=== PATIENT | male | born 1955 | race Caucasian/White ===

== ENCOUNTER → 2018-02-17 07:18 | Outpatient (CLI) | payer OTHER, SELFPAY ==
--- NOTE | 2018-02-17 07:20 | CT_ITS ---
STUDY: CT CHEST WITHOUT CONTRAST REASON FOR EXAM: Male, 62 years old. Abnormal pulmonary function test, shortness of breath RADIATION DOSAGE (If Supplied By Facility): CTDIvol = ( 20.61 ) mGy, DLP = ( 733.59 ) mGycm TECHNIQUE: Transaxial imaging was performed without the administration of intravenous contrast material. Multiplanar coronal and sagittal images were reformatted. Individualized dose optimization techniques were used for this CT. COMPARISON: None. FINDINGS: The lungs are normal. There is no demonstrated pleural abnormality. Normal heart and pericardium. Calcified pretracheal lymph node measuring 6 mm short axis. Small calcified left hilar lymph nodes. Small non-reactive mediastinal lymph nodes measuring up to 5 mm in short axis. Normal unenhanced pulmonary arteries. Normal aorta arch and descending thoracic aorta. Normal osseous structures. Liver and splenic granuloma. CT/Chest without Contrast IMPRESSION: No acute infiltrate or pleural effusion. Granulomatous changes. Electronically Signed: Amado Hess DO at 23:57 EDT , Service support ,
== END ==
PROVIDERS: Family Provider Internal Medicine; PCP Internal Medicine; Visit Provider Internal Medicine
DX: R94.2 Abnormal results of pulmonary function studies (principal)
CPT/HCPCS: 71250

== ENCOUNTER → 2018-10-27 15:43 | Outpatient (CLI) | payer MEDICARE, SELFPAY ==
--- NOTE | 2018-10-27 15:46 | CT_ITS ---
STUDY: CT ABDOMEN WITH CONTRAST REASON FOR EXAM: Male, 63 years old. Right upper quadrant pain x3-4 months. RADIATION DOSAGE (If Supplied By Facility): CTDIvol = ( 16.56 ) mGy, DLP = ( 798.69 ) mGycm TECHNIQUE: Transaxial images were obtained post I.V. administration of 100 ml of Isovue 300 contrast, and with oral contrast. Sagittal and coronal images were reconstructed. Individualized dose optimization techniques were used for this CT. COMPARISON: CT abdomen and pelvis 04/11/2016. FINDINGS: The visualized lung bases are unremarkable. The visualized portions of the heart are within normal limits. Again seen are too numerous to count calcified granulomata throughout the normal sized liver. There are coarse calcifications in a few periportal lymph nodes. The patent portal vein diameter is 13 mm. There is non-visualization of the gallbladder, which may be secondary to either contraction or a prior cholecystectomy. The diameter of the common bile duct near the pancreatic head is 4.5 mm. Normal spleen. Normal pancreas. Normal bilateral adrenal glands. No obstructing 4 mm stone seen at the lower pole of the left kidney. There are a few small nonobstructing stones of the right kidney, the largest at the lower pole measuring 3 mm. There is focal cortical thinning at the lateral pole of the left kidney. No hydronephrosis. Normal visualized stomach. Normal small intestine. There are multiple colonic diverticula consistent with diverticulosis. The appendix is visualized and appears normal. There is diffuse atherosclerotic calcification of the abdominal aorta and proximal iliac arteries, without a demonstrated aneurysm. Normal inferior vena cava. Normal retroperitoneum. Normal abdominal wall. There are diffuse degenerative changes of the visualized spine, with disc height narrowing and anterolateral osteophyte formation most prominent at L1-2. There is also 14 degree levoscoliosis and slight retrolisthesis centered at L1-2. There are early degenerative arthroses of the bilateral sacroiliac joints. CT/Abdomen WITH IV Contrast IMPRESSION: 1. Too numerous to count hepatic and splenic ossified granulomata again noted. A few calcified periportal lymph nodes are also present. 2. The gallbladder is not visualized, and presumably surgically absent. No intra or extra hepatic bile duct dilatation. 3. Nonobstructing bilateral nephrolithiasis. No hydronephrosis. There is stable focal cortical thinning at the lateral midpole of the left kidney. 4. Distal left and sigmoid colon diverticulosis without acute diverticulitis. No sign of bowel injection. The appendix is normal. 5. Diffuse aortoiliac atherosclerotic calcific plaquing. There is no demonstrated aneurysm, but the findings portend significant risk for future cardiovascular event, Abdominal Aortic Calcific Deposits Are an Important Predictor of Vascular Morbidity and Mortality; Reuben Tiwari, et al. Circulation, Jan 2001;[id number]. 6. 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 Electronically Signed: Silvano White MD at 14:02 EST , Service support ,
--- OUTSIDE RECORDS SUMMARY | 2018-12-13 21:09 | XMS RPT_ITS | Continuity of Care Document ---
:1955 Author Organization [facility] Address [address] [place] [address] Phone Care Team Providers Name Role Phone Chani BATEMAN, Val Robert Unavailable Kenny Watson Unavailable Jesús Silva Unavailable Julianna BATEMAN, Bryce Ortiz Unavailable Zenaida Palafox Unavailable Unavailable Unavailable Unavailable Problems Name Dates Details Abdominal pain (R10.9, 789.00) Comments: still pain in upper abdomen and in center back. worse after eat. after fasting or in am gone. had last few years. ? chiropactor help that ? spine compress cause issue. more of bloat feeling. feel needs to crack back. CT scan abd pelvis 7-16. cath 3-17 neg put on Norvasc ? help some and affect on esophagus.off PPI's not change, he is taking lisa, patient says he has had this pain Status: Active Abdominal pain, acute, right upper quadrant (Renamed from Acute abdominal pain in right upper quadrant) (R10.11, 789.01) Comments: when press in on liver poinpoint area very tender. on and off for years. getting worse. not sure worse since then. will be nauseated when have it and not always get when eat Status: Active Abnormal lung function test (R94.2, 794.2) Comments: moderate restriction ? related to large abd girth ? related to issue in upper right chest restricting. after loose weight then recheck spirometry and do CT scan. Status: Active LORETTA positive (R76.8, 795.79) Comments: 2009 labs work up negative. Status: Active Benign essential hypertension (I10, 401.1) Comments: stable Status: Active BMI 33.0-33.9,adult (Z68.33, V85.33) Status: Active Carotid atherosclerosis, bilateral (I65.23, 433.10) Comments: 8- bv screening mild, -18 mild-modcath normal 01-30 Status: Active Cervical spine pain (M54.2, 723.1) Comments: on and off in are of C7 have this pain radiate to front of neck and think related to sw[place]. area where get rash ? scratch subconiously or shingle or neuropathic. off aleve. tyenol and add neurotin in past ? help to dane espinoza and help and feel better after do exercises. had heart cath not heart. medrol dose rachid and mobic help. now back some diong exercise 3 days a week. ? stress talk about cymbalta change mobic to celebrex. Status: Active Costochondral pain (R07.1, 786.52) Comments: saw Dr. 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 with PT treatemtn neck pain lower rib cage and swallowing issues. he will continue home exercises. talk about cylmbalta Status: Active Diabetes (E11.9, 250.00) Comments: bydureon in past not like shot right now hgac 5.5 off meds. stillneeds to lose weight Status: Active Diverticulosis (K57.90, 562.10) Status: Active Encounter for routine history and physical exam for male (Z00.00, V70.0) Comments: 3-18 [facility] physical: colonoscopy 2011 due in 10, PSA 7-17, 6CIT /, BMI=35.3 A1C=5.5%, immunizations are up to date, PHQ-9=4 (Minimal) Status: Active Erectile dysfunction (N52.9, 607.84) Status: Active Fatty liver (K76.0, 571.8) Comments: told can go on to cirrhosis with fatty liver must loose weight test up needs liver elastography has set up 08-02-18. taslk alot about what mean how done what net step would be if positive. ? metformin will recheck hga1c Status: Active GERD (gastroesophageal reflux disease) (K21.9, 530.81) Comments: right now trying cholestyramine and help bowels esophageal mamometry show jackhammer hyertensive peristalis. Status: Active Granulomatosis (L92.9, 686.1) Comments: quantiferron gold negative ANCA's negative (no sinus issues) LORETTA and antichromatin postiive but kidneys are good and dsdna good. AMA negative for PBC with elevated liver. hep C negative. cbc good no sig ns and symptoms of lymphoma, ANTON level negative but still could be sacroid. not work with animal so not think Qfever or brucillosis. no risk for HIV. not on the drugs that can cause. Status: Active History of nephrolithiasis (Z87.442, V13.01) Comments: oxalate in urine give diet Status: Active Hyperlipidemia, unspecified (E78.5, 272.4) Comments: reviewed with patient recent tests ldl higher than want and comp really bad so will do low dose Lipitor. trig up garcia top sweet tea. Status: Active Irritable bowel syndrome (K58.9, 564.1) Comments: stable Status: Active Low testosterone level in male (R79.89, 257.2) Comments: talk about diet and Ethan Shen. talk about side effects and risk with thisl. takabout getting rid of visceral fat. labs stable at this point not want any testosterone. he wants to do natural l oose weight eat foods that are good for testosterone. energy starting come back on own. 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 joint pain better only in hands and use cream. esophagus issue better. Status: Active Memory change (R41.3, 780.93) Comments: 6CIT=22/28 too much on mind. father had alzheimers. not notice with work or life cognitive issue like dad. Status: Active Obesity, unspecified (E66.9, 278.00) Comments: was doing good then snacking alot and gain back.gain after quit smokign anddrinking 1991 was 135 then gain after Status: Active Other dysphagia (R13.19, 787.29) Comments: better [facility] working on neck issue Status: Active Psoriasis (L40.9, 696.1) Comments: think at anus and back of leg, and behind right knee. no real joint pain the cream is heping so not biopsy Status: Active Rash (R21, 782.1) 01-Jan-2010 Comments: pt gets rash on and off for years in upper back. not been bipsied ? related to granulomatosis disease or positive LORETTA. next time occurs pt willcal and get in right away for punch biopsy Status: Active Regurgitation (787.03) Comments: better with reglan will use prn. off PPI not change. tried gluten and lactose free for 2motnhs not change. lost weight and small meals and chew well still signs and symptoms some better. good in am the n after start eating bloating and gas. diarrhea better with cholestyramine. no sugar alcohols.saw Dr. briones at [facility] main. felt functional done for 20 years and belch and regurg. told small meals not t o belch and force up food and see if better.EGD and colonscopy good. [place] and manometry good. gastric emptying normal, CT with outpouching. 09/30 esophgram small HH. celiacs panel, antisclero, antijo , ceruloplasmin, EOS count, IgE, ferrithn, antism muscle, anti liver-kidney, anti ccp , RF, hepatitis panel and stool cx all neg. LORETTA postive but lupus panel negative. Status: Active Sleep apnea in adult (G47.30, 327.23) Comments: witnessed by . snore stop breathing and has to turn over. STOPBANG 5 did not do sleep study recommended. Status: Active Thoracic spine pain (M54.6, 724.1) Comments: mid with eating. see chiripactor. xray done medrol dose rachid help. Status: Active Tobacco abuse, in remission (Renamed from Tobacco dependence in remission) (F17.201, V15.82) Status: Active Vitamin D insufficiency (E55.9, 268.9) Comments: slight Status: Active Medications Name Dates Details AmLODIPine Besylate 2.5 MG Oral Tablet Active 1 qd (2.5 MG) Aspirin 81 MG Oral Tablet Delayed Release Active 1 qd (81 MG) CeleBREX 200 MG Oral Capsule 1 (one) Capsule Capsule qd for 0 days Quantity: 30 {Capsule} Refills: 3 Ordered:18-Mar-2018 Val Wilde MD, MD, Dana M Start : 10-Feb-2018 Active Comments:called into [facility] 02/10 Cholestyramine 4 GM Oral Packet 1 (one) packet qd for 0 days Quantity: 90 {Packet} Refills: 3 Ordered:21-Oct-2018 Val Wilde MD, MD, Dana M Start : 21-Oct-2018 Active Lipitor 10 MG Oral Tablet 1 (one) Tablet at night for 0 days Quantity: 90 {Tablet} Refills: 3 Ordered:21-Oct-2018 Val Wilde MD, MD, Dana M Start : 21-Oct-2018 Active Omeprazole 40 MG Oral Capsule Delayed Release 1 (one) Capsule DR qd for 0 days Quantity: 90 {Capsule} Refills: 3 Ordered:21-Oct-2018 Val Wilde MD, MD, Dana M Start : 21-Oct-2018 Active Toprol XL 50 MG Oral Tablet Extended Release 24 Hour 1 Tablet ER 24HR QD for 0 days Quantity: 90 {Tablet} Refills: 3 Ordered:21-Oct-2018 Val Wilde MD, MD, Dana M Start : 21-Oct-2018 Active Triamcinolone Acetonide 0.1 % External Cream uad Cream apply to affected area daily as needed for 0 days Quantity: 80 {Gram} Refills: 4 Ordered:09-Aug-2018 Val Wilde MD, MD, Dana M Start : 09-Aug-2018 End : 22-Jun-2017 Active Comments:Medication taken as needed. Valtrex 1 GM Oral Tablet 2 (two) Tablet Tablet bid for 2 days prn start of rash for 0 days Quantity: 8 {Tablet} Refills: 3 Ordered:18-Mar-2018 JOSÉ LUIS Spence Start : 18-Mar-2018 Active Viagra 100 MG Oral Tablet uad Tablet Tablet 1/2 to 1 prn one hour before intercourse for 0 days Quantity: 8 {Tablet} Refills: 4 Ordered:04-Feb-2017 Val Wilde MD, MD, Dana M Start : 04-Feb-2017 Active Vitamin D3 Super Strength 2000 UNIT Oral Capsule 1 (one) Capsule Capsule in am for 0 days Quantity: 30 {Capsule} Refills: 0 Ordered:26-Dec-2016 JOSÉ LUIS Spence Start : 19-Dec-2016 Active Zestoretic 20-12.5 MG Oral Tablet 1 Tablet QD for 0 days Quantity: 90 {Tablet} Refills: 3 Ordered:21-Oct-2018 Val Wilde MD, MD, Dana M Start : 21-Oct-2018 Active AndroGel Pump 20.25 MG/ACT (1.62%) Transdermal Gel 1 (one) Gel 2 PUMPS DAILY for 30 days Quantity: 1 {Bottle} Refills: 0 Ordered:03-Feb-2017 JOSÉ LUIS Spence Start : 02-Feb-2017 End : 03-Feb-2017 Inactive Comments:one bottle ASMANEX 30 METERED DOSES, 220MCG/INH (Inhalation Aerosol Powder Breath Activated) 1 Aero Pow Br Act once daily for 0 days Quantity: 1 {Aero_Pow_Br_Act} Refills: 0 Ordered:29-Apr-2011 JOSÉ LUIS Spence Start : 06-Sep-2010 End : 29-Apr-2011 Inactive BYDUREON, 2MG (Subcutaneous Suspension Reconstituted) 1 (one) For Suspension once weekly for 0 days Quantity: 1 {Each} Refills: 6 Ordered:15-Jan-2016 JOSÉ LUIS Spence Start : 01-May-2015 End : 15-Jan-2016 Inactive Comments:with needles Cefdinir 300 MG Oral Capsule 1 (one) Capsule bid for 0 days Quantity: 20 {Capsule} Refills: 0 Ordered:16-Sep-2016 Val Wilde MD, MD, Dana M Start : 16-Sep-2016 End : 16-Sep-2016 Inactive Comments:severe abd. cramping diarrhea CIPRO, 500MG (Oral Tablet) 1 Tablet bid for 10 days Quantity: 20 {Tablet} Refills: 0 Ordered:18-Dec-2011 Ramona Soria LPN Start : 18-Nov-2011 End : 28-Nov-2011 Inactive Comments:called to pharm in message 1.3.12 Dexilant 60 MG Oral Capsule Delayed Release [address] every other day for 0 days Quantity: 30 {Capsule} Refills: 6 Ordered:30-May-2016 JOSÉ LUIS Spence Start : 01-May-2015 End : 30-May-2016 Inactive ELAVIL, 25MG (Oral Tablet) Tablet QHS / HS for 0 days Quantity: 30 {Tablet} Refills: 3 Ordered:16-Feb-2008 Yudy Hernández LPN Start : 16-Feb-2008 End : 20-Jun-2008 Inactive Flagyl 500 MG Oral Tablet 1 (one) Tablet tid for 0 days Quantity: 30 {Tablet} Refills: 0 Ordered:19-Dec-2016 JOSÉ LUIS Spence Start : 16-Sep-2016 End : 19-Dec-2016 Inactive FLEXERIL, 10MG (Oral Tablet) Tablet TID/PRN for 0 days Quantity: 20 {Tablet} Refills: 1 Ordered:08-Jun-2008 JOSÉ LUIS Spence Start : 08-Jun-2008 End : 01-Aug-2008 Inactive KEFLEX, 500MG (Oral Capsule) 1 Capsule tid for 0 days Quantity: 30 {Capsule} Refills: 0 Ordered:18-Dec-2011 JOSÉ LUIS Spence Start : 29-Apr-2011 End : 18-Dec-2011 Inactive KENALOG, 0.1% (External Cream) 1 Cream bid for 0 days Quantity: 30 {Gram(s)} Refills: 0 Ordered:14-Feb-2010 JOSÉ LUIS Spence Start : 22-Jan-2010 Inactive Comments:apply sparingly to face , lower extrem and affecterd areas bid for 7 days LEVSIN/SL, 0.125MG (Sublingual Tablet Sublingual) 1 (one) Tab Sublingual QID/PRN for 0 days Quantity: 60 {Tab_Sublingual} Refills: 1 Ordered:15-Jan-2016 JOSÉ LUIS Spence Start : 06-Sep-2010 End : 15-Jan-2016 Inactive LOPRESSOR, 50MG (Oral Tablet) 1 Tablet qd for 0 days Quantity: 60 {Tablet} Refills: 4 Ordered:02-Jan-2009 JOSÉ LUIS Spence Start : 05-Jul-2009 Inactive Lyrica 75 MG Oral Capsule 1 (one) Capsule bid for 0 days Quantity: 60 {Capsule} Refills: 0 Ordered:19-Aug-2016 Chani BATEMAN, Val Waite MD, Val Robert Start : 19-Aug-2016 End : 19-Aug-2016 Inactive Comments:sixty Medrol 4 MG Oral Tablet Therapy Pack 1 (one) Milligram Milligram uad for 0 days Quantity: 1 {Package} Refills: 0 Ordered:02-Feb-2018 JOSÉ LUIS Spence Start : 06-Nov-2017 End : 02-Feb-2018 Inactive Metoclopramide HCl 10 MG Oral Tablet 1 Tablet every meal with each meal and before bed for 0 days Quantity: 120 {Tablet} Refills: 1 Ordered:19-Aug-2016 JOSÉ LUIS Spence Start : 30-May-2016 End : 19-Aug-2016 Inactive PHENERGAN, 25MG (Oral Tablet) Tablet QID/PRN for 0 days Quantity: 20 {Tablet} Refills: 0 Ordered:20-Jun-2008 JOSÉ LUIS Spence Start : 20-Jun-2008 End : 01-Aug-2008 Inactive PREVACID, 30MG (Oral Capsule Delayed Release) [address] qd for 0 days Quantity: 30 {Capsule_DR} Refills: 6 Ordered:18-Dec-2011 JOSÉ LUIS Spence Start : 18-Dec-2011 End : 18-Dec-2011 Inactive Comments:not help PROTONIX, 40MG (Oral Tablet Delayed Release) 1 (one) Tablet DR qd for 0 days Quantity: 30 {Tablet} Refills: 3 Ordered:08-Dec-2013 Sandra Warren Start : 02-Dec-2013 End : 08-Dec-2013 Inactive TOPICORT LP, 0.05% (External Cream) Cream bid for 0 days Quantity: 1 {Cream} Refills: 0 Ordered:14-Feb-2010 JOSÉ LUIS Spence Start : 01-Jan-2010 Inactive VOLTAREN, 1% (Transdermal Gel) 1 Gel UAD for 0 days Quantity: 1 {Gel} Refills: 0 Ordered:29-Apr-2011 JOSÉ LUIS Spence Start : 16-Dec-2010 End : 29-Apr-2011 Inactive XYZAL, 5MG (Oral Tablet) 1 Tablet daily for 0 days Quantity: 30 {Tablet} Refills: 0 Ordered:29-Apr-2011 JOSÉ LUIS Spence Start : 06-Sep-2010 End : 29-Apr-2011 Inactive ZITHROMAX Z-RACHID, 250MG (Oral Tablet) 1 Tablet uad for 0 days Refills: 0 Ordered:08-Jan-2009 JOSÉ LUIS Spence Start : 08-Jan-2009 End : 25-Apr-2009 Inactive ZOSTAVAX, 19432LZP/0.65ML (Subcutaneous Solution Reconstituted) 1 For Solution For Solution once SC for 0 days Quantity: 1 {For_Solution} Refills: 0 Ordered:15-Jan-2016 JOSÉ LUIS Spence Start : 28-Mar-2014 End : 15-Jan-2016 Inactive ERYTHROMYCIN ESTOLATE, 250MG/5ML (Oral Suspension) Suspension 5 cc with meals prn for 0 days Quantity: 180 {Milliliter} Refills: 0 Ordered:05-Jul-2009 Yudy Hernández LPN Start : 05-Jul-2009 End : 01-Jan-2010 Discontinued Comments:This order discontinued per [facility]. Gabapentin 300 MG Oral Capsule 1 (one) Capsule bid for 0 days Quantity: 60 {Capsule} Refills: 6 Ordered:25-May-2017 Val Wilde MD, MD, Val Robert Start : 25-May-2017 End : 06-Nov-2017 Discontinued Mobic 15 MG Oral Tablet 1 (one) Tablet in am for 0 days Quantity: 30 {Tablet} Refills: 2 Ordered:02-Feb-2018 Val Wilde MD, MD, Val Robert Start : 02-Feb-2018 End : 02-Feb-2018 Discontinued Comments:after done with silver Allergies and Adverse Reactions Name Dates Details No Known Allergies (Allergy) Onset: 25-May-2017 Status: Active No Known Drug Allergies (Allergy) Status: Active Past Medical History Name Dates Details DISEASES OF THE LIVER (573.9) Status: Inactive as of 22-Sep-2013 Abdominal pain, acute, generalized (R10.84, 789.07) Comments: better with GB out. Status: Inactive as of 04-Sep-2009 Allergic rhinitis (J30.9, 477.9) Comments: really good. dexialnt help this Status: Inactive as of 22-Sep-2013 Anxiety (F41.9, 300.00) Status: Inactive as of 22-Sep-2013 BMI 30.0-30.9,adult (Z68.30, V85.30) Status: Inactive as of 22-Jun-2017 BMI 32.0-32.9,adult (Z68.32, V85.32) Status: Resolved as of 26-Jul-2018 BMI 35.0-35.9,adult (Z68.35, V85.35) Status: Inactive as of 18-Mar-2018 Bronchitis (J40, 490) Status: Resolved as of 25-Apr-2009 CAFFEINE, NOS Status: Inactive as of 14-Feb-2010 Cerumen impaction (H61.20, 380.4) Status: Inactive as of 22-Sep-2013 Chest pain (R07.9, 786.59) Comments: had 20+ years in costochondrial tenderness with back hive patch. work up [facility] and biopsy 10 yearshad stress test in past will show again. not think cardiac that needs cath. Status: Inactive as of 03-Feb-2017 Current nonsmoker (Renamed from Current non-smoker) (Z78.9, V49.89) Status: Inactive as of 22-Jun-2017 Dermatitis (L30.9, 692.9) Status: Inactive as of 22-Sep-2013 Diarrhea (R19.7, 787.91) Comments: marcus walden cholestyramine Status: Inactive as of 02-Feb-2018 Dysphagia, unspecified dysphagia (787.20) Status: Inactive as of 22-Sep-2013 Edema of hand (R60.0, 782.3) Comments: right hand Status: Inactive as of 28-Mar-2014 Elevated LFTs (R94.5, 790.6) Status: Inactive as of 15-Jan-2016 Encounter for hepatitis C screening test for low risk patient (Z11.59, V73.89) Status: Inactive as of 02-Feb-2017 Encounter for hepatitis C virus screening test for high risk patient (Z11.59, V73.89) Status: Resolved as of 03-Jun-2018 Fatigue (R53.83, 780.79) Status: Inactive as of 22-Sep-2013 Flu-like symptoms (R68.89, 780.99) Status: Inactive as of 02-Feb-2018 Impaired Fasting Glucose (Renamed from Elevated fasting blood sugar) (R73.01, 790.21) Comments: talk about sugar and will cut out. Status: Inactive as of 03-Feb-2017 LBP Status: Resolved as of 25-Apr-2009 Low back pain without sciatica, unspecified back pain laterality (724.2) Status: Inactive as of 22-Sep-2013 Metabolic syndrome (E88.81, 277.7) Status: Inactive as of 02-Feb-2018 Need for prophylactic vaccination and inoculation against influenza (Z23, V04.81) Status: Inactive as of 22-Sep-2013 Need for prophylactic vaccination and inoculation against influenza (Renamed from Need for immunization against influenza) (Z23, V04.81) Status: Resolved as of 02-Feb-2018 Need for Tdap vaccination (Renamed from Need for atprlqwryf-enbewwx-yrvvnggrd (Tdap) vaccine, adult/adolescent) (Z23, V06.1) Status: Inactive as of 19-Dec-2016 Pain in wrist, right (719.43) Comments: 11/2 year ago wrestle with grandson and bend back gettin g btter now watn to doanything yet going on vacation and when back if golf stil off than will get xray and to orthosx. Status: Inactive as of 15-Jan-2016 Rib pain on right side (R07.81, 786.50) Comments: xry negative Status: Inactive as of 02-Feb-2018 Screening PSA (prostate specific antigen) (Z12.5, V76.44) Status: Inactive as of 03-Feb-2017 Sebaceous cyst (L72.3, 706.2) Comments: looks much better repacked it. Status: Inactive as of 03-Feb-2017 SOB (shortness of breath) on exertion (R06.02, 786.05) Status: Inactive as of 22-Sep-2013 Stiffness of joint, not elsewhere classified, involving other specified sites (M25.60, 719.58) Status: Inactive as of 28-Mar-2014 Temperature intolerance (R68.89, 780.99) Status: Inactive as of 25-May-2017 Unspecified Diagnosis Status: Inactive as of 28-Mar-2014 Unspecified Diagnosis Status: Inactive as of 22-Sep-2013 WRIST PAIN Comments: Right - 780.99 Status: Inactive as of 14-Feb-2010 Procedures Procedure Dates Details cholecystectomy 2000 Completed Hemorrhoidectomy Completed Comments: x2 Tonsillectomy Completed Date Value Details 27-Oct-2018 Abdomen WITH IV Contrast Result: Comments: See Note; NOTES: [facility] Imaging Services [address] [place] [address] Abdomen WITH IV Contrast MR#: [id number] Acct: [id number] Name: FIONA LLOYD Rep #: [id number] : 1955 Jakob 63 From: Jett White MD PCP: Val Wilde MD Status: REG CLI Study: Abdomen WITH IV Contrast Date of Exam: 10/27/18 Exam# [id number] Ordering Dr: Val Wilde MD STUDY: CT ABD OMEN WITH CONTRAST REASON FOR EXAM: Male, 63 years old. Right upper quadrant pain x3-4 months. RADIATION DOSAGE (If Supplied By Facility): CTDIvol = ( 16.56 ) mGy, DLP = ( 798.69 ) mGycm TECHNIQUE: T ransaxial images were obtained post I.V. administration of 100 ml of Isovue 300 contrast, and with oral contrast. Sagittal and coronal images were reconstructed. Individualized dose optimization techni ques were used for this CT. COMPARISON: CT abdomen and pelvis 04/11/2016. FINDINGS: The visualized lung bases are unremarkable. The visualized portions of the heart are within normal limits. Again seen are too numerous to count calcified granulomata throughout the normal sized liver. There are coarse calcifications in a few periportal lymph nodes. The patent braulio l vein diameter is 13 mm. There is non-visualization of the gallbladder, which may be secondary to either contraction or a prior cholecystectomy. The diameter of the common bile duct near the pancreatic head is 4.5 mm. Normal spleen. Normal pancreas. Normal bilateral adrenal glands. No obstructing 4 mm stone seen at the lower pole of the left kidney. There are a few small nonobstructing stones of th e right kidney, the largest at the lower pole measuring 3 mm. There is focal cortical thinning at the lateral pole of the left kidney. No hydronephrosis. Normal visualized stomach. Normal small intesti ne. There are multiple colonic diverticula consistent with diverticulosis. The appendix is visualized and appears normal. There is diffuse atherosclerotic calcification of the abdominal aorta and proxi mal iliac arteries, without a demonstrated aneurysm. Normal inferior vena cava. Normal retroperitoneum. Normal abdominal wall. There are diffuse degenerative changes of the visualized spine, with disc height narrowing and anterolateral osteophyte formation most prominent at L1-2. There is also 14 degree levoscoliosis and slight retrolisthesis centered at L1- 2. There are early degenerative arthroses o f the bilateral sacroiliac joints. CT/Abdomen WITH IV Contrast IMPRESSION: 1. Too numerous to count hepatic and splenic ossified granulomata agai n noted. A few calcified periportal lymph nodes are also present. 2. The gallbladder is not visualized, and presumably surgically absent. No intra or extra hepatic bile duct dilatation. 3. Nonobstructin g bilateral nephrolithiasis. No hydronephrosis. There is stable focal cortical thinning at the lateral midpole of the left kidney. 4. Distal left and sigmoid colon diverticulosis without acute diverticu litis. No sign of bowel injection. The appendix is normal. 5. Diffuse aortoiliac atherosclerotic calcific plaquing. There is no demonstrated aneurysm, but the findings portend significant risk for futur e cardiovascular event, Abdominal Aortic Calcific Deposits Are an Important Predictor of Vascular Morbidity and Mortality; Reuben Tiwari, et al. Circulation, Jan 2001;103:1529-153 4. 6. 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 Electronically Signed: Silvano White MD at 14:02 EST , Service support , Fax CC: Val Wilde MD Document Design Specialist: Signed 25-May-2017 Cerv Spine 4 or 5 Views Result: Comments: See Note; NOTES: [facility] Imaging Services [address] [place] [address] Verdaemily 4d Cerv Spine 4 or 5 Views MR#: [id number] Acct: [id number] Name: FIONA LLOYD Mary hedrick #: [id number] : 1955 M 61 From: Duane Fernandes DO PCP: Val Wilde MD Status: REG CLI Study: Cerv Spine 4 or 5 Views Date of Exam: 05/25/17 Exam# [id number] Ordering Dr: Val Widle MD STUDY : X-RAY - CERVICAL SPINE REASON FOR EXAM: Male, 61 years old. Chronic pain. TECHNIQUE: 5 view(s) of the cervical spine were obtained. COMPARISON: None FINDINGS: N ormal anterior atlantoaxial articulation. Normal odontoid process. There is straightening of the normal cervical lordosis. There is multi-level endplate spondylosis. This is most marked at C5-6 and C6- 7. There is bilateral neural foraminal narrowing at C6-7. There is no evidence of acute fracture or loss of vertebral axial height. There is maintenance of normal alignment. The soft tissue structures are unremarkable. RAD/Cerv Spine 4 or 5 Views IMPRESSION: Arthrosis of the cervical spine was straightened lordosis. Electronically Signed: Jerson Fernandes DO at 11:41 EDT Tel [phone], Service support , CC: Val Wilde MD Document Design Specialist: Signed 25-May-2017 Thoracic Spine 3 Views Result: Comments: See Note; NOTES: [facility] Imaging Services [address] [place] [id number] [place] 4d Thoracic Spine 3 Views MR#: [id number] Acct: [id number] Name: FIONA LLOYD Rep #: [id number] : 1955 M 61 From: Duane Fernandes DO PCP: Val Wilde MD Status: REG CLI Study: Thoracic Spine 3 Views Date of Exam: 05/25/17 Exam# [id number] Ordering Dr: Val Wilde MD STUDY: X-RAY - THORACIC SPINE REASON FOR EXAM: Male, 61 years old. Chronic pain. TECHNIQUE: 3 view(s) of the thoracic spine were obtained. COMPARISON: None. FINDINGS: No rmal kyphosis of the thoracic spine. There is no substantial scoliosis. There is multilevel endplate spondylosis of the thoracic vertebrae. There is multilevel disc space narrowing of the thoracic spine . There is no evidence of acute fracture or loss of vertebral axial height. The soft tissue structures are unremarkable. RAD/Thoracic Spine 3 Vi ews IMPRESSION: Degenerative changes of the thoracic spine without acute fracture or dislocation. Electronically Signed: Duane Fernandes DO at 11:42 EDT Tel [phone], Service support [phone], CC: Val Wilde MD Document Design Specialist: Signed 28-Jan-2017 Cardiac Catheterization Report Result: Comments: See Note; NOTES: [facility] Medical Records Department [address] [place] [id number] Cardiac Catheterization Report MR#: [id number] Acct: [id number] Name: MELITON LLOYD Rep #: [id number] : 1955 61 From: Yovany Edwards MD PCP: Val Wilde MD Status: REG CLI Date of Procedure: 01/28/17 Procedure, left heart catheterization, left ventriculogram, coronary a rteriography Indications: Chest pain; abnormal exercise tolerance test Consent: Per patient Premedications: Versed 1 mg IV push 1 Procedure: The patient was brought to the cardiac catheterization l aboratory and laid supine on the cardiac catheterization table. The right inguinal area was prepped and draped in standard sterile fashion. 2% Xylocaine was used for local anesthesia. Using the modified Seldinger technique the right femoral artery was cannulated and a #4 Micronesian arterial sheath was placed. A #4 Micronesian JL 5 Tong left coronary artery catheter was then advanced under fluoroscopic sarah nce to the level of the central aorta or central pressure was measured recorded. This catheter was then used to engage the left coronary ostium where selective left coronary arteriography was performed in multiple views. This catheter was then exchanged over a J-tip guidewire for a #4 Micronesian 3 DRC Kg right catheter. This catheter was then advanced to the level of the central aorta were central a ortic pressure was noted. It was then used to engage the right coronary ostium where selective right coronary arteriography was performed in multiple views. This catheter was then exchanged over a J-tip guidewire for a #4 Micronesian pigtail catheter. This catheter was then advanced to the level of the central aorta with the assistance of the J-tipped guidewire prolapsed across the aortic valve into the le ft ventricle. Left ventricular pressure was measured recorded. A single plane BRODERICK left ventriculogram was performed using 30 cc of Isovue at 10 cc/s. Left ventricular pressure was measured recorded. The left heart pullback procedure was performed. All catheters and sheaths were eventually removed. Direct pressure was held to adequate hemostasis was achieved. There was no apparent bleeding, hematoma, o r complication otherwise prior to leaving the cardiac catheterization laboratory. Findings: Hemodynamics: Pre-angiographic dye load: Central aortic pressure: 140/69 mmHg Mean central aortic pressure: 98 mmHg Left ventricular pressure: 147/18 mmHg Post angiographic dye load: Central aortic pressure: 164/73 mmHg Mean central aortic pressure: 113 mmHg Left ventricular pressure: 158/24 mmHg Left vent ricle: Normal left ventricular size, wall motion, and systolic function. The estimated LVEF is 60%. Of note there are findings suggestive of concentric left ventricular hypertrophy. Left main coronary artery: This is a large vessel giving rise to the left anterior descending, left circumflex, and intermediate ramus coronary arteries. It appears to be angiographically normal. Left anterior descendi ng coronary artery: This is a large vessel which courses around the LV apex and gives rise to a small septal clay grinder system and a small diagonal branching system. The LAD system appears to be angiog raphically normal. Left circumflex coronary artery: This is a small vessel giving rise to a small obtuse marginal branch and terminating as a small vessel in the AV groove. It appears to be angiograph ically normal. Intermediate ramus coronary artery: This is a large multi-branching vessel coursing to the inferior-lateral apical areas. It appears to be angiographically normal. Right coronary arter y: This is a large dominant vessel giving rise to a small right PDA, small right AV segment, and small right posterior lateral system. It appears to be angiographically normal. Aortic valve annulus: N ormal Aortic valve: Normal Aortic root: Normal Mitral valve annulus: Normal Mitral valve: Normal Discussion: The cardiac catheterization reveals elevation of the left ventricular end-diastolic pressur e compatible decreased diastolic compliance. The left ventriculogram demonstrates overall preserved left ventricular size, wall motion, and systolic function. Coronary arteriography demonstrates angiogr aphically normal-appearing coronary arteries. At the present time the patient will continue cardiovascular risk factor evaluation and medical management. It would not be unreasonable to consider a foll ow-up transthoracic echocardiogram to evaluate his left ventricle with respect to wall thickness based upon his history of hypertension and his fluoroscopic findings. He should be considered for furthe r non-CAD evaluation of his chest discomfort. His abnormal ECG exercise tolerance test may be a false positive secondary to his hypertensive response to exercise. Final impression: 1. Elevated left ve ntricular end-diastolic pressure compatible decreased diastolic compliance 2. Left ventricle: A. Normal left ventricular size, wall motion, and systolic function B. Estimated LVEF is 60% 3. Fluoroscopi c findings suggestive of concentric left ventricular hypertrophy 3. Left main coronary artery: A. Angiographically normal 4. Left anterior descending coronary artery: A. Angiographically normal 5. Le ft circumflex coronary artery: A. Angiographically normal 6. Intermediate ramus coronary artery: A. Angiographically normal 7. Right coronary artery: A. Large dominant vessel B. Angiographically kristian l Comment: The above was discussed and reviewed with the patient and his spouse. This note was generated with Beat[employer]ation software. It may contain incorrect words, spelling, and punctuation that were not noted in checking the note before signing. 01/28/17 1244 <Electronically signed by Yovany Edwards MD> Date Yovany Edwards MD Cosigner Signature (If Indicated): Date CC: Val Wilde MD; Yovany Edwards MD Date Dictated: 01/28/17 1234 Signed 19-Jan-2017 Chest PA and Lateral Result: Comments: See Note; NOTES: [facility] Imaging Services [address] [place] [address] Verdana 4d Chest PA and Lateral MR#: [id number] Acct: [id number] Name: FIONA LLOYD Rep # : [id number] : 1955 M 61 From: Kentrell Sandoval MD PCP: Val Wilde MD Status: REG CLI Study: Chest PA and Lateral Date of Exam: 01/19/17 Exam# [id number] Ordering Dr: Yovany Edwards MD STUDY: X-RAY CHEST REASON FOR EXAM: Male, 61 years old. Preoperative exam for heart catheter. TECHNIQUE: PA and lateral views of the chest. COMPARISON: Prior comparison studies are not available for review at this time. FINDINGS: The lungs are clear and expanded. There is no demonstrated pleural abnormality. Normal size heart. There is a probably calcified left hilar node. Normal visualized pulmonary arteries. Normal visualized aortic arch and descending thoracic aorta. There is mild dextroscoliosis of the thoracic spine. Normal visualized ribs, clavicles, and genia ulders. There is no demonstrated abnormality of the visualized soft tissue structures of the upper abdomen. RAD/Chest PA and Lateral IMPRESSION: No active pulmonary disease. Electronically Signed: Kentrell Sandoval MD at 1:49 EST Tel , Service support [phone], CC: Val Wilde MD; Yovany Edwards MD Document Design Specialist: Signed 16-Jan-2017 Nuclear Stress Test - Treadmil Result: Comments: See Note; NOTES: [facility] Imaging Services [address] [place] [address] Verdana 4d Nuclear Stress Test - Treadmil MR#: [id number] Acct: [id number] Name: OLI LLOYD Rep #: [id number] : 1955 61 From: Yovany Edwards MD Primary Care: Val Wilde MD Status: REG CLI Ordering Dr: Val Wilde MD Sex: M C DATE OF SERVICE: 01/16/2017 EXERCISE TOLERANCE TEST: The patient exercised on a Bryan protocol for 8 minutes completing stage 2 and 2 minutes of stage 3, achieving a peak heart rate of 148 beats per minute (94% predicted maximum heart rate) and a pe ak blood pressure of 190/62 mmHg. The peak MET capacity was approximately 9 METs. The baseline ECG demonstrated sinus bradycardia. The peak exercise ECG was considered abnormal secondary to [address]-segment depression in leads II, III, aVF and approximately 0.[address]-segment depression in leads V4 through V6 with resolution towards baseline beginning less than 1 minute in r ecovery. There were no cardiac dysrhythmias pretest, during exercise or recovery. The functional capacity was considered good. The patient noted heartburn and indigestion&a mp;#34; at peak exercise with spontaneous improvement in recovery. The examination was discontinued secondary to chest discomfort and dyspnea. IMPRESSION: 1. Technically adequate (percent predicted ma ximum heart rate greater than 85%), exercise tolerance test. 2. Abnormal ECG exercise tolerance test: [address]-segment depression in leads II, III, aVF and approximately 0.[address] l [address]-segment depression in leads V4 through V6 with resolution towards baseline beginning less than 1 minute in recovery. 3. Nuclear images pending. MYOCARDIAL PERFUSION IMAGING STUDY: TECHNIQUE: The patient was injected with 14.1 mCi of Tc99m Cardiolite and subsequently rest SPECT Cardiolite nuclear imaging was obtained in the horizontal long, vertical long and short axes views. The patient exercis ed on a Bryan protocol for 8 minutes completing stage 2 and 2 minutes of stage 3, achieving a peak heart rate of 148 beats per minute (94% predicted maximum heart rate) and a peak blood pressure 190/62 mmHg and a peak MET capacity of approximately 9 METs. The patient was injected with 44.4 mCi of Tc99m Cardiolite and subsequently stress SPECT Cardiolite nuclear imaging was obtained in the horizontal l sunita, vertical long and short axes views. A gated Cardiolite study at peak stress was obtained. INTERPRETATION: Rest and stress SPECT Cardiolite nuclear imaging status post realignment, normalization an d attenuation correction appears to demonstrate relative uniform tracer uptake. There is end systolic thickening and brightening. The gated Cardiolite study demonstrates myocardial thickening and inward wall motion. The reported LVEF is 77%. There are no myocardial perfusion changes considered diagnostic for associated stress-induced myocardial ischemia. IMPRESSION: 1. Rest and stress SPECT Cardiolit e nuclear imaging demonstrates the appearance of relative uniform tracer uptake with no myocardial perfusion changes considered diagnostic for associated stress-induced myocardial ischemia or previous m yocardial injury/infarction. 2. The gated Cardiolite study reports an LVEF of 77%. Yovany Edwards MD T: [facility] JOB: [id number] 01/17/17 1102 <Electronically signed by Yovany Edwards MD> Date Yovany Edwards MD CC: Val Wilde MD Date Dictated: 01/16/17942 Date Transcribed: 01/16/17942 Document Design Specialist: Signed 19-Aug-2016 Ribs Unil 2V No CXR Result: Comments: See Note; NOTES: [facility] Imaging Services [address] [place] [address] Verdana 4d Ribs Unil 2V No CXR MR#: [id number] Acct: [id number] Name: LLOYDFIONA Darian Rep # : [id number] : 1955 61 From: Alejo Bonilla MD PCP: Val Wilde MD Status: REG CLI Study: Ribs Unil 2V No CXR Date of Exam: 08/19/16 Exam# [id number] Ordering Dr: Val Wilde MD STUDY: X -RAY - UNILATERAL RIBS ( RIGHT ) REASON FOR EXAM: Male, 61 years old. Pain right mid anterior ribs x years, no trauma TECHNIQUE: 4 view(s) of the ribs. COMPARISON: None. FINDINGS: Normal visualized ribs without a demonstrated fracture. The visualized lung is clear and expanded. There are degenerative changes of the spine with dextroscoliosis. There are calcifi ed lymph nodes in the left hilum RAD/Ribs Unil 2V No CXR IMPRESSION: Normal x-ray examination of the ribs. Electronically Signed: Alejo mcclain MD, FACR at 17:58 EDT , Service support [phone], CC: aVl Wilde MD Document Design Specialist: Signed 19-Aug-2016 Thoracic Spine 3 Views Result: Comments: See Note; NOTES: [facility] Imaging Services [address] [place] [address] Verdana 4d Thoracic Spine 3 Views MR#: [id number] Acct: [id number] Name: FIONA LLOYD p #: [id number] : 1955 M 61 From: Alejo Bonilla MD PCP: Val Wilde MD Status: REG CLI Study: Thoracic Spine 3 Views Date of Exam: 08/19/16 Exam# [id number] Ordering Dr: Val Wilde MD ST UDY: X-RAY - THORACIC SPINE REASON FOR EXAM: Male, 61 years old. Upper back pain, no trauma TECHNIQUE: 3 view(s) of the thoracic spine were obtained. COMPARISON: None. ____ FINDINGS: Normal kyphosis of the thoracic spine. There is no substantial scoliosis. There is multilevel endplate spondylosis of the thoracic vertebrae. There is multilevel disc space narrowing of the thoracic spine. The soft tissue structures are unremarkable. There are calcified lymph nodes in the left hilum and mediastinum. RAD/Thoraci c Spine 3 Views IMPRESSION: Thoracic spondylosis. Old granulomatous disease Electronically Signed: Alejo Bonilla MD, FACR at 17:58 EDT , Service support [phone], F ax [phone] CC: Val Wilde MD Document Design Specialist: Signed 11-Jun-2016 Abdomen/Pelvis WITH Contrast Result: Comments: See Note; NOTES: [facility] Imaging Services [address] [place] [address] Verdana 4d Abdomen/Pelvis WITH Contrast MR#: [id number] Acct: [id number] Name : FIONA LLOYD Rep #: [id number] : 1955 M 60 From: Scarlet Castillo MD PCP: Val Wilde MD Status: REG CLI Study: Abdomen/Pelvis WITH Contrast Date of Exam: 06/11/16 Exam# [id number] Orderin g Dr: Val Wilde MD STUDY: CT ABDOMEN AND PELVIS WITH CONTRAST REASON FOR EXAM: Male, 60 years old. Right upper quadrant pain RADIATION DOSAGE (If Supplied By Facility): CTDIvol = ( 16.65 ) m Gy, DLP = ( 1104.98 ) mGycm TECHNIQUE: Transaxial 3.75 mm images were obtained from the dome of the diaphragm to the symphysis pubis with oral contrast. 100 ml of Isovue 300 contrast was administer ed. Sagittal and coronal images were reconstructed. Individualized dose optimization techniques were used for this CT. COMPARISON: None. FINDINGS: The visuali zed lung bases are unremarkable. The visualized portions of the heart are within normal limits. Normal liver. There is no intra-or extrahepatic biliary ductal dilatation or choledocholithiasis. Ther e are multiple benign calcified granulomata of the liver and spleen. Normal pancreas. There are calcified lymph nodes in the braulio and along the pancreas head. Normal bilateral adrenal glands. Nor mal right kidney. Small defect in the left upper renal pole cortex with adjacent trace fluid likely scarring. There is no obstructive uropathy, obstructive renal or ureteral calculi. There is a smal l hiatal hernia. There is either changes due to burst pelvis at time of imaging or small focal outpouching at the gastric antrum and proximal duodenal level. There is no word wall thickening or adjace nt fat stranding. There is no extra luminal air or contrast. Normal small intestine. There are few scattered predominantly sigmoid and descending colonic diverticula consistent with diverticulosis. T he appendix is visualized and appears normal. Image 62-73 series 1002. There is atherosclerosis of the abdominal aorta, greater branches and pelvic arteries without aneurysm or leak. Normal inferior vena cava. Normal retroperitoneum. Normal urinary bladder. Normal abdominal wall. There are diffuse degenerative changes of the visualized lumbar spine. Mild retrolisthesis L1 on L2. CC: Val Wilde MD Document Design Specialist: Signed 11-Jun-2016 Abdomen/Pelvis WITH Contrast Result: Comments: See Note; NOTES: [facility] Imaging Services [address] [place] [address] Verdana 4d Abdomen/Pelvis WITH Contrast MR#: [id number] Acct: [id number] Name : FIONA LLOYD Rep #: [id number] : 1955 60 From: Scarlet Castillo MD PCP: Val Wilde MD Status: REG CLI Study: Abdomen/Pelvis WITH Contrast Date of Exam: 06/11/16 Exam# [id number] Treva gro[address] Dr: Val Wilde MD STUDY: CT ABDOMEN AND PELVIS WITH CONTRAST REASON FOR EXAM: Male, 60 years old. Right upper quadrant pain RADIATION DOSAGE (If Supplied By Facility): CTDIvol = ( 16.65 ) m Gy, DLP = ( 1104.98 ) mGycm TECHNIQUE: Transaxial 3.75 mm images were obtained from the dome of the diaphragm to the symphysis pubis with oral contrast. 100 ml of Isovue 300 contrast was administer ed. Sagittal and coronal images were reconstructed. Individualized dose optimization techniques were used for this CT. COMPARISON: None. FINDINGS: The visuali zed lung bases are unremarkable. The visualized portions of the heart are within normal limits. Normal liver. There is no intra-or extrahepatic biliary ductal dilatation or choledocholithiasis. Ther e are multiple benign calcified granulomata of the liver and spleen. Normal pancreas. There are calcified lymph nodes in the braulio and along the pancreas head. Normal bilateral adrenal glands. Nor mal right kidney. Small defect in the left upper renal pole cortex with adjacent trace fluid likely scarring. There is no obstructive uropathy, obstructive renal or ureteral calculi. There is a smal l hiatal hernia. There is either changes due to burst pelvis at time of imaging or small focal outpouching at the gastric antrum and proximal duodenal level. There is no word wall thickening or adjace nt fat stranding. There is no extra luminal air or contrast. Normal small intestine. There are few scattered predominantly sigmoid and descending colonic diverticula consistent with diverticulosis. T he appendix is visualized and appears normal. Image 62-73 series 1002. There is atherosclerosis of the abdominal aorta, greater branches and pelvic arteries without aneurysm or leak. Normal inferior vena cava. Normal retroperitoneum. Normal urinary bladder. Normal abdominal wall. There are diffuse degenerative changes of the visualized lumbar spine. Mild retrolisthesis L1 on L2. CC: Val Wilde MD Document Design Specialist: Signed 11-Jun-2016 Abdomen/Pelvis WITH Contrast Result: Comments: See Note; NOTES: [facility] Imaging Services [address] [place] [address] Verdana 4d Abdomen/Pelvis WITH Contrast MR#: [id number] Acct: [id number] Name : FIONA LLOYD Rep #: [id number] : 1955 M 60 From: Scarlet Castillo MD PCP: Val Wilde MD Status: REG CLI Study: Abdomen/Pelvis WITH Contrast Date of Exam: 06/11/16 Exam# [id number] Treva gro[address] Dr: Val Wilde MD STUDY: CT ABDOMEN AND PELVIS WITH CONTRAST REASON FOR EXAM: Male, 60 years old. Right upper quadrant pain RADIATION DOSAGE (If Supplied By Facility): CTDIvol = ( 16.65 ) m Gy, DLP = ( 1104.98 ) mGycm TECHNIQUE: Transaxial 3.75 mm images were obtained from the dome of the diaphragm to the symphysis pubis with oral contrast. 100 ml of Isovue 300 contrast was administer ed. Sagittal and coronal images were reconstructed. Individualized dose optimization techniques were used for this CT. COMPARISON: None. FINDINGS: The visuali zed lung bases are unremarkable. The visualized portions of the heart are within normal limits. Normal liver. There is no intra-or extrahepatic biliary ductal dilatation or choledocholithiasis. Ther e are multiple benign calcified granulomata of the liver and spleen. Normal pancreas. There are calcified lymph nodes in the braulio and along the pancreas head. Normal bilateral adrenal glands. Nor mal right kidney. Small defect in the left upper renal pole cortex with adjacent trace fluid likely scarring. There is no obstructive uropathy, obstructive renal or ureteral calculi. There is a smal l hiatal hernia. There is either changes due to burst pelvis at time of imaging or small focal outpouching at the gastric antrum and proximal duodenal level. There is no word wall thickening or adjace nt fat stranding. There is no extra luminal air or contrast. Normal small intestine. There are few scattered predominantly sigmoid and descending colonic diverticula consistent with diverticulosis. T he appendix is visualized and appears normal. Image 62-73 series 1002. There is atherosclerosis of the abdominal aorta, greater branches and pelvic arteries without aneurysm or leak. Normal inferior vena cava. Normal retroperitoneum. Normal urinary bladder. Normal abdominal wall. There are diffuse degenerative changes of the visualized lumbar spine. Mild retrolisthesis L1 on L2. CT/Abdomen/Pelvis WITH Contrast IMPRESSION: 1. Gallbladder is not visualized. Correlation to prior surgical history recommended. 2. Possible peristals is the time of imaging versus outpouching along the chest again from and proximal duodenum. No sign of perforation or ulceration noted. This can be further assessed with upper GI or endoscopy. 3. The re is no appendicitis, colitis, diverticulitis, ascites, abscess, collection, perforation or obstruction. 4. There is old granulomatous disease. 5. Colonic diverticulosis, small hiatal hernia, left u pper renal pole scarring, atherosclerosis, degenerative changes felt to be nonacute findings. Electronically Signed: Scarlet Castillo MD at 0:03 EDT , Service support , CC: Val Wilde MD Document Design Specialist: Signed 04-Jun-2016 Gastric Emptying Study Result: Comments: See Note; NOTES: [facility] Imaging Services [address] [place] [address] Verdana 4d Gastric Emptying Study MR#: [id number] Acct: [id number] Name: FIONA PADILLA Rep #: [id number] : 1955 M 60 From: Norm Brennan DO PCP: Val Wilde MD Status: REG CLI Study: Gastric Emptying Study Date of Exam: 06/04/16 Exam# [id number] Ordering Dr: Val Wilde MD CLINICAL: 60-year-old male with reported history of abdominal pain and nausea. SEMI-SOLID PHASE Tc SULFUR COLLOID GASTRIC EMPTYING STUDY COMPARISON: None available FINDINGS: The p atient was administered 1.1 mCi of Tc sulfur colloid mixed with oatmeal and consumed per os. Image acquisitions in the anterior-posterior projections were obtained for 60 minutes. There is prompt visu alization of the stomach. There is no gastroesophageal reflux identified. The T1/2 linear fit was calculated to be 29.0 minutes, (Normal: 12-56 minutes). IMPRESSION: 1. NORMAL Tc sulfur colloid sophy i-solid phase (oatmeal) gastric emptying imaging examination. A. There is normal and preserved semi-solid phase gastric emptying compared to normal controls. (Amberly cooley al, J Nucl Med Tech 38: 186, 2010). Electronically Signed: Norm Brennan DO at 21:11 EDT Tel , Service support [phone], CC: Val Wilde MD Document Design Specialist: Signed 28-Sep-2015 Esophagus Only Result: Comments: See Note; NOTES: [facility] Imaging Services [address] [place] [address] Cricketdana 4d Esophagus Only MR#: [id number] Acct: [id number] Name: FIONA LLOYD Rep #: [id number] : 1955 M 60 From: Javon Lozoya MD PCP: Val Wilde MD Status: REG CLI Study: Esophagus Only Date of Exam: 09/28/15 Exam# [id number] Ordering Dr: Val Wilde MD STUDY: X-RAY - ESOPHAGUS (BARIUM SWALLOW) WITH FLUOROSCOPY REASON FOR EXAM: Male, 60 years old. Dysphagia. TECHNIQUE: Multiple view(s) of the esophagus were obtained following swallowing of andrés um. FLUOROSCOPY TIME (if supplied): (0:25) minutes/seconds COMPARISON: None. FINDINGS: There is no demonstrated esophageal foreign body. There is no demonstra wilmer stricture or mucosal abnormality. There is a small hiatal hernia of the fundus of the stomach. There is no evidence of gastroesophageal reflux. The patient ingested a 12 mm tablet of barium witho ut any difficulty. There is atherosclerotic calcification of the aortic arch with tortuosity of the descending aorta. Normal visualized pulmonary parenchyma. Normal visualized osseous structures of the thorax. IMPRESSION: Small sliding hiatal hernia without gastroesophageal reflux. Electronically Signed: Javon Lozoya MD at 11:18 EST T el [phone], Service support [phone], 0032 RAD/Esophagus Only IMPRESSION: Small sliding hiatal hernia without gastroesophageal reflux. Electronically Signed : Javon Lozoya MD at 11:18 EST Tel [phone], Service support [phone], CC: Val Wilde MD Document Design Specialist: Signed 25-Sep-2015 ELECTROCARDIOGRAM, COMPLETE (ECG) (53403) Result: [MEASUREMENTS ANALYSIS] Date of Test: 09/25/2015 09:11:08; Heart Rate: 65; ND Interval: 172; QRS: 112; QT Interval: 398; Corrected QT Interval (QTc): 406; P [place]: 39; QRS [place]: 74; T [place] : 43; Blood Pressure: 130/80 [ECG DIAGNOSTIC STATEMENTS] Date of Test: 09/25/2015 09:11:08; Summary: Sinus Rhythm WITHIN NORMAL LIMITS 26-Sep-2013 Hand Min 3 Views Result: Comments: See Note; NOTES: [facility] Imaging Services [address] [place] [address] Radiology Report MR#: [id number] Acct: [id number] Name: FIONA LLOYD Rep #: [id number] : 1955 M 58 From: Javon Lozoya MD PCP: Val Wilde MD Status: REG CLI Study: Hand Min 3 Views Date of Exam: 09/26/13 Exam# [id number] Ordering Dr: Val Wilde MD STUDY: X-RA Y - RIGHT HAND REASON FOR EXAM: Male, 58 years old. Swelling. TECHNIQUE: 3 view(s) of the hand. COMPARISON: None. FINDINGS: Normal visualized carpal bones a nd carpal articulations. Degenerative changes at the distal radial ulnar joint. There is degenerative arthrosis of the carpometacarpal (CMC) articulation of the thumb. Normal second through fifth ca rpometacarpal joints. Normal metacarpi. Joint space narrowing and degenerative changes at the second and third metacarpal phalangeal joints. Normal visualized phalanges and interphalangeal joints. Soft tissue swelling. IMPRESSION: Degenerative changes. Soft tissue swelling. Signed: Javon Lozoya M.D. September 26, 2013 at 10:51:49 AM EST [phone] Electronically Signed GP/GP If you are the referring physician and would like to consult with the radiologist who provided this interpretation, please contact Javon Lozoya M.D. at [phone]. If this radiologist is unavailable, you will be directed to another radiologist to assist. If you are a patient with a question regarding this report, please contact your referring physi jimmy directly. Professional Interpretation Provided By: [employer], Phone , These documents contain legally protected and confidential health information intended on ly for the use of the individual or entity named above. If you are not the intended recipient, you are hereby notified that any disclosure, copying, distribution, or other use of these documents is s trictly prohibited. If you have received this information in error, please notify the sender immediately and arrange for the return or destruction of these documents. CC: Val Wilde MD Document Design Specialist: Signed Immunization Name Dates Details Zoster (shingles) Comments: once at pharmacy around 58 yo Family History Unknown Family Member Name Dates Details Brother 1 Comments: healthy younger Status: Active Father Comments: Alzheimer's 71 yo, HTN Status: Active Maternal Grandfather Comments: 70's Status: Active Maternal Grandmother Comments: young of gas leak accident Status: Active Mother Comments: heart disease ? start , [place] at 65 yo. 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 Status: Active Smoking Status Name Dates Details Former smoker Vital Signs Date Test Result Details 21-Oct-20188:28 Temperature 96.8 f Comments: Method: Temporal Pulse 76 /min Comments: Pattern: Regular Respiration Rate 16 /min Comments: Pattern: Unlabored O2 SAT 98 % Comments: Room air BP Systolic 118 mm[Hg] Comments: Patient Position: Sitting; Cuff Location: Left Arm; Cuff Size: Standard BP Diastolic 86 mm[Hg] Comments: Patient Position: Sitting; Cuff Location: Left Arm; Cuff Size: Standard Weight 201 lb Height 65 in Body Mass Index Calculated 33.45 kg/m2 Body Surface Area Calculated 1.98 m2 :59 Temperature 97.9 f Comments: Method: Temporal Pulse 64 /min Comments: Pattern: Regular Respiration Rate 20 /min Comments: Pattern: Unlabored O2 SAT 97 % Comments: Room air BP Systolic 124 mm[Hg] Comments: Patient Position: Sitting; Cuff Location: Left Arm; Cuff Size: Standard BP Diastolic 80 mm[Hg] Comments: Patient Position: Sitting; Cuff Location: Left Arm; Cuff Size: Standard Weight 200 lb Height 65 in Body Mass Index Calculated 33.28 kg/m2 Body Surface Area Calculated 1.98 m2 :30 Temperature 97.6 f Comments: Method: Temporal Pulse 68 /min Comments: Pattern: Regular Respiration Rate 20 /min Comments: Pattern: Unlabored O2 SAT 97 % Comments: Room air BP Systolic 130 mm[Hg] Comments: Patient Position: Sitting; Cuff Location: Left Arm; Cuff Size: Large BP Diastolic 78 mm[Hg] Comments: Patient Position: Sitting; Cuff Location: Left Arm; Cuff Size: Large Weight 193 lb Height 65 in Body Mass Index Calculated 32.12 kg/m2 Body Surface Area Calculated 1.95 m2 :28 Temperature 98 f Comments: Method: Temporal Pulse 64 /min Comments: Pattern: Regular Respiration Rate 16 /min Comments: Pattern: Unlabored O2 SAT 97 % Comments: Room air BP Systolic 132 mm[Hg] Comments: Patient Position: Sitting; Cuff Location: Left Arm; Cuff Size: Standard BP Diastolic 84 mm[Hg] Comments: Patient Position: Sitting; Cuff Location: Left Arm; Cuff Size: Standard Weight 198 lb Height 65 in Body Mass Index Calculated 32.95 kg/m2 Body Surface Area Calculated 1.97 m2 :27 Temperature 97.8 f Comments: Method: Temporal Pulse 70 /min Comments: Pattern: Regular Respiration Rate 20 /min Comments: Pattern: Unlabored O2 SAT 97 % Comments: Room air BP Systolic 146 mm[Hg] Comments: Patient Position: Sitting; Cuff Location: Left Arm; Cuff Size: Standard BP Diastolic 86 mm[Hg] Comments: Patient Position: Sitting; Cuff Location: Left Arm; Cuff Size: Standard Weight 212 lb Height 65 in Body Mass Index Calculated 35.28 kg/m2 Body Surface Area Calculated 2.03 m2 [id number] Comments: has not had any meds today Temperature 98 f Comments: Method: Temporal Pulse 74 /min Comments: Pattern: Regular Respiration Rate 18 /min Comments: Pattern: Unlabored O2 SAT 95 % Comments: Room air BP Systolic 144 mm[Hg] Comments: Patient Position: Sitting; Cuff Location: Left Arm; Cuff Size: Large BP Diastolic 90 mm[Hg] Comments: Patient Position: Sitting; Cuff Location: Left Arm; Cuff Size: Large Weight 210 lb Height 66 in Body Mass Index Calculated 33.89 kg/m2 Body Surface Area Calculated 2.04 m2 :15 Comments: has not taken BP med Temperature 98.2 f Comments: Method: Tympanic Pulse 84 /min Comments: Pattern: Regular Respiration Rate 18 /min Comments: Pattern: Unlabored O2 SAT 96 % Comments: Room air BP Systolic 160 mm[Hg] Comments: Patient Position: Sitting; Cuff Location: Left Arm; Cuff Size: Standard BP Diastolic 96 mm[Hg] Comments: Patient Position: Sitting; Cuff Location: Left Arm; Cuff Size: Standard Weight 210 lb Height 66 in Body Mass Index Calculated 33.89 kg/m2 Body Surface Area Calculated 2.04 m2 :52 Temperature 97.9 f Comments: Method: Temporal Pulse 70 /min Comments: Pattern: Regular Respiration Rate 20 /min Comments: Pattern: Unlabored O2 SAT 97 % Comments: Room air BP Systolic 120 mm[Hg] Comments: Patient Position: Sitting; Cuff Location: Left Arm; Cuff Size: Large BP Diastolic 78 mm[Hg] Comments: Patient Position: Sitting; Cuff Location: Left Arm; Cuff Size: Large Weight 205 lb Height 66 in Body Mass Index Calculated 33.09 kg/m2 Body Surface Area Calculated 2.02 m2 :08 Temperature 97.3 f Comments: Method: Temporal Pulse 73 /min Comments: Pattern: Regular Respiration Rate 16 /min Comments: Pattern: Unlabored O2 SAT 98 % Comments: Room air BP Systolic 152 mm[Hg] Comments: Patient Position: Sitting; Cuff Location: Left Arm; Cuff Size: Standard BP Diastolic 72 mm[Hg] Comments: Patient Position: Sitting; Cuff Location: Left Arm; Cuff Size: Standard Weight 210 lb Height 66 in Body Mass Index Calculated 33.89 kg/m2 Body Surface Area Calculated 2.04 m2 :35 Temperature 97.9 f Comments: Method: Temporal Pulse 68 /min Comments: Pattern: Regular Respiration Rate 20 /min Comments: Pattern: Unlabored O2 SAT 97 % Comments: Room air BP Systolic 120 mm[Hg] Comments: Patient Position: Sitting; Cuff Location: Left Arm; Cuff Size: Standard BP Diastolic 80 mm[Hg] Comments: Patient Position: Sitting; Cuff Location: Left Arm; Cuff Size: Standard Weight 189 lb Height 66 in Body Mass Index Calculated 30.51 kg/m2 Body Surface Area Calculated 1.95 m2 :58 Temperature 97.6 f Comments: Method: Temporal Pulse 70 /min Comments: Pattern: Regular Respiration Rate 20 /min Comments: Pattern: Unlabored O2 SAT 98 % Comments: Room air BP Systolic 118 mm[Hg] Comments: Patient Position: Sitting; Cuff Location: Left Arm; Cuff Size: Standard BP Diastolic 78 mm[Hg] Comments: Patient Position: Sitting; Cuff Location: Left Arm; Cuff Size: Standard Weight 189 lb Height 66 in Body Mass Index Calculated 30.51 kg/m2 Body Surface Area Calculated 1.95 m2 :39 Temperature 97.6 f Comments: Method: Temporal Pulse 70 /min Comments: Pattern: Regular Respiration Rate 20 /min Comments: Pattern: Unlabored O2 SAT 97 % Comments: Room air BP Systolic 120 mm[Hg] Comments: Patient Position: Sitting; Cuff Location: Left Arm; Cuff Size: Large BP Diastolic 78 mm[Hg] Comments: Patient Position: Sitting; Cuff Location: Left Arm; Cuff Size: Large Weight 189 lb Height 66 in Body Mass Index Calculated 30.51 kg/m2 Body Surface Area Calculated 1.95 m2 :34 Temperature 97.6 f Comments: Method: Temporal Pulse 74 /min Comments: Pattern: Regular Respiration Rate 20 /min Comments: Pattern: Unlabored O2 SAT 95 % Comments: Room air BP Systolic 140 mm[Hg] Comments: Patient Position: Sitting; Cuff Location: Left Arm; Cuff Size: Large BP Diastolic 80 mm[Hg] Comments: Patient Position: Sitting; Cuff Location: Left Arm; Cuff Size: Large Weight 202 lb Height 69 in Body Mass Index Calculated 29.83 kg/m2 Body Surface Area Calculated 2.07 m2 :15 Temperature 97.6 f Comments: Method: Temporal Pulse 64 /min Comments: Pattern: Regular Respiration Rate 20 /min Comments: Pattern: Unlabored O2 SAT 97 % Comments: Room air BP Systolic 120 mm[Hg] Comments: Patient Position: Sitting; Cuff Location: Left Arm; Cuff Size: Standard BP Diastolic 78 mm[Hg] Comments: Patient Position: Sitting; Cuff Location: Left Arm; Cuff Size: Standard Weight 202 lb Height 69 in Body Mass Index Calculated 29.83 kg/m2 Body Surface Area Calculated 2.07 m2 :17 Temperature 97.2 f Comments: Method: Temporal Pulse 68 /min Comments: Pattern: Regular Respiration Rate 20 /min Comments: Pattern: Unlabored O2 SAT 97 % Comments: Room air BP Systolic 120 mm[Hg] Comments: Patient Position: Sitting; Cuff Location: Left Arm; Cuff Size: Large BP Diastolic 80 mm[Hg] Comments: Patient Position: Sitting; Cuff Location: Left Arm; Cuff Size: Large Weight 202 lb Height 69 in Body Mass Index Calculated 29.83 kg/m2 Body Surface Area Calculated 2.07 m2 :07 Temperature 97.6 f Comments: Method: Temporal Pulse 74 /min Comments: Pattern: Regular Respiration Rate 18 /min Comments: Pattern: Unlabored O2 SAT 97 % Comments: Room air BP Systolic 120 mm[Hg] Comments: Patient Position: Sitting; Cuff Location: Left Arm; Cuff Size: Standard BP Diastolic 78 mm[Hg] Comments: Patient Position: Sitting; Cuff Location: Left Arm; Cuff Size: Standard Weight 198 lb Height 69 in Body Mass Index Calculated 29.24 kg/m2 Body Surface Area Calculated 2.06 m2 :50 Temperature 97.4 f Comments: Method: Temporal Pulse 74 /min Comments: Pattern: Regular Respiration Rate 20 /min Comments: Pattern: Unlabored O2 SAT 97 % Comments: Room air BP Systolic 120 mm[Hg] Comments: Patient Position: Sitting; Cuff Location: Left Arm; Cuff Size: Large BP Diastolic 80 mm[Hg] Comments: Patient Position: Sitting; Cuff Location: Left Arm; Cuff Size: Large Weight 209 lb Height 69 in Body Mass Index Calculated 30.86 kg/m2 Body Surface Area Calculated 2.1 m2 :11 Temperature 98 f Comments: Method: Oral Pulse 68 /min Comments: Pattern: Regular Respiration Rate 16 /min Comments: Pattern: Unlabored O2 SAT 98 % Comments: Room air BP Systolic 130 mm[Hg] Comments: Patient Position: Sitting; Cuff Location: Left Arm; Cuff Size: Standard BP Diastolic 80 mm[Hg] Comments: Patient Position: Sitting; Cuff Location: Left Arm; Cuff Size: Standard Weight 195 lb Height 69 in Body Mass Index Calculated 28.8 kg/m2 Body Surface Area Calculated 2.04 m2 :43 Temperature 97.9 f Comments: Method: Temporal Pulse 76 /min Comments: Pattern: Regular Respiration Rate 17 /min Comments: Pattern: Unlabored O2 SAT 97 % Comments: Room air BP Systolic 134 mm[Hg] Comments: Patient Position: Sitting; Cuff Location: Left Arm; Cuff Size: Standard BP Diastolic 78 mm[Hg] Comments: Patient Position: Sitting; Cuff Location: Left Arm; Cuff Size: Standard Weight 205 lb Height 69 in Body Mass Index Calculated 30.27 kg/m2 Body Surface Area Calculated 2.09 m2 :03 Temperature 98.5 f Comments: Method: Temporal Pulse 64 /min Comments: Pattern: Regular Respiration Rate 17 /min Comments: Pattern: Unlabored O2 SAT 97 % Comments: Room air BP Systolic 132 mm[Hg] Comments: Patient Position: Sitting; Cuff Location: Left Arm; Cuff Size: Standard BP Diastolic 76 mm[Hg] Comments: Patient Position: Sitting; Cuff Location: Left Arm; Cuff Size: Standard Weight 220 lb Height 69 in Body Mass Index Calculated 32.49 kg/m2 Body Surface Area Calculated 2.15 m2 :33 Temperature 97 f Comments: Method: Oral Pulse 68 /min Comments: Pattern: Regular Respiration Rate 18 /min BP Systolic 140 mm[Hg] Comments: Patient Position: Sitting BP Diastolic 62 mm[Hg] Comments: Patient Position: Sitting Weight 208 lb Height 69 in Body Mass Index Calculated 30.72 kg/m2 Body Surface Area Calculated 2.1 m2 :02 Temperature 97.9 f Comments: Method: Oral Pulse 70 /min Comments: Pattern: Regular Respiration Rate 18 /min Comments: Pattern: Unlabored BP Systolic 120 mm[Hg] Comments: Patient Position: Sitting; Cuff Location: Left Arm; Cuff Size: Standard BP Diastolic 80 mm[Hg] Comments: Patient Position: Sitting; Cuff Location: Left Arm; Cuff Size: Standard Weight 209 lb Height 69 in Body Mass Index Calculated 30.86 kg/m2 Body Surface Area Calculated 2.1 m2 :46 Temperature 97.6 f Comments: Method: Oral Pulse 74 /min Comments: Pattern: Regular Respiration Rate 18 /min Comments: Pattern: Unlabored BP Systolic 120 mm[Hg] Comments: Patient Position: Sitting; Cuff Location: Left Arm; Cuff Size: Standard BP Diastolic 78 mm[Hg] Comments: Patient Position: Sitting; Cuff Location: Left Arm; Cuff Size: Standard Weight 193 lb Height 69 in Body Mass Index Calculated 28.5 kg/m2 Body Surface Area Calculated 2.03 m2 :17 Temperature 97.6 f Comments: Method: Temporal Pulse 78 /min Comments: Pattern: Regular Respiration Rate 16 /min Comments: Pattern: Unlabored O2 SAT 97 % Comments: Room air BP Systolic 116 mm[Hg] Comments: Patient Position: Sitting; Cuff Location: Left Arm; Cuff Size: Standard BP Diastolic 72 mm[Hg] Comments: Patient Position: Sitting; Cuff Location: Left Arm; Cuff Size: Standard Weight 210.5 lb Height 69 in Body Mass Index Calculated 31.09 kg/m2 Body Surface Area Calculated 2.11 m2 :20 Temperature 97.9 f Comments: Method: Oral Pulse 74 /min Comments: Pattern: Regular Respiration Rate 18 /min Comments: Pattern: Unlabored BP Systolic 118 mm[Hg] Comments: Patient Position: Sitting; Cuff Location: Left Arm; Cuff Size: Standard BP Diastolic 76 mm[Hg] Comments: Patient Position: Sitting; Cuff Location: Left Arm; Cuff Size: Standard Weight 208 lb Height 69 in Body Mass Index Calculated 30.72 kg/m2 Body Surface Area Calculated 2.1 m2 :03 Temperature 97.9 f Comments: Method: Oral Pulse 68 /min Comments: Pattern: Regular Respiration Rate 18 /min Comments: Pattern: Unlabored BP Systolic 110 mm[Hg] Comments: Patient Position: Sitting; Cuff Location: Left Arm; Cuff Size: Standard BP Diastolic 78 mm[Hg] Comments: Patient Position: Sitting; Cuff Location: Left Arm; Cuff Size: Standard Height 69 in :25 O2 SAT 95 % Comments: Room air :35 Temperature 97.8 f Comments: Method: Oral Pulse 68 /min Comments: Pattern: Regular Respiration Rate 20 /min Comments: Pattern: Unlabored BP Systolic 122 mm[Hg] Comments: Patient Position: Sitting; Cuff Location: Left Arm; Cuff Size: Standard BP Diastolic 80 mm[Hg] Comments: Patient Position: Sitting; Cuff Location: Left Arm; Cuff Size: Standard Height 69 in :22 Pulse 74 /min Comments: Pattern: Regular Respiration Rate 18 /min Comments: Pattern: Unlabored BP Systolic 120 mm[Hg] Comments: Patient Position: Sitting; Cuff Location: Left Arm; Cuff Size: Standard BP Diastolic 72 mm[Hg] Comments: Patient Position: Sitting; Cuff Location: Left Arm; Cuff Size: Standard :10 Pulse 78 /min Comments: Pattern: Regular Respiration Rate 18 /min Comments: Pattern: Unlabored BP Systolic 120 mm[Hg] Comments: Patient Position: Sitting; Cuff Location: Left Arm; Cuff Size: Standard BP Diastolic 68 mm[Hg] Comments: Patient Position: Sitting; Cuff Location: Left Arm; Cuff Size: Standard Weight 208 lb :59 Temperature 98.4 f Comments: Method: Oral Pulse 74 /min Comments: Pattern: Regular Respiration Rate 18 /min Comments: Pattern: Unlabored BP Systolic 126 mm[Hg] Comments: Patient Position: Sitting; Cuff Location: Left Arm; Cuff Size: Standard BP Diastolic 80 mm[Hg] Comments: Patient Position: Sitting; Cuff Location: Left Arm; Cuff Size: Standard :33 Temperature 97.9 f Comments: Method: Oral Pulse 64 /min Comments: Pattern: Regular Respiration Rate 20 /min Comments: Pattern: Unlabored BP Systolic 122 mm[Hg] Comments: Patient Position: Sitting; Cuff Location: Left Arm; Cuff Size: Large BP Diastolic 80 mm[Hg] Comments: Patient Position: Sitting; Cuff Location: Left Arm; Cuff Size: Large Weight 197.0625 lb :46 Temperature 97.4 f Comments: Method: Oral Pulse 64 /min Comments: Pattern: Regular Respiration Rate 20 /min Comments: Pattern: Unlabored BP Systolic 140 mm[Hg] Comments: Patient Position: Sitting; Cuff Location: Left Arm; Cuff Size: Large BP Diastolic 80 mm[Hg] Comments: Patient Position: Sitting; Cuff Location: Left Arm; Cuff Size: Large Weight 197.0625 lb :40 Temperature 98 f Comments: Method: Oral Pulse 70 /min Comments: Pattern: Regular Respiration Rate 16 /min Comments: Pattern: Unlabored BP Systolic 118 mm[Hg] Comments: Patient Position: Sitting; Cuff Location: Left Arm; Cuff Size: Standard BP Diastolic 78 mm[Hg] Comments: Patient Position: Sitting; Cuff Location: Left Arm; Cuff Size: Standard Weight 0 lb Height 0 in Head Circumference 0.00 cm :49 Temperature 97.8 f Comments: Method: Oral Pulse 74 /min Comments: Pattern: Regular Respiration Rate 18 /min Comments: Pattern: Unlabored BP Systolic 124 mm[Hg] Comments: Patient Position: Sitting; Cuff Location: Left Arm; Cuff Size: Standard BP Diastolic 82 mm[Hg] Comments: Patient Position: Sitting; Cuff Location: Left Arm; Cuff Size: Standard Weight 197.0625 lb Height 0 in Head Circumference 0.00 cm :25 Pulse 72 /min Comments: Pattern: Regular Respiration Rate 16 /min Comments: Pattern: Unlabored BP Systolic 126 mm[Hg] Comments: Patient Position: Sitting; Cuff Location: Left Arm; Cuff Size: Standard BP Diastolic 80 mm[Hg] Comments: Patient Position: Sitting; Cuff Location: Left Arm; Cuff Size: Standard Weight 0 lb Height 0 in Head Circumference 0.00 cm :57 Temperature 97.6 f Comments: Method: Oral Pulse 72 /min Comments: Pattern: Regular Respiration Rate 16 /min Comments: Pattern: Unlabored BP Systolic 120 mm[Hg] Comments: Patient Position: Sitting; Cuff Location: Left Arm; Cuff Size: Large BP Diastolic 80 mm[Hg] Comments: Patient Position: Sitting; Cuff Location: Left Arm; Cuff Size: Large Weight 0 lb Height 0 in Head Circumference 0.00 cm :51 Pulse 74 /min Comments: Pattern: Regular Respiration Rate 17 /min Comments: Pattern: Unlabored BP Systolic 134 mm[Hg] Comments: Patient Position: Sitting; Cuff Location: Left Arm; Cuff Size: Standard BP Diastolic 82 mm[Hg] Comments: Patient Position: Sitting; Cuff Location: Left Arm; Cuff Size: Standard Weight 197.0625 lb Height 0 in Head Circumference 0.00 cm :45 Temperature 98.2 f Comments: Method: Oral Pulse 70 /min Comments: Pattern: Regular Respiration Rate 16 /min Comments: Pattern: Unlabored BP Systolic 122 mm[Hg] Comments: Patient Position: Sitting; Cuff Location: Left Arm; Cuff Size: Standard BP Diastolic 78 mm[Hg] Comments: Patient Position: Sitting; Cuff Location: Left Arm; Cuff Size: Standard Weight 194.025 lb Height 0 in Head Circumference 0.00 cm :32 Temperature 97.5 f Comments: Method: Oral Pulse 80 /min Comments: Pattern: Regular Respiration Rate 20 /min Comments: Pattern: Unlabored BP Systolic 118 mm[Hg] Comments: Patient Position: Sitting; Cuff Location: Left Arm; Cuff Size: Large BP Diastolic 78 mm[Hg] Comments: Patient Position: Sitting; Cuff Location: Left Arm; Cuff Size: Large Weight 203 lb Height 69 in Body Mass Index Calculated 29.98 kg/m2 Body Surface Area Calculated 2.08 m2 Head Circumference 0.00 cm :28 Temperature 98.2 f Comments: Method: Oral Pulse 68 /min Comments: Pattern: Regular Respiration Rate 18 /min Comments: Pattern: Unlabored BP Systolic 122 mm[Hg] Comments: Patient Position: Sitting; Cuff Location: Left Arm; Cuff Size: Standard BP Diastolic 80 mm[Hg] Comments: Patient Position: Sitting; Cuff Location: Left Arm; Cuff Size: Standard Weight 203 lb Height 0 in Head Circumference 0.00 cm :25 Temperature 98.2 f Comments: Method: Oral Pulse 74 /min Comments: Pattern: Regular Respiration Rate 18 /min Comments: Pattern: Unlabored BP Systolic 120 mm[Hg] Comments: Patient Position: Sitting; Cuff Location: Left Arm; Cuff Size: Standard BP Diastolic 78 mm[Hg] Comments: Patient Position: Sitting; Cuff Location: Left Arm; Cuff Size: Standard Weight 207.0313 lb Height 0 in Head Circumference 0.00 cm :48 Pulse 72 /min Comments: Pattern: Regular Respiration Rate 16 /min Comments: Pattern: Unlabored BP Systolic 124 mm[Hg] Comments: Patient Position: Sitting; Cuff Location: Left Arm; Cuff Size: Standard BP Diastolic 78 mm[Hg] Comments: Patient Position: Sitting; Cuff Location: Left Arm; Cuff Size: Standard Weight 199 lb Height 69 in Body Mass Index Calculated 29.39 kg/m2 Body Surface Area Calculated 2.06 m2 Head Circumference 0.00 cm Results Date Description Value Details :47 HGB A1C ([id number]) Comments: PATIENT NOT FASTINGPERFORMED BY: KENYA [facility] [id number] [facility] [id number] Hemoglobin A1c 5.5 % (Normal) Range: 4.8-5.6 Comments: . Prediabetes: 5.7 - 6.4 Diabetes: >6.4 Glycemic control for adults with diabetes: <7.0 :47 Lipase (70796) Comments: PATIENT NOT FASTINGPERFORMED BY: LabCo [id number] [facility] [id number] Lipase 40 U/L (Normal) Range: 13-78 :47 Amylase ([id number]) Comments: PATIENT NOT FASTINGPERFORMED BY: [facility] [id number] [facility] [id number] Amylase 54 U/L (Normal) Range: 31-124 :47 METABOLIC PANEL, COMPREHENSIVE Comments: PATIENT NOT FASTINGPERFORMED BY: [facility]6370 [facility] [id number] ([id number]) ALT (SGPT) 36 [iU]/L (Normal) Range: 0-44 AST (SGOT) 34 [iU]/L (Normal) Range: 0-40 Alkaline Phosphatase 92 [iU]/L (Normal) Range: 39-117 Bilirubin, Total 0.3 mg/dL (Normal) Range: 0.0-1.2 A/G Ratio 1.6 (Normal) Range: 1.2-2.2 Globulin, Total 2.7 g/dL (Normal) Range: 1.5-4.5 Albumin 4.4 g/dL (Normal) Range: 3.6-4.8 Protein, Total 7.1 g/dL (Normal) Range: 6.0-8.5 Calcium 9.9 mg/dL (Normal) Range: 8.6-10.2 Carbon Dioxide, Total 23 mmol/L (Normal) Range: 20-29 Chloride 105 mmol/L (Normal) Range: 96-106 Potassium 4.6 mmol/L (Normal) Range: 3.5-5.2 Sodium 143 mmol/L (Normal) Range: 134-144 BUN/Creatinine Ratio 17 (Normal) Range: 10-24 eGFR If Africn Am 91 mL/min/1.73 (Normal) eGFR If NonAfricn Am 79 mL/min/1.73 (Normal) Creatinine 1.00 mg/dL (Normal) Range: 0.76-1.27 BUN 17 mg/dL (Normal) Range: 8-27 Glucose 98 mg/dL (Normal) Range: 65-99 :47 CBC with auto diff (65261) Comments: PATIENT NOT FASTINGPERFORMED BY: [facility] Dabnku7362 [facility] [id number] Immature Grans (Abs) 0.0 {x10E3/uL} Range: 0.0-0.1 (Normal) Immature Granulocytes 0 % (Normal) Baso (Absolute) 0.1 {x10E3/uL} Range: 0.0-0.2 (Normal) Eos (Absolute) 0.2 {x10E3/uL} Range: 0.0-0.4 (Normal) Monocytes(Absolute) 0.5 {x10E3/uL} Range: 0.1-0.9 (Normal) Lymphs (Absolute) 2.1 {x10E3/uL} Range: 0.7-3.1 (Normal) Neutrophils (Absolute) 3.6 {x10E3/uL} Range: 1.4-7.0 (Normal) Basos 1 % (Normal) Eos 3 % (Normal) Monocytes 8 % (Normal) Lymphs 32 % (Normal) Neutrophils 56 % (Normal) Platelets 186 {x10E3/uL} Range: 150-379 (Normal) RDW 13.8 % (Normal) Range: 12.3-15.4 MCHC 33.6 g/dL (Normal) Range: 31.5-35.7 MCH 29.8 pg (Normal) Range: 26.6-33.0 MCV 89 fL (Normal) Range: 79-97 Hematocrit 43.2 % (Normal) Range: 37.5-51.0 Hemoglobin 14.5 g/dL (Normal) Range: 13.0-17.7 RBC 4.87 {x10E6/uL} Range: 4.14-5.80 (Normal) WBC 6.4 {x10E3/uL} Range: 3.4-10.8 (Normal) Histoplasma Abs, Qn, Negative (Normal) Comments: PATIENT NOT FASTINGPERFORMED BY: BN [facility] [address]Bur[place] [id number] BY: [facility]6370 [facility] [id number] 4:03 DID 7-Xdx-674905:03 ANGTENSIN 1-CONVRT ENZYM Comments: PATIENT NOT FASTINGPERFORMED BY: [address] [id number] BY: [place] 3624070 [facility] [id number] (81441) ANTON <15 U/L (Normal) Range: 14-82 6-Fbl-173970:03 ANTIMITOCHONDRIAL AB 6650 Comments: PATIENT NOT FASTINGPERFORMED BY: [address] [id number] BY: [place] 3624070 [facility] [id number] (24891) Mitochondrial (M2) Antibody <20.0 {Units} (Normal) Range: 0.0-20.0 Comments: Negative 0.0 - 20.0 Equivocal 20.1 - 24.9 Positive >24.9 . Mitochondrial (M2) Antibodies are found in 90-96% of patients with primary biliary cirrhosis. 5-Xga-649427:03 ANCA-C (ANTI NEUTROPHIL Comments: PATIENT NOT FASTINGPERFORMED BY: [address] [id number] BY: [place] 3624070 [facility] [id number]; fu 6-15 db CYTOPLASMIC ANTIBODY) Atypical pANCA <1:20 {titer} Comments: The atypical pANCA pattern has been observed in a significantpercentage of patients with ulcerative colitis, primary sclerosingcholangitis and autoimmune hepatitis. (Normal) Perinuclear (P-ANCA) <1:20 {titer} Comments: The presence of positive fluorescence exhibiting P-ANCA or C-ANCApatterns alone is not specific for the diagnosis of Alok'sGranulomatosis (WG) or microscopic polyangiitis. Decisions about treatment sh (Normal) ould not be based solely on ANCA IFA results. TheInternational ANCA Group Consensus recommends follow up testing ofpositive sera with both ND-3 and MPO-ANCA enzyme immunoassays. Asmany as 5% serum samp les are positive only by EIA.Ref. AM J Clin Pathol 1999;111:507-513. Cytoplasmic (C-ANCA) <1:20 {titer} (Normal) Antiproteinase 3 (ND-3) Abs <3.5 U/mL (Normal) Range: 0.0-3.5 Antimyeloperoxidase (MPO) Abs <9.0 U/mL (Normal) Range: 0.0-9.0 0-Vfd-475888:09 QuantiFERON In Tube Comments: PATIENT NOT FASTINGPERFORMED BY: O_ [facility] [place]men Hnyg9127 [facility] [id number] BY: groopifyrp Dzporm7780 [facility] [id number] Interpretation: SPRCS (Normal) Comments: The QuantiFERON TB Gold (in Tube) assay is intended for use as an aidin the diagnosis of TB infection. Negative results suggest that thereis no TB infection. In patients with high suspicion of exposure, anegative test should be repeated. A positive test indicates infectionwith Mycobacterium tuberculosis. Among individuals withouttuberculosis infection, a positive test may be due to exposure Rg. kansa sii, M. szjettgai or M. marinum. On the Internet, go tocdc.gov/tb for further details. QFT TB Ag minus Nil Value <0.00 {IU/mL} (Normal) QuantiFERON Mitogen Value >10.00 {IU/mL} (Normal) QuantiFERON Nil Value 0.13 {IU/mL} (Normal) QuantiFERON TB Ag Value 0.10 {IU/mL} (Normal) QuantiFERON Criteria SPRCS (Normal) Comments: To be considered positive a specimen should have a TB Ag minus Nilvalue greater than or equal to 0.35 IU/mL and in addition the TB Agminus Nil value must be greater than or equal to 25% of the Nilvalue. There may be insufficient information in these values todifferentiate between some negative and some indeterminate testvalues. QuantiFERON TB Gold Negative (Normal) 1-Hpc-543402:09 Quantiferron gold test Comments: PATIENT NOT FASTINGPERFORMED BY: O_ [facility] Whon5674 [facility] [id number] BY: [address] [id number] (40150) QuantiFERON Incubation QINT (Normal) Comments: Incubated, testing to follow. 9-Sjj-081496:14 Systemic Lupus Profile Comments: PATIENT NOT FASTINGPERFORMED BY: [address] [id number] (59267) Anti-DNA (DS) Ab Qn 1 {IU/mL} (Normal) Range: 0-9 Comments: Negative <5 Equivocal 5 - 9 Positive >9 Sjogren's Anti-SS-B <0.2 {AI} (Normal) Range: 0.0-0.9 Sjogren's Anti-SS-A 0.3 {AI} (Normal) Range: 0.0-0.9 Antichromatin Antibodies 1.1 {AI} (Abnormal) Range: 0.0-0.9 RA Latex Turbid. <10.0 {IU/mL} (Normal) Range: 0.0-13.9 Altman Antibodies <0.2 {AI} (Normal) Range: 0.0-0.9 LOCAL INTERMODAL TRUCK DRIVER Antibodies 0.2 {AI} (Normal) Range: 0.0-0.9 7-Esx-533811:14 HEPATITIS C ANTIBODY (83755) Comments: PATIENT NOT FASTINGPERFORMED BY: [facility]6370 [facility] [id number] Hep C Virus Ab <0.1 {s/co_ratio} (Normal) Range: 0.0-0.9 Comments: Negative: < 0.8 Indeterminate: 0.8 - 0.9 Positive: > 0.9 . The CDC recommends that a positive HCV antibody result be followed up with a HCV Nucleic Acid Amplification test (715178). 3-Drw-450017:14 HEPATIC FUNCTION PANEL Comments: PATIENT NOT FASTINGPERFORMED BY: [facility]6370 [facility] [id number] (25701) ALT (SGPT) 50 [iU]/L (Abnormal) Range: 0-44 AST (SGOT) 36 [iU]/L (Normal) Range: 0-40 Alkaline Phosphatase 86 [iU]/L (Normal) Range: 39-117 Bilirubin, Direct 0.16 mg/dL (Normal) Range: 0.00-0.40 Bilirubin, Total 0.5 mg/dL (Normal) Range: 0.0-1.2 Albumin 4.7 g/dL (Normal) Range: 3.6-4.8 Protein, Total 7.8 g/dL (Normal) Range: 6.0-8.5 19-Yra-83363:44 Metabolic Panel, Comprehensive Comments: PATIENT WAS FASTINGPERFORMED BY: [facility] Jqhfmq6867 [facility] [id number] (80251) ALT (SGPT) 69 [iU]/L (Abnormal) Range: 0-44 AST (SGOT) 47 [iU]/L (Abnormal) Range: 0-40 Alkaline Phosphatase, S 82 [iU]/L (Normal) Range: 39-117 Bilirubin, Total 0.4 mg/dL (Normal) Range: 0.0-1.2 A/G Ratio 1.4 (Normal) Range: 1.2-2.2 Globulin, Total 3.0 g/dL (Normal) Range: 1.5-4.5 Albumin, Serum 4.2 g/dL (Normal) Range: 3.6-4.8 Protein, Total, Serum 7.2 g/dL (Normal) Range: 6.0-8.5 Calcium, Serum 9.6 mg/dL (Normal) Range: 8.6-10.2 Carbon Dioxide, Total 23 mmol/L (Normal) Range: 18-29 Chloride, Serum 103 mmol/L (Normal) Range: 96-106 Potassium, Serum 4.1 mmol/L (Normal) Range: 3.5-5.2 Sodium, Serum 144 mmol/L (Normal) Range: 134-144 BUN/Creatinine Ratio 15 (Normal) Range: 10-24 eGFR If Africn Am 95 mL/min/1.73 (Normal) eGFR If NonAfricn Am 82 mL/min/1.73 (Normal) Creatinine, Serum 0.97 mg/dL (Normal) Range: 0.76-1.27 BUN 15 mg/dL (Normal) Range: 8-27 Glucose, Serum 112 mg/dL (Abnormal) Range: 65-99 :44 CBC WITH MANUAL DIFF Comments: PATIENT WAS FASTINGPERFORMED BY: [employer]ixie ([employer] RehabilitationYxjcxb9177 [facility] [id number] Information: NURSE DRAW (22844) Immature Grans (Abs) 0.0 {x10E3/uL} (Normal) Range: 0.0-0.1 Immature Granulocytes 0 % (Normal) Baso (Absolute) 0.1 {x10E3/uL} (Normal) Range: 0.0-0.2 Eos (Absolute) 0.2 {x10E3/uL} (Normal) Range: 0.0-0.4 Monocytes(Absolute) 0.5 {x10E3/uL} (Normal) Range: 0.1-0.9 Lymphs (Absolute) 1.8 {x10E3/uL} (Normal) Range: 0.7-3.1 Neutrophils (Absolute) 3.4 {x10E3/uL} (Normal) Range: 1.4-7.0 Basos 1 % (Normal) Eos 4 % (Normal) Monocytes 8 % (Normal) Lymphs 29 % (Normal) Neutrophils 58 % (Normal) Platelets 179 {x10E3/uL} (Normal) Range: 150-379 RDW 13.9 % (Normal) Range: 12.3-15.4 MCHC 33.0 g/dL (Normal) Range: 31.5-35.7 MCH 29.3 pg (Normal) Range: 26.6-33.0 MCV 89 fL (Normal) Range: 79-97 Hematocrit 42.4 % (Normal) Range: 37.5-51.0 Hemoglobin 14.0 g/dL (Normal) Range: 13.0-17.7 RBC 4.78 {x10E6/uL} (Normal) Range: 4.14-5.80 WBC 6.0 {x10E3/uL} (Normal) Range: 3.4-10.8 :44 MICROALBUMIN: CREATININE RATIO Comments: PATIENT WAS FASTINGPERFORMED BY: LabCoKessler Institute for RehabilitationUlghkf5871 [facility] [id number] (46325) AND (15581) Alb/Creat Ratio 3.7 {mg/g_creat} (Normal) Range: 0.0-30.0 Albumin, Urine 7.8 ug/mL (Normal) Creatinine, Urine 212.1 mg/dL (Normal) :44 URINALYSIS (67376) Comments: PATIENT WAS FASTINGPERFORMED BY: [employer]ie ([employer] [id number] [facility] [id number] Microscopic Examination MICNIP (Normal) Comments: Microscopic not indicated and not performed. Nitrite, Urine Negative (Normal) Urobilinogen,Semi-Qn 0.2 mg/dL (Normal) Range: 0.2-1.0 Bilirubin Negative (Normal) Occult Blood Negative (Normal) Ketones Trace (Abnormal) Glucose Negative (Normal) Protein Negative (Normal) WBC Esterase Negative (Normal) Appearance Clear (Normal) Urine-Color Yellow (Normal) pH 5.0 (Normal) Range: 5.0-7.5 Specific Nelson 1.026 (Normal) Range: 1.005-1.030 53-Biv-576011:43 FLU A+B DIRECT AG, (RAPID) (28680) FLU A+B DIRECT AG, (RAPID) negative (Normal) :47 TESTOSTERONE FREE (97788) Comments: PATIENT WAS FASTINGPERFORMED BY: [employer]ie ([employer] RehabilitationJmnoma8575 [facility] [id number] BY: [employer] [id number]; fu 7-10 db Free Testosterone(Direct) 6.0 pg/mL (Abnormal) Range: 6.6-18.1 :47 CBC & PLATELETS (AUTO) Comments: PATIENT WAS FASTINGPERFORMED BY: [employer] ([employer] [id number] [facility] [id number] BY: T[employer]ie ([employer] [id number] (62882) Platelets 188 {x10E3/uL} (Normal) Range: 150-379 RDW 13.4 % (Normal) Range: 12.3-15.4 MCHC 33.3 g/dL (Normal) Range: 31.5-35.7 MCH 30.1 pg (Normal) Range: 26.6-33.0 MCV 91 fL (Normal) Range: 79-97 Hematocrit 42.7 % (Normal) Range: 37.5-51.0 Hemoglobin 14.2 g/dL (Normal) Range: 12.6-17.7 RBC 4.71 {x10E6/uL} (Normal) Range: 4.14-5.80 WBC 7.5 {x10E3/uL} (Normal) Range: 3.4-10.8 :47 ESTRADIOL (83080) Comments: PATIENT WAS FASTINGPERFORMED BY: EventKloud Wqbvfu4060 [facility] [id number] BY: [employer] ([employer] [id number] Estradiol 23.2 pg/mL (Normal) Range: 7.6-42.6 Comments: EnvironmentIQIA methodology :47 PSA (PROSTATE SPECIFIC Comments: PATIENT WAS FASTINGPERFORMED BY: Zoutons70 [facility]IDAXISCone Health [facility] [id number] BY: Tixie ([employer] [id number] ANTIGEN) (75711) Prostate Specific Ag, 0.5 ng/mL (Normal) Range: 0.0-4.0 Serum Comments: EnvironmentIQIA methodology. .According to the [place] U[employer] Association, Serum PSA shoulddecrease and remain at undetectable levels after radicalprostatectomy. The AUA defines biochemical recurrence as an initialPSA value 0.2 ng/mL or greater followed by a subsequent confirmatoryPSA value 0.2 ng/mL or greater.Values obtained with d ifferent assay methods or kits cannot be usedinterchangeably. Results cannot be interpreted as absolute evidenceof the presence or absence of malignant disease. :55 ACTH (62063) Comments: today; PATIENT NOT FASTINGPERFORMED BY: groopify Glraux8312 [place] [facility] [id number] ACTH, Plasma 24.3 pg/mL (Normal) Range: 7.2-63.3 Comments: ACTH reference interval for samples collected between 7 and 10 AM. :55 TSH (THYROID STIMULATING Comments: today; PATIENT NOT FASTINGPERFORMED BY: Zoutons70 [facility] [id number] HORMONE) (17051) TSH 1.680 {uIU/mL} (Normal) Range: 0.450-4.500 :55 PROLACTIN (59680) Comments: today; PATIENT NOT FASTINGPERFORMED BY: [facility] Lgfcgt5383 [facility] [id number] Prolactin 10.0 ng/mL (Normal) Range: 4.0-15.2 72-Lcx-307823:48 Basic Metabolic Profile (BMP) Comments: Order Date: 01/19/17Order Info: [id number] - *BMPOrder Date: 01/19/17Order Info: 0667-1 - *BMPComments: Reason:[facility] Fytotpgbaw7309 [facility] [place], [place], [id number] GAP 8 (Normal) Range: 5-15 CO2 30.0 mmol/L (Normal) Range: 21.0-32.0 CL 106 mmol/L (Normal) Range: 98-107 K 3.7 mmol/L (Normal) Range: 3.5-5.1 NA 144 mmol/L (Normal) Range: 136-145 CA 9.4 mg/dL (Normal) Range: 8.5-10.1 BUN/CRE 12.6 {RATIO} (Normal) Range: 10-20 EST GFR - AA 94 mL/min (Normal) Comments: GFR Calc EST GFR 77 mL/min (Normal) Comments: Non- GFR Calc CREAT,SERUM 1.03 mg/dL (Normal) Range: 0.70-1.30 Comments: The validity of the calculated GFR AND GFRAA in patients over70 years has not been determined. Clinical correlation isessential. BUN 13 mg/dL (Normal) Range: 7-18 GLU 129 mg/dL (Abnormal) Range: 70-110 Comments: Fasting Glucose result greater than or equal to 126 mg/dLsuggests DIABETES MELLITUS per A.D.A. criteria. 90-Eyc-521515:48 CBC-Complete Blood Cnt No Diff Comments: Order Date: 01/19/17Order Info: 0667-1 - *BMPComments: Reason:[facility] [address] [place], [address] MPV 12.4 fL (Abnormal) Range: 6.2-12.0 PLT 168 K/mm3 (Normal) Range: 150-450 RDW SD 43.0 fL (Normal) Range: 35.1-43.9 RDW CV 13.2 % (Normal) Range: 11.6-14.6 MCHC 33.3 {g/gl} (Normal) Range: 32-36 MCH 29.9 pg (Normal) Range: 27.0-32.0 MCV 89.8 fL (Normal) Range: 80-94 HCT 42.1 % (Normal) Range: 40-54 HGB 14.0 g/dL (Normal) Range: 13.0-16.5 RBC 4.69 {M/mm3} (Normal) Range: 4.6-6.2 WBC 8.1 K/mm3 (Normal) Range: 4.4-11.0 :48 Partial Thromboplast Time Comments: Order Date: 01/19/17Order Info: 6301-6 - *PT/INROrder Info: 22643-3 - *PTT-Partial Thromboplastin TimeOrder Date: 01/19/17Order Info: 0667-1 - *[facility] [address] [place], [address] PTT 28.2 s (Normal) Range: 24.1-36.2 :48 Prothrombin Time w/INR Comments: Order Date: 01/19/17Order Info: 6301-6 - *PT/INROrder Info: [id number] - *PTT-Partial Thromboplastin TimeOrder Date: 01/19/17Order Info: 0667-1 - *[facility] [address]hbsd[address] [place], [address] INR 1.0 (Normal) PROTIME 13.0 s (Normal) Range: 11.7-14.9 :03 TESTOSTERONE FREE (64935) Comments: 6-8 weeks.; PATIENT NOT FASTINGPERFORMED BY: [facility] Sldepx0123 [facility] [id number] BY: Lab[address] [id number] Free Testosterone(Direct) 4.4 pg/mL (Abnormal) Range: 6.6-18.1 7-Wzk-647965:03 FSH AND LH (40964) Comments: PATIENT NOT FASTINGPERFORMED BY: [address] [id number] BY: [address] [id number] FSH 8.6 m[iU]/mL (Normal) Range: 1.5-12.4 LH 4.7 m[iU]/mL (Normal) Range: 1.7-8.6 3-Jjj-513784:34 SEROTONIN (75855) Comments: PATIENT NOT FASTINGPERFORMED BY: [address] [id number] Information: [id number] Serotonin, Serum 92 ng/mL (Normal) Range: 21-321 3-Uic-163910:32 Vitamin B-12 (cyanocobalamin) Comments: PATIENT NOT FASTINGPERFORMED BY: [place] 3624070 [facility] [id number] BY: [address] [id number] (57263) Vitamin B12 >2000 pg/mL (Abnormal) Range: 211-946 5-Ius-843068:32 MICROALBUMIN: CREATININE Comments: PATIENT NOT FASTINGPERFORMED BY: [place] 3624070 [facility] [id number] BY: [address] [id number] RATIO (84869) AND (48638) Microalb/Creat Ratio 4.2 {mg/g_creat} (Normal) Range: 0.0-30.0 Microalbumin, Urine 7.2 ug/mL (Normal) Creatinine, Urine 172.2 mg/dL (Normal) 9-Vfo-824950:32 CALCIFIDIOL (82699) VIT D Comments: PATIENT NOT FASTINGPERFORMED BY: [address] [place] [id number] BY: NanoSightP[place] 541147 [facility] [id number] 25 Vitamin D, 25-Hydroxy 27.1 ng/mL (Abnormal) Range: 30.0-100.0 Comments: Vitamin D deficiency has been defined by the [place] of[place]icine and an Endocrine Society practice guideline as alevel of serum 25-OH vitamin D less than 20 ng/mL (1,2).The Endocrine Society went on to further define vitamin Dinsufficiency as a level between 21 and 29 ng/mL (2).1. IOM ([place] of Medicine). 2010. Dietary reference intakes for calcium and D. [place]: The National Academies Press.2. Mara MF, Luigi MERCADO, Robin SENA, et al. Evaluation, treatment, and prevention of vitamin D deficiency: an Endocrine Society clinical practice guideline. JCEM. 2010; 96(7):1911-30. 2-Xle-954473:32 C-REACT PROT HIGH Comments: PATIENT NOT FASTINGPERFORMED BY: [facility]6370 [facility] [id number] BY: [employer] [id number] SENS(hsCRP) (75432) C-Reactive Protein, Cardiac 3.93 mg/L (Abnormal) Range: 0.00-3.00 Comments: Relative Risk for Future Cardiovascular Event Low <1.00 Average 1.00 - 3.00 High >3.00 8-Xkj-032903:32 ESR-F (SED RATE Comments: PATIENT NOT FASTINGPERFORMED BY: [facility]6370 [facility] [id number] BY: [employer] [id number] ERYTHROCYTE - MALE) (49724) Sedimentation Rate-Westergren 8 mm/h (Normal) Range: 0-30 9-Uug-164161:32 SPEP (47946) Comments: PATIENT NOT FASTINGPERFORMED BY: Zoutons70 [facility] [id number] BY: BN [facility] [id number] Please note: SPRCS (Normal) Comments: Protein electrophoresis scan will follow via computer, mail, orcourier delivery. A/G Ratio 1.1 (Normal) Range: 0.7-1.7 Globulin, Total 3.6 g/dL (Normal) Range: 2.2-3.9 M-Kamari Not Observed g/dL (Normal) Gamma Globulin 1.3 g/dL (Normal) Range: 0.4-1.8 Beta Globulin 1.3 g/dL (Normal) Range: 0.7-1.3 Grzml-6-Gkearlmy 0.8 g/dL (Normal) Range: 0.4-1.0 Pnado-7-Xpslkzef 0.1 g/dL (Normal) Range: 0.0-0.4 Albumin 4.1 g/dL (Normal) Range: 2.9-4.4 Protein, Total, Serum 7.7 g/dL (Normal) Range: 6.0-8.5 0-Owq-872198:32 ANCA-C (ANTI NEUTROPHIL Comments: PATIENT NOT FASTINGPERFORMED BY: [employer]ixie ([employer] RehabilitationAtzzkx6854 [facility] [id number] BY: Tixie ([employer] [id number] CYTOPLASMIC ANTIBODY) Atypical pANCA <1:20 {titer} Comments: The atypical pANCA pattern has been observed in a significantpercentage of patients with ulcerative colitis, primary sclerosingcholangitis and autoimmune hepatitis. (Normal) Perinuclear (P-ANCA) <1:20 {titer} Comments: The presence of positive fluorescence exhibiting P-ANCA or C-ANCApatterns alone is not specific for the diagnosis of Alok'sGranulomatosis (WG) or microscopic polyangiitis. Decisions about treatment sh (Normal) ould not be based solely on ANCA IFA results. TheInternational ANCA Group Consensus recommends follow up testing ofpositive sera with both ND-3 and MPO-ANCA enzyme immunoassays. Asmany as 5% serum samp les are positive only by EIA.Ref. AM J Clin Pathol 1999;111:507-513. Cytoplasmic (C-ANCA) <1:20 {titer} (Normal) Antiproteinase 3 (ND-3) Abs <3.5 U/mL (Normal) Range: 0.0-3.5 Antimyeloperoxidase (MPO) Abs <9.0 U/mL (Normal) Range: 0.0-9.0 1-Ufi-535010:32 Systemic Lupus Profile Comments: PATIENT NOT FASTINGPERFORMED BY: Tixie ([employer] [id number] BY: [address] [id number] Information: [id number], 737931 (10941) Anti-DNA (DS) Ab Qn 1 {IU/mL} (Normal) Range: 0-9 Comments: Negative <5 Equivocal 5 - 9 Positive >9 Sjogren's Anti-SS-B <0.2 {AI} (Normal) Range: 0.0-0.9 Sjogren's Anti-SS-A <0.2 {AI} (Normal) Range: 0.0-0.9 Antichromatin Antibodies 0.6 {AI} (Normal) Range: 0.0-0.9 RA Latex Turbid. <10.0 {IU/mL} (Normal) Range: 0.0-13.9 Altman Antibodies <0.2 {AI} (Normal) Range: 0.0-0.9 LOCAL INTERMODAL TRUCK DRIVER Antibodies 0.3 {AI} (Normal) Range: 0.0-0.9 2-Nph-884632:32 TESTOSTERONE FREE (27464) Comments: PATIENT NOT FASTINGPERFORMED BY: [employer]ie ([employer] [id number] BY: [address] [id number] Free Testosterone(Direct) 5.0 pg/mL (Abnormal) Range: 6.6-18.1 1-Kec-706632:32 PSA (Prostate Specific Comments: PATIENT NOT FASTINGPERFORMED BY: [employer]ie ([employer] [id number] BY: [address] [id number] Antigen), Screening (87707) Prostate Specific Ag, 0.5 ng/mL (Normal) Range: 0.0-4.0 Serum Comments: Perez ECLIA methodology. .According to the [employer] Association, Serum PSA shoulddecrease and remain at undetectable levels after radicalprostatectomy. The AUA defines biochemical recurrence as an initialPSA value 0.2 ng/mL or greater followed by a subsequent confirmatoryPSA value 0.2 ng/mL or greater.Values obtained with d ifferent assay methods or kits cannot be usedinterchangeably. Results cannot be interpreted as absolute evidenceof the presence or absence of malignant disease. :33 OVA & PARASITE DIR SMEAR Comments: PATIENT NOT FASTINGPERFORMED BY: Zoutons70 [facility]YSTEMSSw[facility] [id number] (98340) Result 1 NOCP (Normal) Comments: No ova, cysts, or parasites seen. Ova + Parasite Exam Final report (Normal) Comments: These results were obtained using wet preparation(s) and trichromestained smear. This test does not include testing for Cryptosporidiumparvum, Cyclospora, or Microsporidia. :33 OCCULT BLOOD FECES SCREEN Comments: PATIENT NOT FASTINGPERFORMED BY: EventKloud Jxbvfj1848 [facility]YSTEMSSw[facility] Hospital [id number] (63591) Occult Blood, Fecal, IA Positive (Abnormal) 2-Gud-182180:33 LEUKOCYTE COUNT, FECAL (39894) Comments: PATIENT NOT FASTINGPERFORMED BY: EventKloud Fqeutx0188 [facility]YSTEMSSw[facility] [id number] Result 1 NWBC (Normal) Comments: No white blood cells seen. White Blood Cells (WBC), Final report (Normal) Stool 41-Oxi-010185:57 C-DIFFICILE, STOOL ([id number]) Comments: PATIENT NOT FASTINGPERFORMED BY: [employer] [facility] [id number] Sam[place] [facility] [id number] Information: SRC:ST C difficile Toxins A+B, EIA Negative (Normal) 1-Nwg-674227:33 CHI CULTURE-STOOL ([id number]) Comments: PATIENT NOT FASTINGPERFORMED BY: [employer] [facility] [id number] Samayoa [facility] [id number] Information: SRC:ST SRC:ST E coli Shiga Toxin EIA Negative (Normal) Result 1 NCI (Normal) Comments: No Campylobacter species isolated. Campylobacter Culture Final report (Normal) Result 1 NSS (Normal) Comments: No Salmonella or Shigella recovered. Salmonella/Shigella Screen Final report (Normal) 15-Wuu-34489:59 Anaerobic & Aerobic Comments: PATIENT NOT FASTINGPERFORMED BY: [address] [id number] Information: BACK SRC:WO Culture (22534) Result 1 NG36 (Normal) Comments: No growth in 36 - 48 hours. Aerobic Culture Final report (Normal) Result 1 Finegoldia magna (Abnormal) Comments: Heavy growth Anaerobic Culture Final report (Abnormal) 00-Zdq-107459:55 Serum Creatinine AND GFR Comments: [facility] [id number] [place], [place], [id number] EST GFR - AA 106 mL/min (Normal) Comments: GFR Calc EST GFR 88 mL/min (Normal) Comments: Non- GFR Calc CREAT,SERUM 0.93 mg/dL (Normal) Range: 0.70-1.30 Comments: The validity of the calculated GFR AND GFRAA in patients over70 years has not been determined. Clinical correlation isessential. [id number]-Tcz-[id number]:10 Urinalysis, Office (90778) UA - LEUKOCYTE ESTERASE Negative (Normal) UA - NITRITE Negative (Normal) URINE UROBILINGN ELIANE TIMED Normal mg/dL (Normal) UA - PROTEIN Negative mg/dL (Normal) UA - PH 6 (Abnormal) UA - BLOOD Negative (Normal) UA - SPECIFIC GRAVITY 1.025 (Normal) UA - KETONES Negative mg/dL (Normal) UA - BILIRUBIN Negative (Normal) UA - GLUCOSE Negative (Normal) 77-Rzt-698102:52 Lipid Panel (40454) Comments: PATIENT WAS FASTINGPERFORMED BY: [facility] [id number] Information: [id number] LDL/HDL Ratio 3.1 {ratio_units} (Normal) Range: 0.0-3.6 Comments: LDL/HDL Ratio Men Women 1/2 Avg.Risk 1.0 1.5 Av g.Risk 3.6 3.2 2X Avg.Risk 6.2 5.0 3X Avg.Risk 8.0 6.1 LDL Cholesterol Calc 116 mg/dL (Abnormal) Range: 0-99 VLDL Cholesterol Roel 47 mg/dL (Abnormal) Range: 5-40 HDL Cholesterol 38 mg/dL (Abnormal) Comments: According to ATP-III Guidelines, HDL-C >59 mg/dL is considered anegative risk factor for CHD. Triglycerides 234 mg/dL (Abnormal) Range: 0-149 Cholesterol, Total 201 mg/dL (Abnormal) Range: 100-199 63-Lts-685384:52 Hemoglobin Glyclated (HGB Comments: PATIENT WAS FASTINGPERFORMED BY: [facility] [id number]; fu 01-15-16 A1C) (99597) Hemoglobin A1c 5.7 % (Abnormal) Range: 4.8-5.6 Comments: . Pre-diabetes: 5.7 - 6.4 Diabetes: >6.4 Glycemic control for adults with diabetes: <7.0 :39 Microscopic Examination Comments: PATIENT NOT FASTINGPERFORMED BY: [facility] [place] [facility] [id number] Bacteria None seen (Normal) Mucus Threads Present (Normal) Epithelial Cells (non renal) 0-10 {/hpf} (Normal) Range: 0 - 10 RBC 0-2 {/hpf} (Normal) Range: 0 - 2 WBC 0-5 {/hpf} (Normal) Range: 0 - 5 :39 URINALYSIS, W/ MICRO (56347) Comments: PATIENT NOT FASTINGPERFORMED BY: [employer] [facility] [id number] Microscopic Examination See below: (Normal) Comments: Microscopic was indicated and was performed. Microscopic Examination MICRON (Normal) Comments: Microscopic follows if indicated. Nitrite, Urine Negative (Normal) Urobilinogen,Semi-Qn 0.2 mg/dL (Normal) Range: 0.2-1.0 Bilirubin Negative (Normal) Occult Blood Negative (Normal) Ketones Negative (Normal) Glucose Negative (Normal) Protein Negative (Normal) WBC Esterase Negative (Normal) Appearance Turbid (Abnormal) Urine-Color Yellow (Normal) pH 6.0 (Normal) Range: 5.0-7.5 Specific Nelson 1.029 (Normal) Range: 1.005-1.030 :39 METABOLIC PANEL, COMPREHENSIVE Comments: PATIENT NOT FASTINGPERFORMED BY: Tixie ([employer] RanchoJwbfiw3038 [facility] [id number] (25814) ALT (SGPT) 25 [iU]/L (Normal) Range: 0-44 AST (SGOT) 22 [iU]/L (Normal) Range: 0-40 Alkaline Phosphatase, S 88 [iU]/L (Normal) Range: 39-117 Bilirubin, Total 0.4 mg/dL (Normal) Range: 0.0-1.2 A/G Ratio 1.6 (Normal) Range: 1.1-2.5 Globulin, Total 2.7 g/dL (Normal) Range: 1.5-4.5 Albumin, Serum 4.2 g/dL (Normal) Range: 3.6-4.8 Protein, Total, Serum 6.9 g/dL (Normal) Range: 6.0-8.5 Calcium, Serum 9.6 mg/dL (Normal) Range: 8.6-10.2 Carbon Dioxide, Total 27 mmol/L (Normal) Range: 18-29 Chloride, Serum 101 mmol/L (Normal) Range: 97-108 Potassium, Serum 4.1 mmol/L (Normal) Range: 3.5-5.2 Sodium, Serum 144 mmol/L (Normal) Range: 134-144 BUN/Creatinine Ratio 13 (Normal) Range: 10-22 eGFR If Africn Am 87 mL/min/1.73 (Normal) eGFR If NonAfricn Am 75 mL/min/1.73 (Normal) Creatinine, Serum 1.06 mg/dL (Normal) Range: 0.76-1.27 BUN 14 mg/dL (Normal) Range: 8-27 Glucose, Serum 93 mg/dL (Normal) Range: 65-99 :39 LIPID PANEL (62108) Comments: PATIENT NOT FASTINGPERFORMED BY: [place] LLCNorth[facility] CenterZrhmek9481 [facility] [id number]; [address] LDL/HDL Ratio 3.5 {ratio_units} (Normal) Range: 0.0-3.6 Comments: LDL/HDL Ratio Men Women 1/2 Avg.Risk 1.0 1.5 Av g.Risk 3.6 3.2 2X Avg.Risk 6.2 5.0 3X Avg.Risk 8.0 6.1 LDL Cholesterol Calc 139 mg/dL (Abnormal) Range: 0-99 Comments: Please note reference interval change VLDL Cholesterol Roel 51 mg/dL (Abnormal) Range: 5-40 HDL Cholesterol 40 mg/dL (Normal) Comments: According to ATP-III Guidelines, HDL-C >59 mg/dL is considered anegative risk factor for CHD. Triglycerides 253 mg/dL (Abnormal) Range: 0-149 Comments: Please note reference interval change Cholesterol, Total 230 mg/dL (Abnormal) Range: 100-199 Comments: Please note reference interval change :39 CBC with auto diff Comments: PATIENT NOT FASTINGPERFORMED BY: [facility]CoKessler Institute for RehabilitationAptizp1831 [facility] [id number] Information: [id number] (98480) Immature Grans (Abs) 0.0 {x10E3/uL} (Normal) Range: 0.0-0.1 Immature Granulocytes 0 % (Normal) Baso (Absolute) 0.0 {x10E3/uL} (Normal) Range: 0.0-0.2 Eos (Absolute) 0.2 {x10E3/uL} (Normal) Range: 0.0-0.4 Monocytes(Absolute) 0.5 {x10E3/uL} (Normal) Range: 0.1-0.9 Lymphs (Absolute) 1.9 {x10E3/uL} (Normal) Range: 0.7-3.1 Neutrophils (Absolute) 4.0 {x10E3/uL} (Normal) Range: 1.4-7.0 Basos 1 % (Normal) Eos 3 % (Normal) Monocytes 7 % (Normal) Lymphs 29 % (Normal) Neutrophils 60 % (Normal) Platelets 214 {x10E3/uL} (Normal) Range: 150-379 RDW 14.0 % (Normal) Range: 12.3-15.4 MCHC 32.6 g/dL (Normal) Range: 31.5-35.7 MCH 28.9 pg (Normal) Range: 26.6-33.0 MCV 89 fL (Normal) Range: 79-97 Hematocrit 43.9 % (Normal) Range: 37.5-51.0 Hemoglobin 14.3 g/dL (Normal) Range: 12.6-17.7 RBC 4.95 {x10E6/uL} (Normal) Range: 4.14-5.80 WBC 6.7 {x10E3/uL} (Normal) Range: 3.4-10.8 :03 HgA1C , Office (64260) HgA1C , Office 5.7 % (Normal) Range: 4.6 - 7.1 :03 Blood Glucose , Office (35237) Blood Glucose , Office 103 (Normal) :48 PSA (PROSTATE SPECIFIC Comments: PATIENT WAS FASTINGPERFORMED BY: [employer] [facility] [id number] ANTIGEN) (V76.44) Prostate Specific Ag, 0.5 ng/mL (Normal) Range: 0.0-4.0 Serum Comments: EnvironmentIQIA methodology. .According to the Stateless U[employer] Association, Serum PSA shoulddecrease and remain at undetectable levels after radicalprostatectomy. The AUA defines biochemical recurrence as an initialPSA value 0.2 ng/mL or greater followed by a subsequent confirmatoryPSA value 0.2 ng/mL or greater.Values obtained with d ifferent assay methods or kits cannot be usedinterchangeably. Results cannot be interpreted as absolute evidenceof the presence or absence of malignant disease. :48 TSH (45446) Comments: PATIENT WAS FASTINGPERFORMED BY: Tixie ([employer] RehabilitationJmyvbn9806 [facility] [id number] TSH 0.862 {uIU/mL} (Normal) Range: 0.450-4.500 :48 MICROALBUMIN: CREATININE RATIO Comments: PATIENT WAS FASTINGPERFORMED BY: [employer] [place] [facility] [id number] (67580) AND (99353) Microalb/Creat Ratio 5.5 {mg/g_creat} (Normal) Range: 0.0-30.0 Microalbumin, Urine 11.1 ug/mL (Normal) Range: 0.0-17.0 Creatinine, Urine 201.7 mg/dL (Normal) Range: 22.0-328.0 :48 METABOLIC PANEL, COMPREHENSIVE Comments: PATIENT WAS FASTINGPERFORMED BY: [employer]70 [facility] [id number] (41417) ALT (SGPT) 53 [iU]/L (Abnormal) Range: 0-44 AST (SGOT) 35 [iU]/L (Normal) Range: 0-40 Alkaline Phosphatase, S 84 [iU]/L (Normal) Range: 39-117 Bilirubin, Total 0.4 mg/dL (Normal) Range: 0.0-1.2 A/G Ratio 1.8 (Normal) Range: 1.1-2.5 Globulin, Total 2.5 g/dL (Normal) Range: 1.5-4.5 Albumin, Serum 4.6 g/dL (Normal) Range: 3.6-4.8 Protein, Total, Serum 7.1 g/dL (Normal) Range: 6.0-8.5 Calcium, Serum 10.2 mg/dL (Normal) Range: 8.6-10.2 Carbon Dioxide, Total 26 mmol/L (Normal) Range: 18-29 Chloride, Serum 99 mmol/L (Normal) Range: 97-108 Potassium, Serum 4.9 mmol/L (Normal) Range: 3.5-5.2 Sodium, Serum 142 mmol/L (Normal) Range: 134-144 BUN/Creatinine Ratio 19 (Normal) Range: 10-22 eGFR If Africn Am 102 mL/min/1.73 (Normal) eGFR If NonAfricn Am 88 mL/min/1.73 (Normal) Creatinine, Serum 0.93 mg/dL (Normal) Range: 0.76-1.27 BUN 18 mg/dL (Normal) Range: 8-27 Glucose, Serum 103 mg/dL (Abnormal) Range: 65-99 :48 LIPID PANEL (55695) Comments: PATIENT WAS FASTINGPERFORMED BY: [facility]6370 [facility] [id number] LDL/HDL Ratio 3.7 {ratio_units} (Abnormal) Range: 0.0-3.6 Comments: LDL/HDL Ratio Men Women 1/2 Avg.Risk 1.0 1.5 Av g.Risk 3.6 3.2 2X Avg.Risk 6.2 5.0 3X Avg.Risk 8.0 6.1 LDL Cholesterol Calc 131 mg/dL (Abnormal) Range: 0-99 VLDL Cholesterol Roel 70 mg/dL (Abnormal) Range: 5-40 HDL Cholesterol 35 mg/dL (Abnormal) Comments: According to ATP-III Guidelines, HDL-C >59 mg/dL is considered anegative risk factor for CHD. Triglycerides 351 mg/dL (Abnormal) Range: 0-149 Cholesterol, Total 236 mg/dL (Abnormal) Range: 100-199 69-Cfn-42849:48 CBC W/AUTO DIFF WBC Comments: PATIENT WAS FASTINGPERFORMED BY: [facility]CoKessler Institute for RehabilitationLmoupe2580 [facility] [id number] Information: [id number] (98353) Immature Grans (Abs) 0.0 {x10E3/uL} (Normal) Range: 0.0-0.1 Immature Granulocytes 0 % (Normal) Baso (Absolute) 0.0 {x10E3/uL} (Normal) Range: 0.0-0.2 Eos (Absolute) 0.2 {x10E3/uL} (Normal) Range: 0.0-0.4 Monocytes(Absolute) 0.5 {x10E3/uL} (Normal) Range: 0.1-0.9 Lymphs (Absolute) 1.9 {x10E3/uL} (Normal) Range: 0.7-3.1 Neutrophils (Absolute) 3.8 {x10E3/uL} (Normal) Range: 1.4-7.0 Basos 1 % (Normal) Eos 4 % (Normal) Monocytes 7 % (Normal) Lymphs 30 % (Normal) Neutrophils 58 % (Normal) Platelets 195 {x10E3/uL} (Normal) Range: 150-379 RDW 14.0 % (Normal) Range: 12.3-15.4 MCHC 34.4 g/dL (Normal) Range: 31.5-35.7 MCH 29.8 pg (Normal) Range: 26.6-33.0 MCV 87 fL (Normal) Range: 79-97 Hematocrit 42.7 % (Normal) Range: 37.5-51.0 Hemoglobin 14.7 g/dL (Normal) Range: 12.6-17.7 RBC 4.93 {x10E6/uL} (Normal) Range: 4.14-5.80 WBC 6.4 {x10E3/uL} (Normal) Range: 3.4-10.8 :52 HgA1C , Office (85359) HgA1C , Office 5.7 % (Normal) Range: 4.6 - 7.1 :13 METABOLIC PANEL, Comments: PATIENT WAS FASTINGPERFORMED BY: LabCoKessler Institute for RehabilitationVkqvlv4601 [facility] [id number] Information: [id number] COMPREHENSIVE (14094) ALT (SGPT) 26 [iU]/L (Normal) Range: 0-44 AST (SGOT) 23 [iU]/L (Normal) Range: 0-40 Alkaline Phosphatase, S 83 [iU]/L (Normal) Range: 39-117 Bilirubin, Total 0.4 mg/dL (Normal) Range: 0.0-1.2 A/G Ratio 1.7 (Normal) Range: 1.1-2.5 Globulin, Total 2.6 g/dL (Normal) Range: 1.5-4.5 Albumin, Serum 4.3 g/dL (Normal) Range: 3.6-4.8 Protein, Total, Serum 6.9 g/dL (Normal) Range: 6.0-8.5 Calcium, Serum 9.6 mg/dL (Normal) Range: 8.6-10.2 Carbon Dioxide, Total 26 mmol/L (Normal) Range: 18-29 Chloride, Serum 102 mmol/L (Normal) Range: 97-108 Potassium, Serum 4.4 mmol/L (Normal) Range: 3.5-5.2 Sodium, Serum 142 mmol/L (Normal) Range: 134-144 BUN/Creatinine Ratio 21 (Normal) Range: 10-22 eGFR If Africn Am 106 mL/min/1.73 (Normal) eGFR If NonAfricn Am 92 mL/min/1.73 (Normal) Creatinine, Serum 0.90 mg/dL (Normal) Range: 0.76-1.27 BUN 19 mg/dL (Normal) Range: 8-27 Glucose, Serum 100 mg/dL (Abnormal) Range: 65-99 :13 LIPID PANEL (68400) Comments: PATIENT WAS FASTINGPERFORMED BY: [employer]ixie ([employer] RanchoIbjwqn5180 [facility] [id number] LDL/HDL Ratio 3.6 {ratio_units} (Normal) Range: 0.0-3.6 Comments: LDL/HDL Ratio Men Women 1/2 Avg.Risk 1.0 1.5 Av g.Risk 3.6 3.2 2X Avg.Risk 6.2 5.0 3X Avg.Risk 8.0 6.1 LDL Cholesterol Calc 122 mg/dL (Abnormal) Range: 0-99 VLDL Cholesterol Roel 53 mg/dL (Abnormal) Range: 5-40 HDL Cholesterol 34 mg/dL (Abnormal) Comments: According to ATP-III Guidelines, HDL-C >59 mg/dL is considered anegative risk factor for CHD. Triglycerides 265 mg/dL (Abnormal) Range: 0-149 Cholesterol, Total 209 mg/dL (Abnormal) Range: 100-199 :18 HgA1C , Office (89090) HgA1C , Office 5.8 % (Normal) Range: 4.6 - 7.1 8-Ejk-092317:13 Microscopic Examination Comments: PATIENT WAS FASTINGPERFORMED BY: [employer]ie ([employer] RehabilitationPdocsj7530 [facility] [id number] Bacteria Few (Normal) Mucus Threads Present (Normal) Crystal Type Calcium Oxalate (Normal) Crystals Present (Abnormal) Epithelial Cells (non renal) None seen {/hpf} (Normal) Range: 0 - 10 RBC None seen {/hpf} (Normal) Range: 0 - 3 WBC 0-5 {/hpf} (Normal) Range: 0 - 5 34-Fee-560597:07 RHEUMATOID FACTOR-QUANT Comments: PATIENT NOT FASTINGPERFORMED BY: [employer]ie ([employer] RehabilitationIwrthi6187 [facility] [id number] Information: [id number] (26191) RA Latex Turbid. 7.4 {IU/mL} (Normal) Range: 0.0-13.9 97-Phz-880789:07 C-Reactive Protein (31242) Comments: PATIENT NOT FASTINGPERFORMED BY: [employer]ie ([employer] RanchoYwowyi1023 [facility] [id number] C-Reactive Protein, Quant 3.2 mg/L (Normal) Range: 0.0-4.9 :07 Sed Rate Erythrocyte (16766) Comments: PATIENT NOT FASTINGPERFORMED BY: [employer]ie ([employer] RanchoUneful3040 [facility] [id number] Sedimentation Rate-Westergren 3 mm/h (Normal) Range: 0-30 51-Lrs-739733:07 LORETTA (ANTINUCLEAR ANTIBODY) Comments: PATIENT NOT FASTINGPERFORMED BY: [employer]ie ([employer] Uxvjfk6913 [facility] [id number] (18125) LORETTA Direct Positive (Abnormal) :33 URINALYSIS, W/ MICRO (80793) Comments: PATIENT WAS FASTINGPERFORMED BY: Tixie ([employer] Dcswah6643 [facility] [id number] Microscopic Examination See below: (Normal) Microscopic Examination MICRON (Normal) Comments: Microscopic follows if indicated. Nitrite, Urine Negative (Normal) Urobilinogen,Semi-Qn 0.2 mg/dL (Normal) Range: 0.0-1.9 Bilirubin Negative (Normal) Occult Blood Negative (Normal) Ketones Negative (Normal) Glucose Negative (Normal) Protein Negative (Normal) WBC Esterase Negative (Normal) Appearance Clear (Normal) Urine-Color Yellow (Normal) pH 5.5 (Normal) Range: 5.0-7.5 Specific Nelson 1.026 (Normal) Range: 1.005-1.030 :33 METABOLIC PANEL, COMPREHENSIVE Comments: PATIENT WAS FASTINGPERFORMED BY: T[employer]ie ([employer] Vdyuzo9048 [facility] [id number] (54674) ALT (SGPT) 30 [iU]/L (Normal) Range: 0-44 AST (SGOT) 25 [iU]/L (Normal) Range: 0-40 Alkaline Phosphatase, S 87 [iU]/L (Normal) Range: 39-117 Bilirubin, Total 0.4 mg/dL (Normal) Range: 0.0-1.2 A/G Ratio 1.4 (Normal) Range: 1.1-2.5 Globulin, Total 3.0 g/dL (Normal) Range: 1.5-4.5 Albumin, Serum 4.3 g/dL (Normal) Range: 3.6-4.8 Protein, Total, Serum 7.3 g/dL (Normal) Range: 6.0-8.5 Calcium, Serum 10.2 mg/dL (Normal) Range: 8.6-10.2 Carbon Dioxide, Total 25 mmol/L (Normal) Range: 19-28 Chloride, Serum 101 mmol/L (Normal) Range: 97-108 Potassium, Serum 4.4 mmol/L (Normal) Range: 3.5-5.2 Sodium, Serum 141 mmol/L (Normal) Range: 134-144 BUN/Creatinine Ratio 19 (Normal) Range: 10-22 eGFR If Africn Am 107 mL/min/1.73 (Normal) eGFR If NonAfricn Am 93 mL/min/1.73 (Normal) Creatinine, Serum 0.90 mg/dL (Normal) Range: 0.76-1.27 BUN 17 mg/dL (Normal) Range: 8-27 Glucose, Serum 101 mg/dL (Abnormal) Range: 65-99 :33 LIPID PANEL (09761) Comments: PATIENT WAS FASTINGPERFORMED BY: [employer] [facility] [id number] LDL/HDL Ratio 3.4 {ratio_units} (Normal) Range: 0.0-3.6 LDL Cholesterol Calc 137 mg/dL (Abnormal) Range: 0-99 VLDL Cholesterol Roel 52 mg/dL (Abnormal) Range: 5-40 HDL Cholesterol 40 mg/dL (Normal) Comments: According to ATP-III Guidelines, HDL-C >59 mg/dL is considered anegative risk factor for CHD. Triglycerides 262 mg/dL (Abnormal) Range: 0-149 Cholesterol, Total 229 mg/dL (Abnormal) Range: 100-199 :33 CBC WITH MANUAL DIFF Comments: PATIENT WAS FASTINGPERFORMED BY: [employer]70 [facility] [id number] Information: [id number] (68677) Immature Grans (Abs) 0.0 {x10E3/uL} (Normal) Range: 0.0-0.1 Immature Granulocytes 0 % (Normal) Range: 0-2 Baso (Absolute) 0.1 {x10E3/uL} (Normal) Range: 0.0-0.2 Eos (Absolute) 0.3 {x10E3/uL} (Normal) Range: 0.0-0.4 Monocytes(Absolute) 0.7 {x10E3/uL} (Normal) Range: 0.1-0.9 Lymphs (Absolute) 2.1 {x10E3/uL} (Normal) Range: 0.7-3.1 Neutrophils (Absolute) 5.9 {x10E3/uL} (Normal) Range: 1.4-7.0 Basos 1 % (Normal) Range: 0-3 Eos 3 % (Normal) Range: 0-5 Monocytes 8 % (Normal) Range: 4-12 Lymphs 23 % (Normal) Range: 14-46 Neutrophils 65 % (Normal) Range: 40-74 Platelets 208 {x10E3/uL} (Normal) Range: 155-379 RDW 13.3 % (Normal) Range: 12.3-15.4 MCHC 34.2 g/dL (Normal) Range: 31.5-35.7 MCH 30.4 pg (Normal) Range: 26.6-33.0 MCV 89 fL (Normal) Range: 79-97 Hematocrit 41.8 % (Normal) Range: 37.5-51.0 Hemoglobin 14.3 g/dL (Normal) Range: 12.6-17.7 RBC 4.71 {x10E6/uL} (Normal) Range: 4.14-5.80 WBC 9.1 {x10E3/uL} (Normal) Range: 3.4-10.8 20-Mar-20149:33 PSA (PROSTATE SPECIFIC Comments: PATIENT WAS FASTINGPERFORMED BY: [facility]6370 [facility] [id number] ANTIGEN) (V76.44) Prostate Specific Ag, 0.4 ng/mL (Normal) Range: 0.0-4.0 Serum Comments: Perez SkyStemIA methodology. .According to the [employer]eless U[employer] Association, Serum PSA shoulddecrease and remain at undetectable levels after radicalprostatectomy. The AUA defines biochemical recurrence as an initialPSA value 0.2 ng/mL or greater followed by a subsequent confirmatoryPSA value 0.2 ng/mL or greater.Values obtained with d ifferent assay methods or kits cannot be usedinterchangeably. Results cannot be interpreted as absolute evidenceof the presence or absence of malignant disease. 56-Flb-54319:49 Lipid Panel (48223) Comments: PATIENT WAS FASTINGPERFORMED BY: [facility]6370 [facility] [id number] Information: [id number] LDL/HDL Ratio 3.6 {ratio_units} (Normal) Range: 0.0-3.6 LDL Cholesterol Calc 140 mg/dL (Abnormal) Range: 0-99 VLDL Cholesterol Roel 34 mg/dL (Normal) Range: 5-40 HDL Cholesterol 39 mg/dL (Abnormal) Comments: According to ATP-III Guidelines, HDL-C >59 mg/dL is considered anegative risk factor for CHD. Triglycerides 169 mg/dL (Abnormal) Range: 0-149 Cholesterol, Total 213 mg/dL (Abnormal) Range: 100-199 3-Crb-577626:01 Microscopic Examination Comments: PATIENT WAS FASTINGPERFORMED BY: [facility]6370 [facility] [id number] Bacteria None seen (Normal) Mucus Threads Present (Normal) Cast Type Hyaline casts (Normal) Casts Present {/lpf} (Abnormal) Epithelial Cells (non renal) None seen {/hpf} (Normal) Range: 0 - 10 RBC 0-3 {/hpf} (Normal) Range: 0 - 3 WBC 0-5 {/hpf} (Normal) Range: 0 - 5 5-Qee-872661:01 PSA (PROSTATE SPECIFIC Comments: PATIENT WAS FASTINGPERFORMED BY: [employer]6370 [facility] [id number] ANTIGEN) (V76.44) Prostate Specific Ag, 0.4 ng/mL (Normal) Range: 0.0-4.0 Serum Comments: Perez ECLIA methodology. .According to the Stateless U[employer] Association, Serum PSA shoulddecrease and remain at undetectable levels after radicalprostatectomy. The AUA defines biochemical recurrence as an initialPSA value 0.2 ng/mL or greater followed by a subsequent confirmatoryPSA value 0.2 ng/mL or greater.Values obtained with d ifferent assay methods or kits cannot be usedinterchangeably. Results cannot be interpreted as absolute evidenceof the presence or absence of malignant disease. :01 URINALYSIS, W/ MICRO (85228) Comments: PATIENT WAS FASTINGPERFORMED BY: groopifyKessler Institute for RehabilitationQkkiqb8104 [facility] [id number] Microscopic Examination See below: (Normal) Microscopic Examination MICRON (Normal) Comments: Microscopic follows if indicated. Nitrite, Urine Negative (Normal) Urobilinogen,Semi-Qn 0.2 mg/dL (Normal) Range: 0.0-1.9 Bilirubin Negative (Normal) Occult Blood Negative (Normal) Ketones Negative (Normal) Glucose Negative (Normal) Protein Negative (Normal) Appearance Clear (Normal) WBC Esterase Negative (Normal) Urine-Color Yellow (Normal) pH 5.5 (Normal) Range: 5.0-7.5 Specific Nelson 1.020 (Normal) Range: 1.005-1.030 :01 METABOLIC PANEL, COMPREHENSIVE Comments: PATIENT WAS FASTINGPERFORMED BY: groopifyKessler Institute for RehabilitationYmezcr6012 [facility] [id number] (83435) ALT (SGPT) 44 [iU]/L (Normal) Range: 0-44 AST (SGOT) 38 [iU]/L (Normal) Range: 0-40 Alkaline Phosphatase, S 90 [iU]/L (Normal) Range: 25-150 Bilirubin, Total 0.7 mg/dL (Normal) Range: 0.0-1.2 A/G Ratio 1.6 (Normal) Range: 1.1-2.5 Globulin, Total 2.9 g/dL (Normal) Range: 1.5-4.5 Albumin, Serum 4.7 g/dL (Normal) Range: 3.5-5.5 Protein, Total, Serum 7.6 g/dL (Normal) Range: 6.0-8.5 Calcium, Serum 9.9 mg/dL (Normal) Range: 8.7-10.2 Carbon Dioxide, Total 23 mmol/L (Normal) Range: 20-32 Chloride, Serum 99 mmol/L (Normal) Range: 97-108 Potassium, Serum 4.0 mmol/L (Normal) Range: 3.5-5.2 Sodium, Serum 138 mmol/L (Normal) Range: 134-144 BUN/Creatinine Ratio 15 (Normal) Range: 9-20 eGFR If Africn Am 101 mL/min/1.73 (Normal) eGFR If NonAfricn Am 87 mL/min/1.73 (Normal) Creatinine, Serum 0.95 mg/dL (Normal) Range: 0.76-1.27 BUN 14 mg/dL (Normal) Range: 6-24 Glucose, Serum 96 mg/dL (Normal) Range: 65-99 0-Kgb-991898:01 LIPID PANEL (42168) Comments: PATIENT WAS FASTINGPERFORMED BY: [employer]ixie ([employer] RehabilitationOooomv3810 [facility] [id number] LDL/HDL Ratio 4.5 {ratio_units} (Abnormal) Range: 0.0-3.6 LDL Cholesterol Calc 180 mg/dL (Abnormal) Range: 0-99 VLDL Cholesterol Roel 36 mg/dL (Normal) Range: 5-40 HDL Cholesterol 40 mg/dL (Normal) Comments: According to ATP-III Guidelines, HDL-C >59 mg/dL is considered anegative risk factor for CHD. Triglycerides 181 mg/dL (Abnormal) Range: 0-149 Cholesterol, Total 256 mg/dL (Abnormal) Range: 100-199 8-Gwz-874123:01 CBC WITH MANUAL DIFF Comments: PATIENT WAS FASTINGPERFORMED BY: Tixie ([employer] RehabilitationUtmkrt6720 [facility] [id number] Information: [id number] (42361) Immature Grans (Abs) 0.0 {x10E3/uL} (Normal) Range: 0.0-0.1 Immature Granulocytes 0 % (Normal) Range: 0-2 Baso (Absolute) 0.1 {x10E3/uL} (Normal) Range: 0.0-0.2 Eos (Absolute) 0.2 {x10E3/uL} (Normal) Range: 0.0-0.4 Lymphs (Absolute) 2.2 {x10E3/uL} (Normal) Range: 0.7-4.5 Monocytes(Absolute) 0.8 {x10E3/uL} (Normal) Range: 0.1-1.0 Neutrophils (Absolute) 5.6 {x10E3/uL} (Normal) Range: 1.8-7.8 Basos 1 % (Normal) Range: 0-3 Eos 2 % (Normal) Range: 0-7 Monocytes 9 % (Normal) Range: 4-13 Lymphs 25 % (Normal) Range: 14-46 Neutrophils 63 % (Normal) Range: 40-74 Platelets 226 {x10E3/uL} (Normal) Range: 140-415 RDW 14.0 % (Normal) Range: 12.3-15.4 MCHC 34.2 g/dL (Normal) Range: 31.5-35.7 MCH 29.4 pg (Normal) Range: 26.6-33.0 MCV 86 fL (Normal) Range: 79-97 Hematocrit 42.7 % (Normal) Range: 37.5-51.0 Hemoglobin 14.6 g/dL (Normal) Range: 12.6-17.7 RBC 4.96 {x10E6/uL} (Normal) Range: 4.14-5.80 WBC 8.8 {x10E3/uL} (Normal) Range: 4.0-10.5 [id number] Basic Metabolic Panel (8) Comments: PATIENT WAS FASTINGPERFORMED BY: [id number] [id number] Calcium, Serum 9.6 mg/dL (Normal) Range: 8.7-10.2 Carbon Dioxide, Total 24 mmol/L (Normal) Range: 20-32 Chloride, Serum 101 mmol/L (Normal) Range: 97-108 Potassium, Serum 3.8 mmol/L (Normal) Range: 3.5-5.2 Sodium, Serum 141 mmol/L (Normal) Range: 135-145 BUN/Creatinine Ratio 13 (Normal) Range: 8-27 eGFR AfricanAmerican >59 mL/min/1.73 Comments: Note: Persistent reduction for 3 months or more in an eGFR<60 mL/min/1.73 m2 defines CKD. Patients with eGFR values>/=60 mL/min/1.73 m2 may also have CKD if evidence of persistentproteinuria is (Normal) present. Additional information may be found [email or web address]. Creatinine, Serum 1.01 mg/dL (Normal) Range: 0.76-1.27 eGFR >59 mL/min/1.73 (Normal) BUN 13 mg/dL (Normal) Range: 5-26 Glucose, Serum 106 mg/dL (Abnormal) Range: 65-99 [id number] Celiac Disease Comprehensive Comments: PATIENT WAS FASTINGPERFORMED BY: [employer] [facility] [id number] Immunoglobulin A, Qn, Serum 657 mg/dL (Abnormal) Range: 70-400 Endomysial Antibody IgA Negative (Normal) t-Transglutaminase (tTG) IgA 6 U/mL (Abnormal) Range: 0-3 Comments: Negative 0 - 3 Weak Positive 4 - 10 Positive >10 . Tissue Transglutaminase (tTG) has been identified as the endomysial antigen. Studies have demonstr- ated that endomysial IgA antibo dies have over 99% specificity for gluten sensitive enteropathy. t-Transglutaminase (tTG) IgG <2 U/mL (Normal) Range: 0-5 Comments: Negative 0 - 5 Weak Positive 6 - 9 Positive >9 Deamidated Gliadin Abs, IgG 4 {units} (Normal) Range: 0-19 Comments: Negative 0 - 19 Weak Positive 20 - 30 Moderate to Strong Positive >30 Deamidated Gliadin Abs, IgA 14 {units} (Normal) Range: 0-19 Comments: Negative 0 - 19 Weak Positive 20 - 30 Moderate to Strong Positive >30 12-Arw-31420:25 Lipid Panel With LDL/HDL Comments: PATIENT WAS FASTINGPERFORMED BY: Zoutons70 [facility] [id number] Ratio LDL Cholesterol Calc 108 mg/dL (Abnormal) Range: 0-99 LDL/HDL Ratio 3.2 {ratio_units} Range: 0.0-3.6 (Normal) VLDL Cholesterol Roel 72 mg/dL (Abnormal) Range: 5-40 HDL Cholesterol 34 mg/dL (Abnormal) Comments: According to ATP-III Guidelines, HDL-C >59 mg/dL is considered anegative risk factor for CHD. Cholesterol, Total 214 mg/dL (Abnormal) Range: 100-199 Triglycerides 358 mg/dL (Abnormal) Range: 0-149 06-Sep-2010 Thyroid Peroxidase (TPO) 10 {IU/mL} (Normal) Comments: PATIENT WAS FASTINGPERFORMED BY: [employer] [facility] [id number] 8:25 Ab Range: 0-34 06-Sep-2010 TSH 1.240 {uIU/mL} Comments: PATIENT WAS FASTINGPERFORMED BY: [address] [id number] 8:25 (Normal) Range: 0.450-4.500 :57 HEPATIC FUNCTION PANEL Comments: 05-25 copy to [facility]; PATIENT NOT FASTINGPERFORMED BY: [address] [id number] Information: [id number] ([id number]) Alkaline Phosphatase, S 106 [iU]/L (Normal) Range: 25-150 ALT (SGPT) 61 [iU]/L (Abnormal) Range: 0-55 AST (SGOT) 35 [iU]/L (Normal) Range: 0-40 Albumin, Serum 4.2 g/dL (Normal) Range: 3.5-5.5 Bilirubin, Direct 0.10 mg/dL (Normal) Range: 0.00-0.40 Bilirubin, Total 0.3 mg/dL (Normal) Range: 0.0-1.2 Protein, Total, Serum 7.3 g/dL (Normal) Range: 6.0-8.5 :24 ALDOLASE 2030 7.4 U/L (Normal) Range: 1.2-7.6 Comments: Performed at: [address] [id number] Director: Akilah Gillette MD :24 ANTI-CENT B <0.2 {AI} (Normal) Range: 0.0-0.9 :24 ANTI-SAYRA 137182 <0.2 {AI} (Normal) Range: 0.0-0.9 :24 ANTISCLER 28501 <0.2 {AI} (Normal) Range: 0.0-0.9 :24 CPK TOTAL 62 U/L (Normal) Range: 35-232 :24 GGTP 63 U/L (Normal) Range: 15-85 :24 PROT+CRE RATIO PROT:CRE RATIO 93 {mg/g_CRE} Range: 0-200 (Normal) PROTEIN,UR.RAN. 11.5 mg/dL (Normal) UR CREAT 123.0 mg/dL (Normal) Actin (Smooth 12 {Units} (Normal) Comments: A courtesy copy of this report has been sent [phone].PERFORMED BY: [employer] [place] [id number] 1:23 Muscle) Antibody Range: 0-19 Comments: Negative 0 - 19Weak positive 20 - 30Moderate to strong positive >30.Actin Antibodies are found in 52-85% of patients withautoimmune hepatitis or chronic active h epatitis andin 22% of patients with primary biliary cirrhosis. 03-Whh-219552:23 LORETTA w/Reflex Comments: A courtesy copy of this report has been sent [phone].PERFORMED BY: [facility] [id number] [place] Direct Positive (Abnormal) 97-Vcy-392919:23 Anti-dsDNA Antibodies Comments: A courtesy copy of this report has been sent [phone].PERFORMED BY: [employer] [place] [id number] Anti-DNA (DS) Ab Qn 2 {IU/mL} (Normal) Range: 0-9 Comments: Negative <5Equivocal 5 - 9Positive >9 09-Vcb-433407:23 Antiextractable Nuclear Ag Comments: A courtesy copy of this report has been sent [phone].PERFORMED BY: [facility] [id number] Altman Antibodies 0.2 {AI} (Normal) Range: 0.0-0.9 LOCAL INTERMODAL TRUCK DRIVER Antibodies <0.2 {AI} (Normal) Range: 0.0-0.9 Ceruloplasmin 23.2 mg/dL (Normal) Comments: A courtesy copy of this report has been sent [phone].PERFORMED BY: Dobns Agencyin [place] [id number] :23 Range: 16.2-35.6 Complement C3, Serum 161 {mg/dL_Adult} Comments: A courtesy copy of this report has been sent [phone].PERFORMED BY: [facility]6370 [facility] [id number] :23 (Normal) Range: 90-180 Complement C4, Serum 22 {mg/dL_Adult} Comments: A courtesy copy of this report has been sent [phone].PERFORMED BY: [facility]6370 [facility] [id number] :23 (Normal) Range: 9-36 :23 CELESTINE+DNA/DS+Sjorgen's Comments: A courtesy copy of this report has been sent [phone].PERFORMED BY: [facility] Kgrbbg5223 [facility] [id number] See [facility] Comments: Autoantibody Disease Association Condition Frequency - below: (Normal) --------Antinuclear Antibody, SLE, mixed connectiveDirect (LORETTA-D) tissue diseases ---------dsDNA SLE 40 - 60% ---------Chromatin Drug induced SLE 90%SLE 48 - 97% ---------SSA (Ro) SLE 25 - 35%Sjogren's Syndrome 40 - 70% Lupus 100% - ---------SSB (La) SLE 10%Sjogren's Syndrome 30% ---------Sm (anti-Altman) SLE 15 - 30% ---------LOCAL INTERMODAL TRUCK DRIVER Mixed Connective TissueDisease 95%(U1 nRNP, SLE 30 - 50%anti-ribonucleoprotein) Polymyositis and/orDermatomyositis 20% ---------Scl-70 (antiDNA Scleroderma (diffuse) 20 - 35%topoisomerase) Crest 13% ---------Sayra-1 Polymyositis and/orDermatomyositi s 20 - 40% ---------Centromere B Scleroderma - Crestvariant 80% Sjogren <0.2 Range: 0.0-0.9 's {AI} Anti-SS (Normal) -B Sjogren <0.2 Range: 0.0-0.9 's {AI} Anti-SS (Normal) -A 2 Ferriti 380 Comments: A courtesy copy of this report has been sent [phone].PERFORMED BY: [facility] [id number] 1 n, ng/mL Range: 30-400 - Serum (Normal) M a y - 2 0 1 0 1 1 : 2 3 19-Uzz-919227:23 Hepatic Function Panel Comments: A courtesy copy of this report has been sent [phone].PERFORMED BY: [facility] [id number] Information: [id number] (7) ALT (SGPT) 110 [iU]/L Range: 0-55 (Abnormal) AST (SGOT) 66 [iU]/L (Abnormal) Range: 0-40 Albumin, Serum 4.5 g/dL (Normal) Range: 3.5-5.5 Alkaline Phosphatase, S 119 [iU]/L (Normal) Range: 25-150 Bilirubin, Direct 0.14 mg/dL (Normal) Range: 0.00-0.40 Bilirubin, Total 0.6 mg/dL (Normal) Range: 0.0-1.2 Protein, Total, Serum 8.0 g/dL (Normal) Range: 6.0-8.5 05-Apr-2010 Liver-Kidney Microsomal 1.1 {Units} (Normal) Comments: A courtesy copy of this report has been sent [phone].PERFORMED BY: [facility]70 [facility] [id number] 11:23 Ab Range: 0.0-20.0 Comments: Negative 0.0 - 20.0Equivocal 20.1 - 24.9Positive >24.9.LKM type 1 antibodies are detected in patients withautoimmune hepatitis type 2 and in up to 8% ofpatients with chronic HCV infection. 05-Apr-2010 Mitochondrial (M2) <20.0 {Units} Comments: A courtesy copy of this report has been sent [phone].PERFORMED BY: KENYA [facility]CoK[facility] RehabilitationSrunln0091 [facility] [id number] 11:23 Antibody (Normal) Range: 0.0-20.0 Comments: Negative 0.0 - 20.0Equivocal 20.1 - 24.9Positive >24.9.Mitochondrial (M2) Antibodies are found in 90-96% ofpatients with primary biliary cirrhosis. 27-Xvl-495578:39 LORETTA-D 317210 LORETTA-DIRECT SeeNote (Abnormal) Comments: Result: Positive 77-Anq-924201:39 ANTI-CCP 017791 7 {units} (Normal) Range: 0-19 Comments: Negative <20Weak positive 20 - 39Moderate positive 40 - 59Strong positive >59 81-Own-745212:39 C-REACTIVE PROT 12.50 mg/L (Abnormal) Range: 0.0-3.0 Comments: C-Reactive Protein (CRP) provides useful information for thediagnosis, therapy and monitoring of inflammatory processesand associated diseases. For the evaluation of Relative Riskfor Cardiovascular Dise ase, a High Sensitivity CRP (HSCRP)should be ordered. 93-Gdz-680277:39 CBCD ABSOLUTE NEUT 7.1 3/uL (Normal) Range: 2.0-7.7 BASO% 0.4 % (Normal) Range: 0-1 EO% 2.3 % (Normal) Range: 0-5 LY% 19.7 % (Normal) Range: 19-41 MCH 29.7 pg (Normal) Range: 27.0-32.0 MCHC 33.6 g/dL (Normal) Range: 32-36 MCV 88.6 fL (Normal) Range: 80-94 MONO% 7.6 % (Normal) Range: 0-10 MPV 10.1 fL (Normal) Range: 6.5-12.0 NEUT% 70.0 % (Normal) Range: 47-70 PLT 213 K/mm3 (Normal) Range: 150-450 RDW 13.7 % (Normal) Range: 11.6-14.6 HCT 44.7 % (Normal) Range: 40-54 HGB 15.0 g/dL (Normal) Range: 14.0-18.0 RBC 5.05 {M/mm3} (Normal) Range: 4.6-6.2 WBC 10.2 K/mm3 (Normal) Range: 4.4-11.0 :39 COMP METABOLIC A/G 0.8 {RATIO} (Abnormal) Range: 0.9-2.4 ALB 3.9 g/dL (Normal) Range: 3.4-5.0 ALK P 108 U/L (Normal) Range: 50-136 ALT 124 U/L (Abnormal) Range: 12-78 AST 52 U/L (Abnormal) Range: 15-37 BUN/CRE 18.0 {RATIO} (Normal) Range: 10-20 CA 9.9 mg/dL (Normal) Range: 8.5-10.1 CL 97 mmol/L (Abnormal) Range: 98-107 CO2 31.0 mmol/L (Normal) Range: 21.0-32.0 EST GFR 82 mL/min (Normal) EST GFR - AA 99 mL/min (Normal) GAP 7 (Normal) Range: 5-15 GLOB 4.7 g/dL (Abnormal) Range: 2.7-4.2 K 4.0 mmol/L (Normal) Range: 3.5-5.1 NA 135 mmol/L (Abnormal) Range: 136-145 T BILI 0.50 mg/dL (Normal) Range: 0.00-1.00 T PROT 8.6 g/dL (Abnormal) Range: 6.4-8.2 BUN 18 mg/dL (Normal) Range: 7-18 CREAT,SERUM 1.0 mg/dL (Normal) Range: 0.8-1.3 GLU 90 mg/dL (Normal) Range: 70-110 72-Gub-207311:39 COMPLETE UA BACTERIA 0 SEEN {/hpf} (Normal) MUCUS, URINE 0 SEEN {/hpf} (Normal) SQUAM EPI 0 SEEN {/hpf} (Normal) Range: 0-5 LEUK ESTERASE SeeNote (Normal) Comments: Result: NEGATIVE NITRITE UR SeeNote (Normal) Comments: Result: NEGATIVE OCCULT BLOOD-UR SeeNote (Normal) Comments: Result: NEGATIVE PROT DIPSTX SeeNote (Normal) Comments: Result: NEGATIVE RBC-UA 0 SEEN {/hpf} (Normal) Range: 0-5 UROBILI 0.2 EU/dl (Normal) Range: 0.2 - 1.0 WBC 0 SEEN {/hpf} (Normal) Range: 0-5 BILIRUBIN URINE SeeNote (Normal) Comments: Result: NEGATIVE CLARITY CLEAR (Normal) GLUCOSE, UR SeeNote (Normal) Comments: Result: NEGATIVE KETONE UR SeeNote mg/dL (Normal) Comments: Result: NEGATIVE pH UR 6.0 (Normal) Range: 5.0-8.0 SP.GR. DIPSTX 1.025 (Normal) Range: 1.002-1.030 COLOR YELLOW (Normal) :39 ESR SED RATE 35 mm/h (Abnormal) Range: 0-20 :39 HB CORE [id number] SeeNote (Normal) Comments: Result: NegativePerformed at: [facility] Lab[address] [id number] Director: Akilah Gillette MDPerformed at: [facility] [id number] Director: Montez Bashir MD 02-Hdr-005661:39 HBsAg 6510 HB SURF AG 6510 SeeNote (Normal) Comments: Result: Negative :39 HEBSAB 6395 < 0.1 (Normal) Range: 0.00-0.99 Comments: Status of Immunity Anti-HBs Level Inconsistent with Immunity 0.00 - 0.99Consistent with Immunity >0.99.An Index Value of 1.00 is equivalent to 10 mIU/mL.However the magnitude of the Index Value is notindicative of the total amount of antibody present. :39 HEP C AB 550601 <0.1 (Normal) Range: 0.0-0.9 Comments: Negative: < 0.8Indeterminate 0.8 - 0.9Positive: > 0.9.In order to reduce the incidence of a false positiveresult, the CDC recommends that all s/co ratiosbetween 1.0 and 10.9 be confirmed with additionalRIBA or PCR testing. 87-Mde-072661:39 RHEUMATOID FAC < 10.0 {IU/mL} (Normal) 0-Igq-962120:07 Urinalysis, Office (69435) UA - LEUKOCYTE Negative (Normal) ESTERASE UA - NITRITE Negative (Normal) URINE UROBILINGN ELIANE 2 mg/dL (Normal) TIMED UA - PROTEIN Negative mg/dL (Normal) UA - PH 6.5 (Normal) UA - BLOOD Negative (Normal) UA - SPECIFIC GRAVITY 1.020 (Normal) UA - KETONES Negative mg/dL (Normal) UA - BILIRUBIN Negative (Normal) UA - GLUCOSE Negative (Normal) C-Reactive Protein, 3.5 mg/L (Normal) Comments: PERFORMED BY: [facility] [id number] 5:28 Quant Range: 0.0-4.9 77-Xxt-457868:28 CBC With Differential/Platelet Comments: PERFORMED BY: [facility] [id number] Baso (Absolute) 0.0 {x10E3/uL} Range: 0.0-0.2 (Normal) Basos 0 % (Normal) Range: 0-3 Eos 3 % (Normal) Range: 0-7 Eos (Absolute) 0.3 {x10E3/uL} Range: 0.0-0.4 (Normal) Hematocrit 46.0 % (Normal) Range: 36.0-50.0 Hemoglobin 15.6 g/dL (Normal) Range: 12.5-17.0 Lymphs 22 % (Normal) Range: 14-46 Lymphs (Absolute) 2.1 {x10E3/uL} Range: 0.7-4.5 (Normal) MCH 29.8 pg (Normal) Range: 27.0-34.0 MCHC 33.8 g/dL (Normal) Range: 32.0-36.0 MCV 88 fL (Normal) Range: 80-98 Monocytes 7 % (Normal) Range: 4-13 Monocytes(Absolute) 0.7 {x10E3/uL} Range: 0.1-1.0 (Normal) Neutrophils 68 % (Normal) Range: 40-74 Neutrophils (Absolute) 6.4 {x10E3/uL} Range: 1.8-7.8 (Normal) Platelets 208 {x10E3/uL} Range: 140-415 (Normal) RBC 5.22 {x10E6/uL} Range: 4.10-5.60 (Normal) RDW 14.0 % (Normal) Range: 11.7-15.0 WBC 9.4 {x10E3/uL} Range: 4.0-10.5 (Normal) Complement C3, Serum 168 {mg/dL_Adult} Comments: PERFORMED BY: [employer] [facility] [id number] 5:28 (Normal) Range: 90-180 Complement C4, Serum 19 {mg/dL_Adult} Comments: PERFORMED BY: [employer] [facility] [id number] 5:28 (Normal) Range: 9-36 Complement, Total 99 U/mL (Abnormal) Comments: PERFORMED BY: [employer] [facility] [id number] 5:28 (CH50) Range: 22-60 08-Htb-965038:28 Herpes Simplex Virus I/II, Comments: PERFORMED BY: [employer] [facility] [id number] IgG HSV I/II IgG 47.1 {index} Range: 0.0-0.8 (Abnormal) Comments: Negative <0.9 Equivocal 0.9 - 1.0 Positive >1.0 . Note: Negative indicates no antibodies detected to either HSV-1 or HSV-2. Equivocal may suggest early infection. If clinically ap propriate, retest at a later date. Positive indicates antibodies detected to HSV-1 and/or HSV-2. 02-Jan-2009 Sedimentation 8 mm/h (Normal) Comments: PERFORMED BY: [employer] [facility] [id number] 15:28 Rate-Westergren Range: 0-20 49-Hws-90830:34 C-Reactive Protein (97031) Comments: PATIENT NOT FASTINGPERFORMED BY: [employer] [facility] [id number] C-Reactive Protein, Quant 3.2 mg/L (Normal) Range: 0.0-4.9 :34 Sed Rate Erythrocyte (01230) Comments: PATIENT NOT FASTINGPERFORMED BY: [employer] [id number] [facility] [id number] Sedimentation Rate-Westergren 14 mm/h (Normal) Range: 0-20 :34 RHEUMATOID FACTOR-QUANT (86247) Comments: PATIENT NOT FASTINGClinical Information: ADD DRAW FEE 668984 ADD J 99571 PERFORMED BY: [id number] [facility] [id number] RA Latex Turbid. 5.9 {IU/mL} (Normal) Range: 0.0-13.9 :34 LORETTA (ANTINUCLEAR ANTIBODY) Comments: PATIENT NOT FASTINGPERFORMED BY: [employer] Quoozv1952 [facility] [id number] (28828) Antinuclear Antibodies Direct 37 AU/mL (Normal) Range: 0-99 Comments: Negative <100 Equivocal 100 - 120 Positive >120 :14 ESOPHAGUS ONLY Radiology Report See Note (Normal) Comments: Exam Number: [id number] ESOPHAGRAM INDICATIONDysphagia. COMPARISONNone. TECHNIQUEA standard air contrast esophagram was performed. REPORTThe patient swallowed barium without difficulty. The oral andph aryngeal phases of swallowing appear normal. There is no nasalregurgitation, laryngeal penetration or aspiration identified. Esophageal motility is within the limits of normal. The esophagus is stru cturally normal without intrinsic or extrinsicmasses. The esophageal mucosa appears normal. There is a smallsliding type hiatal hernia. Mild gastroesophageal reflux wasobserved. Incidental note is m jocelyn of left hilar lymph node calcifications, thesequela of remote granulomatous infection. IMPRESSIONSmall hiatal hernia with mild gastroesophageal reflux. Reported By: JOHAN CHASE M.D. :46 Blood Glucose , Office (68062) Blood Glucose , Office 111 (Normal) :46 HgA1C , Office (96591) HgA1C , Office 5.4 % (Normal) Range: 4.6 - 7.1 :26 Comp. Metabolic Panel (14) Comments: PATIENT WAS FASTINGPERFORMED BY: [employer] [id number] [facility] [id number] A/G Ratio 1.3 (Normal) Range: 1.1-2.5 Albumin, Serum 4.4 g/dL (Normal) Range: 3.5-5.5 Alkaline Phosphatase, S 115 [iU]/L (Normal) Range: 25-150 ALT (SGPT) 67 [iU]/L (Abnormal) Range: 0-55 AST (SGOT) 33 [iU]/L (Normal) Range: 0-40 Bilirubin, Total 0.4 mg/dL (Normal) Range: 0.1-1.2 BUN 15 mg/dL (Normal) Range: 5-26 BUN/Creatinine Ratio 17 (Normal) Range: 8-27 Calcium, Serum 10.4 mg/dL (Normal) Range: 8.5-10.6 Carbon Dioxide, Total 25 mmol/L (Normal) Range: 20-32 Chloride, Serum 100 mmol/L (Normal) Range: 97-108 Creatinine, Serum 0.90 mg/dL (Normal) Range: 0.76-1.27 Globulin, Total 3.4 g/dL (Normal) Range: 1.5-4.5 Glom Filt Rate, Est >60 mL/min/1.73 Range: 60-137 (Normal) Glucose, Serum 103 mg/dL (Abnormal) Range: 65-99 If -Stateless >60 mL/min/1.73 Range: 60-137 (Normal) Comments: Note: Persistent reduction for 3 months or more in an eGFR<60 mL/min/1.73 m2 defines CKD. Patients with eGFR values>/=60 mL/min/1.73 m2 may also have CKD if evidence of persistentproteinuria is present. Additional information may be found [email or web address]. Potassium, Serum 4.4 mmol/L (Normal) Range: 3.5-5.2 Protein, Total, Serum 7.8 g/dL (Normal) Range: 6.0-8.5 Sodium, Serum 140 mmol/L (Normal) Range: 135-145 :26 Eosinophil Count Comments: PATIENT WAS FASTINGPERFORMED BY: [employer] [address] [id number] Eos (Absolute) 0.3 {x10E3/uL} Range: 0.0-0.4 (Normal) 01-Aug-2008 Immunoglobulin E, Total 12 {IU/mL} (Normal) Comments: PATIENT WAS FASTINGPERFORMED BY: [facility] [id number] 9:26 Range: 0-158 62-Woi-51557:26 Lipid Panel With LDL/HDL Comments: PATIENT WAS FASTINGPERFORMED BY: [facility] [address] [id number] Ratio Cholesterol, Total 234 mg/dL (Abnormal) Range: 100-199 Comment SPRCS (Normal) Comments: If initial LDL-cholesterol result is >100 mg/dL, assess forrisk factors. HDL Cholesterol 36 mg/dL (Abnormal) Range: 40-59 LDL Cholesterol Calc 144 mg/dL (Abnormal) Range: 0-99 LDL/HDL Ratio 4.0 {ratio_units} (Abnormal) Range: 0.0-3.6 Triglycerides 271 mg/dL (Abnormal) Range: 0-149 VLDL Cholesterol Roel 54 mg/dL (Abnormal) Range: 5-40 95-Ayp-42076:58 LIVER Radiology Report See Note (Normal) Comments: Exam Number: [id number] LIVER ULTRASOUND HISTORYElevated liver function tests. The gallbladder is within normal limits in size. The wall is notthickened. There are multiple gallstones present. The lar gest stonemeasures 3.4 cm in maximum dimension. The liver is coarse inechotexture compatible with fatty infiltration. There are no dilatedintrahepatic ducts identified. Common bile duct measures 7 mm whichis mildly increased. The pancreas is completely obscured by bowelgas. The right kidney is within normal limits. IMPRESSION1. There is cholelithiasis identified.2. The common bile duct is mildl y increased in caliber at 7 mm.3. There is fatty infiltration of the liver.4. The pancreas is completely obscured by bowel gas. Reported By: SHILPA PICKARD M.D. 1-Ecf-153647:10 ANNAMARIA 49 U/L (Normal) Range: 25-115 7-Kcy-304447:10 CBCD BAND 2 % (Normal) Range: 0-5 CELLS COUNTED 100 (Normal) HCT 40.3 % (Normal) Range: 40-54 HGB 14.1 g/dL (Normal) Range: 14.0-18.0 LYMPH 9 % (Abnormal) Range: 19-41 MCH 29.6 pg (Normal) Range: 27.0-32.0 MCHC 35.0 g/dL (Normal) Range: 32-36 MCV 84.6 fL (Normal) Range: 80-94 MPV 10.4 fL (Normal) Range: 6.5-12.0 PLT 215 K/mm3 (Normal) Range: 150-450 PLT EST SeeNote (Normal) Comments: Result: ADEQUATE RBC 4.77 {M/mm3} (Normal) Range: 4.6-6.2 RDW 13.4 % (Normal) Range: 11.6-14.6 RED CELL MORPH SeeNote {NORMAL} (Normal) Comments: Result: NORM C+C SEGS 89 % (Abnormal) Range: 47-70 WBC 12.9 K/mm3 (Abnormal) Range: 4.4-11.0 2-Kmt-864908:10 COMP METABOLIC A/G 1.1 {RATIO} (Normal) Range: 0.9-2.4 ALB 4.0 g/dL (Normal) Range: 3.4-5.0 ALK P 106 U/L (Normal) Range: 50-136 ALT 72 U/L (Abnormal) Range: 30-65 AST 26 U/L (Normal) Range: 15-37 BUN 17 mg/dL (Normal) Range: 7-18 BUN/CRE 18.9 {RATIO} (Normal) Range: 10-20 CA 9.4 mg/dL (Normal) Range: 8.5-10.1 CL 104 mmol/L (Normal) Range: 98-107 CO2 29.8 mmol/L (Normal) Range: 21.0-32.0 CREAT,SERUM 0.9 mg/dL (Normal) Range: 0.8-1.3 GAP 7 (Normal) Range: 5-15 GLOB 3.7 g/dL (Normal) Range: 2.7-4.2 GLU 116 mg/dL (Abnormal) Range: 70-110 Comments: Fasting Glucose result from 110 to <126 mg/dL suggests IMPAIRED HOMEOSTASIS per A.D.A. criteria. K 4.0 mmol/L (Normal) Range: 3.5-5.1 NA 141 mmol/L (Normal) Range: 136-145 T BILI 0.29 mg/dL (Normal) Range: 0.00-1.00 T PROT 7.7 g/dL (Normal) Range: 6.4-8.2 0-Alq-818101:10 ESR SED RATE 13 mm/h (Normal) Range: 0-20 :10 LIPASE 201 U/L (Normal) Range: 114-286 54-Hey-653346:06 CBCD,SMEAR DIFF BAND 1 % (Normal) Range: 0-5 CELLS COUNTED 100 (Normal) EOS 2 % (Normal) Range: 0-5 HCT 41.2 % (Normal) Range: 40-54 HGB 14.6 g/dL (Normal) Range: 14.0-18.0 LYMPH 30 % (Normal) Range: 19-41 MCH 30.2 pg (Normal) Range: 27.0-32.0 MCHC 35.4 g/dL (Normal) Range: 32-36 MCV 85.4 fL (Normal) Range: 80-94 MONOCYTE 5 % (Normal) Range: 0-10 PLT 195 K/mm3 (Normal) Range: 150-450 PLT EST SeeNote (Normal) Comments: Result: ADEQUATE RBC 4.83 {M/mm3} (Normal) Range: 4.6-6.2 RDW 13.3 % (Normal) Range: 11.6-14.6 RED CELL MORPH SeeNote {NORMAL} (Normal) Comments: Result: NORM C+C SEGS 62 % (Normal) Range: 47-70 WBC 6.9 K/mm3 (Normal) Range: 4.4-11.0 :06 COMP METABOLIC A/G 1.0 {RATIO} (Normal) Range: 0.9-2.4 ALB 4.0 g/dL (Normal) Range: 3.4-5.0 ALK P 88 U/L (Normal) Range: 50-136 ALT 76 [iU]/L (Abnormal) Range: 30-65 AST 36 U/L (Normal) Range: 15-37 BUN 14 mg/dL (Normal) Range: 7-18 BUN/CRE 14.0 {RATIO} (Normal) Range: 10-20 CA 9.4 mg/dL (Normal) Range: 8.5-10.1 CL 101 mmol/L (Normal) Range: 98-107 CO2 27.0 mmol/L (Normal) Range: 21.0-32.0 CREAT,SERUM 1.0 mg/dL (Normal) Range: 0.8-1.3 GAP 11 (Normal) Range: 5-15 GLOB 3.9 g/dL (Normal) Range: 2.7-4.2 GLU 97 mg/dL (Normal) Range: 70-110 K 4.0 mmol/L (Normal) Range: 3.5-5.1 NA 139 mmol/L (Normal) Range: 136-145 T BILI 0.42 mg/dL (Normal) Range: 0.00-1.00 T PROT 7.9 g/dL (Normal) Range: 6.4-8.2 :06 LIPID CHOL 216 mg/dL (Abnormal) Comments: <200 mg/dL Desirable 200-240 mg/dL Borderline >240 mg/dL High Risk HDL 35 mg/dL (Normal) Comments: Reference Range HDL <40 mg/dL Low HDL Cholesterol HDL >or= 60 mg/dL High HDL Cholesterol LDL <TEST NOT PERFORMED> Range: 0-130 mg/dL (Normal) TRIG 439 mg/dL (Abnormal) Comments: TRIGLYCERIDE IS GREATER THAN 400 mg/dL. LDL RESULT IS INVALID AND WILL NOT BE REPORTED.Serum Triglycerides Reference Interval Normal <150 mg/dL Bor derline high 150 - 199 mg/dL High 200 - 499 mg/dL Very High > or = 500 mg/dL VLDL 88 mg/dL (Abnormal) Range: 5-40 :06 PSA,TOT SCREEN 0.25 ng/mL (Normal) Range: 0.00-4.00 Comments: This test was performed using the TPSA method for [email or web address] chemistry system.Values obtained with different assay methods cannot be usedinterchangably.When changing PSA assays in the course of monito ring apatient, additional sequential testing should be carriedout to confirm baseline values. :06 ROUTINE UA BILIRUBIN URINE SeeNote (Normal) Comments: Result: NEGATIVE GLUCOSE, UR SeeNote (Normal) Comments: Result: NEGATIVE KETONE UR SeeNote mg/dL (Normal) Comments: Result: NEGATIVE LEUK ESTERASE SeeNote (Normal) Comments: Result: NEGATIVE NITRITE UR SeeNote (Normal) Comments: Result: NEGATIVE OCCULT BLOOD-UR SeeNote (Normal) Comments: Result: NEGATIVE pH UR 6.0 (Normal) Range: 5.0-8.0 PROT DIPSTX SeeNote (Normal) Comments: Result: NEGATIVE SP.GR. DIPSTX >=1.030 (Normal) Range: 1.002-1.030 UROBILI 0.2 EU/dl (Normal) Range: 0.2 - 1.0 CLARITY CLEAR (Normal) COLOR YELLOW (Normal) Plan of Care Name Dates Details Instructions Abdominal pain, acute, right upper quadrant (Renamed from Acute abdominal pain in right upper quadrant) : Eprescribed prescriptions ([id number]) Indication: Abdominal pain, acute, right upper quadrant (Renamed from Acute abdominal pain in right upper quadrant) BMI 32.0-32.9,adult : Eprescribed prescriptions (G8553) Indication: BMI 32.0-32.9,adult Tobacco abuse, in remission (Renamed from Tobacco dependence in remission) : Eprescribed prescriptions ([id number]) Indication: Tobacco abuse, in remission (Renamed from Tobacco dependence in remission) Current nonsmoker (Renamed from Current non-smoker) : Eprescribed prescriptions (G8553) Indication: Current nonsmoker (Renamed from Current non-smoker) Diarrhea : *Abd Pain Red Flags Indication: Diarrhea Diarrhea : Diarrhea instructions Indication: Diarrhea Sebaceous cyst : I/D Cyst/Abscess Indication: Sebaceous cyst Diabetes : Flu (Influenza) *: flu Indication: Diabetes Diabetes : Eprescribed prescriptions (G8553) Indication: Diabetes Diabetes : Eprescribed prescriptions (G8553) Indication: Diabetes Impaired Fasting Glucose (Renamed from Elevated fasting blood sugar) : Eprescribed prescriptions (G8553) Indication: Impaired Fasting Glucose (Renamed from Elevated fasting blood sugar) Encounter for routine history and physical exam for male : Eprescribed prescriptions (G8553) Indication: Encounter for routine history and physical exam for male Encounter for routine history and physical exam for male : Eprescribed prescriptions (G8553) Indication: Encounter for routine history and physical exam for male Sebaceous cyst : I/D Cyst/Abscess Indication: Sebaceous cyst Bronchitis : *URI Treatment Indication: Bronchitis Bronchitis : URI Symptoms Indication: Bronchitis Irritable bowel syndrome : FOLLOW UP IN 4 WEEKS Indication: Irritable bowel syndrome Planned Observations ANCA-P (ANTI NEUTROPHIL CYTOPLASMIC ANTIBODY)Indication: LORETTA positive On: 85-Imv-128841:05 Request Histoplasma capsulatum Ag, EIA (70054)Indication: LORETTA positive On: 30-Hiq-557587:05 Request HEPATIC FUNCTION PANEL (34016)Indication: Hyperlipidemia, unspecified On: :29 Request Comments: in three months (approximately) LIPOPROTEIN, BLD, BY NMR (63592)Indication: Hyperlipidemia, unspecified On: :29 Request Comments: in three months (approximately) ANCA-P (ANTI NEUTROPHIL CYTOPLASMIC ANTIBODY)Indication: LORETTA positive On: 19-Dec-20168:42 Request HEPATIC FUNCTION PANEL (48067)Indication: Elevated LFTs On: :59 Request Anti-TPO Antibody (43295)Indication: Rash On: :10 Request TSH ([id number])Indication: Rash On: :09 Request FLURESCNT ANTIB SCRN EA (89126) celiac profileIndication: Rash On: :09 Request IMMUNOASSAY, ANALYTE (NON-INFECT) (40844) celiac profileIndication: Rash On: :09 Request IGA/IGD/IGG/IGM-EACH (18039) celiac profileIndication: Rash On: :09 Request Metabolic Panel, Basic (73435)Indication: Benign essential hypertension On: 94-Mhq-34456:58 Request LIPID PANEL (42136)Indication: Hyperlipidemia, unspecified On: 96-Mzf-55887:57 Request COMPLEMENT C4 (42742)Indication: Elevated LFTs On: :47 Request COMPLEMENT C3 (22361)Indication: Elevated LFTs On: 42-Wbm-36041:47 Request EXTRCTBL NUCLR ANTGEN EA ([id number])Indication: Elevated LFTs On: :42 Request ANTI-Sm (ANTI ALTMAN ANTIBODY) (08868)Indication: Elevated LFTs On: :41 Request ANTI-[employer] (ANTI RIBONUCLEAR PROTEIN ANTIBODY) ([id number])Indication: Elevated LFTs On: :41 Request DNA ANTIBODY-NATV/DBL ST ([id number])Indication: Elevated LFTs On: :41 Request Comments: copies of all to [facility] HEPATIC FUNCTION PANEL (10676)Indication: Elevated LFTs On: :41 Request CERULOPLASMIN ([id number])Indication: Elevated LFTs On: :41 Request FERRITIN ([id number])Indication: Elevated LFTs On: :41 Request ANTI-LIVER/KIDNEY MICROSOMAL ANTIBODY ([id number])Indication: Elevated LFTs On: :40 Request ASM (ANTI SMOOTH MUSCLE ANTIBODY) ([id number])Indication: Elevated LFTs On: :40 Request ANTIMITOCHONDRIAL ANTIBODY (24178)Indication: Elevated LFTs On: :40 Request CBC with manual diff (31366)Indication: Rash On: :39 Request C-Reactive Protein (00554)Indication: Rash On: :38 Request Sed Rate Erythrocyte (09571)Indication: Rash On: :36 Request COMPLEMENT, TOTAL (CH50) (66921)Indication: Rash On: :36 Request COMPLEMENT C4 (88011)Indication: Rash On: :36 Request COMPLEMENT C3 (00684)Indication: Rash On: :36 Request HERPES SIMPLEX ANTIBODY (06202)Indication: Rash On: :35 Request Comments: do HSV 1 and 2 IMMUNOGLOBULIN E (IgE) (64643)Indication: Rash On: :15 Request EOSINOPHILSIndication: Rash On: :14 Request Metabolic Panel, Comprehensive (32324)Indication: Hyperlipidemia, unspecified On: 47-Rlw-59467:08 Request Lipid Panel (63074)Indication: Hyperlipidemia, unspecified On: 60-Txm-94956:08 Request Lipase (86360)Indication: Abdominal pain, acute, generalized On: 8-Lnp-693701:09 Request Amylase (85457)Indication: Abdominal pain, acute, generalized On: 5-Vdu-338649:09 Request Sed Rate Erythrocyte (25801)Indication: Abdominal pain, acute, generalized On: 8-Oif-524096:09 Request CBC, Platelets & Auto Diff (61333)Indication: Abdominal pain, acute, generalized On: 7-Bec-174176:09 Request Metabolic Panel, Comprehensive (51353)Indication: Abdominal pain, acute, generalized On: 0-Xfq-852427:09 Request HEPATITIS A, B & C PANELSIndication: Elevated LFTs On: :06 Request HEPATIC FUNCTION PANEL ([id number])Indication: Elevated LFTs On: :05 Request Lipid Panel (04159)Indication: Hyperlipidemia, unspecified On: :04 Request Comments: in three months (approximately) PSA (PROSTATE SPECIFIC ANTIGEN) (V76.44)Indication: Encounter for routine history and physical exam for male On: 2-Sxw-810969:50 Request URINALYSIS W/O MICRO ([id number])Indication: Benign essential hypertension On: :49 Request LIPID PANEL (68832)Indication: Benign essential hypertension On: :49 Request METABOLIC PANEL, COMPREHENSIVE (43095)Indication: Benign essential hypertension On: :49 Request CBC WITH MANUAL DIFF ([id number])Indication: Benign essential hypertension On: :49 Request Planned Encounters Medical; [facility] 6 Week FU - On: 03-Dec-2018 9:30 [facility] Chani BATEMAN, Val Marshall MD Planned Procedures CT - Abdomen (IV Contrast On: 21-Oct-2018 Intent Needed)By: Val Wilde MD Comments: attention RUQ Val Wilde MD CT - Chest (Without Contrast)By: On: 02-Feb-2018 Intent Val Wilde MD, MD, Comments: high resolution. restriction on spirometry feels right lung tight when exercise and some SOB. 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 PLEASE INCLUDE THE UPPER STERNUM, STERNOCLAVICULAR JOINT pt has had 6 weeks of PT, tried mulitple meds Chani BATEMAN, Val Marshall MD Radiology - Thoracic SpineBy: On: 25-May-2017 Intent Val Wilde MD, MD, Comments: pin in upper throacic pine too Val Robert Radiology - Cervical SpineBy: On: 25-May-2017 Intent Val Wilde MD, MD, Comments: attention C7 wehre pain Val Robert Nuclear Stress Test/Stress On: 26-Dec-2016 Intent SPECT/TreadmillBy: Val Wilde MD, MD, Dana M LIVER ELASTOGRAPHY WITH On: 19-Dec-2016 Intent INTERPRETATION AND REPORT ([id number])By: Val Wilde MD, MD, Dana M TDAP VACCINE >7 IM ([id number])By: On: 12-Sep-2016 Intent Val Wilde MD, MD, Dana M Radiology - Thoracic SpineBy: On: 19-Aug-2016 Intent Val Wilde MD, MD, Dana M Jwatkjagp-Kur-Hfdhl ([id number])By: On: 19-Aug-2016 Intent Val Wilde MD, MD, Dana M Nuclear Medicine - Gastric On: 30-May-2016 Intent Emptying StudyBy: Val Wilde MD, MD, Dana M CT - Abdomen & Pelvis (IV Contrast On: 30-May-2016 Intent Needed)By: Val Wilde MD, MD, Dana M EsophagramBy: Val Wilde MD On: 25-Sep-2015 Intent Val Wilde MD Comments: copy to Dr. amaro Flu Vaccine (Quadrivalent) On: 25-Sep-2015 Intent [id number]: Val Wilde MD Comments: lot [id number]: 05/15/2016site/route L homero, IMamt 0.5mlVIS and ABN signed when applicableANNITA Mcdowell MD, Dana M EKG ([id number])By: Val Wilde MD On: 27-Mar-2015 Intent Val Wilde MD Comments: see scanned document of test done to see results reviewed today with patient EKG ([id number])By: Val Wilde MD On: 28-Mar-2014 Intent Val Wilde MD Comments: see scanned document of test done to see results reviewed today with patient Radiology - Hand - RightBy: On: 23-Sep-2013 Intent Val Wilde MD, MD, Dana M FLU VAC, SPLIT, >3 YEARS, On: 14-Sep-2013 Intent INTRAMUSC ([id number])By: Kelvin, Comments: Lot:[id number]:Dose:0.5mLRoute:IMSite:L DltdGiven By:NOVA signed Sandra IMMUNIZ ADMNIN, 1 VAC, SNGL/COMBO On: 14-Sep-2013 Intent ([id number])By: Sandra Warren Eprescribed prescriptions On: 22-Mar-2013 Intent (G8553)By: Ramona Soria LPN IMMUNIZ ADMNIN, 1 VAC, SNGL/COMBO On: 10-Sep-2010 Intent ([id number])By: Yasemin Daley LPN Comments: lot # [id number] 4Pexp- [id number]- 0.5 ML tolerated well Bear LINTON FLU VAC, SPLIT, >3 YEARS, On: 10-Sep-2010 Intent INTRAMUSC ([id number])By: Yasemin Daley LPN Wax CurettesBy: Val Wilde MD On: 05-Apr-2010 Intent Val Wilde MD Ear Irrigation ([id number])By: Chani On: 05-Apr-2010 Intent Val BATEMAN MD, Dana M Comments: Left ear irrigated and wax currette used to remove impacted wax-AW Ultrasound - LiverBy: Chani BATEMAN, On: 05-Apr-2010 Intent Val Marshall MD EsophagramBy: Val Wilde MD On: 01-Aug-2008 Intent Val Wilde MD EKG ([id number])By: Val Wilde MD On: 20-Jun-2008 Intent Val Wilde MD HYDRATION IV INFUSION, INIT On: 20-Jun-2008 Intent ([id number])By: Val Wilde MD, MD, Dana M INFUSION, NORMAL SALINE SOLUTION , On: 20-Jun-2008 Intent 1000 CC (Special Coverage Instructions Apply. See MCM: 2049) ([id number])By: Val Wilde MD, MD, Dana M EKG ([id number])By: Val Wilde MD On: 16-Feb-2008 Intent Val Wilde MD Instructions Name Dates Details Abdominal pain, acute, right upper quadrant (Renamed from Acute abdominal pain in right upper quadrant) : How to access health information online Indication: Abdominal pain, acute, right upper quadrant (Renamed from Acute abdominal pain in right upper quadrant) Abdominal pain, acute, right upper quadrant (Renamed from Acute abdominal pain in right upper quadrant) : How to access health information online - Detail Indication: Abdominal pain, acute, right upper quadrant (Renamed from Acute abdominal pain in right upper quadrant) Abdominal pain, acute, right upper quadrant (Renamed from Acute abdominal pain in right upper quadrant) : Patient Instructions Indication: Abdominal pain, acute, right upper quadrant (Renamed from Acute abdominal pain in right upper quadrant) BMI 33.0-33.9,adult : How to access health information online Indication: BMI 33.0-33.9,adult BMI 33.0-33.9,adult : How to access health information online - Detail Indication: BMI 33.0-33.9,adult BMI 33.0-33.9,adult : Patient Instructions Indication: BMI 33.0-33.9,adult Tobacco abuse, in remission (Renamed from Tobacco dependence in remission) : How to access health information online Indication: Tobacco abuse, in remission (Renamed from Tobacco dependence in remission) Tobacco abuse, in remission (Renamed from Tobacco dependence in remission) : How to access health information online - Detail Indication: Tobacco abuse, in remission (Renamed from Tobacco dependence in remission) Tobacco abuse, in remission (Renamed from Tobacco dependence in remission) : Patient Instructions Indication: Tobacco abuse, in remission (Renamed from Tobacco dependence in remission) BMI 32.0-32.9,adult : How to access health information online - Detail Indication: BMI 32.0-32.9,adult BMI 32.0-32.9,adult : How to access health information online Indication: BMI 32.0-32.9,adult BMI 32.0-32.9,adult : Patient Instructions Indication: BMI 32.0-32.9,adult BMI 35.0-35.9,adult : How to access health information online Indication: BMI 35.0-35.9,adult BMI 35.0-35.9,adult : How to access health information online - Detail Indication: BMI 35.0-35.9,adult BMI 35.0-35.9,adult : Patient Instructions Indication: BMI 35.0-35.9,adult Flu-like symptoms : How to access health information online Indication: Flu-like symptoms Flu-like symptoms : How to access health information online - Detail Indication: Flu-like symptoms Flu-like symptoms : Patient Instructions Indication: Flu-like symptoms Tobacco abuse, in remission (Renamed from Tobacco dependence in remission) : How to access health information online Indication: Tobacco abuse, in remission (Renamed from Tobacco dependence in remission) Tobacco abuse, in remission (Renamed from Tobacco dependence in remission) : How to access health information online - Detail Indication: Tobacco abuse, in remission (Renamed from Tobacco dependence in remission) Tobacco abuse, in remission (Renamed from Tobacco dependence in remission) : Patient Instructions Indication: Tobacco abuse, in remission (Renamed from Tobacco dependence in remission) Tobacco abuse, in remission (Renamed from Tobacco dependence in remission) : How to access health information online Indication: Tobacco abuse, in remission (Renamed from Tobacco dependence in remission) Tobacco abuse, in remission (Renamed from Tobacco dependence in remission) : How to access health information online - Detail Indication: Tobacco abuse, in remission (Renamed from Tobacco dependence in remission) Tobacco abuse, in remission (Renamed from Tobacco dependence in remission) : Patient Instructions Indication: Tobacco abuse, in remission (Renamed from Tobacco dependence in remission) Current nonsmoker (Renamed from Current non-smoker) : How to access health information online Indication: Current nonsmoker (Renamed from Current non-smoker) Current nonsmoker (Renamed from Current non-smoker) : How to access health information online - Detail Indication: Current nonsmoker (Renamed from Current non-smoker) Current nonsmoker (Renamed from Current non-smoker) : Patient Instructions Indication: Current nonsmoker (Renamed from Current non-smoker) BMI 30.0-30.9,adult : How to access health information online Indication: BMI 30.0-30.9,adult BMI 30.0-30.9,adult : How to access health information online - Detail Indication: BMI 30.0-30.9,adult BMI 30.0-30.9,adult : Patient Instructions Indication: BMI 30.0-30.9,adult Abdominal pain : How to access health information online Indication: Abdominal pain Abdominal pain : How to access health information online - Detail Indication: Abdominal pain Abdominal pain : Patient Instructions Indication: Abdominal pain Encounter for routine history and physical exam for male : How to access health information online Indication: Encounter for routine history and physical exam for male Encounter for routine history and physical exam for male : How to access health information online - Detail Indication: Encounter for routine history and physical exam for male Encounter for routine history and physical exam for male : Patient Instructions Indication: Encounter for routine history and physical exam for male Sebaceous cyst : How to access health information online Indication: Sebaceous cyst Sebaceous cyst : How to access health information online - Detail Indication: Sebaceous cyst Sebaceous cyst : Patient Instructions Indication: Sebaceous cyst Sebaceous cyst : How to access health information online Indication: Sebaceous cyst Sebaceous cyst : How to access health information online - Detail Indication: Sebaceous cyst Sebaceous cyst : Patient Instructions Indication: Sebaceous cyst Abdominal pain : How to access health information online Indication: Abdominal pain Abdominal pain : How to access health information online - Detail Indication: Abdominal pain Abdominal pain : Patient Instructions Indication: Abdominal pain Irritable bowel syndrome : How to access health information online Indication: Irritable bowel syndrome Irritable bowel syndrome : How to access health information online - Detail Indication: Irritable bowel syndrome Irritable bowel syndrome : Patient Instructions Indication: Irritable bowel syndrome Diabetes : How to access health information online Indication: Diabetes Diabetes : How to access health information online - Detail Indication: Diabetes Diabetes : Patient Instructions Indication: Diabetes Diabetes : How to access health information online Indication: Diabetes Diabetes : How to access health information online - Detail Indication: Diabetes Diabetes : Patient Instructions Indication: Diabetes Impaired Fasting Glucose (Renamed from Elevated fasting blood sugar) : How to access health information online Indication: Impaired Fasting Glucose (Renamed from Elevated fasting blood sugar) Impaired Fasting Glucose (Renamed from Elevated fasting blood sugar) : How to access health information online - Detail Indication: Impaired Fasting Glucose (Renamed from Elevated fasting blood sugar) Impaired Fasting Glucose (Renamed from Elevated fasting blood sugar) : Patient Instructions Indication: Impaired Fasting Glucose (Renamed from Elevated fasting blood sugar) Encounter for routine history and physical exam for male : How to access health information online Indication: Encounter for routine history and physical exam for male Encounter for routine history and physical exam for male : How to access health information online - Detail Indication: Encounter for routine history and physical exam for male Obesity, unspecified : Patient Instructions Indication: Obesity, unspecified Benign essential hypertension : Patient Instructions Indication: Benign essential hypertension Encounters Office Visit On: 29-Oct-2018 7:13 Encounter Diagnosis: Degenerative Disc Disease - Lumbar (722.52), Diverticulosis End: 29-Oct-2018 7:15 [facility] Office Visit On: 21-Oct-2018 8:21 Encounter Reason: Follow up for chronic medical issues - The patient feels well with minor complaints, has good energy level and is sleeping well. Patient has been compliant with instructions. Current medication use: no End: 21-Oct-2018 9:05 side effects. Patient sleeps 6 hours per night. Impact of disease: emotional impact- mild. Nutrition: inappropriate diet. The medical issues the patient is following up for include blood sugar issues and high blood pressure.Encounter Diagnosis: Granulomatosis, Fatty liver, LORETTA positive, Lung granuloma, Abdominal pain, acute, right upper quadrant (Renamed from Acute abdominal pain in right upper quadrant), Costochondral pain, Diabetes, Regurgitation [facility] Office Visit On: 26-Jul-2018 9:59 Encounter Reason: Follow up for chronic medical issues - The patient feels well with minor complaints and has decreased energy level. Patient has been compliant with instructions. Current medication use: no side effects End: 26-Jul-2018 11:28 and compliant with dosing regimen. Patient sleeps 8 hours per night. Impact of disease: emotional impact-mild. Nutrition: balanced diet and supplemental vitamins. The medical issues the patient is follo wing up for include blood sugar issues, cardiac issues, high blood pressure, high cholesterol and other (fatty liver, ED, lung granuloma, DDD).Encounter Diagnosis: BMI 33.0-33.9,adult, Tobacco abuse, in remission (Renamed from Tobacco dependence in remission), Costochondral pain, Granulomatosis, LORETTA positive, Rash (782.1), Fatty liver, Obesity, unspecified [facility] Office Visit On: 30-Apr-2018 8:29 Encounter Reason: Follow up, Diagnostic Procedure Results - Diagnostic tests include other (labs).Encounter Diagnosis: BMI 32.0-32.9,adult, Tobacco abuse, in remission (Renamed from Tobacco dependence in remission), Granulomatosis End: 30-Apr-2018 9:20 [facility] Phone Encounter On: 26-Mar-2018 10:00 Encounter Diagnosis: LORETTA positive End: 29-Mar-2018 12:08 [facility] Office Visit On: 18-Mar-2018 10:28 Encounter Reason: Follow up for chronic medical issues - The patient feels well with no complaints, has good energy level and is sleeping well. Current medication use: no side effects. Patient sleeps 7 hours per night. T End: 18-Mar-2018 11:12 he medical issues the patient is following up for include All identified problems below.Encounter Diagnosis: BMI 32.0-32.9,adult, Tobacco abuse, in remission (Renamed from Tobacco dependence in remission), Lung granuloma, Obesity, unspecified, Sleep apnea in adult, Fatty liver, Rash (782.1) [facility] Phone Encounter On: 10-Feb-2018 15:54 Encounter Diagnosis: Degenerative joint disease of cervical spine End: 10-Feb-2018 15:56 [facility] Office Visit On: 02-Feb-2018 7:26 Encounter Reason: Physical male exam - Last seen between 1-3 months ago. General health: feels well with minor complaints, has good energy level and is sleeping well. The patient's appetite is normal. Nutrition: normal/a End: 02-Feb-2018 13:54 dequate. Exercises 3 days per week. Sleeps on average 7 hours per night. Normal bowel and bladder habits. Safety measures include appropriate use of safety belts and home smoke detectors. There are no c urrent emotional problems. The patient's libido is normal. Preventative measures done by patient are screening, colonoscopy (2011) and PSA (06-01).Encounter Diagnosis: Encounter for routine history and physical exam for male, BMI 35.0-35.9,adult, Fatty liver, Regurgitation, History of nephrolithiasis, Degenerative joint disease of cervical spine, Low testosterone level in male, Diabetes, GERD (gastroesophageal reflux disease), Hyperlipidemia, unspecified, Sleep apnea in adult, Memory change, Obesity, unspecified, LORETTA positive, Carotid atherosclerosis, bilateral, Other dysphagia, Vitamin D insufficiency, Benign essential hypertension, Irritable bowel syndrome, Erectile dysfunction, Thoracic spine pain, Tobacco abuse, in remission (Renamed from Tobacco dependence in remission), Cervical spine pain, Abdominal pain, Psoriasis, Abnormal lung function test, Encounter for hepatitis C virus screening test for high risk patient [facility] Lab Order On: 12-Jan-2018 16:57 Encounter Diagnosis: Benign essential hypertension End: 12-Jan-2018 17:01 [facility] Office Visit On: 28-Dec-2017 16:42 Encounter Reason: InjectionsEncounter Diagnosis: Need for prophylactic vaccination and inoculation against influenza (Renamed from Need for immunization against influenza) End: 31-Dec-2017 8:43 [facility] Office Visit On: 01-Dec-2017 10:40 Encounter Reason: Flu Like Symptoms - Symptoms include fever, chills, body aches, nasal congestion, hoarseness, productive cough and headache. Note for Flu like symptoms: fever body aches last .he does feel lik End: 01-Dec-2017 11:17 e getting better slowly but tired. influenza B postiive here today. taking alot liquids.Encounter Diagnosis: Flu-like symptoms, Tobacco abuse, in remission (Renamed from Tobacco dependence in remission), Cervical spine pain, Thoracic spine pain [facility] Office Visit On: 06-Nov-2017 9:10 Encounter Reason: Follow up for chronic medical issues - The patient feels well with minor complaints, has good energy level, is sleeping poorly and slightly worse. Patient has been compliant with instructions. Current m End: 06-Nov-2017 10:05 edication use: no side effects and compliant with dosing regimen. Patient sleeps 5 hours per night. Nutrition: balanced diet.Encounter Diagnosis: BMI 33.0- 33.9,adult, Tobacco abuse, in remission (Renamed from Tobacco dependence in remission), Cervical spine pain, Thoracic spine pain [facility] Office Visit On: 22-Jun-2017 9:52 Encounter Reason: Follow up acute care visit - The patient feeling better since last seen and improving. Patient has been compliant with instructions. Current medication use: no side effects and compliant with dosing reg End: 22-Jun-2017 10:31 imen. Patient sleeps 7 hours per night. Impact of disease: emotional impact-mild. Nutrition: balanced diet and supplemental vitamins. The medical issues the patient is following up for include other (cervical pain).Encounter Diagnosis: BMI 33.0-33.9,adult, Tobacco abuse, in remission (Renamed from Tobacco dependence in remission), Cervical spine pain, Degenerative joint disease of cervical spine, Low testosterone level in male, Other dysphagia [facility] Office Visit On: 25-May-2017 9:04 Encounter Reason: Follow up for chronic medical issues - The patient feels well with minor complaints, has good energy level and is sleeping well. Patient has been compliant with instructions. Current medication use: no End: 25-May-2017 9:54 side effects, compliant with dosing regimen and considered effective by patient. Patient sleeps 8 hours per night. Impact of disease: emotional impact-mild. Nutrition: balanced diet and supplemental vit amins. The medical issues the patient is following up for include blood sugar issues, cardiac issues, gastric reflux, high blood pressure, high cholesterol and other (elevated lft's, obesity, IBS )., [ADDITIONAL REASON] Follow up tests - Date: (05/20 blood work). Encounter Diagnosis: BMI 33.0-33.9,adult, Current nonsmoker (Renamed from Current non-smoker), Cervical spine pain, Abdominal pain, Other dysphagia [facility] Refill Request On: 04-Feb-2017 7:33 Encounter Diagnosis: Erectile dysfunction End: 04-Feb-2017 7:35 [facility] Office Visit On: 02-Feb-2017 7:34 Encounter Reason: Follow up, Diagnostic Procedure Results - Diagnostic tests include other (labs ). Date: ().Encounter Diagnosis: BMI 30.0-30.9,adult, Tobacco abuse, in remission (Renamed from Tobacco dependence in remission), End: 02-Feb-2017 8:13 Hyperlipidemia, unspecified, Abdominal pain, Low testosterone level in male [facility] Office Visit On: 26-Dec-2016 13:51 Encounter Diagnosis: Abdominal pain, Tobacco abuse, in remission (Renamed from Tobacco dependence in remission), Regurgitation, Low testosterone level in male, Chest pain (786.59), Psoriasis, Fatty liver End: 26-Dec-2016 14:26 [facility] Office Visit On: 19-Dec-2016 6:33 Encounter Diagnosis: Encounter for routine history and physical exam for male, BMI 30.0-30.9,adult, Tobacco abuse, in remission (Renamed from Tobacco dependence in remission), Screening PSA (prostate specific antigen), Metabolic syndrome, Psoriasis, End: 23-Dec-2016 16:16 Diabetes, Other dysphagia, Carotid atherosclerosis, bilateral, Fatty liver, Hyperlipidemia, unspecified, Abdominal pain, Irritable bowel syndrome, Current nonsmoker (Renamed from Current non-smoker), Obesity, unspecified, Benign essential hypertension, Rib pain on right side, Thoracic spine pain, GERD (gastroesophageal reflux disease), Diarrhea, Impaired Fasting Glucose (Renamed from Elevated fasting blood sugar), Regurgitation, Temperature intolerance, LORETTA positive, Sleep apnea in adult, Vitamin D insufficiency, History of nephrolithiasis, Memory change [facility] Phone Encounter On: 18-Sep-2016 12:36 [facility] End: 18-Sep-2016 13:04 Office Visit On: 16-Sep-2016 10:34 Encounter Reason: Follow up acute care visit - The patient improving. Patient has been compliant with instructions. Current medication use: experiencing side effects (atb causing severe abd. pain and diarrhea ). Patient End: 16-Sep-2016 11:03 sleeps 7 hours per night. Impact of disease: emotional impact-mild. Nutrition: balanced diet and supplemental vitamins. The medical issues the patient is following up for include other (wendy. cyst ).Encounter Diagnosis: Sebaceous cyst (706.2), Current nonsmoker (Renamed from Current non-smoker), Diarrhea [facility] Annotation/Addendum On: 12-Sep-2016 14:53 Encounter Diagnosis: Sebaceous cyst (706.2) End: 12-Sep-2016 14:54 [facility] Office Visit On: 12-Sep-2016 12:11 Encounter Diagnosis: Sebaceous cyst (706.2), Current nonsmoker (Renamed from Current non-smoker), Need for Tdap vaccination (Renamed from Need for fxfzplualg-wjfvxor-qyuefgfpv (Tdap) vaccine, adult/adolescent) End: 12-Sep-2016 12:43 [facility] Phone Encounter On: 08-Sep-2016 17:07 Encounter Diagnosis: Sebaceous cyst (706.2) End: 08-Sep-2016 17:09 [facility] Phone Encounter On: 19-Aug-2016 15:15 Encounter Diagnosis: Rib pain on right side End: 19-Aug-2016 15:17 [facility] Office Visit On: 19-Aug-2016 10:17 Encounter Reason: Follow up acute care visit - The patient feels the same. Patient has been compliant with instructions. Current medication use: no side effects and compliant with dosing regimen. Patient sleeps 7 hours p End: 19-Aug-2016 11:06 er night. Impact of disease: emotional impact-mild. Nutrition: balanced diet and supplemental vitamins. The medical issues the patient is following up for include other (abd pain ).Encounter Diagnosis: Thoracic spine pain, Rib pain on right side, Regurgitation, Abdominal pain [facility] Historical Summary On: 11-Aug-2016 16:41 Encounter Diagnosis: Carotid atherosclerosis, bilateral End: 11-Aug-2016 16:42 [facility] Office Visit On: 30-May-2016 10:07 Encounter Diagnosis: Abdominal pain, Tobacco abuse, in remission (Renamed from Tobacco dependence in remission) End: 30-May-2016 13:53 [facility] Historical Summary On: 04-Apr-2016 7:01 Encounter Diagnosis: Regurgitation End: 04-Apr-2016 7:04 [facility] Office Visit On: 15-Jan-2016 7:50 Encounter Reason: Follow up for chronic medical issues - The patient feels well with minor complaints, has good energy level and is sleeping well. Patient has been compliant with instructions. Current medication use: no End: 15-Jan-2016 8:36 side effects, compliant with dosing regimen and considered effective by patient. Patient sleeps 8 hours per night. Impact of disease: emotional impact-mild. Nutrition: balanced diet and supplemental vit amins. The medical issues the patient is following up for include blood sugar issues, cardiac issues, gastric reflux, high blood pressure, high cholesterol and other (elevated lft's, obesity, IBS ). Not e for Follow up for chronic medical issues: loose BMs having. son had issues with this and taking choleystryramine and help. stools more bulgy. easier to goEncounter Diagnosis: Irritable bowel syndrome, Tobacco abuse, in remission (Renamed from Tobacco dependence in remission), Benign essential hypertension, GERD (gastroesophageal reflux disease), Obesity, unspecified, Impaired Fasting Glucose (Renamed from Elevated fasting blood sugar), Diabetes, Fatty liver, Hyperlipidemia, unspecified, Psoriasis, Metabolic syndrome, Other dysphagia [facility] Office Visit On: 25-Sep-2015 9:09 Encounter Diagnosis: Hyperlipidemia, unspecified End: 25-Sep-2015 16:26 [facility] Office Visit On: 25-Sep-2015 8:06 Encounter Reason: Follow up tests - Date: (09/17 blood work)., [ADDITIONAL REASON] Follow up for chronic medical issues - The patient feels well with minor complai End: 25-Sep-2015 8:42 nts, has good energy level and is sleeping well. Patient has been compliant with instructions. Current medication use: no side effects and compliant with dosing regimen. Patient sleeps 7 hours per night . Nutrition: balanced diet and supplemental vitamins. The medical issues the patient is following up for include All identified problems below, blood sugar issues, gastric reflux, high blood pressure and high cholesterol. Encounter Diagnosis: Hyperlipidemia, unspecified, GERD (gastroesophageal reflux disease), Diabetes, Need for prophylactic vaccination and inoculation against influenza (Renamed from Need for immunization against influenza), Pain in wrist, right, PSORIASIS NEC (696.1), Hypertension 401.1 (Renamed from Hypertension (401.0)), Fatty liver, Obesity, unspecified, Irritable bowel syndrome (564.1), Metabolic syndrome, Impaired Fasting Glucose (Renamed from Elevated fasting blood sugar), Other dysphagia [facility] Office Visit On: 01-May-2015 10:40 Encounter Reason: Follow up Meds - The patient feels well with minor complaints.Encounter Diagnosis: Diabetes, Gerd (530.81), Obesity,unspecified (278.00) End: 01-May-2015 11:33 [facility] Office Visit On: 27-Mar-2015 8:02 Encounter Reason: Follow up for chronic medical issues - The patient does not feel well, has good energy level and is sleeping well. Patient has been compliant with instructions. Current medication use: no side effects a End: 27-Mar-2015 9:23 nd compliant with dosing regimen. Patient sleeps 7 hours per night. Nutrition: balanced diet and supplemental vitamins.Encounter Diagnosis: Hyperlipidemia, Unspecified (272.4), Hypertension 401.1 (Renamed from Hypertension (401.0)), Impaired Fasting Glucose (Renamed from Elevated fasting blood sugar), Pain in wrist, right, PSORIASIS NEC (696.1), Irritable bowel syndrome (564.1), Obesity,unspecified (278.00), Gerd (530.81), Elevated LFT (790.6), Fatty liver, Metabolic syndrome [facility] Office Visit On: 26-Sep-2014 8:51 Encounter Reason: Follow up tests - Date: (09/2014)., [ADDITIONAL REASON] Follow up for chronic medical issues - The patient does not feel well, has good End: 26-Sep-2014 9:45 energy level and is sleeping well. Patient has been compliant with instructions. Current medication use: no side effects and compliant with dosing regimen. Patient sleeps 7 hours per night. Nutrition: balanced diet and supplemental vitamins. Encounter Diagnosis: Impaired Fasting Glucose (Renamed from Elevated fasting blood sugar), Hypertension 401.1 (Renamed from Hypertension (401.0)), PSORIASIS NEC (696.1), Pain in wrist, right, Irritable bowel syndrome (564.1), Gerd (530.81), Hyperlipidemia, Unspecified (272.4), Obesity,unspecified (278.00), Well Male Exam (V70.0) [facility] Phone Encounter On: 18-May-2014 15:11 Encounter Diagnosis: Gerd (530.81) End: 18-May-2014 15:12 [facility] Office Visit On: 28-Mar-2014 8:02 Encounter Reason: Follow up for chronic medical issues - The patient feels well with no complaints, has good energy level and is sleeping well. Patient has been compliant with instructions. Current medication use: no jana End: 28-Mar-2014 8:24 e effects, compliant with dosing regimen and considered effective by patient. Patient sleeps 7 hours per night. Impact of disease: emotional impact-mild. Nutrition: balanced diet and supplemental vitami ns. The medical issues the patient is following up for include cardiac issues, gastric reflux, high blood pressure, high cholesterol and other (IBS, elevated lft's).Encounter Diagnosis: Hyperlipidemia, Unspecified (272.4), Irritable bowel syndrome (564.1), Elevated LFT (790.6), Hypertension 401.1 (Renamed from Hypertension (401.0)), PSORIASIS NEC (696.1), Edema of hand, Gerd (530.81), Pain in wrist, right, Impaired Fasting Glucose (Renamed from Elevated fasting blood sugar), Obesity,unspecified (278.00), Well Male Exam (V70.0) [facility] Phone Encounter On: 02-Dec-2013 9:01 Encounter Diagnosis: Unspecified Diagnosis End: 02-Dec-2013 9:05 [facility] Lab Order On: 23-Sep-2013 15:49 Encounter Diagnosis: Edema of hand, PSORIASIS NEC (696.1) End: 23-Sep-2013 15:53 [facility] Office Visit On: 22-Sep-2013 8:46 Encounter Reason: Follow up for chronic medical issues - The patient feels well with no complaints, has good energy level and is sleeping well. Patient has been compliant with instructions. Current medication use: no jana End: 22-Sep-2013 9:15 e effects, compliant with dosing regimen and considered effective by patient. Patient sleeps 7 hours per night. Impact of disease: emotional impact-mild. Nutrition: balanced diet and supplemental vitami ns. The medical issues the patient is following up for include cardiac issues, gastric reflux, high blood pressure, high cholesterol and other (IBS, elevated lft's, psoriasis ).Encounter Diagnosis: PSORIASIS NEC (696.1), Elevated LFT (790.6), Stiffness of joint, not elsewhere classified, involving other specified sites (719.58), Hypertension 401.1 (Renamed from Hypertension (401.0)), Hyperlipidemia, Unspecified (272.4), Irritable bowel syndrome (564.1), Gerd (530.81), Well Male Exam (V70.0) [facility] Office Visit On: 14-Sep-2013 8:53 Encounter Reason: Injections - The medication the patient is here to receive is other (flu).Encounter Diagnosis: Need for prophylactic vaccination and inoculation against influenza (V04.81) End: 15-Sep-2013 16:46 [facility] Annotation/Addendum On: 28-Mar-2013 11:02 Encounter Diagnosis: Hyperlipidemia, Unspecified (272.4) End: 28-Mar-2013 11:03 [facility] Office Visit On: 22-Mar-2013 11:12 Encounter Reason: Follow up for chronic medical issues - The patient feels well with minor complaints and has decreased energy level. Patient has been compliant with instructions. Current medication use: no side effects, End: 22-Mar-2013 11:45 compliant with dosing regimen and considered effective by patient. Patient sleeps 7 hours per night. Impact of disease: emotional impact-mild. Nutrition: balanced diet and supplemental vitamins. The nm dical issues the patient is following up for include cardiac issues, depression (anxiety ), gastric reflux, high blood pressure, high cholesterol and other (elevated lft's, obesity ).Encounter Diagnosis: Hypertension 401.1 (Renamed from Hypertension (401.0)), Gerd (530.81), Lumbago (724.2), 5-80-81 DISEASES OF THE LIVER (573.9), PSORIASIS NEC (696.1), Anxiety (300.00), Fatigue (780.79), Allergic Rhinitis(477.9), Stiffness of joint, not elsewhere classified, involving other specified sites (719.58), Sebaceous cyst (706.2), Dysphagia (787.20), Hyperlipidemia, Unspecified (272.4), Elevated LFT (790.6), Irritable bowel syndrome (564.1), Well Male Exam (V70.0) [facility] Office Visit On: 18-Dec-2011 10:19 Encounter Diagnosis: Gerd (530.81), Dysphagia (787.20) End: 18-Dec-2011 11:33 [facility] Phone Encounter On: 18-Nov-2011 13:49 Encounter Diagnosis: Unspecified Diagnosis End: 18-Nov-2011 13:50 [facility] Office Visit On: 29-Apr-2011 11:02 Encounter Diagnosis: Sebaceous cyst (706.2) End: 29-Apr-2011 11:35 [facility] Phone Encounter On: 16-Dec-2010 11:01 Encounter Diagnosis: Stiffness of joint, not elsewhere classified, involving other specified sites (719.58) End: 16-Dec-2010 11:02 [facility] Office Visit On: 10-Sep-2010 8:53 Encounter Diagnosis: Need for prophylactic vaccination and inoculation against influenza (V04.81) End: 10-Sep-2010 9:08 [facility] Office Visit On: 06-Sep-2010 8:19 [facility] End: 06-Sep-2010 9:28 Office Visit On: 06-Sep-2010 7:35 Encounter Reason: Follow up for chronic medical issues - The patient feels well with minor complaints and has decreased energy level. Patient has been compliant with instructions. Current medication use: no side effects, End: 06-Sep-2010 8:10 compliant with dosing regimen and considered effective by patient. Patient sleeps 7 hours per night. Impact of disease: emotional impact-mild. Nutrition: balanced diet and supplemental vitamins. The me dical issues the patient is following up for include cardiac issues, depression (anxiety ), gastric reflux, high blood pressure, high cholesterol and other (elevated lft's, obesity ).Encounter Diagnosis: Allergic Rhinitis(477.9), SOB (786.05), Gerd (530.81), Hyperlipidemia, Unspecified (272.4), Hypertension 401.1 (Renamed from Hypertension (401.0)), Stiffness of joint, not elsewhere classified, involving other specified sites (719.58), Elevated LFT (790.6), Irritable bowel syndrome (564.1), Well Male Exam (V70.0), Rash (782.1) [facility] Office Visit On: 26-Apr-2010 8:20 Encounter Reason: Follow up, Laboratory Test Results - Date: (04-17-10). Current symptoms/reason for visit include/s Follow up visit with no current symptoms. Past medical history includes elevated cholesterol ,elevated tr End: 26-Apr-2010 8:46 iglycerides ,gastroesophageal reflux disease ,hypertension and other (psoriasis, IBS, elevated LFT's). Encounter Diagnosis: Elevated LFT (790.6), Stiffness of joint, not elsewhere classified, involving other specified sites (719.58) [facility] Office Visit On: 05-Apr-2010 9:07 Encounter Reason: Follow up, Laboratory Test Results - Date: (03/27). Encounter Diagnosis: Elevated LFT (790.6), Cerumen impaction (380.4) End: 06-Apr-2010 10:10 [facility] Phone Encounter On: 22-Mar-2010 16:06 [facility] End: 22-Mar-2010 16:08 Office Visit On: 14-Feb-2010 11:58 Encounter Diagnosis: Lumbago (724.2), Rash (782.1) End: 14-Feb-2010 12:57 [facility] Historical Summary On: 23-Jan-2010 8:25 [facility] End: 23-Jan-2010 8:28 Office Visit On: 01-Jan-2010 10:32 Encounter Reason: Rash - The onset of the rash has been sudden and has been occurring in a persistent pattern for 3 weeks. The course has been constant. The rash is characterized as red and flat. The rash was first seen End: 01-Jan-2010 10:56 on the face and the lower extremity. It spread to the face. There has been associated itching. Encounter Diagnosis: Rash (782.1) [facility] Office Visit On: 10-Dec-2009 10:45 Encounter Reason: Rash - The onset of the rash has been sudden and has been occurring in a persistent pattern for 3 weeks. The course has been constant. The rash is characterized as red and flat. The rash was first seen End: 10-Dec-2009 11:15 on the face and the lower extremity. It spread to the face. There has been associated itching. Encounter Diagnosis: Dermatitis (692.9) [facility] Office Visit On: 04-Sep-2009 14:40 Encounter Diagnosis: Dermatitis (692.9) End: 04-Sep-2009 15:07 [facility] Office Visit On: 20-Jul-2009 8:47 Encounter Reason: Follow up Meds - The patient feels well with no complaints ,has good energy level and is sleeping well. Patient has been compliant with instructions. Current medication use: no side effects ,compliant w End: 20-Jul-2009 9:16 ith dosing regimen and considered effective by patient. Patient sleeps 6 hours per night. Nutrition: balanced diet. Note for Follow up Meds: prevacid Encounter Diagnosis: Gerd (530.81) [facility] Office Visit On: 05-Jul-2009 12:24 Encounter Diagnosis: Gerd (530.81) End: 05-Jul-2009 12:50 [facility] Phone Encounter On: 02-Jan-2009 14:41 [facility] End: 02-Jan-2009 14:54 Office Visit On: 02-Jan-2009 13:56 Encounter Reason: Sinusitis/ - The duration of the symptoms are 1 week The course has been recurrent. The sinusitis/ has no relieving factors. Associated features include The symptoms have been associated with cough ,shannon End: 02-Jan-2009 14:40 al discharge/stuffy nose and sinus pain. Encounter Diagnosis: Rash (782.1), BRONCHITIS, NOT SPECIFIED ACUTE OR CHRONIC (490.), chest pain [facility] Office Visit On: 07-Sep-2008 8:50 Encounter Reason: Follow up, Diagnostic Procedure Results - Diagnostic tests include X-Ray (esophagus ). Date: (08-18-08). Current symptoms include other (dysphagia ). There is no family history of breast cancer ,cardiova End: 07-Sep-2008 9:25 scular disease ,cystic fibrosis ,Down's syndrome ,mental retardation or myocardial infarction before age 55. Past medical history includes emotional problems (anxiety ) ,hypertension and other (choleste rol, Gerd, IBS ). Note for Follow up, Diagnostic Procedure Results: had attack 2 days ago right lower breast and sternum--feel tender swell and out of wack then will scab and rash on back. pinpoint te nder to palp on sternum. no gerd or belching. seen at [facility]. had 27 years episodes every 2-3 times year. pain on costochondrial area few days. the rash on upper back same place hives in patch. no red eye. hand will swell but no arhtritis or arthralgia , [ADDITIONAL REASON] Follow up, Laboratory Test Results - Date: (08-18-08). There is no family history of breast cancer ,cardiovascular disease ,cystic fibrosis ,Down's syndrome ,mental retardation or my ocardial infarction before age 55. Past medical history includes emotional problems ,gastroesophageal reflux disease ,hypertension and irritable bowel disease. Encounter Diagnosis: Hypertension (401.0), Gerd (530.81), Chest pain (786.59), Dysphagia (787.20) [facility] Phone Encounter On: 11-Aug-2008 9:33 Encounter Diagnosis: Unspecified Diagnosis End: 11-Aug-2008 10:26 [facility] Office Visit On: 01-Aug-2008 8:44 Encounter Reason: Follow up for chronic medical issues - The patient feels well with minor complaints ,has good energy level and is sleeping well. Patient has been compliant with instructions. Current medication use: no End: 01-Aug-2008 9:18 side effects ,compliant with dosing regimen and considered effective by patient. Patient sleeps 7 hours per night. Impact of disease: emotional impact-mild. Nutrition: balanced diet. The medical issues the patient is following up for include cardiac issues ,gastric reflux ,high blood pressure ,high cholesterol and other (erectile dysfunction ). Encounter Diagnosis: Abdominal Pain,General (789.07), Hypertension (401.0), Allergic Rhinitis(477.9), WRIST PAIN, CAFFEINE, NOS, DISEASES OF THE LIVER (573.9), Stiffness of joint, not elsewhere classified, involving other specified sites (719.58), Fatigue (780.79), Hyperlipidemia, Unspecified (272.4), LBP, Irritable bowel syndrome (564.1), Elevated LFT (790.6), Anxiety (300.00), Gerd (530.81), Rash (782.1), Dysphagia (787.20) [facility] Office Visit On: 20-Jun-2008 9:30 Encounter Reason: Abdominal pain - The onset of the pain has been sudden and has been occurring in a persistent pattern for 1 days (last night at 4:30 am). The course has been constant. The pain is described as a moderat End: 20-Jun-2008 10:24 e burning. The pain is described as being located in the upper abdomen. The pain radiates to the back. The symptoms have no aggravating factors. The symptoms have no relieving factors. The symptoms have been associated with bloating ,diarrhea ,nausea and vomiting, while the symptoms have not been associated with abdominal distention ,constipation or fever. Note for Abdominal pain: upper abdomen. if take deep breath worse. no uri ss. no cough. yesterday felt bloated had diarrhea. took peptobismaol and then vomit. day before eat at home none else sick. no recent atb no travel. no BM. this am vomit. no dizzy. not take fluds. radiate into chest and backEncounter Diagnosis: Abdominal Pain,General (789.07) [facility] Annotation/Addendum On: 08-Jun-2008 12:16 Encounter Diagnosis: LBP End: 08-Jun-2008 12:18 [facility] Office Visit On: 24-Mar-2008 8:27 Encounter Reason: Follow up, Laboratory Test Results - Date: (02-29-08 ). Current symptoms/reason for visit include/s Follow up visit with no current symptoms. There is a family history of cardiovascular disease. Past med End: 24-Mar-2008 9:06 ical history includes cardiovascular disease ,elevated cholesterol ,elevated triglycerides ,emotional problems (anxiety ) ,hypertension and other (IBS). Encounter Diagnosis: Hyperlipidemia, Unspecified (272.4), Irritable bowel syndrome (564.1), Elevated LFT (790.6) [facility] Office Visit On: 16-Feb-2008 12:25 Encounter Reason: Follow up for chronic medical issues - The patient feels well with minor complaints ,has decreased energy level and is sleeping poorly. Patient has been compliant with instructions. Current medication u End: 16-Feb-2008 12:55 se: no side effects ,compliant with dosing regimen and considered effective by patient. Patient sleeps 5 hours per night. Impact of disease: emotional impact-mild. Nutrition: balanced diet. The medical issues the patient is following up for include depression (anxiety) ,gastric reflux ,high blood pressure and other (IBS, allergic rhinitis ). Note for Follow up for chronic medical issues: times works for 2-3 days then times bad. scope in past , mainly diarrhea, trouble get to sleep, get tender along lower rib cage and in back.Encounter Diagnosis: Hypertension (401.0), Irritable bowel syndrome (564.1), Hyperlipidemia, Unspecified (272.4), Allergic Rhinitis(477.9), Anxiety (300.00), Well Male Exam (V70.0) [facility] Office Visit On: 06-May-2007 9:44 Encounter Reason: Anxiety - The onset of the anxiety has been gradual and has been occurring in a persistent pattern for 2 months. The course has been increasing. The anxiety is characterized as nervousness. There are no End: 06-May-2007 10:27 specific phobias. Precipitating factors include specific circumstances (related to work). The symptoms have been associated with agitation ,diarrhea and headache. Note for Anxiety: company sold , str ess nervous up at night, diarrhea from anxiety, job security issue, eat lunch with client, Encounter Diagnosis: Irritable bowel syndrome (564.1), Anxiety (300.00) [facility] Historical Summary On: 17-Dec-2006 11:01 [facility] End: 17-Dec-2006 11:02 Historical Summary On: 28-Sep-2006 12:15 [facility] End: 28-Sep-2006 12:24 [facility]; a guarantor
--- OUTSIDE RECORDS SUMMARY | 2018-12-13 21:10 | XMS RPT_ITS | Continuity of Care Document ---
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 with PT treatemtn neck pain lower rib cage and swallowing issues. he will continue home exercises. talk about cylmbalta Status: Active Diabetes (E11.9, 250.00) Comments: bydureon in past not like shot right now hgac 5.5 off meds. stillneeds to lose weight Status: Active Encounter for routine history and physical exam for male (Z00.00, V70.0) Comments: 3-18 [facility]: colonoscopy 2011 due in , PSA 7-17, 6CIT , BMI=35.3 A1C=5.5%, immunizations are up to date, PHQ-9=4 (Minimal) Status: Active Erectile dysfunction (N52.9, 607.84) Status: Active Fatty liver (K76.0, 571.8) Comments: told can go on to cirrhosis with fatty liver must loose weight test up needs liver elastography has set up 08-02-18. noyk alot about what mean how done what [...] Status: Active Memory change (R41.3, 780.93) Comments: 6CIT=/ too much on mind. father had alzheimers. not notice with work or life cognitive issue like dad. Status: Active Obesity, unspecified (E66.9, 278.00) Comments: was doing good then snacking alot and gain back.gain after quit smokign anddrinking 1991 was 135 then gain after Status: Active Other dysphagia (R13.19, 787.29) Comments: [facility] on neck issue Status: Active Psoriasis (L40.9, 696.1) Comments: think at anus and back of leg, and behind right knee. no real joint pain the cream is heping so not biopsy Status: Active Rash (R21, 782.1) -Dec-2009 Comments: pt gets rash on and off [...] cholestyramine. no sugar alcohols.saw Dr. briones at [facility] main. felt functional done for 20 [...] M Start : 10-Feb-2018 Active Comments:called into [facility] 02/10 Cholestyramine 4 GM Oral Packet 1 [...] days Quantity: 30 {Tablet} Refills: 3 Ordered:16-Feb-2008 Betty Yudy SHAILA Start : 16-Feb-2008 End : 20-Jun-2008 Inactive [...] : 08-Jan-2009 End : 25-Apr-2009 Inactive ZOSTAVAX, 36308OPN/0.65ML (Subcutaneous Solution Reconstituted) 1 For Solution For [...] days Quantity: 60 {Capsule} Refills: 6 Ordered:25-May-2017 Chani BATEMAN, Val Johnson MD Start : 25-May-2017 End : 06-Nov-2017 Discontinued Mobic 15 MG Oral Tablet 1 (one) Tablet in am for 0 days Quantity: 30 {Tablet} Refills: 2 Ordered:02-Feb-2018 Chani BATEMAN, Val Johnson MD Start : 02-Feb-2018 End : 02-Feb-2018 Discontinued Comments:after done with Lumexis Allergies and Adverse Reactions Name Dates Details [...] for Tdap vaccination (Renamed from Need for gcxtomecrm-wiuljfj-olmxwqttf (Tdap) vaccine, adult/adolescent) (Z23, V06.1) Status: Inactive [...] Comments: x2 Tonsillectomy Completed Date Value Details 25-May-2017 Cerv Spine 4 or 5 Views Result: Comments: See Note; NOTES: [facility] Imaging Services [address] [place], [place] [address] [address] Verd[place] 4d Cerv Spine 4 or 5 Views MR#: [id number] Acct: [id number] Name: FIONA LLYOD Re p #: [id number] : 1955 M 61 From: Duane Fernandes DO PCP: Val Wilde MD Status: REG CLI Study: Cerv Spine 4 or 5 Views Date of Exam: 05/25/17 Exam# [id number] Ordering Dr: Val Wilde MD STUDY : X-RAY - CERVICAL SPINE [...] Jerson Fernandes DO at 11:41 EDT Tel [phone], Service support , CC: Val Wilde MD Business Librarian: Signed 25-May-2017 Thoracic Spine 3 Views Result: Comments: See Note; NOTES: [facility] Imaging Services [address] [place] [address] [place] 4d Thoracic Spine 3 Views MR#: [id number] Acct: [id number] Name: FIONA LLOYD Rep #: [id number] : 1955 M 61 From: Duane Fernandes DO PCP: Val Wilde MD Status: REG CLI Study: Thoracic Spine 3 Views Date of Exam: 05/25/17 Exam# [id number] Ordering Dr: Val Wilde MD STUDY: X-RAY [...] Duane Fernandes DO at 11:42 EDT Tel [phone], Service support [phone], CC: Val Wilde MD Business Librarian: Signed 28-Jan-2017 Cardiac Catheterization Report Result: Comments: See Note; NOTES: [facility] Medical Records Department [address] [place] [address] Cardiac Catheterization Report MR#: [id number] Acct: [id number] Name: MELITON LLOYD Rep #: [id number] : 1955 61 From: Yovany Edwards MD [...] femoral artery was cannulated and a #4 Czech arterial sheath was placed. A #4 Czech JL 5 Tong left coronary artery catheter was then advanced under fluoroscopic sarah nce to the level of the central aorta or central pressure was measured recorded. This catheter was then used to engage the left coronary ostium where selective left coronary arteriography was performed in multiple views. This catheter was then exchanged over a J-tip guidewire for a #4 Czech 3 DRC Kg right catheter. This catheter was then advanced to the level of the central aorta were central a ortic pressure was noted. It was then used to engage the right coronary ostium where selective right coronary arteriography was performed in multiple views. This catheter was then exchanged over a J-tip guidewire for a #4 Czech pigtail catheter. This catheter was then advanced [...] and gives rise to a small septal school lunch monitor system and a small diagonal branching system. [...] his spouse. This note was generated with Codoonation software. It may contain incorrect words, spelling, and punctuation that were not noted in checking the note before signing. 01/28/17 1244 <Electronically signed by Yovany Edwards MD> Date Yovany Edwards MD Cosigner Signature (If Indicated): Date CC: Val Wilde MD; Yovany Edwards MD Date Dictated: 01/28/17 1234 Signed 19-Jan-2017 Chest PA and Lateral Result: Comments: See Note; NOTES: [facility] Imaging Services [address] [place] [address] Ver[place] 4d Chest PA and Lateral MR#: [id number] Acct: [id number] Name: FIONA LLOYD Rep # : [id number] : 1955 M 61 From: Kentrell Sandoval MD PCP: Val Wilde MD Status: REG CLI Study: Chest PA and Lateral Date of Exam: 01/19/17 Exam# [id number] Ordering Dr: Yovany Edwards MD STUDY: X-RAY [...] at 1:49 EST Tel , Service support [phone], CC: Val Wilde MD; Yovany Edwards MD Business Librarian: Signed 16-Jan-2017 Nuclear Stress Test - Treadmil Result: Comments: See Note; NOTES: [facility] Imaging Services [address] [place] [address] Tiffany 4d Nuclear Stress Test - Treadmil MR#: [id number] Acct: [id number] Name: OLI LLOYD Rep #: [id number] : 1955 61 From: Yovany Edwards MD [...] LVEF of 77%. Yovany Edwards MD T: NTS JOB: [id number] 01/17/17 1102 <Electronically signed by Yovany Edwards MD> Date Yovany Edwards MD CC: Val Wilde MD Date Dictated: 01/16/17942 Date Transcribed: 01/16/17942 Business Librarian: Signed 19-Aug-2016 Ribs Unil 2V No CXR Result: Comments: See Note; NOTES: [facility] Imaging Services [address] [place] [address] Verd[place] 4d Ribs Unil 2V No CXR MR#: [id number] Acct: [id number] Name: FIONA LLOYD Darian Rep # : [id number] : 1955 Jakob 61 From: Alejo Bonilla MD PCP: Val Wilde MD Status: REG CLI Study: Ribs Unil 2V No CXR Date of Exam: 08/19/16 Exam# [id number] Ordering Dr: Val Wilde MD STUDY: X [...] FACR at 17:58 EDT , Service support [phone], CC: Val Wilde MD Business Librarian: Signed 19-Aug-2016 Thoracic Spine 3 Views Result: Comments: See Note; NOTES: [facility] Imaging Services [address] [place] [address] [place] 4d Thoracic Spine 3 Views MR#: [id number] Acct: [id number] Name: FIONA LLOYD Mary hedrick #: [id number] : 1955 M 61 From: Alejo Bonilla MD PCP: Val Wilde MD Status: REG CLI Study: Thoracic Spine 3 Views Date of Exam: 08/19/16 Exam# [id number] Ordering Dr: Val Wilde MD ST UDY: [...] FACR at 17:58 EDT , Service support [phone], F ax [phone] CC: Val Wilde MD Business Librarian: Signed 11-Jun-2016 Abdomen/Pelvis WITH Contrast Result: Comments: See Note; NOTES: [facility] Imaging Services [address] [place] [address] Ver[place] 4d Abdomen/Pelvis WITH Contrast MR#: [id number] Acct: [id number] Name : FIONA LLOYD Rep #: [id number] : 1955 60 From: Scarlet Castillo MD PCP: Val Wilde MD Status: REG CLI Study: Abdomen/Pelvis WITH Contrast Date of Exam: 06/11/16 Exam# [id number] Treva groves Dr: Val Wilde MD STUDY: [...] L1 on L2. CC: Val Wilde MD Business Librarian: Signed 11-Jun-2016 Abdomen/Pelvis WITH Contrast Result: Comments: See Note; NOTES: [facility] Imaging Services [address] [place] [address] [place] 4d Abdomen/Pelvis WITH Contrast MR#: [id number] Acct: [id number] Name : FIONA LLOYD Rep #: [id number] : 1955 60 From: Scarlet Castillo MD PCP: Val Wilde MD Status: REG CLI Study: Abdomen/Pelvis WITH Contrast Date of Exam: 06/11/16 Exam# [id number] Orderin g Dr: Val Wilde MD STUDY: [...] L1 on L2. CC: Val Wilde MD Business Librarian: Signed 11-Jun-2016 Abdomen/Pelvis WITH Contrast Result: Comments: See Note; NOTES: [facility] Imaging Services [address] [place] [address] [place] 4d Abdomen/Pelvis WITH Contrast MR#: [id number] Acct: [id number] Name : FIONA LLOYD Rep #: [id number] : 1955 M 60 From: Scarlet Castillo MD PCP: Val Wilde MD Status: REG CLI Study: Abdomen/Pelvis WITH Contrast Date of Exam: 06/11/16 Exam# [id number] Treva groves Dr: Val Wilde MD STUDY: [...] Service support , CC: Val Wilde MD Business Librarian: Signed 04-Jun-2016 Gastric Emptying Study Result: Comments: See Note; NOTES: [facility] Imaging Services [address] [place] [address] [place] 4d Gastric Emptying Study MR#: [id number] Acct: [id number] Name: FIONA PADILLA Rep #: [id number] : 1955 60 From: Norm Brennan DO PCP: Val Wilde MD Status: REG CLI Study: Gastric Emptying Study Date of Exam: 06/04/16 Exam# [id number] Ordering Dr: Val Wilde MD CLINICAL: 60-year-old [...] phase gastric emptying compared to normal controls. (Óscar, J Nucl Med Tech 38: 186, 2010). Electronically Signed: Norm Brennan DO at 21:11 EDT Tel , Service support [phone], CC: Val Wilde MD Business Librarian: Signed 28-Sep-2015 Esophagus Only Result: Comments: See Note; NOTES: [facility] Imaging Services [address] [place] [address] Ver[place] 4d Esophagus Only MR#: [id number] Acct: [id number] Name: FIONA LLOYD Rep #: [id number] : 1955 M 60 From: Javon Lozoya MD PCP: Val Wilde MD Status: REG CLI Study: Esophagus Only Date of Exam: 09/28/15 Exam# [id number] Ordering Dr: Val Wilde MD STUDY: X-RAY [...] Javon Lozoya MD at 11:18 EST T [phone], Service support [phone], 0032 RAD/Esophagus Only IMPRESSION: Small sliding hiatal hernia without gastroesophageal reflux. Electronically Signed : Javon Lozoya MD at 11:18 EST Tel [phone], Service support [phone], CC: Val Wilde MD Business Librarian: Signed 25-Sep-2015 ELECTROCARDIOGRAM, COMPLETE (ECG) (61352) Result: [MEASUREMENTS ANALYSIS] Date of Test: 09/25/2015 09:11:08; Heart Rate: 65; DC Interval: 172; QRS: 112; QT Interval: 398; Corrected QT Interval (QTc): 406; P Wave Eva: 39; QRS Wave Eva: 74; T Wave Eva : 43; Blood Pressure: 130/80 [ECG DIAGNOSTIC STATEMENTS] Date of Test: 09/25/2015 09:11:08; Summary: Sinus Rhythm WITHIN NORMAL LIMITS 26-Sep-2013 Hand Min 3 Views Result: Comments: See Note; NOTES: [facility] Imaging Services [address] [place] [address] Radiology Report MR#: [id number] Acct: [id number] Name: FIONA LLOYD Rep #: [id number] : 1955 58 From: Javon Lozoya MD PCP: Val Wilde MD Status: REG CLI Study: Hand Min 3 Views Date of Exam: 09/26/13 Exam# [id number] Ordering Dr: Val Wilde MD STUDY: X-RA [...] September 26, 2013 at 10:51:49 AM EST Electronically Signed GP/GP If you are the referring physician and would like to consult with the radiologist who provided this interpretation, please contact Javon Lozoya M.D. at . If this radiologist is unavailable, you will be directed to another radiologist to assist. If you are a patient with a question regarding this report, please contact your referring physi jimmy directly. Professional Interpretation Provided By: [employer], Phone , These documents contain legally protected [...] of these documents. CC: Val Wilde MD Business Librarian: Signed Immunization Name Dates Details Zoster (shingles) Comments: once at pharmacy around 58 yo Family History Unknown Family Member Name Dates Details Brother 1 Comments: healthy younger Status: Active Father Comments: Alzheimer's 71 yo, HTN Status: Active Maternal Grandfather Comments: 70's Status: Active Maternal Grandmother Comments: young of gas leak accident Status: Active Mother Comments: heart disease ? start , [place] at 65 yo. 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 Status: Active Smoking Status Name Dates Details Former smoker Vital Signs Date Test Result Details :28 Temperature 96.8 f Comments: Method: Temporal Pulse [...] kg/m2 Body Surface Area Calculated 2.03 m2 34-Skp-242583:44 Comments: has not had any meds today [...] 0.00 cm Results Date Description Value Details :03 Histoplasma Abs, Qn, Negative (Normal) Comments: PATIENT NOT FASTINGPERFORMED BY: [employer] [id number] BY: daPulse Vhynoy9105 [facility] [id number] DID :03 ANGTENSIN 1-CONVRT ENZYM Comments: PATIENT NOT FASTINGPERFORMED BY: [employer] [id number] BY: [employer]ulse Urousw2633 [facility] [id number] (75926) ANTON <15 U/L (Normal) Range: 14-82 :03 ANTIMITOCHONDRIAL AB 6650 Comments: PATIENT NOT FASTINGPERFORMED BY: [employer] [id number] BY: [employer]ulse Fuqref4340 [facility] [id number] (14192) Mitochondrial (M2) Antibody <20.0 {Units} (Normal) Range: 0.0-20.0 Comments: Negative 0.0 - 20.0 Equivocal 20.1 - 24.9 Positive >24.9 . Mitochondrial (M2) Antibodies are found in 90-96% of patients with primary biliary cirrhosis. :03 ANCA-C (ANTI NEUTROPHIL Comments: PATIENT NOT FASTINGPERFORMED BY: [employer] [id number] BY: [employer] ProductsPascack Valley Medical CenterEoottj4116 [facility] [id number]; fu 6-15 db CYTOPLASMIC ANTIBODY) Atypical pANCA <1:20 {titer} Comments: The atypical pANCA pattern has been observed in a significantpercentage of patients with ulcerative colitis, primary sclerosingcholangitis and autoimmune hepatitis. (Normal) Perinuclear (P-ANCA) <1:20 {titer} Comments: The presence of positive fluorescence exhibiting P-ANCA or C-ANCApatterns alone is not specific for the diagnosis of Alko'sGranulomatosis (WG) or microscopic polyangiitis. Decisions about treatment sh (Normal) ould not be based solely on ANCA IFA results. TheInternational ANCA Group Consensus recommends follow up testing ofpositive sera with both DC-3 and MPO-ANCA enzyme immunoassays. Asmany as 5% serum samp les are positive only by EIA.Ref. AM J Clin Pathol 1999;111:507-513. Cytoplasmic (C-ANCA) <1:20 {titer} (Normal) Antiproteinase 3 (DC-3) Abs <3.5 U/mL (Normal) Range: 0.0-3.5 Antimyeloperoxidase (MPO) Abs <9.0 U/mL (Normal) Range: 0.0-9.0 4-Izg-570639:09 QuantiFERON In Tube Comments: PATIENT NOT FASTINGPERFORMED BY: O_ [facility] [place] [facility] Bcop2281 [facility] [id number] BY: [facility] Benafq7409 [facility] [id number] Interpretation: SPRCS (Normal) Comments: The QuantiFERON TB [...] due to exposure Rg. kansa sii, M. szulgai or M. marinum. On the Internet, go [...] indeterminate testvalues. QuantiFERON TB Gold Negative (Normal) 0-Zys-309563:09 Quantiferron gold test Comments: PATIENT NOT FASTINGPERFORMED BY: O_ [facility] Ehts2050 [facility] [place] [id number] BY: [facility]6370 [facility] [id number] (61023) QuantiFERON Incubation QINT (Normal) Comments: Incubated, testing to follow. 6-Kdg-038690:14 Systemic Lupus Profile Comments: PATIENT NOT FASTINGPERFORMED BY: AdmittedlyBronson [facility]view Hospital6370 [facility] [id number] (14884) Anti-DNA (DS) Ab Qn 1 {IU/mL} (Normal) Range: 0-9 Comments: Negative <5 Equivocal 5 - 9 Positive >9 Sjogren's Anti-SS-B <0.2 {AI} (Normal) Range: 0.0-0.9 Sjogren's Anti-SS-A 0.3 {AI} (Normal) Range: 0.0-0.9 Antichromatin Antibodies 1.1 {AI} (Abnormal) Range: 0.0-0.9 RA Latex Turbid. <10.0 {IU/mL} (Normal) Range: 0.0-13.9 Altman Antibodies <0.2 {AI} (Normal) Range: 0.0-0.9 COMPUTER FORENSICS EXAMINER Antibodies 0.2 {AI} (Normal) Range: 0.0-0.9 9-Ubn-951476:14 HEPATITIS C ANTIBODY (79190) Comments: PATIENT NOT FASTINGPERFORMED BY: [facility]6370 [facility] [id number] Hep C Virus Ab <0.1 {s/co_ratio} (Normal) Range: 0.0-0.9 Comments: Negative: < 0.8 Indeterminate: 0.8 - 0.9 Positive: > 0.9 . The CDC recommends that a positive HCV antibody result be followed up with a HCV Nucleic Acid Amplification test (269507). 0-Wtu-957606:14 HEPATIC FUNCTION PANEL Comments: PATIENT NOT FASTINGPERFORMED BY: [employer] [facility] ProductsPascack Valley Medical CenterFhgsyl8114 [facility] [id number] (72801) ALT (SGPT) 50 [iU]/L (Abnormal) Range: 0-44 AST (SGOT) 36 [iU]/L (Normal) Range: 0-40 Alkaline Phosphatase 86 [iU]/L (Normal) Range: 39-117 Bilirubin, Direct 0.16 mg/dL (Normal) Range: 0.00-0.40 Bilirubin, Total 0.5 mg/dL (Normal) Range: 0.0-1.2 Albumin 4.7 g/dL (Normal) Range: 3.6-4.8 Protein, Total 7.8 g/dL (Normal) Range: 6.0-8.5 28-Uag-17359:44 Metabolic Panel, Comprehensive Comments: PATIENT WAS FASTINGPERFORMED BY: [employer] [facility] ProductsPascack Valley Medical CenterTgausn6921 [facility] [id number] (64252) ALT (SGPT) 69 [iU]/L (Abnormal) Range: 0-44 [...] MANUAL DIFF Comments: PATIENT WAS FASTINGPERFORMED BY: LabBronson [facility] Hospital6370 [facility] [id number] Information: NURSE DRAW (95371) Immature Grans (Abs) 0.0 {x10E3/uL} (Normal) Range: [...] 4.14-5.80 WBC 6.0 {x10E3/uL} (Normal) Range: 3.4-10.8 03-Rcl-68205:44 MICROALBUMIN: CREATININE RATIO Comments: PATIENT WAS FASTINGPERFORMED BY: [place] 0080170 [facility] [id number] (74826) AND (83502) Alb/Creat Ratio 3.7 {mg/g_creat} (Normal) Range: 0.0-30.0 Albumin, Urine 7.8 ug/mL (Normal) Creatinine, Urine 212.1 mg/dL (Normal) 48-Cmq-18234:44 URINALYSIS (43883) Comments: PATIENT WAS FASTINGPERFORMED BY: [place] 0080170 [facility] [id number] Microscopic Examination MICNIP (Normal) Comments: Microscopic not indicated and not performed. Nitrite, Urine Negative (Normal) Urobilinogen,Semi-Qn 0.2 mg/dL (Normal) Range: 0.2-1.0 Bilirubin Negative (Normal) Occult Blood Negative (Normal) Ketones Trace (Abnormal) Glucose Negative (Normal) Protein Negative (Normal) WBC Esterase Negative (Normal) Appearance Clear (Normal) Urine-Color Yellow (Normal) pH 5.0 (Normal) Range: 5.0-7.5 Specific [place] 1.026 (Normal) Range: 1.005-1.030 21-Boa-755052:43 FLU A+B DIRECT AG, (RAPID) (32245) FLU A+B DIRECT AG, (RAPID) negative (Normal) :47 TESTOSTERONE FREE (91271) Comments: PATIENT WAS FASTINGPERFORMED BY: [facility]6370 [facility] [id number] BY: [address] [id number]; fu 7-10 db Free Testosterone(Direct) 6.0 pg/mL (Abnormal) Range: 6.6-18.1 :47 CBC & PLATELETS (AUTO) Comments: PATIENT WAS FASTINGPERFORMED BY: [place] 0080170 [facility] [id number] BY: [address] [id number] (83302) Platelets 188 {x10E3/uL} (Normal) Range: 150-379 RDW 13.4 % (Normal) Range: 12.3-15.4 MCHC 33.3 g/dL (Normal) Range: 31.5-35.7 MCH 30.1 pg (Normal) Range: 26.6-33.0 MCV 91 fL (Normal) Range: 79-97 Hematocrit 42.7 % (Normal) Range: 37.5-51.0 Hemoglobin 14.2 g/dL (Normal) Range: 12.6-17.7 RBC 4.71 {x10E6/uL} (Normal) Range: 4.14-5.80 WBC 7.5 {x10E3/uL} (Normal) Range: 3.4-10.8 :47 ESTRADIOL (95983) Comments: PATIENT WAS FASTINGPERFORMED BY: [employer]70 Q1MediaNovant Health New [facility]opedic [facility] [id number] BY: [employer] [id number] Estradiol 23.2 pg/mL (Normal) Range: 7.6-42.6 Comments: XtraiceIA methodology :47 PSA (PROSTATE SPECIFIC Comments: PATIENT WAS FASTINGPERFORMED BY: HiCon[employer].ruSelect Specialty Hospital - [facility]boro [id number] BY: [employer] [id number] ANTIGEN) (20276) Prostate Specific Ag, 0.5 ng/mL (Normal) Range: 0.0-4.0 Serum Comments: [employer] ECLIA methodology. .According to the [place] [employer], Serum PSA shoulddecrease and remain at undetectable levels after radicalprostatectomy. The AUA defines biochemical recurrence as an initialPSA value 0.2 ng/mL or greater followed by a subsequent confirmatoryPSA value 0.2 ng/mL or greater.Values obtained with d ifferent assay methods or kits cannot be usedinterchangeably. Results cannot be interpreted as absolute evidenceof the presence or absence of malignant disease. :55 ACTH (19126) Comments: today; PATIENT NOT FASTINGPERFORMED BY: [employer]70 Q1MediaNovant Health New [facility]over [facility]opedic [facility] [id number] ACTH, Plasma 24.3 pg/mL (Normal) Range: 7.2-63.3 Comments: ACTH reference interval for samples collected between 7 and 10 AM. :55 TSH (THYROID STIMULATING Comments: today; PATIENT NOT FASTINGPERFORMED BY: LabCoLincoln County Medical CenterHtmlgs9024 [facility] [id number] HORMONE) (17164) TSH 1.680 {uIU/mL} (Normal) Range: 0.450-4.500 :55 PROLACTIN (69535) Comments: today; PATIENT NOT FASTINGPERFORMED BY: [facility] Dppwdy0424 [facility] [id number] Prolactin 10.0 ng/mL (Normal) Range: 4.0-15.2 19-Soe-834174:48 Basic Metabolic Profile (BMP) Comments: Order Date: 01/19/17Order Info: 0667-1 - *BMPOrder Date: 01/19/17Order Info: 0667-1 - *BMPComments: Reason:[facility] Iexnaepbfo[address] [facility] [place], [address] GAP 8 (Normal) Range: 5-15 CO2 30.0 [...] 126 mg/dLsuggests DIABETES MELLITUS per A.D.A. criteria. 57-Ude-907825:48 CBC-Complete Blood Cnt No Diff Comments: Order Date: 01/19/17Order Info: 0667-1 - *BMPComments: Reason:[facility] Talvvddfdm[address] [place], [place], [id number] MPV 12.4 fL (Abnormal) Range: 6.2-12.0 PLT [...] Date: 01/19/17Order Info: 6301-6 - *PT/INROrder Info: 60887-6 - *PTT-Partial Thromboplastin TimeOrder Date: 01/19/17Order Info: 0667-1 - *[facility] Odvyvztptf[address] [place], [place], [id number] PTT 28.2 s (Normal) Range: 24.1-36.2 :48 Prothrombin Time w/INR Comments: Order Date: 01/19/17Order Info: [id number] - *PT/INROrder Info: [id number] - *PTT-Partial Thromboplastin TimeOrder Date: 01/19/17Order Info: [id number] - *[facility] Qbzazudgjv[address]. [place], [place], [id number] INR 1.0 (Normal) PROTIME 13.0 s (Normal) Range: 11.7-14.9 3-Xta-711415:03 TESTOSTERONE FREE (39924) Comments: 6-8 weeks.; PATIENT NOT FASTINGPERFORMED BY: LabMobiveryPascack Valley Medical CenterFohbxg6664 [facility] [id number] BY: [address] [id number] Free Testosterone(Direct) 4.4 pg/mL (Abnormal) Range: 6.6-18.1 5-Pvf-211045:03 FSH AND LH (39813) Comments: PATIENT NOT FASTINGPERFORMED BY: Implandata Ophthalmic ProductsBetty Ville 6723170 [facility] [id number] BY: [address] [id number] FSH 8.6 m[iU]/mL (Normal) Range: 1.5-12.4 LH 4.7 m[iU]/mL (Normal) Range: 1.7-8.6 7-Ukr-068466:34 SEROTONIN (30525) Comments: PATIENT NOT FASTINGPERFORMED BY: [address] [id number] Information: [id number] Serotonin, Serum 92 ng/mL (Normal) Range: 21-321 1-Wrq-960755:32 Vitamin B-12 (cyanocobalamin) Comments: PATIENT NOT FASTINGPERFORMED BY: [employer] Rpngty9613 [facility] [id number] BY: [address] [id number] (04167) Vitamin B12 >2000 pg/mL (Abnormal) Range: 211-946 9-Czn-143871:32 MICROALBUMIN: CREATININE Comments: PATIENT NOT FASTINGPERFORMED BY: LabMobiveryBetty [place] 6723170 [facility] [id number] BY: [address] [id number] RATIO (89994) AND (76397) Microalb/Creat Ratio 4.2 {mg/g_creat} (Normal) Range: 0.0-30.0 Microalbumin, Urine 7.2 ug/mL (Normal) Creatinine, Urine 172.2 mg/dL (Normal) 5-Wjl-835192:32 CALCIFIDIOL (83063) VIT D Comments: PATIENT NOT FASTINGPERFORMED BY: daPulseBetty Ville 6723170 [facility] [id number] BY: Admittedly[address] [id number] 25 Vitamin D, 25-Hydroxy 27.1 ng/mL (Abnormal) Range: 30.0-100.0 Comments: Vitamin D deficiency has been defined by the [place] of[place] and an Endocrine Society practice guideline as alevel of serum 25-OH vitamin D less than 20 ng/mL (1,2).The Endocrine Society went on to further define vitamin Dinsufficiency as a level between 21 and 29 ng/mL (2).1. IOM ([place] of [employer]). 2010. Dietary reference intakes for calcium and D. [place]: The National Academies Press.2. Mara MF, Luigi MERCADO, Robin SENA, et al. Evaluation, treatment, and prevention of vitamin D deficiency: an Endocrine Society clinical practice guideline. JCEM. 2010; 96(7):1911-30. 6-Bjj-246485:32 C-REACT PROT HIGH Comments: PATIENT NOT FASTINGPERFORMED BY: daPulse[address] [id number] BY: Admittedly[address] [id number] SENS(hsCRP) (86978) C-Reactive Protein, Cardiac 3.93 mg/L (Abnormal) Range: 0.00-3.00 Comments: Relative Risk for Future Cardiovascular Event Low <1.00 Average 1.00 - 3.00 High >3.00 9-Jbd-053203:32 ESR-F (SED RATE Comments: PATIENT NOT FASTINGPERFORMED BY: [employer] [id number] BY: Admittedly[address] [id number] ERYTHROCYTE - MALE) (81257) Sedimentation Rate-Westergren 8 mm/h (Normal) Range: 0-30 3-Ayc-719353:32 SPEP (00759) Comments: PATIENT NOT FASTINGPERFORMED BY: Club W Vrltes9022 [facility] [id number] BY: Admittedly[address] [id number] Please note: SPRCS (Normal) Comments: Protein electrophoresis scan will follow via computer, mail, orcourier delivery. A/G Ratio 1.1 (Normal) Range: 0.7-1.7 Globulin, Total 3.6 g/dL (Normal) Range: 2.2-3.9 M-Kamari Not Observed g/dL (Normal) Gamma Globulin 1.3 g/dL (Normal) Range: 0.4-1.8 Beta Globulin 1.3 g/dL (Normal) Range: 0.7-1.3 Vodkb-2-Hevedutr 0.8 g/dL (Normal) Range: 0.4-1.0 Mwtvc-4-Slproorz 0.1 g/dL (Normal) Range: 0.0-0.4 Albumin 4.1 g/dL (Normal) Range: 2.9-4.4 Protein, Total, Serum 7.7 g/dL (Normal) Range: 6.0-8.5 5-Fdt-559649:32 ANCA-C (ANTI NEUTROPHIL Comments: PATIENT NOT FASTINGPERFORMED BY: Club W Xtvbwo7510 [facility] [id number] BY: [employer] [id number] CYTOPLASMIC ANTIBODY) Atypical pANCA <1:20 {titer} Comments: [...] follow up testing ofpositive sera with both DC-3 and MPO-ANCA enzyme immunoassays. Asmany as 5% serum samp les are positive only by EIA.Ref. AM J Clin Pathol 1999;111:507-513. Cytoplasmic (C-ANCA) <1:20 {titer} (Normal) Antiproteinase 3 (DC-3) Abs <3.5 U/mL (Normal) Range: 0.0-3.5 Antimyeloperoxidase (MPO) Abs <9.0 U/mL (Normal) Range: 0.0-9.0 8-Edr-765202:32 Systemic Lupus Profile Comments: PATIENT NOT FASTINGPERFORMED BY: [facility] SurgeryIntraxioSelect Specialty Hospital [facility] [id number] BY: [employer] [id number] Information: [id number] (73053) Anti-DNA (DS) Ab Qn 1 {IU/mL} (Normal) Range: 0-9 Comments: Negative <5 Equivocal 5 - 9 Positive >9 Sjogren's Anti-SS-B <0.2 {AI} (Normal) Range: 0.0-0.9 Sjogren's Anti-SS-A <0.2 {AI} (Normal) Range: 0.0-0.9 Antichromatin Antibodies 0.6 {AI} (Normal) Range: 0.0-0.9 RA Latex Turbid. <10.0 {IU/mL} (Normal) Range: 0.0-13.9 Altman Antibodies <0.2 {AI} (Normal) Range: 0.0-0.9 COMPUTER FORENSICS EXAMINER Antibodies 0.3 {AI} (Normal) Range: 0.0-0.9 9-Llc-992702:32 TESTOSTERONE FREE (81000) Comments: PATIENT NOT FASTINGPERFORMED BY: [employer]70 [place] [facility] [id number] BY: [employer] [id number] Free Testosterone(Direct) 5.0 pg/mL (Abnormal) Range: 6.6-18.1 6-Jna-923401:32 PSA (Prostate Specific Comments: PATIENT NOT FASTINGPERFORMED BY: [facility]6370 [facility] [id number] BY: [address] [id number] Antigen), Screening (35061) Prostate Specific Ag, 0.5 ng/mL (Normal) Range: 0.0-4.0 Serum Comments: Perez ECLIA methodology. .According to the [place] [employer], Serum PSA shoulddecrease and remain [...] DIR SMEAR Comments: PATIENT NOT FASTINGPERFORMED BY: [address] [id number] (47132) Result 1 NOCP (Normal) Comments: No ova, cysts, or parasites seen. Ova + Parasite Exam Final report (Normal) Comments: These results were obtained using wet preparation(s) and trichromestained smear. This test does not include testing for Cryptosporidiumparvum, Cyclospora, or Microsporidia. 5-Bmh-050749:33 OCCULT BLOOD FECES SCREEN Comments: PATIENT NOT FASTINGPERFORMED BY: [place] 0080170 [facility] [id number] (05089) Occult Blood, Fecal, IA Positive (Abnormal) 9-Awe-987240:33 LEUKOCYTE COUNT, FECAL (98084) Comments: PATIENT NOT FASTINGPERFORMED BY: [place] 0080170 [facility] [id number] Result 1 NWBC (Normal) Comments: No white blood cells seen. White Blood Cells (WBC), Final report (Normal) Stool 81-Eod-516849:57 C-DIFFICILE, STOOL (49594) Comments: PATIENT NOT FASTINGPERFORMED BY: [place] 0080170 [facility] [id number] Information: SRC:ST C difficile Toxins A+B, EIA Negative (Normal) 5-Bhh-147361:33 CHI CULTURE-STOOL (84200) Comments: PATIENT NOT FASTINGPERFORMED BY: LabMobiveryPascack Valley Medical CenterQvcwib3871 [facility] [id number] Information: SRC:ST SRC:ST E coli Shiga Toxin EIA Negative (Normal) Result 1 NCI (Normal) Comments: No Campylobacter species isolated. Campylobacter Culture Final report (Normal) Result 1 NSS (Normal) Comments: No Salmonella or Shigella recovered. Salmonella/Shigella Screen Final report (Normal) 34-Tin-55852:59 Anaerobic & Aerobic Comments: PATIENT NOT FASTINGPERFORMED BY: AdmittedlyBronson [facility]view Hospital6370 [facility] [id number] Information: BACK SRC:WO Culture (73134) Result 1 NG36 (Normal) Comments: No growth in 36 - 48 hours. Aerobic Culture Final report (Normal) Result 1 Finegoldia magna (Abnormal) Comments: Heavy growth Anaerobic Culture Final report (Abnormal) 49-Bge-702594:55 Serum Creatinine AND GFR Comments: [facility] Wlvqbmigzo6115 [facility] [place], [address] EST GFR - AA 106 mL/min (Normal) Comments: GFR Calc EST GFR 88 mL/min (Normal) Comments: Non- GFR Calc CREAT,SERUM 0.93 mg/dL (Normal) Range: 0.70-1.30 Comments: The validity of the calculated GFR AND GFRAA in patients over70 years has not been determined. Clinical correlation isessential. 23-Uvx-461025:10 Urinalysis, Office (02427) UA - LEUKOCYTE ESTERASE Negative (Normal) UA - NITRITE Negative (Normal) URINE UROBILINGN ELIANE TIMED Normal mg/dL (Normal) UA - PROTEIN Negative mg/dL (Normal) UA - PH 6 (Abnormal) UA - BLOOD Negative (Normal) UA - SPECIFIC GRAVITY 1.025 (Normal) UA - KETONES Negative mg/dL (Normal) UA - BILIRUBIN Negative (Normal) UA - GLUCOSE Negative (Normal) 16-Fmt-373151:52 Lipid Panel (79415) Comments: PATIENT WAS FASTINGPERFORMED BY: [facility] Mjppcv6896 [facility] [id number] Information: [id number] LDL/HDL Ratio 3.1 {ratio_units} (Normal) Range: 0.0-3.6 [...] Cholesterol, Total 201 mg/dL (Abnormal) Range: 100-199 09-Ukx-385778:52 Hemoglobin Glyclated (HGB Comments: PATIENT WAS FASTINGPERFORMED BY: [facility] [id number]; 01-15-16 A1C) (87099) Hemoglobin A1c 5.7 % (Abnormal) Range: 4.8-5.6 Comments: . Pre-diabetes: 5.7 - 6.4 Diabetes: >6.4 Glycemic control for adults with diabetes: <7.0 :39 Microscopic Examination Comments: PATIENT NOT FASTINGPERFORMED BY: GLAMSQUAD [facility] [id number] Bacteria None seen (Normal) Mucus Threads Present (Normal) Epithelial Cells (non renal) 0-10 {/hpf} (Normal) Range: 0 - 10 RBC 0-2 {/hpf} (Normal) Range: 0 - 2 WBC 0-5 {/hpf} (Normal) Range: 0 - 5 :39 URINALYSIS, W/ MICRO (33908) Comments: PATIENT NOT FASTINGPERFORMED BY: GLAMSQUAD [facility] [id number] Microscopic Examination See below: (Normal) Comments: Microscopic was indicated and was performed. Microscopic Examination MICRON (Normal) Comments: Microscopic follows if indicated. Nitrite, Urine Negative (Normal) Urobilinogen,Semi-Qn 0.2 mg/dL (Normal) Range: 0.2-1.0 Bilirubin Negative (Normal) Occult Blood Negative (Normal) Ketones Negative (Normal) Glucose Negative (Normal) Protein Negative (Normal) WBC Esterase Negative (Normal) Appearance Turbid (Abnormal) Urine-Color Yellow (Normal) pH 6.0 (Normal) Range: 5.0-7.5 Specific [place] 1.029 (Normal) Range: 1.005-1.030 :39 METABOLIC PANEL, COMPREHENSIVE Comments: PATIENT NOT FASTINGPERFORMED BY: [facility] Ivpfjx4448 [facility] [id number] (98638) ALT (SGPT) 25 [iU]/L (Normal) Range: 0-44 [...] mg/dL (Normal) Range: 65-99 :39 LIPID PANEL (14374) Comments: PATIENT NOT FASTINGPERFORMED BY: AdmittedlyBronson [facility]view Hospital6370 [facility] [id number]; apt. 09-25-15 LDL/HDL Ratio 3.5 {ratio_units} (Normal) Range: 0.0-3.6 [...] auto diff Comments: PATIENT NOT FASTINGPERFORMED BY: Implandata Ophthalmic ProductsPascack Valley Medical CenterDybbrm3284 [facility] [id number] Information: [id number] (73666) Immature Grans (Abs) 0.0 {x10E3/uL} (Normal) Range: [...] (Normal) Range: 3.4-10.8 :03 HgA1C , Office (35805) HgA1C , Office 5.7 % (Normal) Range: 4.6 - 7.1 :03 Blood Glucose , Office (07352) Blood Glucose , Office 103 (Normal) :48 PSA (PROSTATE SPECIFIC Comments: PATIENT WAS FASTINGPERFORMED BY: [facility] [id number] ANTIGEN) (V76.44) Prostate Specific Ag, 0.5 ng/mL (Normal) Range: 0.0-4.0 Serum Comments: [employer] ECLIA methodology. .According to the [place] [employer], Serum PSA shoulddecrease and remain at undetectable levels after radicalprostatectomy. The AUA defines biochemical recurrence as an initialPSA value 0.2 ng/mL or greater followed by a subsequent confirmatoryPSA value 0.2 ng/mL or greater.Values obtained with d ifferent assay methods or kits cannot be usedinterchangeably. Results cannot be interpreted as absolute evidenceof the presence or absence of malignant disease. :48 TSH (88297) Comments: PATIENT WAS FASTINGPERFORMED BY: [employer]6370 Stranzz beauty supplySelect Specialty [facility] [id number] TSH 0.862 {uIU/mL} (Normal) Range: 0.450-4.500 :48 MICROALBUMIN: CREATININE RATIO Comments: PATIENT WAS FASTINGPERFORMED BY: EarthineerCoPascack Valley Medical CenterGipvqd2123 [facility] [id number] (13522) AND (26741) Microalb/Creat Ratio 5.5 {mg/g_creat} (Normal) Range: 0.0-30.0 Microalbumin, Urine 11.1 ug/mL (Normal) Range: 0.0-17.0 Creatinine, Urine 201.7 mg/dL (Normal) Range: 22.0-328.0 :48 METABOLIC PANEL, COMPREHENSIVE Comments: PATIENT WAS FASTINGPERFORMED BY: Implandata Ophthalmic ProductsPascack Valley Medical CenterMzyeqn4849 [facility] [id number] (11600) ALT (SGPT) 53 [iU]/L (Abnormal) Range: 0-44 [...] Glucose, Serum 103 mg/dL (Abnormal) Range: 65-99 40-Cwl-59323:48 LIPID PANEL (31268) Comments: PATIENT WAS FASTINGPERFORMED BY: Implandata Ophthalmic ProductsPascack Valley Medical CenterYlbmqj2870 [facility] [id number] LDL/HDL Ratio 3.7 {ratio_units} (Abnormal) Range: 0.0-3.6 [...] Cholesterol, Total 236 mg/dL (Abnormal) Range: 100-199 :48 CBC W/AUTO DIFF WBC Comments: PATIENT WAS FASTINGPERFORMED BY: Implandata Ophthalmic ProductsPascack Valley Medical CenterXkvhaq2751 [facility] [id number] Information: [id number] (12099) Immature Grans (Abs) 0.0 {x10E3/uL} (Normal) Range: [...] (Normal) Range: 3.4-10.8 :52 HgA1C , Office (60655) HgA1C , Office 5.7 % (Normal) Range: 4.6 - 7.1 :13 METABOLIC PANEL, Comments: PATIENT WAS FASTINGPERFORMED BY: [facility]6370 [facility] [id number] Information: [id number] COMPREHENSIVE (15939) ALT (SGPT) 26 [iU]/L (Normal) Range: 0-44 [...] Glucose, Serum 100 mg/dL (Abnormal) Range: 65-99 18-Sep-20148:13 LIPID PANEL (18468) Comments: PATIENT WAS FASTINGPERFORMED BY: GLAMSQUAD [place] [employer] plcNovant Health [facility] [id number] LDL/HDL Ratio 3.6 {ratio_units} (Normal) Range: 0.0-3.6 [...] (Abnormal) Range: 100-199 :18 HgA1C , Office (52583) HgA1C , Office 5.8 % (Normal) Range: 4.6 - 7.1 1-Vtm-732561:13 Microscopic Examination Comments: PATIENT WAS FASTINGPERFORMED BY: [employer]70 [facility] [id number] Bacteria Few (Normal) Mucus Threads Present (Normal) Crystal Type Calcium Oxalate (Normal) Crystals Present (Abnormal) Epithelial Cells (non renal) None seen {/hpf} (Normal) Range: 0 - 10 RBC None seen {/hpf} (Normal) Range: 0 - 3 WBC 0-5 {/hpf} (Normal) Range: 0 - 5 29-Mnq-945177:07 RHEUMATOID FACTOR-QUANT Comments: PATIENT NOT FASTINGPERFORMED BY: GLAMSQUAD SamayoaConservus InternationalNovant Health [facility]opedic Hospital [id number] Information: [id number] (11574) RA Latex Turbid. 7.4 {IU/mL} (Normal) Range: 0.0-13.9 :07 C-Reactive Protein (67632) Comments: PATIENT NOT FASTINGPERFORMED BY: [employer] Gmqcrp3573 [place] [facility] [id number] C-Reactive Protein, Quant 3.2 mg/L (Normal) Range: 0.0-4.9 :07 Sed Rate Erythrocyte (94903) Comments: PATIENT NOT FASTINGPERFORMED BY: LabRe[facility] Jdknvm7457 [place] [facility] [id number] Sedimentation Rate-Westergren 3 mm/h (Normal) Range: 0-30 :07 LORETTA (ANTINUCLEAR ANTIBODY) Comments: PATIENT NOT FASTINGPERFORMED BY: AdmittedlyReynolds [facility] Hospital Mwtjxr1453 [facility] [id number] (29212) LORETTA Direct Positive (Abnormal) :33 URINALYSIS, W/ MICRO (75029) Comments: PATIENT WAS FASTINGPERFORMED BY: [employer] Ouggsa3614 [facility] [id number] Microscopic Examination See below: (Normal) Microscopic Examination MICRON (Normal) Comments: Microscopic follows if indicated. Nitrite, Urine Negative (Normal) Urobilinogen,Semi-Qn 0.2 mg/dL (Normal) Range: 0.0-1.9 Bilirubin Negative (Normal) Occult Blood Negative (Normal) Ketones Negative (Normal) Glucose Negative (Normal) Protein Negative (Normal) WBC Esterase Negative (Normal) Appearance Clear (Normal) Urine-Color Yellow (Normal) pH 5.5 (Normal) Range: 5.0-7.5 Specific [place] 1.026 (Normal) Range: 1.005-1.030 :33 METABOLIC PANEL, COMPREHENSIVE Comments: PATIENT WAS FASTINGPERFORMED BY: [facility]mittedlyReynolds [facility] Hospital Phwick6958 [facility] [id number] (79954) ALT (SGPT) 30 [iU]/L (Normal) Range: 0-44 [...] mg/dL (Abnormal) Range: 65-99 :33 LIPID PANEL (05698) Comments: PATIENT WAS FASTINGPERFORMED BY: LabCo Bgimpg6622 [facility] [id number] LDL/HDL Ratio 3.4 {ratio_units} (Normal) Range: 0.0-3.6 [...] MANUAL DIFF Comments: PATIENT WAS FASTINGPERFORMED BY: LabCoPascack Valley Medical CenterTvdsoz3697 [facility] [id number] Information: [id number] (59585) Immature Grans (Abs) 0.0 {x10E3/uL} (Normal) Range: [...] (PROSTATE SPECIFIC Comments: PATIENT WAS FASTINGPERFORMED BY: LabCoPascack Valley Medical CenterIwetmm4783 [facility] [id number] ANTIGEN) (V76.44) Prostate Specific Ag, 0.4 ng/mL (Normal) Range: 0.0-4.0 Serum Comments: Perez ECLIA methodology. .According to the [place] [employer], Serum PSA shoulddecrease and remain at undetectable levels after radicalprostatectomy. The AUA defines biochemical recurrence as an initialPSA value 0.2 ng/mL or greater followed by a subsequent confirmatoryPSA value 0.2 ng/mL or greater.Values obtained with d ifferent assay methods or kits cannot be usedinterchangeably. Results cannot be interpreted as absolute evidenceof the presence or absence of malignant disease. :49 Lipid Panel (25195) Comments: PATIENT WAS FASTINGPERFORMED BY: GLAMSQUAD [facility] [id number] Information: [id number] LDL/HDL Ratio 3.6 {ratio_units} (Normal) Range: 0.0-3.6 LDL Cholesterol Calc 140 mg/dL (Abnormal) Range: 0-99 VLDL Cholesterol Roel 34 mg/dL (Normal) Range: 5-40 HDL Cholesterol 39 mg/dL (Abnormal) Comments: According to ATP-III Guidelines, HDL-C >59 mg/dL is considered anegative risk factor for CHD. Triglycerides 169 mg/dL (Abnormal) Range: 0-149 Cholesterol, Total 213 mg/dL (Abnormal) Range: 100-199 7-Fra-138209:01 Microscopic Examination Comments: PATIENT WAS FASTINGPERFORMED BY: [employer]6370 [facility] [id number] Bacteria None seen (Normal) Mucus Threads Present (Normal) Cast Type Hyaline casts (Normal) Casts Present {/lpf} (Abnormal) Epithelial Cells (non renal) None seen {/hpf} (Normal) Range: 0 - 10 RBC 0-3 {/hpf} (Normal) Range: 0 - 3 WBC 0-5 {/hpf} (Normal) Range: 0 - 5 :01 PSA (PROSTATE SPECIFIC Comments: PATIENT WAS FASTINGPERFORMED BY: [employer]70 [facility] [id number] ANTIGEN) (V76.44) Prostate Specific Ag, 0.4 ng/mL (Normal) Range: 0.0-4.0 Serum Comments: Perez ECLIA methodology. .According to the [place] [employer], Serum PSA shoulddecrease and remain at undetectable levels after radicalprostatectomy. The AUA defines biochemical recurrence as an initialPSA value 0.2 ng/mL or greater followed by a subsequent confirmatoryPSA value 0.2 ng/mL or greater.Values obtained with d ifferent assay methods or kits cannot be usedinterchangeably. Results cannot be interpreted as absolute evidenceof the presence or absence of malignant disease. 8-Gcq-269867:01 URINALYSIS, W/ MICRO (16917) Comments: PATIENT WAS FASTINGPERFORMED BY: daPulsePascack Valley Medical CenterPqakch3625 [facility] [id number] Microscopic Examination See below: (Normal) Microscopic Examination MICRON (Normal) Comments: Microscopic follows if indicated. Nitrite, Urine Negative (Normal) Urobilinogen,Semi-Qn 0.2 mg/dL (Normal) Range: 0.0-1.9 Bilirubin Negative (Normal) Occult Blood Negative (Normal) Ketones Negative (Normal) Glucose Negative (Normal) Protein Negative (Normal) Appearance Clear (Normal) WBC Esterase Negative (Normal) Urine-Color Yellow (Normal) pH 5.5 (Normal) Range: 5.0-7.5 Specific [place] 1.020 (Normal) Range: 1.005-1.030 6-Hsa-575872:01 METABOLIC PANEL, COMPREHENSIVE Comments: PATIENT WAS FASTINGPERFORMED BY: daPulsePascack Valley Medical CenterFyrqvu4234 [facility] [id number] (36433) ALT (SGPT) 44 [iU]/L (Normal) Range: 0-44 [...] Glucose, Serum 96 mg/dL (Normal) Range: 65-99 7-Xnb-405565:01 LIPID PANEL (22031) Comments: PATIENT WAS FASTINGPERFORMED BY: GLAMSQUAD [facility] [id number] LDL/HDL Ratio 4.5 {ratio_units} (Abnormal) Range: 0.0-3.6 LDL Cholesterol Calc 180 mg/dL (Abnormal) Range: 0-99 VLDL Cholesterol Roel 36 mg/dL (Normal) Range: 5-40 HDL Cholesterol 40 mg/dL (Normal) Comments: According to ATP-III Guidelines, HDL-C >59 mg/dL is considered anegative risk factor for CHD. Triglycerides 181 mg/dL (Abnormal) Range: 0-149 Cholesterol, Total 256 mg/dL (Abnormal) Range: 100-199 6-Uxj-301880:01 CBC WITH MANUAL DIFF Comments: PATIENT WAS FASTINGPERFORMED BY: GLAMSQUAD [facility] [id number] Information: [id number] (26510) Immature Grans (Abs) 0.0 {x10E3/uL} (Normal) Range: [...] 4.14-5.80 WBC 8.8 {x10E3/uL} (Normal) Range: 4.0-10.5 80-Ppa-27400:25 Basic Metabolic Panel (8) Comments: PATIENT WAS FASTINGPERFORMED BY: LabCoPascack Valley Medical CenterSlzkzr8629 [facility] [id number] Calcium, Serum 9.6 mg/dL (Normal) Range: 8.7-10.2 [...] Glucose, Serum 106 mg/dL (Abnormal) Range: 65-99 :25 Celiac Disease Comprehensive Comments: PATIENT WAS FASTINGPERFORMED BY: [employer]70 [facility] [id number] Immunoglobulin A, Qn, Serum 657 mg/dL (Abnormal) [...] - 30 Moderate to Strong Positive >30 :25 Lipid Panel With LDL/HDL Comments: PATIENT WAS FASTINGPERFORMED BY: [employer]6370 [facility] [id number] Ratio LDL Cholesterol Calc 108 mg/dL (Abnormal) [...] {IU/mL} (Normal) Comments: PATIENT WAS FASTINGPERFORMED BY: [address] [id number] 8:25 Ab Range: 0-34 06-Sep-2010 TSH 1.240 {uIU/mL} Comments: PATIENT WAS FASTINGPERFORMED BY: [address] [id number] 8:25 (Normal) Range: 0.450-4.500 :57 HEPATIC FUNCTION PANEL Comments: 05-25 [facility]; PATIENT NOT FASTINGPERFORMED BY: [address] [id number] Information: [id number] (26007) Alkaline Phosphatase, S 106 [iU]/L (Normal) Range: 25-150 ALT (SGPT) 61 [iU]/L (Abnormal) Range: 0-55 AST (SGOT) 35 [iU]/L (Normal) Range: 0-40 Albumin, Serum 4.2 g/dL (Normal) Range: 3.5-5.5 Bilirubin, Direct 0.10 mg/dL (Normal) Range: 0.00-0.40 Bilirubin, Total 0.3 mg/dL (Normal) Range: 0.0-1.2 Protein, Total, Serum 7.3 g/dL (Normal) Range: 6.0-8.5 :24 ALDOLASE 2030 7.4 U/L (Normal) Range: 1.2-7.6 Comments: Performed at: [address] [id number] Director: Akilah Gillette MD :24 ANTI-CENT B <0.2 {AI} (Normal) Range: 0.0-0.9 :24 ANTI-SAYRA 298131 <0.2 {AI} (Normal) Range: 0.0-0.9 :24 ANTISCLER 98098 <0.2 {AI} (Normal) Range: 0.0-0.9 :24 CPK TOTAL 62 U/L (Normal) Range: 35-232 :24 GGTP 63 U/L (Normal) Range: 15-85 :24 PROT+CRE RATIO PROT:CRE RATIO 93 {mg/g_CRE} Range: 0-200 (Normal) PROTEIN,UR.RAN. 11.5 mg/dL (Normal) UR CREAT 123.0 mg/dL (Normal) Actin (Smooth 12 {Units} (Normal) Comments: A courtesy copy of this report has been sent [phone].PERFORMED BY: [facility] [id number] 1:23 Muscle) Antibody Range: 0-19 Comments: Negative 0 - 19Weak positive 20 - 30Moderate to strong positive >30.Actin Antibodies are found in 52-85% of patients withautoimmune hepatitis or chronic active h epatitis andin 22% of patients with primary biliary cirrhosis. 84-Ygi-610452:23 LORETTA w/Reflex Comments: A courtesy copy of this report has been sent [phone].PERFORMED BY: [facility] [id number] LORTETA Direct Positive (Abnormal) 00-Wzq-633207:23 Anti-dsDNA Antibodies Comments: A courtesy copy of this report has been sent [phone].PERFORMED BY: [facility] [id number] Anti-DNA (DS) Ab Qn 2 {IU/mL} (Normal) Range: 0-9 Comments: Negative <5Equivocal 5 - 9Positive >9 00-Rwz-309976:23 Antiextractable Nuclear Ag Comments: A courtesy copy of this report has been sent [phone].PERFORMED BY: [facility]ys [facility] [id number] Altman Antibodies 0.2 {AI} (Normal) Range: 0.0-0.9 COMPUTER FORENSICS EXAMINER Antibodies <0.2 {AI} (Normal) Range: 0.0-0.9 Ceruloplasmin 23.2 mg/dL (Normal) Comments: A courtesy copy of this report has been sent [phone].PERFORMED BY: mPortico6370 [facility] [id number] :23 Range: 16.2-35.6 Complement C3, Serum 161 {mg/dL_Adult} Comments: A courtesy copy of this report has been sent [phone].PERFORMED BY: [employer]70 [facility] [id number] :23 (Normal) Range: 90-180 Complement C4, Serum 22 {mg/dL_Adult} Comments: A courtesy copy of this report has been sent [phone].PERFORMED BY: [employer]70 [facility] [id number] :23 (Normal) Range: 9-36 :23 CELESTINE+DNA/DS+Sjorgen's Comments: A courtesy copy of this report has been sent [phone].PERFORMED BY: [employer]70 [facility] [id number] See [facility] Comments: Autoantibody Disease Association Condition Frequency - below: (Normal) --------Antinuclear Antibody, SLE, mixed connectiveDirect (LORETTA-D) tissue diseases ---------dsDNA SLE 40 - 60% ---------Chromatin Drug induced SLE 90%SLE 48 - 97% ---------SSA (Ro) SLE 25 - 35%Sjogren's Syndrome 40 - 70% Lupus 100% - ---------SSB (La) SLE 10%Sjogren's Syndrome 30% ---------Sm (anti-Altman) SLE 15 - 30% ---------COMPUTER FORENSICS EXAMINER Mixed Connective TissueDisease 95%(U1 nRNP, SLE 30 [...] copy of this report has been sent [phone].PERFORMED BY: [facility] [id number] 1 n, ng/mL Range: 30-400 - Serum (Normal) M a y - 2 0 1 0 1 1 : 2 3 18-Geo-071867:23 Hepatic Function Panel Comments: A courtesy copy of this report has been sent [phone].PERFORMED BY: [facility] [id number] Information: [id number] (7) ALT (SGPT) 110 [iU]/L Range: 0-55 [...] copy of this report has been sent [phone].PERFORMED BY: [facility] [id number] 11:23 Ab Range: 0.0-20.0 Comments: Negative 0.0 - 20.0Equivocal 20.1 - 24.9Positive >24.9.LKM type 1 antibodies are detected in patients withautoimmune hepatitis type 2 and in up to 8% ofpatients with chronic HCV infection. 05-Apr-2010 Mitochondrial (M2) <20.0 {Units} Comments: A courtesy copy of this report has been sent [phone].PERFORMED BY: LabCoPasc[facility] Valley Medical CenterFstjru0974 [facility] [id number] 11:23 Antibody (Normal) Range: 0.0-20.0 Comments: Negative 0.0 - 20.0Equivocal 20.1 - 24.9Positive >24.9.Mitochondrial (M2) Antibodies are found in 90-96% ofpatients with primary biliary cirrhosis. 48-Kyo-944375:39 LORETTA-D 612259 LORETTA-DIRECT SeeNote (Abnormal) Comments: Result: Positive 84-Zii-070664:39 ANTI-CCP 827628 7 {units} (Normal) Range: 0-19 Comments: Negative <20Weak positive 20 - 39Moderate positive 40 - 59Strong positive >59 97-Nda-895741:39 C-REACTIVE PROT 12.50 mg/L (Abnormal) Range: 0.0-3.0 Comments: C-Reactive Protein (CRP) provides useful information for thediagnosis, therapy and monitoring of inflammatory processesand associated diseases. For the evaluation of Relative Riskfor Cardiovascular Dise ase, a High Sensitivity CRP (HSCRP)should be ordered. 23-Jcc-667527:39 CBCD ABSOLUTE NEUT 7.1 3/uL (Normal) Range: [...] 0.8-1.3 GLU 90 mg/dL (Normal) Range: 70-110 :39 COMPLETE UA BACTERIA 0 SEEN {/hpf} (Normal) [...] mm/h (Abnormal) Range: 0-20 :39 HB CORE [id number] SeeNote (Normal) Comments: Result: NegativePerformed at: [facility] [address] [id number] Director: Akilah Gillette MDPerformed at: - [facility] [address] [id number] Director: Montez Bashir MD :39 HBsAg 6510 HB SURF AG 6510 SeeNote (Normal) Comments: Result: Negative :39 HEBSAB 6395 < 0.1 (Normal) Range: 0.00-0.99 Comments: Status of Immunity Anti-HBs Level Inconsistent with Immunity 0.00 - 0.99Consistent with Immunity >0.99.An Index Value of 1.00 is equivalent to 10 mIU/mL.However the magnitude of the Index Value is notindicative of the total amount of antibody present. :39 HEP C AB 542156 <0.1 (Normal) Range: 0.0-0.9 Comments: Negative: < 0.8Indeterminate 0.8 - 0.9Positive: > 0.9.In order to reduce the incidence of a false positiveresult, the CDC recommends that all s/co ratiosbetween 1.0 and 10.9 be confirmed with additionalRIBA or PCR testing. 81-Xyt-733995:39 RHEUMATOID FAC < 10.0 {IU/mL} (Normal) 1-Loy-666349:07 Urinalysis, Office (62434) UA - LEUKOCYTE Negative (Normal) ESTERASE UA - NITRITE Negative (Normal) URINE UROBILINGN ELINAE 2 mg/dL (Normal) TIMED UA - PROTEIN Negative mg/dL (Normal) UA - PH 6.5 (Normal) UA - BLOOD Negative (Normal) UA - SPECIFIC GRAVITY 1.020 (Normal) UA - KETONES Negative mg/dL (Normal) UA - BILIRUBIN Negative (Normal) UA - GLUCOSE Negative (Normal) C-Reactive Protein, 3.5 mg/L (Normal) Comments: PERFORMED BY: [facility] [id number] 5:28 Quant Range: 0.0-4.9 91-Aqa-650669:28 CBC With Differential/Platelet Comments: PERFORMED BY: [facility] [id number] Baso (Absolute) 0.0 {x10E3/uL} Range: 0.0-0.2 (Normal) [...] C3, Serum 168 {mg/dL_Adult} Comments: PERFORMED BY: [facility]LT SPINE [facility] [id number] 5:28 (Normal) Range: 90-180 Complement C4, Serum 19 {mg/dL_Adult} Comments: PERFORMED BY: [employer] [facility] [id number] 5:28 (Normal) Range: 9-36 Complement, Total 99 U/mL (Abnormal) Comments: PERFORMED BY: GL[place]AD [facility] [id number] 5:28 (CH50) Range: 22-60 31-Izb-445194:28 Herpes Simplex Virus I/II, Comments: PERFORMED BY: NicOxlin6370 [facility] [id number] IgG HSV I/II IgG 47.1 {index} Range: 0.0-0.8 (Abnormal) Comments: Negative <0.9 Equivocal 0.9 - 1.0 Positive >1.0 . Note: Negative indicates no antibodies detected to either HSV-1 or HSV-2. Equivocal may suggest early infection. If clinically ap propriate, retest at a later date. Positive indicates antibodies detected to HSV-1 and/or HSV-2. 02-Jan-2009 Sedimentation 8 mm/h (Normal) Comments: PERFORMED BY: NicOxlin6370 [facility] [id number] 15:28 Rate-Westergren Range: 0-20 :34 C-Reactive Protein (30648) Comments: PATIENT NOT FASTINGPERFORMED BY: KENYA [employer] Ilvjbc5699 [facility] [id number] C-Reactive Protein, Quant 3.2 mg/L (Normal) Range: 0.0-4.9 :34 Sed Rate Erythrocyte (42749) Comments: PATIENT NOT FASTINGPERFORMED BY: LabCoPascack Valley Medical CenterCjhbhe0798 [facility] [id number] Sedimentation Rate-Westergren 14 mm/h (Normal) Range: 0-20 :34 RHEUMATOID FACTOR-QUANT (04594) Comments: PATIENT NOT FASTINGClinical Information: ADD DRAW FEE 716639 ADD J 98536 PERFORMED BY: [employer] Oueedy6979 [facility] [id number] RA Latex Turbid. 5.9 {IU/mL} (Normal) Range: 0.0-13.9 :34 LORETTA (ANTINUCLEAR ANTIBODY) Comments: PATIENT NOT FASTINGPERFORMED BY: AdmittedlyBronson [facility] Hospital6370 [facility] [id number] (98421) Antinuclear Antibodies Direct 37 AU/mL (Normal) Range: 0-99 Comments: Negative <100 Equivocal 100 - 120 Positive >120 :14 ESOPHAGUS ONLY Radiology Report See Note (Normal) Comments: Exam Number: [id number] ESOPHAGRAM INDICATIONDysphagia. COMPARISONNone. TECHNIQUEA standard air contrast [...] CHASE M.D. :46 Blood Glucose , Office (86782) Blood Glucose , Office 111 (Normal) :46 HgA1C , Office (16642) HgA1C , Office 5.4 % (Normal) Range: 4.6 - 7.1 :26 Comp. Metabolic Panel (14) Comments: PATIENT WAS FASTINGPERFORMED BY: LabCoCassandra Ville 334257 [facility] [id number] A/G Ratio 1.3 (Normal) Range: 1.1-2.5 Albumin, [...] Serum 103 mg/dL (Abnormal) Range: 65-99 If -Bangladeshi >60 mL/min/1.73 Range: 60-137 (Normal) Comments: Note: [...] Eosinophil Count Comments: PATIENT WAS FASTINGPERFORMED BY: Admittedly[address] [id number] Eos (Absolute) 0.3 {x10E3/uL} Range: 0.0-0.4 (Normal) 01-Aug-2008 Immunoglobulin E, Total 12 {IU/mL} (Normal) Comments: PATIENT WAS FASTINGPERFORMED BY: [facility] [id number] 9:26 Range: 0-158 :26 Lipid Panel With LDL/HDL Comments: PATIENT WAS FASTINGPERFORMED BY: [employer] [id number] Ratio Cholesterol, Total 234 mg/dL (Abnormal) Range: 100-199 Comment SPR (Normal) Comments: If initial LDL-cholesterol result is >100 mg/dL, assess forrisk factors. HDL Cholesterol 36 mg/dL (Abnormal) Range: 40-59 LDL Cholesterol Calc 144 mg/dL (Abnormal) Range: 0-99 LDL/HDL Ratio 4.0 {ratio_units} (Abnormal) Range: 0.0-3.6 Triglycerides 271 mg/dL (Abnormal) Range: 0-149 VLDL Cholesterol Roel 54 mg/dL (Abnormal) Range: 5-40 :58 LIVER Radiology Report See Note (Normal) Comments: Exam Number: [id number] LIVER ULTRASOUND HISTORYElevated liver function tests. The [...] bowel gas. Reported By: SHILPA PICKARD M.D. :10 ANNAMARIA 49 U/L (Normal) Range: 25-115 4-Egg-846253:10 CBCD BAND 2 % (Normal) Range: 0-5 [...] 47-70 WBC 12.9 K/mm3 (Abnormal) Range: 4.4-11.0 :10 COMP METABOLIC A/G 1.1 {RATIO} (Normal) Range: [...] T PROT 7.7 g/dL (Normal) Range: 6.4-8.2 8-Wfa-232139:10 ESR SED RATE 13 mm/h (Normal) Range: 0-20 :10 LIPASE 201 U/L (Normal) Range: 114-286 :06 CBCD,SMEAR DIFF BAND 1 % (Normal) Range: [...] was performed using the TPSA method for the[facility] chemistry system.Values obtained with different assay methods [...] WEEKS Indication: Irritable bowel syndrome Planned Observations HGB A1C (28619)Indication: Diabetes On: 21-Oct-20189:00 Request Lipase (20153)Indication: Abdominal pain, acute, right upper quadrant (Renamed from Acute abdominal pain in right upper quadrant) On: :58 Request Amylase (60298)Indication: Abdominal pain, acute, right upper quadrant (Renamed from Acute abdominal pain in right upper quadrant) On: :58 Request METABOLIC PANEL, COMPREHENSIVE (63740)Indication: Abdominal pain, acute, right upper quadrant (Renamed from Acute abdominal pain in right upper quadrant) On: :58 Request CBC with auto diff (62236)Indication: Abdominal pain, acute, right upper quadrant (Renamed from Acute abdominal pain in right upper quadrant) On: :58 Request ANCA-P (ANTI NEUTROPHIL CYTOPLASMIC ANTIBODY)Indication: LORETTA positive On: 18-Fze-334735:05 Request Histoplasma capsulatum Ag, EIA (76137)Indication: LORETTA positive On: 93-Lww-697620:05 Request HEPATIC FUNCTION PANEL (01203)Indication: Hyperlipidemia, unspecified On: :29 Request Comments: in three months (approximately) LIPOPROTEIN, BLD, BY NMR (22178)Indication: Hyperlipidemia, unspecified On: :29 Request Comments: in three months (approximately) ANCA-P (ANTI NEUTROPHIL CYTOPLASMIC ANTIBODY)Indication: LORETTA positive On: 19-Dec-20168:42 Request HEPATIC FUNCTION PANEL (80226)Indication: Elevated LFTs On: :59 Request Anti-TPO Antibody (71296)Indication: Rash On: :10 Request TSH (97934)Indication: Rash On: :09 Request FLURESCNT ANTIB SCRN EA (39142) celiac profileIndication: Rash On: :09 Request IMMUNOASSAY, ANALYTE (NON-INFECT) (40378) celiac profileIndication: Rash On: 33-Prk-65110:09 Request IGA/IGD/IGG/IGM-EACH (84220) celiac profileIndication: Rash On: 78-Uvi-94470:09 Request Metabolic Panel, Basic (23301)Indication: Benign essential hypertension On: 66-Bhq-83523:58 Request LIPID PANEL (23232)Indication: Hyperlipidemia, unspecified On: 61-Pog-63579:57 Request COMPLEMENT C4 (39406)Indication: Elevated LFTs On: :47 Request COMPLEMENT C3 (77681)Indication: Elevated LFTs On: :47 Request EXTRCTBL NUCLR ANTGEN EA (97888)Indication: Elevated LFTs On: :42 Request ANTI-Sm (ANTI ALTMAN ANTIBODY) (22541)Indication: Elevated LFTs On: :41 Request ANTI-COMPUTER FORENSICS EXAMINER (ANTI RIBONUCLEAR PROTEIN ANTIBODY) (60496)Indication: Elevated LFTs On: :41 Request DNA ANTIBODY-NATV/DBL ST (39466)Indication: Elevated LFTs On: 86-Uqq-37304:41 Request Comments: [facility] HE[facility]IC FUNCTION PANEL (14680)Indication: Elevated LFTs On: 70-Tvv-79070:41 Request CERULOPLASMIN (12398)Indication: Elevated LFTs On: :41 Request FERRITIN (89520)Indication: Elevated LFTs On: :41 Request ANTI-LIVER/KIDNEY MICROSOMAL ANTIBODY (31264)Indication: Elevated LFTs On: :40 Request ASM (ANTI SMOOTH MUSCLE ANTIBODY) (74448)Indication: Elevated LFTs On: 21-Quh-95060:40 Request ANTIMITOCHONDRIAL ANTIBODY (67175)Indication: Elevated LFTs On: 77-Pfd-21531:40 Request CBC with manual diff (93386)Indication: Rash On: 48-Qyw-843343:39 Request C-Reactive Protein (86978)Indication: Rash On: 20-Lsm-642317:38 Request Sed Rate Erythrocyte (10097)Indication: Rash On: 65-Mky-580427:36 Request COMPLEMENT, TOTAL (CH50) (15990)Indication: Rash On: 08-Gwh-536726:36 Request COMPLEMENT C4 (55502)Indication: Rash On: :36 Request COMPLEMENT C3 (94694)Indication: Rash On: :36 Request HERPES SIMPLEX ANTIBODY (94346)Indication: Rash On: 54-Bnr-436042:35 Request Comments: do HSV 1 and 2 IMMUNOGLOBULIN E (IgE) (83868)Indication: Rash On: :15 Request EOSINOPHILSIndication: Rash On: :14 Request Metabolic Panel, Comprehensive (39172)Indication: Hyperlipidemia, unspecified On: :08 Request Lipid Panel (26547)Indication: Hyperlipidemia, unspecified On: :08 Request Lipase (10583)Indication: Abdominal pain, acute, generalized On: 2-Ygl-945838:09 Request Amylase (59409)Indication: Abdominal pain, acute, generalized On: 7-Kqh-522633:09 Request Sed Rate Erythrocyte (42900)Indication: Abdominal pain, acute, generalized On: 4-Jhb-554306:09 Request CBC, Platelets & Auto Diff (92994)Indication: Abdominal pain, acute, generalized On: 3-Ssg-603507:09 Request Metabolic Panel, Comprehensive (04707)Indication: Abdominal pain, acute, generalized On: 1-Rab-252994:09 Request HEPATITIS A, B & C PANELSIndication: Elevated LFTs On: :06 Request HEPATIC FUNCTION PANEL (83315)Indication: Elevated LFTs On: :05 Request Lipid Panel (07024)Indication: Hyperlipidemia, unspecified On: :04 Request Comments: in three months (approximately) PSA (PROSTATE SPECIFIC ANTIGEN) (V76.44)Indication: Encounter for routine history and physical exam for male On: 6-Joh-704269:50 Request URINALYSIS W/O MICRO (18167)Indication: Benign essential hypertension On: :49 Request LIPID PANEL (80002)Indication: Benign essential hypertension On: :49 Request METABOLIC PANEL, COMPREHENSIVE (70808)Indication: Benign essential hypertension On: :49 Request CBC WITH MANUAL DIFF (56610)Indication: Benign essential hypertension On: :49 Request Planned Encounters Medical; VIP 6 Week FU - On: 03-Dec-2018 9:30 [...] WITH On: 02-Feb-2018 Intent INTERPRETATION AND REPORT (30899)By: Val Wilde MD, MD, Dana M Flu Vaccine (Quadrivalent) On: 28-Dec-2017 Intent 32660Rm: Long BACK ROLLER, Ramona L Comments: Lot #[id number]/18Site-L dltd, IMDose prefilled syringegiven by:ALICIA TurciosNVIS and ABN signed MRI OF THORACIC SPINE WITH AND On: 06-Nov-2017 Intent WITHOUT CONTRAST (85190)By: Val Wilde MD, MD, Dana M MRI OF CERVICAL SPINE WITH AND On: 06-Nov-2017 Intent WITHOUT CONTRAST (64696)By: Comments: rule out cervical spine pinched nerve, rule out lesion of the sternoclavicular joint were pain radiates around. PLEASE INCLUDE THE UPPER STERNUM, STERNOCLAVICULAR JOINT pt has had 6 weeks of PT, tried mulitple meds Val Wilde MD, MD, Dana M Radiology - Thoracic SpineBy: On: 25-May-2017 Intent [...] MD, Dana M TDAP VACCINE >7 IM (29744)By: On: 12-Sep-2016 Intent Val Wilde MD, MD, Dana M Radiology - Thoracic SpineBy: On: 19-Aug-2016 Intent Val Wilde MD, MD, Dana M Uqukorohi-Zmz-Trbrv (04980)By: On: 19-Aug-2016 Intent Val Wilde MD, MD, Dana M Nuclear Medicine - Gastric On: 30-May-2016 Intent Emptying StudyBy: Val Wilde MD, MD, Dana M CT - Abdomen & Pelvis (IV Contrast On: 30-May-2016 Intent Needed)By: Val Wilde MD, MD, Dana M EsophagramBy: Val Wilde MD On: 25-Sep-2015 Intent Val Wilde MD Comments: copy to Dr. amaro Flu Vaccine (Quadrivalent) On: 25-Sep-2015 Intent 20215Ss: Val Wilde MD Comments: lot [id number]: 05/15/2016site/route L homero, IMamt 0.5mlVIS and ABN signed when applicableChelsea, [facility] Val Wilde MD EKG (24261)By: Val Wilde MD On: 27-Mar-2015 Intent Val Wilde MD Comments: see scanned document of test done to see results reviewed today with patient EKG (25261)By: Val Wilde MD On: 28-Mar-2014 Intent Val Wilde MD Comments: see scanned document of test done to see results reviewed today with patient Radiology - Hand - RightBy: On: 23-Sep-2013 Intent Val Wilde MD, MD, Dana M FLU VAC, SPLIT, >3 YEARS, On: 14-Sep-2013 Intent INTRAMUSC (25354)By: Kelvin, Comments: Lot:[id number]:Dose:0.5mLRoute:IMSite:L DltdGiven By:JKMVIS signed Sandra IMMUNIZ ADMNIN, 1 VAC, SNGL/COMBO On: 14-Sep-2013 Intent (58345)By: Sandra Warren Eprescribed prescriptions On: 22-Mar-2013 Intent (G8553)By: Ramona Soria LPN IMMUNIZ ADMNIN, 1 VAC, SNGL/COMBO On: 10-Sep-2010 Intent (19489)By: Yasemin Daley LPN Comments: lot # [id number] 4Pexp- [id number]-KKjqvg- 0.5 ML tolerated well Santipaola SHAILA FLU VAC, SPLIT, >3 YEARS, On: 10-Sep-2010 Intent INTRAMUSC (81343)By: Yasemin Daley LPN Wax CurettesBy: Val Wilde MD On: 05-Apr-2010 Intent Val Wilde MD Ear Irrigation (07819)By: Chani On: 05-Apr-2010 Intent Val BATEMAN MD, Dana M Comments: Left ear irrigated and wax currette used to remove impacted wax-AW Ultrasound - LiverBy: Chani BATEMAN, On: 05-Apr-2010 Intent Val Marshall MD EsophagramBy: Val Wilde MD On: 01-Aug-2008 Intent Val Wilde MD EKG (69403)By: Val Wilde MD On: 20-Jun-2008 Intent Val Wilde MD HYDRATION IV INFUSION, INIT On: 20-Jun-2008 Intent (66292)By: Val Wilde MD, MD, Dana M INFUSION, NORMAL SALINE SOLUTION , On: 20-Jun-2008 Intent 1000 CC (Special Coverage Instructions Apply. See MCM: 2049) (J7030)By: Val Wilde MD, MD, Dana M EKG (89121)By: Val Wilde MD On: 16-Feb-2008 Intent Val [...] Benign essential hypertension Encounters Office Visit On: 21-Oct-2018 8:21 Encounter Reason: Follow up for chronic medical issues - The patient feels well with minor complaints, has good energy level and is sleeping well. Patient has been compliant with instructions. Current medication use: no End: 6-Dec-2018 9:05 side effects. Patient sleeps 6 hours [...] for Tdap vaccination (Renamed from Need for nwlnuvgvjg-kasvmeu-ycwyphckb (Tdap) vaccine, adult/adolescent) End: 12-Sep-2016 12:43 Comprehensive [...] sternum. no gerd or belching. seen at [facility]. had 27 years episodes every 2-3 [...] (401.0), Allergic Rhinitis(477.9), WRIST PAIN, CAFFEINE, NOS, 5-80-81 DISEASES OF THE LIVER (573.9), Stiffness of [...] 12:15 Comprehensive Internal Medicine End: 28-Sep-2006 12:24 Payers [facility]; jaylene guarantor
--- OUTSIDE RECORDS SUMMARY | 2018-12-13 21:11 | XMS RPT_ITS | Continuity of Care Document ---
:1955 Author Organization [facility] Address [address] [facility] [address] [place] [address] Phone Care Team Providers Name Role Phone [...] Active Other dysphagia (R13.19, 787.29) Comments: better [facility] working on neck issue Status: Active Psoriasis [...] cholestyramine. no sugar alcohols.saw Dr. briones at [facility] main. felt functional done for 20 years [...] M Start : 10-Feb-2018 Active Comments:called into [facility] 02/10 Cholestyramine 4 GM Oral Packet 1 (one) packet qd for 0 days Quantity: 90 {Packet} Refills: 3 Ordered:03-Aug-2017 Val Wilde MD, MD, Dana M Start : 03-Aug-2017 Active Lipitor 10 MG Oral Tablet 1 (one) Tablet at night for 0 days Quantity: 30 {Tablet} Refills: 6 Ordered:04-Aug-2018 Val Wilde MD, MD, Dana M Start : 04-Aug-2018 Active Omeprazole 40 MG Oral Capsule Delayed Release 1 (one) Capsule DR qd for 0 days Quantity: 90 {Capsule} Refills: 3 Ordered:06-Aug-2017 Val Wilde MD, MD, Dana M Start : 06-Aug-2017 Active Toprol XL 50 MG Oral Tablet Extended Release 24 Hour 1 Tablet ER 24HR QD for 0 days Quantity: 30 {Tablet} Refills: 6 Ordered:21-Jun-2018 Val Wilde MD, MD, Dana M Start : 21-Jun-2018 Active Triamcinolone Acetonide 0.1 % External Cream [...] 1 Tablet QD for 0 days Quantity: 30 {Tablet} Refills: 6 Ordered:21-Jun-2018 Val Wilde MD, MD, Dana M Start : 21-Jun-2018 Active AndroGel Pump 20.25 MG/ACT (1.62%) Transdermal [...] : 06-Sep-2010 End : 29-Apr-2011 Inactive ZITHROMAX Z-RCAHID, 250MG (Oral Tablet) 1 Tablet uad for 0 days Refills: 0 Ordered:08-Jan-2009 JOSÉ LUIS Spence Start : 08-Jan-2009 End : 25-Apr-2009 Inactive ZOSTAVAX, 08913VJE/0.65ML (Subcutaneous Solution Reconstituted) 1 For Solution For [...] End : 02-Feb-2018 Discontinued Comments:after done with [employer] Allergies and Adverse Reactions Name Dates Details [...] for Tdap vaccination (Renamed from Need for vqloinqvqt-rklcrgf-qiyldcobj (Tdap) vaccine, adult/adolescent) (Z23, V06.1) Status: Inactive [...] 5 Views Result: Comments: See Note; NOTES: [facility] Imaging Services [address] [place], [place] [address] [address] Verdana 4d Cerv Spine 4 or 5 Views MR#: [id number] Acct: [id number] Name: FIONA LLOYD Re p #: [id number] : 1955 M 61 From: Duane Fernandes DO PCP: Val Wilde MD Status: REG CLI Study: Cerv Spine 4 or 5 Views Date of Exam: 05/25/17 Exam# [id number] Ordering Dr: Val Wilde MD STUDY : [...] Jerson Fernandes DO at 11:41 EDT Tel [phone], Service support , CC: Val Wilde MD Topology Teacher: Signed 25-May-2017 Thoracic Spine 3 Views Result: Comments: See Note; NOTES: [facility] Imaging Services [address] [place] [address] Verdana 4d Thoracic Spine 3 Views MR#: [id number] Acct: [id number] Name: FIONA LLOYD Rep #: [id number] : 1955 M 61 From: Duane Fernandes DO PCP: Val Wilde MD Status: REG CLI Study: Thoracic Spine 3 Views Date of Exam: 05/25/17 Exam# [id number] Ordering Dr: Val Wilde MD STUDY: X-RAY [...] Duane Fernandes DO at 11:42 EDT Tel [phone], Service support [phone], CC: Val Wilde MD Topology Teacher: Signed 28-Jan-2017 Cardiac Catheterization Report Result: Comments: See Note; NOTES: [facility] Medical Records Department [address] [place] [address] Cardiac Catheterization Report MR#: [id number] Acct: [id number] Name: MELITON LLOYD Rep #: [id number] : 1955 61 From: Yovany Edwards MD [...] femoral artery was cannulated and a #4 Austrian arterial sheath was placed. A #4 Austrian JL 5 Tong left coronary artery catheter was then advanced under fluoroscopic sarah nce to the level of the central aorta or central pressure was measured recorded. This catheter was then used to engage the left coronary ostium where selective left coronary arteriography was performed in multiple views. This catheter was then exchanged over a J-tip guidewire for a #4 Austrian 3 DRC Kg right catheter. This catheter was then advanced to the level of the central aorta were central a ortic pressure was noted. It was then used to engage the right coronary ostium where selective right coronary arteriography was performed in multiple views. This catheter was then exchanged over a J-tip guidewire for a #4 Austrian pigtail catheter. This catheter was then advanced [...] and gives rise to a small septal home school liaison officer system and a small diagonal branching system. [...] his spouse. This note was generated with iCoolhuntation software. It may contain incorrect words, spelling, and punctuation that were not noted in checking the note before signing. 01/28/17 1244 <Electronically signed by Yovany Edwards MD> Date Yovany Edwards MD Cosigner Signature (If Indicated): Date CC: Val Wilde MD; Yovany Edwards MD Date Dictated: 01/28/17 1234 Signed 19-Jan-2017 Chest PA and Lateral Result: Comments: See Note; NOTES: [facility] Imaging Services [address] [place] [address] Verdana 4d Chest PA and Lateral MR#: [id number] Acct: [id number] Name: FIONA LLOYD Rep # : [id number] : 1955 M 61 From: Kentrell Sandoval MD PCP: Val Wilde MD Status: REG CLI Study: Chest PA and Lateral Date of Exam: 01/19/17 Exam# [id number] Ordering Dr: Yovany Edwards MD STUDY: X-RAY [...] at 1:49 EST Tel , Service support [phone], CC: Val Wilde MD; Yovany Edwards MD Topology Teacher: Signed 16-Jan-2017 Nuclear Stress Test - Treadmil Result: Comments: See Note; NOTES: [facility] Imaging Services [address] [place] [address] Tiffany 4d Nuclear Stress Test - Treadmil MR#: [id number] Acct: [id number] Name: OLI LLOYD Rep #: [id number] : 1955 61 From: Yovany Edwards MD [...] 77%. Yovany Edwards MD T: NTS JOB: [id number] 01/17/17 1102 <Electronically signed by Yovany Edwards MD> Date Yovany Edwards MD CC: Val Wilde MD Date Dictated: 01/16/17942 Date Transcribed: 01/16/17942 Topology Teacher: Signed 19-Aug-2016 Ribs Unil 2V No CXR Result: Comments: See Note; NOTES: [facility] Imaging Services [address] [place] [address] Verdana 4d Ribs Unil 2V No CXR MR#: [id number] Acct: [id number] Name: FIONA LLOYD Darian Rep # : [id number] : 1955 Jakob 61 From: Alejo Bonilla MD PCP: Val Wilde MD Status: REG CLI Study: Ribs Unil 2V No CXR Date of Exam: 08/19/16 Exam# [id number] Ordering Dr: Val Wilde MD STUDY: X [...] FACR at 17:58 EDT , Service support [phone], CC: Val Wilde MD Topology Teacher: Signed 19-Aug-2016 Thoracic Spine 3 Views Result: Comments: See Note; NOTES: [facility] Imaging Services [address] [place] [address] [place] 4d Thoracic Spine 3 Views MR#: [id number] Acct: [id number] Name: FIONA LLOYD Mary hedrick #: [id number] : 1955 M 61 From: Alejo Bonilla MD PCP: Val Wilde MD Status: REG CLI Study: Thoracic Spine 3 Views Date of Exam: 08/19/16 Exam# [id number] Ordering Dr: Val Wilde MD ST UDY: [...] FACR at 17:58 EDT , Service support [phone], F ax [phone] CC: Val Wilde MD Topology Teacher: Signed 11-Jun-2016 Abdomen/Pelvis WITH Contrast Result: Comments: See Note; NOTES: [facility] Imaging Services [address] [place] [address] Verdana 4d Abdomen/Pelvis WITH Contrast MR#: [id number] Acct: [id number] Name : FIONA LLOYD Rep #: [id number] : 1955 60 From: Scarlet Castillo MD PCP: Val Wilde MD Status: REG CLI Study: Abdomen/Pelvis WITH Contrast Date of Exam: 06/11/16 Exam# [id number] Treva groves Dr: Val Wilde MD STUDY: [...] L1 on L2. CC: Val Wilde MD Topology Teacher: Signed 11-Jun-2016 Abdomen/Pelvis WITH Contrast Result: Comments: See Note; NOTES: [facility] Imaging Services [address] [place] [address] Verda 4d Abdomen/Pelvis WITH Contrast MR#: [id number] Acct: [id number] Name : FIONA LLOYD Rep #: [id number] : 1955 60 From: Scarlet Castillo MD PCP: Val Wilde MD Status: REG CLI Study: Abdomen/Pelvis WITH Contrast Date of Exam: 06/11/16 Exam# [id number] Orderin g Dr: Val Wilde MD STUDY: [...] L1 on L2. CC: Val Wilde MD Topology Teacher: Signed 11-Jun-2016 Abdomen/Pelvis WITH Contrast Result: Comments: See Note; NOTES: [facility] Imaging Services [address] [place] [address] Verdana 4d Abdomen/Pelvis WITH Contrast MR#: [id number] Acct: [id number] Name : FIONA LLOYD Rep #: [id number] : 1955 M 60 From: Scarlet Castillo MD PCP: Val Wilde MD Status: REG CLI Study: Abdomen/Pelvis WITH Contrast Date of Exam: 06/11/16 Exam# [id number] Treva groves Dr: Val Wilde MD STUDY: [...] Service support , CC: Val Wilde MD Topology Teacher: Signed 04-Jun-2016 Gastric Emptying Study Result: Comments: See Note; NOTES: [facility] Imaging Services [address] [place] [address] Verda 4d Gastric Emptying Study MR#: [id number] Acct: [id number] Name: FIONA PADILLA Rep #: [id number] : 1955 60 From: Norm Brennan DO PCP: Val Wilde MD Status: REG CLI Study: Gastric Emptying Study Date of Exam: 06/04/16 Exam# [id number] Ordering Dr: Val Wilde MD CLINICAL: 60-year-old [...] at 21:11 EDT Tel , Service support [phone], CC: Val Wilde MD Topology Teacher: Signed 28-Sep-2015 Esophagus Only Result: Comments: See Note; NOTES: [facility] Imaging Services [address] [place] [address] Verdana 4d Esophagus Only MR#: [id number] Acct: [id number] Name: FIONA LLOYD Rep #: [id number] : 1955 M 60 From: Javon Lozoya MD PCP: Val Wilde MD Status: REG CLI Study: Esophagus Only Date of Exam: 09/28/15 Exam# [id number] Ordering Dr: Val Wilde MD STUDY: X-RAY [...] Javon Lozoya MD at 11:18 EST T [phone], Service support [phone], 0032 RAD/Esophagus Only IMPRESSION: Small sliding hiatal hernia without gastroesophageal reflux. Electronically Signed : Javon Lozoya MD at 11:18 EST Tel [phone], Service support [phone], CC: Val Wilde MD Topology Teacher: Signed 25-Sep-2015 ELECTROCARDIOGRAM, COMPLETE (ECG) (55393) Result: [MEASUREMENTS ANALYSIS] Date of Test: 09/25/2015 09:11:08; Heart Rate: 65; DC Interval: 172; QRS: 112; QT Interval: 398; Corrected QT Interval (QTc): 406; P Wave [place]: 39; QRS Wave [place]: 74; T Wave [place] : 43; Blood Pressure: 130/80 [ECG DIAGNOSTIC STATEMENTS] Date of Test: 09/25/2015 09:11:08; Summary: Sinus Rhythm WITHIN NORMAL LIMITS 26-Sep-2013 Hand Min 3 Views Result: Comments: See Note; NOTES: [facility] Imaging Services [address] [place] [address] Radiology Report MR#: [id number] Acct: [id number] Name: FIONA LLOYD Rep #: [id number] : 1955 58 From: Javon Lozoya MD PCP: Val Wilde MD Status: REG CLI Study: Hand Min 3 Views Date of Exam: 09/26/13 Exam# [id number] Ordering Dr: Val Wilde MD STUDY: X-RA [...] interpretation, please contact Javon Lozoya M.D. at [phone]. If this radiologist is unavailable, you will be directed to another radiologist to assist. If you are a patient with a question regarding this report, please contact your referring physi jimmy directly. Professional Interpretation Provided By: [employer], Phone , These documents contain legally protected [...] of these documents. CC: Val Wilde MD Topology Teacher: Signed Immunization Name Dates Details Zoster (shingles) Comments: once at pharmacy around 58 yo Family History Unknown Family Member Name Dates Details Brother 1 Comments: healthy younger Status: Active Father Comments: Alzheimer's 71 yo, HTN Status: Active Maternal Grandfather Comments: 70's Status: Active Maternal Grandmother Comments: young of gas leak accident Status: Active Mother Comments: heart disease ? start , [place] at 65 yo. 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 Status: Active Exercise History Comments: Light [...] kg/m2 Body Surface Area Calculated 2.03 m2 17-Itj-469999:44 Comments: has not had any meds today [...] Negative (Normal) Comments: PATIENT NOT FASTINGPERFORMED BY: [employer] [id number] BY: [employer] Mcmxkb7009 [facility] [id number] DID :03 ANGTENSIN 1-CONVRT ENZYM Comments: PATIENT NOT FASTINGPERFORMED BY: [employer] [id number] BY: [employer] Kzikhh2792 [facility] [id number] (94463) ANTON <15 U/L (Normal) Range: 14-82 :03 ANTIMITOCHONDRIAL AB 6650 Comments: PATIENT NOT FASTINGPERFORMED BY: [employer] [id number] BY: [employer] Sasuzv9353 [facility] [id number] (23029) Mitochondrial (M2) Antibody <20.0 {Units} (Normal) Range: 0.0-20.0 Comments: Negative 0.0 - 20.0 Equivocal 20.1 - 24.9 Positive >24.9 . Mitochondrial (M2) Antibodies are found in 90-96% of patients with primary biliary cirrhosis. :03 ANCA-C (ANTI NEUTROPHIL Comments: PATIENT NOT FASTINGPERFORMED BY: [employer] [id number] BY: [employer]pe[employer] HoldingsSaint Clare's Hospital at DenvilleQqfcst8253 [facility] [id number]; fu 6-15 db CYTOPLASMIC ANTIBODY) Atypical pANCA [...] (MPO) Abs <9.0 U/mL (Normal) Range: 0.0-9.0 1-Gaw-730571:09 QuantiFERON In Tube Comments: PATIENT NOT FASTINGPERFORMED BY: O_ [facility] Iqeh8825 [facility] [id number] BY: [facility] Glygzg5416 [facility] [id number] Interpretation: SPRCS (Normal) Comments: The QuantiFERON TB [...] indeterminate testvalues. QuantiFERON TB Gold Negative (Normal) 8-Gwz-980848:09 Quantiferron gold test Comments: PATIENT NOT FASTINGPERFORMED BY: O_ [facility] Pqtq8437 [facility] [place] [id number] BY: [facility]6370 [facility] [id number] (24429) QuantiFERON Incubation QINT (Normal) Comments: Incubated, testing to follow. 5-Nzv-230913:14 Systemic Lupus Profile Comments: PATIENT NOT FASTINGPERFORMED BY: [employer] Audio TechnologiesKalamazoo Psychiatric Hospital6370 [facility] [id number] (68410) Anti-DNA (DS) Ab Qn 1 {IU/mL} (Normal) Range: 0-9 Comments: Negative <5 Equivocal 5 - 9 Positive >9 Sjogren's Anti-SS-B <0.2 {AI} (Normal) Range: 0.0-0.9 Sjogren's Anti-SS-A 0.3 {AI} (Normal) Range: 0.0-0.9 Antichromatin Antibodies 1.1 {AI} (Abnormal) Range: 0.0-0.9 RA Latex Turbid. <10.0 {IU/mL} (Normal) Range: 0.0-13.9 Altman Antibodies <0.2 {AI} (Normal) Range: 0.0-0.9 SHINGLE CUTTER Antibodies 0.2 {AI} (Normal) Range: 0.0-0.9 0-Zrz-064876:14 HEPATITIS C ANTIBODY (77731) Comments: PATIENT NOT FASTINGPERFORMED BY: [facility]6370 [facility] [id number] Hep C Virus Ab <0.1 {s/co_ratio} (Normal) Range: 0.0-0.9 Comments: Negative: < 0.8 Indeterminate: 0.8 - 0.9 Positive: > 0.9 . The CDC recommends that a positive HCV antibody result be followed up with a HCV Nucleic Acid Amplification test (222233). 0-Fce-457259:14 HEPATIC FUNCTION PANEL Comments: PATIENT NOT FASTINGPERFORMED BY: [employer]pe[employer] HoldingsSaint Clare's Hospital at DenvilleQagehg7685 [facility] [id number] (86515) ALT (SGPT) 50 [iU]/L (Abnormal) Range: 0-44 AST (SGOT) 36 [iU]/L (Normal) Range: 0-40 Alkaline Phosphatase 86 [iU]/L (Normal) Range: 39-117 Bilirubin, Direct 0.16 mg/dL (Normal) Range: 0.00-0.40 Bilirubin, Total 0.5 mg/dL (Normal) Range: 0.0-1.2 Albumin 4.7 g/dL (Normal) Range: 3.6-4.8 Protein, Total 7.8 g/dL (Normal) Range: 6.0-8.5 32-Zqg-18285:44 Metabolic Panel, Comprehensive Comments: PATIENT WAS FASTINGPERFORMED BY: Ope[employer] HoldingsSaint Clare's Hospital at DenvilleAvasaa4483 [facility] [id number] (44041) ALT (SGPT) 69 [iU]/L (Abnormal) Range: 0-44 [...] MANUAL DIFF Comments: PATIENT WAS FASTINGPERFORMED BY: [facility]Kal[facility]6370 [facility] [id number] Information: NURSE DRAW (74579) Immature Grans (Abs) 0.0 {x10E3/uL} (Normal) Range: [...] 4.14-5.80 WBC 6.0 {x10E3/uL} (Normal) Range: 3.4-10.8 20-Euy-00108:44 MICROALBUMIN: CREATININE RATIO Comments: PATIENT WAS FASTINGPERFORMED BY: [place] 1566170 [facility] [id number] (33811) AND (19291) Alb/Creat Ratio 3.7 {mg/g_creat} (Normal) Range: 0.0-30.0 Albumin, Urine 7.8 ug/mL (Normal) Creatinine, Urine 212.1 mg/dL (Normal) 57-Rpj-91676:44 URINALYSIS (56391) Comments: PATIENT WAS FASTINGPERFORMED BY: [place] 1566170 [facility] [id number] Microscopic Examination MICNIP (Normal) Comments: Microscopic not indicated and not performed. Nitrite, Urine Negative (Normal) Urobilinogen,Semi-Qn 0.2 mg/dL (Normal) Range: 0.2-1.0 Bilirubin Negative (Normal) Occult Blood Negative (Normal) Ketones Trace (Abnormal) Glucose Negative (Normal) Protein Negative (Normal) WBC Esterase Negative (Normal) Appearance Clear (Normal) Urine-Color Yellow (Normal) pH 5.0 (Normal) Range: 5.0-7.5 Specific [place] 1.026 (Normal) Range: 1.005-1.030 56-Tth-307753:43 FLU A+B DIRECT AG, (RAPID) (69491) FLU A+B DIRECT AG, (RAPID) negative (Normal) :47 TESTOSTERONE FREE (34607) Comments: PATIENT WAS FASTINGPERFORMED BY: [facility]6370 [facility] [id number] BY: [address] [id number]; fu 7-10 db Free Testosterone(Direct) 6.0 pg/mL (Abnormal) Range: 6.6-18.1 :47 CBC & PLATELETS (AUTO) Comments: PATIENT WAS FASTINGPERFORMED BY: [place] 1566170 [facility] [id number] BY: [address] [id number] (76915) Platelets 188 {x10E3/uL} (Normal) Range: 150-379 RDW 13.4 % (Normal) Range: 12.3-15.4 MCHC 33.3 g/dL (Normal) Range: 31.5-35.7 MCH 30.1 pg (Normal) Range: 26.6-33.0 MCV 91 fL (Normal) Range: 79-97 Hematocrit 42.7 % (Normal) Range: 37.5-51.0 Hemoglobin 14.2 g/dL (Normal) Range: 12.6-17.7 RBC 4.71 {x10E6/uL} (Normal) Range: 4.14-5.80 WBC 7.5 {x10E3/uL} (Normal) Range: 3.4-10.8 :47 ESTRADIOL (74421) Comments: PATIENT WAS FASTINGPERFORMED BY: [email or web address] EBR SystemsNovant Health [facility] Center [id number] BY: [employer] [id number] Estradiol 23.2 pg/mL (Normal) Range: 7.6-42.6 Comments: [place] ESM TechnologiesIA methodology :47 PSA (PROSTATE SPECIFIC Comments: PATIENT WAS FASTINGPERFORMED BY: PNP TherapeuticsNovant Health [facility] [id number] BY: [employer] [id number] ANTIGEN) (26441) Prostate Specific Ag, 0.5 ng/mL (Normal) Range: 0.0-4.0 Serum Comments: [employer] ECLIA methodology. .According to the [place] [employer] Association, Serum PSA shoulddecrease and remain at undetectable levels after radicalprostatectomy. The AUA defines biochemical recurrence as an initialPSA value 0.2 ng/mL or greater followed by a subsequent confirmatoryPSA value 0.2 ng/mL or greater.Values obtained with d ifferent assay methods or kits cannot be usedinterchangeably. Results cannot be interpreted as absolute evidenceof the presence or absence of malignant disease. :55 ACTH (79298) Comments: today; PATIENT NOT FASTINGPERFORMED BY: [email or web address] EBR SystemsNovant Health [facility] Center [id number] ACTH, Plasma 24.3 pg/mL (Normal) Range: 7.2-63.3 Comments: ACTH reference interval for samples collected between 7 and 10 AM. :55 TSH (THYROID STIMULATING Comments: today; PATIENT NOT FASTINGPERFORMED BY: LabCoUNM Children's HospitalUgbfiz9265 [facility] [id number] HORMONE) (54621) TSH 1.680 {uIU/mL} (Normal) Range: 0.450-4.500 :55 PROLACTIN (61167) Comments: today; PATIENT NOT FASTINGPERFORMED BY: LabCo Xgkcpo5903 [facility] [id number] Prolactin 10.0 ng/mL (Normal) Range: 4.0-15.2 62-Jaq-594553:48 Basic Metabolic Profile (BMP) Comments: Order Date: 01/19/17Order Info: 0667-1 - *BMPOrder Date: 01/19/17Order Info: 0667-1 - *BMPComments: Reason:[facility] K[address] [facility] [place], [address] GAP 8 (Normal) Range: 5-15 CO2 30.0 [...] 126 mg/dLsuggests DIABETES MELLITUS per A.D.A. criteria. 12-Wxy-310756:48 CBC-Complete Blood Cnt No Diff Comments: Order Date: 01/19/17Order Info: 0667-1 - *BMPComments: Reason:[facility] Obteohdunt[address] [place], [place], [id number] MPV 12.4 fL (Abnormal) Range: 6.2-12.0 PLT [...] Date: 01/19/17Order Info: 6301-6 - *PT/INROrder Info: 86226-5 - *PTT-Partial Thromboplastin TimeOrder Date: 01/19/17Order Info: 0667-1 - *[facility] [address] [place], [place], [address] PTT 28.2 s (Normal) Range: 24.1-36.2 :48 Prothrombin Time w/INR Comments: Order Date: 01/19/17Order Info: 6301-6 - *PT/INROrder Info: 52631-4 - *PTT-Partial Thromboplastin TimeOrder Date: 01/19/17Order Info: 0667-1 - *[facility] [address]os[address] [place], [place], [id number] INR 1.0 (Normal) PROTIME 13.0 s (Normal) Range: 11.7-14.9 4-Djy-234911:03 TESTOSTERONE FREE (42932) Comments: 6-8 weeks.; PATIENT NOT FASTINGPERFORMED BY: LabFruitfulllSaint Clare's Hospital at DenvilleGrbqkm9210 [facility] [id number] BY: [address] [id number] Free Testosterone(Direct) 4.4 pg/mL (Abnormal) Range: 6.6-18.1 9-Ngs-817460:03 FSH AND LH (29153) Comments: PATIENT NOT FASTINGPERFORMED BY: [employer] HoldingsAlfred V[place] 8974670 [facility] [id number] BY: [address] [id number] FSH 8.6 m[iU]/mL (Normal) Range: 1.5-12.4 LH 4.7 m[iU]/mL (Normal) Range: 1.7-8.6 3-Vqn-776881:34 SEROTONIN (13274) Comments: PATIENT NOT FASTINGPERFORMED BY: [address] [id number] Information: E54370 Serotonin, Serum 92 ng/mL (Normal) Range: 21-321 5-Tnc-395274:32 Vitamin B-12 (cyanocobalamin) Comments: PATIENT NOT FASTINGPERFORMED BY: [employer] Kbzbse6521 [facility] [id number] BY: [address] [id number] (82832) Vitamin B12 >2000 pg/mL (Abnormal) Range: 211-946 4-Nvk-376393:32 MICROALBUMIN: CREATININE Comments: PATIENT NOT FASTINGPERFORMED BY: LabFruitfulllAlfred [place] 8974670 [facility] [id number] BY: [address] [id number] RATIO (10850) AND (09723) Microalb/Creat Ratio 4.2 {mg/g_creat} (Normal) Range: 0.0-30.0 Microalbumin, Urine 7.2 ug/mL (Normal) Creatinine, Urine 172.2 mg/dL (Normal) 0-Gls-652990:32 CALCIFIDIOL (44615) VIT D Comments: PATIENT NOT FASTINGPERFORMED BY: [employer] SoftwareAlfred Ville 8974670 [facility] [id number] BY: [employer] [id number] 25 Vitamin D, 25-Hydroxy 27.1 ng/mL (Abnormal) Range: 30.0-100.0 Comments: Vitamin D deficiency has been defined by the [place] of[place]icine and an Endocrine Society practice guideline as alevel of serum 25-OH vitamin D less than 20 ng/mL (1,2).The Endocrine Society went on to further define vitamin Dinsufficiency as a level between 21 and 29 ng/mL (2).1. IOM ([place] of Medicine). 2010. Dietary reference intakes for calcium and D. [place]: The National Academies Press.2. Mara MF, Luigi MERCADO, Robin SENA, et al. Evaluation, treatment, and prevention of vitamin D deficiency: an Endocrine Society clinical practice guideline. JCEM. 2010; 96(7):1911-30. 8-Lqn-949300:32 C-REACT PROT HIGH Comments: PATIENT NOT FASTINGPERFORMED BY: [employer] [id number] BY: [employer] [id number] SENS(hsCRP) (57244) C-Reactive Protein, Cardiac 3.93 mg/L (Abnormal) Range: 0.00-3.00 Comments: Relative Risk for Future Cardiovascular Event Low <1.00 Average 1.00 - 3.00 High >3.00 5-Pwj-590441:32 ESR-F (SED RATE Comments: PATIENT NOT FASTINGPERFORMED BY: [employer] [id number] BY: [employer] [id number] ERYTHROCYTE - MALE) (57378) Sedimentation Rate-Westergren 8 mm/h (Normal) Range: 0-30 5-Emb-042111:32 SPEP (90494) Comments: PATIENT NOT FASTINGPERFORMED BY: okay.com Jsncjm0410 [facility] [id number] BY: [employer] [id number] Please note: SPRCS (Normal) Comments: Protein electrophoresis scan will follow via computer, mail, orcourier delivery. A/G Ratio 1.1 (Normal) Range: 0.7-1.7 Globulin, Total 3.6 g/dL (Normal) Range: 2.2-3.9 M-Kamari Not Observed g/dL (Normal) Gamma Globulin 1.3 g/dL (Normal) Range: 0.4-1.8 Beta Globulin 1.3 g/dL (Normal) Range: 0.7-1.3 Bzvup-4-Iplvfvlw 0.8 g/dL (Normal) Range: 0.4-1.0 Mowol-9-Ynwhebhs 0.1 g/dL (Normal) Range: 0.0-0.4 Albumin 4.1 g/dL (Normal) Range: 2.9-4.4 Protein, Total, Serum 7.7 g/dL (Normal) Range: 6.0-8.5 8-Jsr-124029:32 ANCA-C (ANTI NEUTROPHIL Comments: PATIENT NOT FASTINGPERFORMED BY: okay.com Echijd2303 [facility] [id number] BY: [employer] [id number] CYTOPLASMIC ANTIBODY) Atypical pANCA <1:20 {titer} Comments: [...] (MPO) Abs <9.0 U/mL (Normal) Range: 0.0-9.0 2-Vcn-034334:32 Systemic Lupus Profile Comments: PATIENT NOT FASTINGPERFORMED BY: [employer] [facility] HospitalCrowdcubeNovant Health Kerners[facility] [id number] BY: [employer] [id number] Information: [id number] (19153) Anti-DNA (DS) Ab Qn 1 {IU/mL} (Normal) Range: 0-9 Comments: Negative <5 Equivocal 5 - 9 Positive >9 Sjogren's Anti-SS-B <0.2 {AI} (Normal) Range: 0.0-0.9 Sjogren's Anti-SS-A <0.2 {AI} (Normal) Range: 0.0-0.9 Antichromatin Antibodies 0.6 {AI} (Normal) Range: 0.0-0.9 RA Latex Turbid. <10.0 {IU/mL} (Normal) Range: 0.0-13.9 Altman Antibodies <0.2 {AI} (Normal) Range: 0.0-0.9 SHINGLE CUTTER Antibodies 0.3 {AI} (Normal) Range: 0.0-0.9 2-Mnx-104178:32 TESTOSTERONE FREE (82640) Comments: PATIENT NOT FASTINGPERFORMED BY: [employer] [place] [facility] [id number] BY: [employer] [id number] Free Testosterone(Direct) 5.0 pg/mL (Abnormal) Range: 6.6-18.1 2-Pcp-224988:32 PSA (Prostate Specific Comments: PATIENT NOT FASTINGPERFORMED BY: [facility]6370 [facility] [id number] BY: [address] [id number] Antigen), Screening (98021) Prostate Specific Ag, 0.5 ng/mL (Normal) Range: 0.0-4.0 Serum Comments: Perez ECLIA methodology. .According to the [place] [employer] Association, Serum PSA shoulddecrease and remain [...] DIR SMEAR Comments: PATIENT NOT FASTINGPERFORMED BY: [address] [id number] (51406) Result 1 NOCP (Normal) Comments: No ova, cysts, or parasites seen. Ova + Parasite Exam Final report (Normal) Comments: These results were obtained using wet preparation(s) and trichromestained smear. This test does not include testing for Cryptosporidiumparvum, Cyclospora, or Microsporidia. 8-Jpy-499491:33 OCCULT BLOOD FECES SCREEN Comments: PATIENT NOT FASTINGPERFORMED BY: [place] 1566170 [facility] [id number] (82362) Occult Blood, Fecal, IA Positive (Abnormal) 7-Cey-656660:33 LEUKOCYTE COUNT, FECAL (72783) Comments: PATIENT NOT FASTINGPERFORMED BY: [place] 1566170 [facility] [id number] Result 1 NWBC (Normal) Comments: No white blood cells seen. White Blood Cells (WBC), Final report (Normal) Stool 63-Llh-797409:57 C-DIFFICILE, STOOL (64553) Comments: PATIENT NOT FASTINGPERFORMED BY: [place] 1566170 [facility] [id number] Information: SRC:ST C difficile Toxins A+B, EIA Negative (Normal) 7-Oto-881125:33 CHI CULTURE-STOOL (00706) Comments: PATIENT NOT FASTINGPERFORMED BY: LabFruitfulllSaint Clare's Hospital at DenvilleXcsqho2848 [facility] [id number] Information: SRC:ST SRC:ST E coli Shiga Toxin EIA Negative (Normal) Result 1 NCI (Normal) Comments: No Campylobacter species isolated. Campylobacter Culture Final report (Normal) Result 1 NSS (Normal) Comments: No Salmonella or Shigella recovered. Salmonella/Shigella Screen Final report (Normal) 82-Gnr-88734:59 Anaerobic & Aerobic Comments: PATIENT NOT FASTINGPERFORMED BY: [employer] Audio TechnologiesKalamazoo Psychiatric Hospital6370 [facility] [id number] Information: BACK SRC:WO Culture (01914) Result 1 NG36 (Normal) Comments: No growth in 36 - 48 hours. Aerobic Culture Final report (Normal) Result 1 Finegoldia magna (Abnormal) Comments: Heavy growth Anaerobic Culture Final report (Abnormal) 76-Iio-982283:55 Serum Creatinine AND GFR Comments: [facility] Qpzkqvursb0293 [facility]Hen[facility], [address] EST GFR - AA 106 mL/min (Normal) Comments: GFR Calc EST GFR 88 mL/min (Normal) Comments: Non- GFR Calc CREAT,SERUM 0.93 mg/dL (Normal) Range: 0.70-1.30 Comments: The validity of the calculated GFR AND GFRAA in patients over70 years has not been determined. Clinical correlation isessential. 73-Pzv-880983:10 Urinalysis, Office (89159) UA - LEUKOCYTE ESTERASE Negative (Normal) UA - NITRITE Negative (Normal) URINE UROBILINGN ELIANE TIMED Normal mg/dL (Normal) UA - PROTEIN Negative mg/dL (Normal) UA - PH 6 (Abnormal) UA - BLOOD Negative (Normal) UA - SPECIFIC GRAVITY 1.025 (Normal) UA - KETONES Negative mg/dL (Normal) UA - BILIRUBIN Negative (Normal) UA - GLUCOSE Negative (Normal) 28-Fyx-036678:52 Lipid Panel (79057) Comments: PATIENT WAS FASTINGPERFORMED BY: [facility] Ckbbff6887 [facility] [id number] Information: [id number] LDL/HDL Ratio 3.1 {ratio_units} (Normal) Range: 0.0-3.6 [...] Cholesterol, Total 201 mg/dL (Abnormal) Range: 100-199 70-Jkg-430873:52 Hemoglobin Glyclated (HGB Comments: PATIENT WAS FASTINGPERFORMED BY: Sales LayerMissouri Southern Healthcare [id number]; 01-15-16 A1C) (67463) Hemoglobin A1c 5.7 % (Abnormal) Range: 4.8-5.6 Comments: . Pre-diabetes: 5.7 - 6.4 Diabetes: >6.4 Glycemic control for adults with diabetes: <7.0 :39 Microscopic Examination Comments: PATIENT NOT FASTINGPERFORMED BY: [employer] [facility] [id number] Bacteria None seen (Normal) Mucus Threads Present (Normal) Epithelial Cells (non renal) 0-10 {/hpf} (Normal) Range: 0 - 10 RBC 0-2 {/hpf} (Normal) Range: 0 - 2 WBC 0-5 {/hpf} (Normal) Range: 0 - 5 :39 URINALYSIS, W/ MICRO (07462) Comments: PATIENT NOT FASTINGPERFORMED BY: [employer] [facility] [id number] Microscopic Examination See below: (Normal) Comments: Microscopic was indicated and was performed. Microscopic Examination MICRON (Normal) Comments: Microscopic follows if indicated. Nitrite, Urine Negative (Normal) Urobilinogen,Semi-Qn 0.2 mg/dL (Normal) Range: 0.2-1.0 Bilirubin Negative (Normal) Occult Blood Negative (Normal) Ketones Negative (Normal) Glucose Negative (Normal) Protein Negative (Normal) WBC Esterase Negative (Normal) Appearance Turbid (Abnormal) Urine-Color Yellow (Normal) pH 6.0 (Normal) Range: 5.0-7.5 Specific [place] 1.029 (Normal) Range: 1.005-1.030 :39 METABOLIC PANEL, COMPREHENSIVE Comments: PATIENT NOT FASTINGPERFORMED BY: [facility] Zqgcly6538 [facility] [id number] (71571) ALT (SGPT) 25 [iU]/L (Normal) Range: 0-44 [...] mg/dL (Normal) Range: 65-99 :39 LIPID PANEL (24443) Comments: PATIENT NOT FASTINGPERFORMED BY: Warwick Audio TechnologiesKalamazoo Psychiatric Hospital6370 [facility] [id number]; apt. 09-25-15 LDL/HDL Ratio 3.5 {ratio_units} (Normal) [...] auto diff Comments: PATIENT NOT FASTINGPERFORMED BY: Opegi HoldingsSaint Clare's Hospital at DenvilleTnogow8518 [facility] [id number] Information: [id number] (24443) Immature Grans (Abs) 0.0 {x10E3/uL} (Normal) Range: [...] (Normal) Range: 3.4-10.8 :03 HgA1C , Office (37779) HgA1C , Office 5.7 % (Normal) Range: 4.6 - 7.1 :03 Blood Glucose , Office (03117) Blood Glucose , Office 103 (Normal) :48 PSA (PROSTATE SPECIFIC Comments: PATIENT WAS FASTINGPERFORMED BY: I-Mob HoldingsJennie Stuart Medical Center [id number] ANTIGEN) (V76.44) Prostate Specific Ag, 0.5 ng/mL (Normal) Range: 0.0-4.0 Serum Comments: [employer] ECLIA methodology. .According to the [place] [employer], Serum PSA shoulddecrease and remain at undetectable levels after radicalprostatectomy. The AUA defines biochemical recurrence as an initialPSA value 0.2 ng/mL or greater followed by a subsequent confirmatoryPSA value 0.2 ng/mL or greater.Values obtained with d ifferent assay methods or kits cannot be usedinterchangeably. Results cannot be interpreted as absolute evidenceof the presence or absence of malignant disease. :48 TSH (71666) Comments: PATIENT WAS FASTINGPERFORMED BY: [employer]6370 [facility] ClonesNovant Health [facility] [id number] TSH 0.862 {uIU/mL} (Normal) Range: 0.450-4.500 :48 MICROALBUMIN: CREATININE RATIO Comments: PATIENT WAS FASTINGPERFORMED BY: Spark AuthorsCoSaint Clare's Hospital at DenvilleLqbfad1344 [facility] [id number] (86324) AND (79402) Microalb/Creat Ratio 5.5 {mg/g_creat} (Normal) Range: 0.0-30.0 Microalbumin, Urine 11.1 ug/mL (Normal) Range: 0.0-17.0 Creatinine, Urine 201.7 mg/dL (Normal) Range: 22.0-328.0 :48 METABOLIC PANEL, COMPREHENSIVE Comments: PATIENT WAS FASTINGPERFORMED BY: Opegi HoldingsSaint Clare's Hospital at DenvilleIoarql4734 [facility] [id number] (00898) ALT (SGPT) 53 [iU]/L (Abnormal) Range: 0-44 [...] Glucose, Serum 103 mg/dL (Abnormal) Range: 65-99 43-Akr-71119:48 LIPID PANEL (78967) Comments: PATIENT WAS FASTINGPERFORMED BY: Opegi HoldingsSaint Clare's Hospital at DenvilleQwhcjg5685 [facility] [id number] LDL/HDL Ratio 3.7 {ratio_units} (Abnormal) Range: 0.0-3.6 [...] DIFF WBC Comments: PATIENT WAS FASTINGPERFORMED BY: Opegi HoldingsSaint Clare's Hospital at DenvilleRnmjtg3721 [facility] [id number] Information: [id number] (74916) Immature Grans (Abs) 0.0 {x10E3/uL} (Normal) Range: [...] (Normal) Range: 3.4-10.8 :52 HgA1C , Office (67020) HgA1C , Office 5.7 % (Normal) Range: 4.6 - 7.1 :13 METABOLIC PANEL, Comments: PATIENT WAS FASTINGPERFORMED BY: [facility]6370 [facility] [id number] Information: [id number] COMPREHENSIVE (39848) ALT (SGPT) 26 [iU]/L (Normal) Range: 0-44 [...] mg/dL (Abnormal) Range: 65-99 18-Sep-20148:13 LIPID PANEL (76395) Comments: PATIENT WAS FASTINGPERFORMED BY: [employer]AT [employer] [place] Xplr SoftwareNovant Health Brunswick [facility] Center [id number] LDL/HDL Ratio 3.6 {ratio_units} (Normal) Range: 0.0-3.6 [...] (Abnormal) Range: 100-199 :18 HgA1C , Office (79705) HgA1C , Office 5.8 % (Normal) Range: 4.6 - 7.1 2-Kct-241575:13 Microscopic Examination Comments: PATIENT WAS FASTINGPERFORMED BY: E[employer]prints[employer]com70 [facility] [id number] Bacteria Few (Normal) Mucus Threads Present (Normal) Crystal Type Calcium Oxalate (Normal) Crystals Present (Abnormal) Epithelial Cells (non renal) None seen {/hpf} (Normal) Range: 0 - 10 RBC None seen {/hpf} (Normal) Range: 0 - 3 WBC 0-5 {/hpf} (Normal) Range: 0 - 5 26-Clh-598164:07 RHEUMATOID FACTOR-QUANT Comments: PATIENT NOT FASTINGPERFORMED BY: [employer] SamayoaNurixNovant Health Brunswick Medical Center [id number] Information: [id number] (49103) RA Latex Turbid. 7.4 {IU/mL} (Normal) Range: 0.0-13.9 :07 C-Reactive Protein (86901) Comments: PATIENT NOT FASTINGPERFORMED BY: LabFruitfulll Wfvxdz5870 [place] [facility] [id number] C-Reactive Protein, Quant 3.2 mg/L (Normal) Range: 0.0-4.9 :07 Sed Rate Erythrocyte (39103) Comments: PATIENT NOT FASTINGPERFORMED BY: LabMineral Area [facility] Jjwxpj3663 [place] [facility] [id number] Sedimentation Rate-Westergren 3 mm/h (Normal) Range: 0-30 :07 LORETTA (ANTINUCLEAR ANTIBODY) Comments: PATIENT NOT FASTINGPERFORMED BY: Warwick Audio TechnologiesMineral Area Regional Medical Center Lhjgsd5456 [facility] [id number] (38365) L[place]ET[place] Direct Positive (Abnormal) :33 URINALYSIS, W/ MICRO (48706) Comments: PATIENT WAS FASTINGPERFORMED BY: [employer] Scvzzm0338 [facility] [id number] Microscopic Examination See below: (Normal) Microscopic Examination MICRON (Normal) Comments: Microscopic follows if indicated. Nitrite, Urine Negative (Normal) Urobilinogen,Semi-Qn 0.2 mg/dL (Normal) Range: 0.0-1.9 Bilirubin Negative (Normal) Occult Blood Negative (Normal) Ketones Negative (Normal) Glucose Negative (Normal) Protein Negative (Normal) WBC Esterase Negative (Normal) Appearance Clear (Normal) Urine-Color Yellow (Normal) pH 5.5 (Normal) Range: 5.0-7.5 Specific [place] 1.026 (Normal) Range: 1.005-1.030 :33 METABOLIC PANEL, COMPREHENSIVE Comments: PATIENT WAS FASTINGPERFORMED BY: Warwick Audio TechnologiesMineral Area Regional Medical Center Zalcvb0526 [facility] [id number] (95927) ALT (SGPT) 30 [iU]/L (Normal) Range: 0-44 [...] mg/dL (Abnormal) Range: 65-99 :33 LIPID PANEL (96497) Comments: PATIENT WAS FASTINGPERFORMED BY: [facility] Ppdozw3002 [facility] [id number] LDL/HDL Ratio 3.4 {ratio_units} (Normal) Range: 0.0-3.6 [...] MANUAL DIFF Comments: PATIENT WAS FASTINGPERFORMED BY: LabCoSaint Clare's Hospital at DenvilleCoufyj5707 [facility] [id number] Information: [id number] (06678) Immature Grans (Abs) 0.0 {x10E3/uL} (Normal) Range: [...] (PROSTATE SPECIFIC Comments: PATIENT WAS FASTINGPERFORMED BY: LabCoSaint Clare's Hospital at DenvilleBxctuy4361 [facility] [id number] ANTIGEN) (V76.44) Prostate Specific Ag, 0.4 ng/mL (Normal) Range: 0.0-4.0 Serum Comments: Perez ECLIA methodology. .According to the [place] [employer] Association, Serum PSA shoulddecrease and remain at undetectable levels after radicalprostatectomy. The AUA defines biochemical recurrence as an initialPSA value 0.2 ng/mL or greater followed by a subsequent confirmatoryPSA value 0.2 ng/mL or greater.Values obtained with d ifferent assay methods or kits cannot be usedinterchangeably. Results cannot be interpreted as absolute evidenceof the presence or absence of malignant disease. :49 Lipid Panel (90528) Comments: PATIENT WAS FASTINGPERFORMED BY: [employer] [facility] [id number] Information: [id number] LDL/HDL Ratio 3.6 {ratio_units} (Normal) Range: 0.0-3.6 LDL Cholesterol Calc 140 mg/dL (Abnormal) Range: 0-99 VLDL Cholesterol Roel 34 mg/dL (Normal) Range: 5-40 HDL Cholesterol 39 mg/dL (Abnormal) Comments: According to ATP-III Guidelines, HDL-C >59 mg/dL is considered anegative risk factor for CHD. Triglycerides 169 mg/dL (Abnormal) Range: 0-149 Cholesterol, Total 213 mg/dL (Abnormal) Range: 100-199 0-Ovk-923034:01 Microscopic Examination Comments: PATIENT WAS FASTINGPERFORMED BY: [employer]6370 [facility] [id number] Bacteria None seen (Normal) Mucus Threads Present (Normal) Cast Type Hyaline casts (Normal) Casts Present {/lpf} (Abnormal) Epithelial Cells (non renal) None seen {/hpf} (Normal) Range: 0 - 10 RBC 0-3 {/hpf} (Normal) Range: 0 - 3 WBC 0-5 {/hpf} (Normal) Range: 0 - 5 :01 PSA (PROSTATE SPECIFIC Comments: PATIENT WAS FASTINGPERFORMED BY: [email or web address] [facility] [id number] ANTIGEN) (V76.44) Prostate Specific Ag, 0.4 ng/mL (Normal) Range: 0.0-4.0 Serum Comments: Perez ECLIA methodology. .According to the [place] [employer] Association, Serum PSA shoulddecrease and remain at undetectable levels after radicalprostatectomy. The AUA defines biochemical recurrence as an initialPSA value 0.2 ng/mL or greater followed by a subsequent confirmatoryPSA value 0.2 ng/mL or greater.Values obtained with d ifferent assay methods or kits cannot be usedinterchangeably. Results cannot be interpreted as absolute evidenceof the presence or absence of malignant disease. 6-Ylo-628730:01 URINALYSIS, W/ MICRO (63663) Comments: PATIENT WAS FASTINGPERFORMED BY: GPX SoftwareSaint Clare's Hospital at DenvillePbtgth0110 [facility] [id number] Microscopic Examination See below: (Normal) Microscopic Examination MICRON (Normal) Comments: Microscopic follows if indicated. Nitrite, Urine Negative (Normal) Urobilinogen,Semi-Qn 0.2 mg/dL (Normal) Range: 0.0-1.9 Bilirubin Negative (Normal) Occult Blood Negative (Normal) Ketones Negative (Normal) Glucose Negative (Normal) Protein Negative (Normal) Appearance Clear (Normal) WBC Esterase Negative (Normal) Urine-Color Yellow (Normal) pH 5.5 (Normal) Range: 5.0-7.5 Specific [place] 1.020 (Normal) Range: 1.005-1.030 5-Stl-787412:01 METABOLIC PANEL, COMPREHENSIVE Comments: PATIENT WAS FASTINGPERFORMED BY: GPX SoftwareSaint Clare's Hospital at DenvilleBpskaw2250 [facility] [id number] (85301) ALT (SGPT) 44 [iU]/L (Normal) Range: 0-44 [...] Glucose, Serum 96 mg/dL (Normal) Range: 65-99 5-Gxh-509640:01 LIPID PANEL (14516) Comments: PATIENT WAS FASTINGPERFORMED BY: [employer] [facility] [id number] LDL/HDL Ratio 4.5 {ratio_units} (Abnormal) Range: 0.0-3.6 LDL Cholesterol Calc 180 mg/dL (Abnormal) Range: 0-99 VLDL Cholesterol Roel 36 mg/dL (Normal) Range: 5-40 HDL Cholesterol 40 mg/dL (Normal) Comments: According to ATP-III Guidelines, HDL-C >59 mg/dL is considered anegative risk factor for CHD. Triglycerides 181 mg/dL (Abnormal) Range: 0-149 Cholesterol, Total 256 mg/dL (Abnormal) Range: 100-199 7-Wmt-210856:01 CBC WITH MANUAL DIFF Comments: PATIENT WAS FASTINGPERFORMED BY: [employer] [facility] [id number] Information: [id number] (70490) Immature Grans (Abs) 0.0 {x10E3/uL} (Normal) Range: [...] 4.14-5.80 WBC 8.8 {x10E3/uL} (Normal) Range: 4.0-10.5 53-Agb-38252:25 Basic Metabolic Panel (8) Comments: PATIENT WAS FASTINGPERFORMED BY: LabCoSaint Clare's Hospital at DenvilleCxvbak3704 [facility] [id number] Calcium, Serum 9.6 mg/dL (Normal) Range: 8.7-10.2 [...] Disease Comprehensive Comments: PATIENT WAS FASTINGPERFORMED BY: [email or web address] [facility] [id number] Immunoglobulin A, Qn, Serum 657 mg/dL (Abnormal) [...] With LDL/HDL Comments: PATIENT WAS FASTINGPERFORMED BY: [employer]6370 [facility] [id number] Ratio LDL Cholesterol Calc 108 mg/dL (Abnormal) [...] {IU/mL} (Normal) Comments: PATIENT WAS FASTINGPERFORMED BY: [address] [id number] 8:25 Ab Range: 0-34 06-Sep-2010 TSH 1.240 {uIU/mL} Comments: PATIENT WAS FASTINGPERFORMED BY: [address] [id number] 8:25 (Normal) Range: 0.450-4.500 :57 HEPATIC FUNCTION PANEL Comments: 05-25 copy to [facility]; PATIENT NOT FASTINGPERFORMED BY: [address] [id number] Information: [id number] [id number] (58361) Alkaline Phosphatase, S 106 [iU]/L (Normal) Range: 25-150 ALT (SGPT) 61 [iU]/L (Abnormal) Range: 0-55 AST (SGOT) 35 [iU]/L (Normal) Range: 0-40 Albumin, Serum 4.2 g/dL (Normal) Range: 3.5-5.5 Bilirubin, Direct 0.10 mg/dL (Normal) Range: 0.00-0.40 Bilirubin, Total 0.3 mg/dL (Normal) Range: 0.0-1.2 Protein, Total, Serum 7.3 g/dL (Normal) Range: 6.0-8.5 :24 ALDOLASE 2030 7.4 U/L (Normal) Range: 1.2-7.6 Comments: Performed at: [address] [id number] Director: Akilah Gillette MD :24 ANTI-CENT B <0.2 {AI} (Normal) Range: 0.0-0.9 :24 ANTI-SAYRA 164423 <0.2 {AI} (Normal) Range: 0.0-0.9 :24 ANTISCLER 08370 <0.2 {AI} (Normal) Range: 0.0-0.9 :24 CPK TOTAL 62 U/L (Normal) Range: 35-232 :24 GGTP 63 U/L (Normal) Range: 15-85 :24 PROT+CRE RATIO PROT:CRE RATIO 93 {mg/g_CRE} Range: 0-200 (Normal) PROTEIN,UR.RAN. 11.5 mg/dL (Normal) UR CREAT 123.0 mg/dL (Normal) Actin (Smooth 12 {Units} (Normal) Comments: A courtesy copy of this report has been sent [phone].PERFORMED BY: PNP TherapeuticsNovant Health K[facility] [id number] 1:23 Muscle) Antibody Range: 0-19 Comments: Negative 0 - 19Weak positive 20 - 30Moderate to strong positive >30.Actin Antibodies are found in 52-85% of patients withautoimmune hepatitis or chronic active h epatitis andin 22% of patients with primary biliary cirrhosis. 85-Loz-798682:23 LORETTA w/Reflex Comments: A courtesy copy of this report has been sent [phone].PERFORMED BY: PNP TherapeuticsNovant Health K[facility]ville [facility] [id number] [place] Direct Positive (Abnormal) 40-Pnw-376362:23 Anti-dsDNA Antibodies Comments: A courtesy copy of this report has been sent [phone].PERFORMED BY: PNP TherapeuticsNovant Health K[facility]ville [facility] [id number] Anti-DNA (DS) Ab Qn 2 {IU/mL} (Normal) Range: 0-9 Comments: Negative <5Equivocal 5 - 9Positive >9 22-Rjp-908162:23 Antiextractable Nuclear Ag Comments: A courtesy copy of this report has been sent [phone].PERFORMED BY: [employer] [facility] [id number] Altman Antibodies 0.2 {AI} (Normal) Range: 0.0-0.9 SHINGLE CUTTER Antibodies <0.2 {AI} (Normal) Range: 0.0-0.9 Ceruloplasmin 23.2 mg/dL (Normal) Comments: A courtesy copy of this report has been sent [phone].PERFORMED BY: [employer]6370 [facility] [id number] :23 Range: 16.2-35.6 Complement C3, Serum 161 {mg/dL_Adult} Comments: A courtesy copy of this report has been sent [phone].PERFORMED BY: [email or web address] [facility] [id number] :23 (Normal) Range: 90-180 Complement C4, Serum 22 {mg/dL_Adult} Comments: A courtesy copy of this report has been sent [phone].PERFORMED BY: [email or web address] [facility] [id number] :23 (Normal) Range: 9-36 :23 CELESTINE+DNA/DS+Sjorgen's Comments: A courtesy copy of this report has been sent [phone].PERFORMED BY: [email or web address] [facility] [id number] See [facility] Comments: Autoantibody Disease Association Condition Frequency - below: (Normal) --------Antinuclear Antibody, SLE, mixed connectiveDirect (LORETTA-D) tissue diseases ---------dsDNA SLE 40 - 60% ---------Chromatin Drug induced SLE 90%SLE 48 - 97% ---------SSA (Ro) SLE 25 - 35%Sjogren's Syndrome 40 - 70% Lupus 100% - ---------SSB (La) SLE 10%Sjogren's Syndrome 30% ---------Sm (anti-Altman) SLE 15 - 30% ---------SHINGLE CUTTER Mixed Connective TissueDisease 95%(U1 nRNP, SLE 30 [...] copy of this report has been sent [phone].PERFORMED BY: PNP TherapeuticsNovant Health K[facility] [id number] 1 n, ng/mL Range: 30-400 - Serum (Normal) M a y - 2 0 1 0 1 1 : 2 3 92-Wrf-574416:23 Hepatic Function Panel Comments: A courtesy copy of this report has been sent [phone].PERFORMED BY: PNP TherapeuticsNovant Health Kern[facility]ville [facility] [id number] Information: [id number] (7) ALT (SGPT) 110 [iU]/L Range: 0-55 [...] copy of this report has been sent [phone].PERFORMED BY: PNP TherapeuticsNovant Health K[facility] [id number] 11:23 Ab Range: 0.0-20.0 Comments: Negative 0.0 - 20.0Equivocal 20.1 - 24.9Positive >24.9.LKM type 1 antibodies are detected in patients withautoimmune hepatitis type 2 and in up to 8% ofpatients with chronic HCV infection. 05-Apr-2010 Mitochondrial (M2) <20.0 {Units} Comments: A courtesy copy of this report has been sent [phone].PERFORMED BY: LabCoSaint Clare's Hospital at DenvilleHmtmpw3805 [facility] [id number] 11:23 Antibody (Normal) Range: 0.0-20.0 Comments: Negative 0.0 - 20.0Equivocal 20.1 - 24.9Positive >24.9.Mitochondrial (M2) Antibodies are found in 90-96% ofpatients with primary biliary cirrhosis. 51-Ntw-806440:39 LORETTA-D 516506 LORETTA-DIRECT SeeNote (Abnormal) Comments: Result: Positive 86-Emv-369436:39 ANTI-CCP 411486 7 {units} (Normal) Range: 0-19 Comments: Negative <20Weak positive 20 - 39Moderate positive 40 - 59Strong positive >59 28-Hrw-323413:39 C-REACTIVE PROT 12.50 mg/L (Abnormal) Range: 0.0-3.0 Comments: C-Reactive Protein (CRP) provides useful information for thediagnosis, therapy and monitoring of inflammatory processesand associated diseases. For the evaluation of Relative Riskfor Cardiovascular Dise ase, a High Sensitivity CRP (HSCRP)should be ordered. 49-Hkh-361904:39 CBCD ABSOLUTE NEUT 7.1 3/uL (Normal) Range: [...] mm/h (Abnormal) Range: 0-20 :39 HB CORE [id number] SeeNote (Normal) Comments: Result: NegativePerformed at: [facility] [address] [id number] Director: Akilah Gillette MDPerformed at: - [facility] [address] [id number] Director: Montez Bashir MD :39 HBsAg 6510 [...] of antibody present. :39 HEP C AB 206345 <0.1 (Normal) Range: 0.0-0.9 Comments: Negative: < 0.8Indeterminate 0.8 - 0.9Positive: > 0.9.In order to reduce the incidence of a false positiveresult, the CDC recommends that all s/co ratiosbetween 1.0 and 10.9 be confirmed with additionalRIBA or PCR testing. 98-Jha-067790:39 RHEUMATOID FAC < 10.0 {IU/mL} (Normal) 7-Xyt-681638:07 Urinalysis, Office (80436) UA - LEUKOCYTE Negative (Normal) ESTERASE UA [...] Protein, 3.5 mg/L (Normal) Comments: PERFORMED BY: PNP [facility] [id number] 5:28 Quant Range: 0.0-4.9 22-Swp-532258:28 CBC With Differential/Platelet Comments: PERFORMED BY: [facility]NP [facility] [id number] Baso (Absolute) 0.0 {x10E3/uL} Range: 0.0-0.2 (Normal) [...] C3, Serum 168 {mg/dL_Adult} Comments: PERFORMED BY: [facility] [id number] 5:28 (Normal) Range: 90-180 Complement C4, Serum 19 {mg/dL_Adult} Comments: PERFORMED BY: [facility] [id number] 5:28 (Normal) Range: 9-36 Complement, Total 99 U/mL (Abnormal) Comments: PERFORMED BY: [facility] [facility] [id number] 5:28 (CH50) Range: 22-60 36-Fva-239629:28 Herpes Simplex Virus I/II, Comments: PERFORMED BY: [employer]6370 [facility] [id number] IgG HSV I/II IgG 47.1 {index} Range: 0.0-0.8 (Abnormal) Comments: Negative <0.9 Equivocal 0.9 - 1.0 Positive >1.0 . Note: Negative indicates no antibodies detected to either HSV-1 or HSV-2. Equivocal may suggest early infection. If clinically ap propriate, retest at a later date. Positive indicates antibodies detected to HSV-1 and/or HSV-2. 02-Jan-2009 Sedimentation 8 mm/h (Normal) Comments: PERFORMED BY: [employer]6370 [facility] [id number] 15:28 Rate-Westergren Range: 0-20 :34 C-Reactive Protein (76500) Comments: PATIENT NOT FASTINGPERFORMED BY: KENYA [employer] Mviqhu6807 [facility] [id number] C-Reactive Protein, Quant 3.2 mg/L (Normal) Range: 0.0-4.9 :34 Sed Rate Erythrocyte (32995) Comments: PATIENT NOT FASTINGPERFORMED BY: [facility]CoSaint [facility] Hospital at DenvilleDvscnr4093 [facility] [id number] Sedimentation Rate-Westergren 14 mm/h (Normal) Range: 0-20 :34 RHEUMATOID FACTOR-QUANT (85466) Comments: PATIENT NOT FASTINGClinical Information: ADD DRAW FEE 761947 ADD J 16358 PERFORMED BY: [employer] Lbevun4061 [facility] [id number] RA Latex Turbid. 5.9 {IU/mL} (Normal) Range: 0.0-13.9 :34 LORETTA (ANTINUCLEAR ANTIBODY) Comments: PATIENT NOT FASTINGPERFORMED BY: [employer] [facility] TechnologiesKalamaz[facility]6370 [facility] [id number] (05644) Antinuclear Antibodies Direct 37 AU/mL (Normal) Range: 0-99 Comments: Negative <100 Equivocal 100 - 120 Positive >120 :14 ESOPHAGUS ONLY Radiology Report See Note (Normal) Comments: Exam Number: [id number] ESOPHAGRAM INDICATIONDysphagia. COMPARISONNone. TECHNIQUEA standard air contrast [...] CHASE M.D. :46 Blood Glucose , Office (28895) Blood Glucose , Office 111 (Normal) :46 HgA1C , Office (01795) HgA1C , Office 5.4 % (Normal) Range: 4.6 - 7.1 :26 Comp. Metabolic Panel (14) Comments: PATIENT WAS FASTINGPERFORMED BY: LabCoRick [place] [address] [facility] [id number] A/G Ratio 1.3 (Normal) Range: 1.1-2.5 Albumin, [...] Serum 103 mg/dL (Abnormal) Range: 65-99 If -Bruneian >60 mL/min/1.73 Range: 60-137 (Normal) Comments: Note: [...] Eosinophil Count Comments: PATIENT WAS FASTINGPERFORMED BY: [employer] [id number] Eos (Absolute) 0.3 {x10E3/uL} Range: 0.0-0.4 (Normal) 01-Aug-2008 Immunoglobulin E, Total 12 {IU/mL} (Normal) Comments: PATIENT WAS FASTINGPERFORMED BY: [employer] [id number] 9:26 Range: 0-158 :26 Lipid Panel With LDL/HDL Comments: PATIENT WAS FASTINGPERFORMED BY: [employer] [id number] Ratio Cholesterol, Total 234 mg/dL (Abnormal) Range: [...] Report See Note (Normal) Comments: Exam Number: [id number] LIVER ULTRASOUND HISTORYElevated liver function tests. The [...] :10 ANNAMARIA 49 U/L (Normal) Range: 25-115 3-Fwg-828698:10 CBCD BAND 2 % (Normal) Range: 0-5 [...] T PROT 7.7 g/dL (Normal) Range: 6.4-8.2 6-Kfn-989485:10 ESR SED RATE 13 mm/h (Normal) Range: [...] was performed using the TPSA method for the[facility] chemistry system.Values obtained with different assay [...] Irritable bowel syndrome Planned Observations HGB A1C (67097)Indication: Diabetes On: 21-Oct-20189:00 Request Lipase (52495)Indication: Abdominal pain, acute, right upper quadrant (Renamed from Acute abdominal pain in right upper quadrant) On: :58 Request Amylase (80430)Indication: Abdominal pain, acute, right upper quadrant (Renamed from Acute abdominal pain in right upper quadrant) On: :58 Request METABOLIC PANEL, COMPREHENSIVE (37241)Indication: Abdominal pain, acute, right upper quadrant (Renamed from Acute abdominal pain in right upper quadrant) On: :58 Request CBC with auto diff (60247)Indication: Abdominal pain, acute, right upper quadrant (Renamed from Acute abdominal pain in right upper quadrant) On: :58 Request ANCA-P (ANTI NEUTROPHIL CYTOPLASMIC ANTIBODY)Indication: LORETTA positive On: 31-Gzo-409000:05 Request Histoplasma capsulatum Ag, EIA (86542)Indication: LORETTA positive On: 21-Oms-124707:05 Request HEPATIC FUNCTION PANEL (01784)Indication: Hyperlipidemia, unspecified On: :29 Request Comments: in three months (approximately) LIPOPROTEIN, BLD, BY NMR (63373)Indication: Hyperlipidemia, unspecified On: :29 Request Comments: in three months (approximately) ANCA-P (ANTI NEUTROPHIL CYTOPLASMIC ANTIBODY)Indication: LORETTA positive On: 19-Dec-20168:42 Request HEPATIC FUNCTION PANEL (77233)Indication: Elevated LFTs On: :59 Request Anti-TPO Antibody (34384)Indication: Rash On: :10 Request TSH (60272)Indication: Rash On: :09 Request FLURESCNT ANTIB SCRN EA (22239) celiac profileIndication: Rash On: :09 Request IMMUNOASSAY, ANALYTE (NON-INFECT) (42530) celiac profileIndication: Rash On: 45-Eyf-30113:09 Request IGA/IGD/IGG/IGM-EACH (07778) celiac profileIndication: Rash On: 36-Cmx-49757:09 Request Metabolic Panel, Basic (57922)Indication: Benign essential hypertension On: 78-Lsd-99386:58 Request LIPID PANEL (24145)Indication: Hyperlipidemia, unspecified On: 20-Fgy-01901:57 Request COMPLEMENT C4 (60366)Indication: Elevated LFTs On: :47 Request COMPLEMENT C3 (44136)Indication: Elevated LFTs On: :47 Request EXTRCTBL NUCLR ANTGEN EA (34800)Indication: Elevated LFTs On: :42 Request ANTI-Sm (ANTI ALTMAN ANTIBODY) (32933)Indication: Elevated LFTs On: :41 Request ANTI-SHINGLE CUTTER (ANTI RIBONUCLEAR PROTEIN ANTIBODY) (95843)Indication: Elevated LFTs On: :41 Request DNA ANTIBODY-NATV/DBL ST (49902)Indication: Elevated LFTs On: 65-Okg-37346:41 Request Comments: [facility] HEPATIC FUNCTION PANEL (86602)Indication: Elevated LFTs On: 05-Eme-50709:41 Request CERULOPLASMIN (53089)Indication: Elevated LFTs On: :41 Request FERRITIN (47491)Indication: Elevated LFTs On: :41 Request ANTI-LIVER/KIDNEY MICROSOMAL ANTIBODY (89623)Indication: Elevated LFTs On: :40 Request ASM (ANTI SMOOTH MUSCLE ANTIBODY) (52053)Indication: Elevated LFTs On: 26-Ipk-90084:40 Request ANTIMITOCHONDRIAL ANTIBODY (52716)Indication: Elevated LFTs On: 28-Tis-94157:40 Request CBC with manual diff (68522)Indication: Rash On: 35-Gqo-000539:39 Request C-Reactive Protein (56532)Indication: Rash On: 51-Jat-182415:38 Request Sed Rate Erythrocyte (65254)Indication: Rash On: 90-Qao-422130:36 Request COMPLEMENT, TOTAL (CH50) (00747)Indication: Rash On: 94-Kzv-789468:36 Request COMPLEMENT C4 (32043)Indication: Rash On: :36 Request COMPLEMENT C3 (53234)Indication: Rash On: :36 Request HERPES SIMPLEX ANTIBODY (11281)Indication: Rash On: 53-Aeo-026672:35 Request Comments: do HSV 1 and 2 IMMUNOGLOBULIN E (IgE) (96070)Indication: Rash On: :15 Request EOSINOPHILSIndication: Rash On: :14 Request Metabolic Panel, Comprehensive (55041)Indication: Hyperlipidemia, unspecified On: :08 Request Lipid Panel (59306)Indication: Hyperlipidemia, unspecified On: :08 Request Lipase (91116)Indication: Abdominal pain, acute, generalized On: 5-Ftw-278214:09 Request Amylase (66894)Indication: Abdominal pain, acute, generalized On: 0-Cih-564727:09 Request Sed Rate Erythrocyte (46049)Indication: Abdominal pain, acute, generalized On: 4-Qyc-596230:09 Request CBC, Platelets & Auto Diff (26051)Indication: Abdominal pain, acute, generalized On: 9-Hox-862666:09 Request Metabolic Panel, Comprehensive (83861)Indication: Abdominal pain, acute, generalized On: 9-Pfp-630677:09 Request HEPATITIS A, B & C PANELSIndication: Elevated LFTs On: :06 Request HEPATIC FUNCTION PANEL (41967)Indication: Elevated LFTs On: :05 Request Lipid Panel (63650)Indication: Hyperlipidemia, unspecified On: :04 Request Comments: in three months (approximately) PSA (PROSTATE SPECIFIC ANTIGEN) (V76.44)Indication: Encounter for routine history and physical exam for male On: 0-Tgz-644113:50 Request URINALYSIS W/O MICRO (09738)Indication: Benign essential hypertension On: :49 Request LIPID PANEL (63042)Indication: Benign essential hypertension On: :49 Request METABOLIC PANEL, COMPREHENSIVE (04518)Indication: Benign essential hypertension On: :49 Request CBC WITH MANUAL DIFF (62987)Indication: Benign essential hypertension On: :49 Request Planned [...] WITH On: 02-Feb-2018 Intent INTERPRETATION AND REPORT (42841)By: Val Wilde MD, MD, Dana M Flu Vaccine (Quadrivalent) On: 28-Dec-2017 Intent 93316If: Long DIRECTOR OF HOME HEALTH SERVICES, Ramona L Comments: Lot #[id number]/18Site-L dltd, IMDose prefilled syringegiven by:ALICIA TurciosNVIS and ABN signed MRI OF THORACIC SPINE WITH AND On: 06-Nov-2017 Intent WITHOUT CONTRAST (58655)By: Val Wilde MD, MD, Dana M MRI OF CERVICAL SPINE WITH AND On: 06-Nov-2017 Intent WITHOUT CONTRAST (18593)By: Comments: rule out cervical spine pinched nerve, [...] MD, Dana M TDAP VACCINE >7 IM (14731)By: On: 12-Sep-2016 Intent Val Wilde MD, MD, Dana M Radiology - Thoracic SpineBy: On: 19-Aug-2016 Intent Val Wilde MD, MD, Dana M Wylnrxzoc-Ibr-Qpxpi (78719)By: On: 19-Aug-2016 Intent Val Wilde MD, MD, Dana M Nuclear Medicine - Gastric On: 30-May-2016 Intent Emptying StudyBy: Val Wilde MD, MD, Dana M CT - Abdomen & Pelvis (IV Contrast On: 30-May-2016 Intent Needed)By: Val Wilde MD, MD, Dana M EsophagramBy: Val Wilde MD On: 25-Sep-2015 Intent Val Wilde MD Comments: copy to Dr. amaro Flu Vaccine (Quadrivalent) On: 25-Sep-2015 Intent 53904Nz: Val Wilde MD Comments: lot [id number]: 05/15/2016site/route L homero, IMamt 0.5mlVIS and ABN signed when applicableChelsea, [facility] Val Wilde MD EKG (51188)By: Val Wilde MD On: 27-Mar-2015 Intent Val Wilde MD Comments: see scanned document of test done to see results reviewed today with patient EKG (68542)By: Val Wilde MD On: 28-Mar-2014 Intent Val Wlide MD Comments: see scanned document of test done to see results reviewed today with patient Radiology - Hand - RightBy: On: 23-Sep-2013 Intent Val Wilde MD, MD, Dana M FLU VAC, SPLIT, >3 YEARS, On: 14-Sep-2013 Intent INTRAMUSC (16753)By: Kelvin, Comments: Lot:[id number]:Dose:0.5mLRoute:IMSite:L DltdGiven By:JKMVIS signed Sandra IMMUNIZ ADMNIN, 1 VAC, SNGL/COMBO On: 14-Sep-2013 Intent (13200)By: Sandra Warren Eprescribed prescriptions On: 22-Mar-2013 Intent (G8553)By: Ramona Soria LPN IMMUNIZ ADMNIN, 1 VAC, SNGL/COMBO On: 10-Sep-2010 Intent (34038)By: Yasemin Daley LPN Comments: lot # [id number] 4Pexp- [id number]-FYUHzlbgq-NEdxyv- 0.5 ML tolerated well Santipaola SHAILA FLU VAC, SPLIT, >3 YEARS, On: 10-Sep-2010 Intent INTRAMUSC (87371)By: Yasemin Daley LPN Wax CurettesBy: Val Wilde MD On: 05-Apr-2010 Intent Val Wilde MD Ear Irrigation (55009)By: Chani On: 05-Apr-2010 Intent Val BATEMAN MD, Dana M Comments: Left ear irrigated and wax currette used to remove impacted wax-AW Ultrasound - LiverBy: Chani BATEMAN, On: 05-Apr-2010 Intent Val Marshall MD EsophagramBy: Val Wilde MD On: 01-Aug-2008 Intent Val Wilde MD EKG (61413)By: Val Wilde MD On: 20-Jun-2008 Intent Val Wilde MD HYDRATION IV INFUSION, INIT On: 20-Jun-2008 Intent (22370)By: Val Wilde MD, MD, Dana M INFUSION, NORMAL SALINE SOLUTION , On: 20-Jun-2008 Intent 1000 CC (Special Coverage Instructions Apply. See MCM: 2049) (J7030)By: Val Wilde MD, MD, Dana M EKG (44919)By: Val Wilde MD On: 16-Feb-2008 Intent Val [...] for Tdap vaccination (Renamed from Need for aqgknushkm-kfcjuqf-yzrgghztt (Tdap) vaccine, adult/adolescent) End: 12-Sep-2016 12:43 Comprehensive [...] sternum. no gerd or belching. [facility]. had 27 years episodes every 2-3 times [...] Comprehensive Internal Medicine End: 28-Sep-2006 12:24 Payers [facility]/[place]; jaylene guarantor
--- OUTSIDE RECORDS SUMMARY | 2018-12-13 21:12 | XMS RPT_ITS ---
:1955 Author Organization OHIP Care Team Providers Name Role Phone Val Bertrand Attending Unavailable Val Bertrand Referring Unavailable Chani Val Primary Care Unavailable Sylvia Foster Attending Unavailable Johanna Jhaveri Attending Unavailable Nasrin Kaiser Attending Unavailable Val Bertrand Referring Unavailable Val Bertrand Attending Unavailable Chani Val Primary Care Unavailable Val Bertrand Attending Unavailable Val Bertrand Referring Unavailable Chani, Val Primary Care Unavailable Val Bertrand MD Attending Unavailable Val Bertrand MD Referring Unavailable Val Bertrand MD Consulting Unavailable VAL BERTRAND Referring Unavailable Purpose Purpose PROBLEMS PROBLEMS DATE TYPE CONDITION / CODE ATTENDING STATUS SOURCE 08/02/2018 Active Unknown / NA Active [facility] UNK(Unknown) Main [place] Repository PROCEDURES PROCEDURES No Procedure Records FoundVITAL SIGNS VITAL SIGNS No Vital Signs Records FoundRESULTS RESULTS ABDOMEN WITH IV Observed: 10/27/2018 Status: F Source: [place] CONTRAST 3:46 PM [facility] REPOSITORY [facility] Imaging Services [address] [place] [address] Abdomen WITH IV Contrast MR#: [id number] Acct: [id number] Name: ZAY LLOYD Rep #: [id number] : 1955 M 63 From: Jett White MD PCP: Val Bertrand MD Status: REG CLI Study: Abdomen WITH IV Contrast Date of Exam: 10/27/18 Exam# [id number] Ordering Dr: Val Bertrand MD STUDY: CT ABDOMEN WITH CONTRAST REASON FOR EXAM: Male, 63 years old. Right upper quadrant pain x3-4 months. RADIATION DOSAGE (If Supplied By Facility): CTDIvol = ( 16.56 ) mGy, DLP = ( 798.69 ) mGycm TECHNIQUE: Transaxial images were obtained post I.V. administration of 100 ml of Isovue 300 contrast, and with oral contrast. Sagittal and coronal images were reconstructed. Individualized dose optimization techniques were used for this CT. COMPARISON: CT abdomen and pelvis 04/11/2016. FINDINGS: The visualized lung bases are unremarkable. The visualized portions of the heart are within normal limits. Again seen are too numerous to count calcified granulomata throughout the normal sized liver. There are coarse calcifications in a few periportal lymph nodes. The patent portal vein diameter is 13 mm. There is [...] are a few small nonobstructing stones of the right kidney, the largest at the lower pole measuring 3 mm. There is focal cortical thinning at the lateral pole of the left kidney. No hydronephrosis. Normal visualized stomach. Normal small intestine. There are multiple colonic diverticula consistent with diverticulosis. The appendix is visualized and appears normal. There is diffuse atherosclerotic calcification of the abdominal aorta and proximal iliac arteries, without a demonstrated aneurysm. Normal inferior vena cava. Normal retroperitoneum. Normal abdominal wall. There are diffuse degenerative changes of the visualized spine, with disc height narrowing and anterolateral osteophyte formation most prominent at L1-2. There is also 14 degree levoscoliosis and slight retrolisthesis centered at L1-2. There are early degenerative arthroses of the bilateral sacroiliac joints. CT/Abdomen WITH IV Contrast IMPRESSION: 1. Too numerous to count hepatic and splenic ossified granulomata again noted. A few calcified periportal lymph nodes are also present. 2. The gallbladder is not visualized, and presumably surgically absent. No intra or extra hepatic bile duct dilatation. 3. Nonobstructing bilateral nephrolithiasis. No hydronephrosis. There is stable focal cortical thinning at the lateral midpole of the left kidney. 4. Distal left and sigmoid colon diverticulosis without acute diverticulitis. No sign of bowel injection. The appendix is normal. 5. Diffuse aortoiliac atherosclerotic calcific plaquing. There is no demonstrated aneurysm, but the findings portend significant risk for future cardiovascular event, Abdominal Aortic Calcific Deposits Are an Important Predictor of Vascular Morbidity and Mortality; Reuben Tiwari, et al. Circulation, Jan 2001;103:9825-0053. 6. 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 Electronically Signed: Silvano White MD at 14:02 EST , Service support , CC: Val Bertrand MD Goldsmith Apprentice: Signed US ELASTROGRAPHY LIVER Observed: 08/02/2018 Status: F Source: [place] 12:00 PM [facility] REPOSITORY * * *Final Report* * * DATE OF EXAM: Aug 02 2018 12:00PM [facility] 1199 - US ELASTROGRAPHY LIVER / PROCEDURE REASON: Fatty Liver (K76.0) * * * * Physician Interpretation * * * * EXAMINATION: RIGHT UPPER QUADRANT WITH QUANTITATIVE LIVER STIFFNESS ASSESSMENT (ARFI) ULTRASOUND CLINICAL HISTORY: Fatty liver TECHNIQUE: Sonography of the right upper quadrant with quantitative liver stiffness assessment (ARFI) was performed. Images were obtained and stored in a permanent archive. MQ: URUQ_1 COMPARISON: None. RESULT: Pancreas: Unremarkable. No discrete focal lesions. Portions obscured: tail Liver: Echotexture: Normal, homogeneous. Echogenicity: Normal Surface contour: Smooth Lesions: Numerous subcentimeter echogenic foci with comet tail artifacts, which more commonly represent biliary hamartomas or cysts. Biliary: No intrahepatic biliary duct dilation. CBD: 0.3 cm at the hilum, normal post cholecystectomy. Right Kidney: No hydronephrosis. Ascites: None. Liver Stiffness Assessment: Mean:1.03 m/s Median: 1.05 m/s IQR / Median ratio: 0.14 IMPRESSION: NUMEROUS SUBCENTIMETER ECHOGENIC FOCI THROUGHOUT THE LIVER, WHICH MORE COMMONLY REPRESENT BILIARY HAMARTOMAS OR TINY CYSTS. OTHERWISE NORMAL LIVER MORPHOLOGY AND NO SONOGRAPHIC EVIDENCE FOR HEPATIC STEATOSIS. LIVER STIFFNESS ASSESSMENT SHOWS SIGNIFICANT FIBROSIS IS NOT LIKELY TO BE PRESENT (F0 OR F1). STATUS POST CHOLECYSTECTOMY. ---- References: Anette Hi, et all. Elastography Assessment of Liver Fibrosis: Society of Radiologists in Ultrasound Consensus Conference Statement. Radiology 2015 [place] 278(3):845-681). Shon Carvajal M. Lupsor. Performance of Acoustic Radiation Force Impulse imaging for the staging of liver fibrosis: a pooled meta-analysis. J Viral Hepat. 2012 Dec; 19(2):212-219. Note - ARFI liver stiffness assessments are based on data for patients with HCV> ARFI velocity values may be elevated in clinical situations other than fibrosis, such as active hepatic inflammation, cholestasis and right heart failure. Goldsmith Apprentice: RITIKA Transcribe Date/Time: Aug 02 2018 12:07P Dictated by : RUTH JAMISON MD This examination was interpreted and the report reviewed and electronically signed by: RUTH JAMISON MD on Aug 02 2018 12:23PM EST [id number] US ABD RIGHT UPPER Observed: 08/02/2018 Status: F Source: [facility] 12:00 PM [facility] REPOSITORY * * *Final Report* * * DATE OF EXAM: Aug 02 2018 12:00PM [place] 1032 - US ABD RIGHT UPPER QUADRANT / PROCEDURE REASON: Fatty Liver (K76.0) * * * * Physician Interpretation * * * * EXAMINATION: RIGHT UPPER QUADRANT WITH QUANTITATIVE LIVER STIFFNESS ASSESSMENT (ARFI) ULTRASOUND CLINICAL HISTORY: Fatty liver TECHNIQUE: Sonography of the right upper quadrant with quantitative liver stiffness assessment (ARFI) was performed. Images were obtained and stored in a permanent archive. MQ: URUQ_1 COMPARISON: None. RESULT: Pancreas: Unremarkable. No discrete focal lesions. Portions obscured: tail Liver: Echotexture: Normal, homogeneous. Echogenicity: Normal Surface contour: Smooth Lesions: Numerous subcentimeter echogenic foci with comet tail artifacts, which more commonly represent biliary hamartomas or cysts. Biliary: No intrahepatic biliary duct dilation. CBD: 0.3 cm at the hilum, normal post cholecystectomy. Right Kidney: No hydronephrosis. Ascites: None. Liver Stiffness Assessment: Mean:1.03 m/s Median: 1.05 m/s IQR / Median ratio: 0.14 IMPRESSION: NUMEROUS SUBCENTIMETER ECHOGENIC FOCI THROUGHOUT THE LIVER, WHICH MORE COMMONLY REPRESENT BILIARY HAMARTOMAS OR TINY CYSTS. OTHERWISE NORMAL LIVER MORPHOLOGY AND NO SONOGRAPHIC EVIDENCE FOR HEPATIC STEATOSIS. LIVER STIFFNESS ASSESSMENT SHOWS SIGNIFICANT FIBROSIS IS NOT LIKELY TO BE PRESENT (F0 OR F1). STATUS POST CHOLECYSTECTOMY. ---- References: Anette Hi et all. Elastography Assessment of Liver Fibrosis: Society of Radiologists in Ultrasound Consensus Conference Statement. Radiology 2015 July 278(3):845-681). Shon Carvajal M. Lupsor. Performance of Acoustic Radiation Force Impulse imaging for the staging of liver fibrosis: a pooled meta-analysis. J Viral Hepat. 2012 Dec; 19(2):212-219. Note - ARFI liver stiffness assessments are based on data for patients with HCV> ARFI velocity values may be elevated in clinical situations other than fibrosis, such as active hepatic inflammation, cholestasis and right heart failure. Goldsmith Apprentice: RITIKA Transcribe Date/Time: Aug 02 2018 12:07P Dictated by : RUTH JAMISON MD This examination was interpreted and the report reviewed and electronically signed by: RUTH JAMISON MD on Aug 02 2018 12:23PM EST [id number] ALLERGIES ALLERGIES DATE TYPE / CODE NAME / CODE REACTION SEVERITY SOURCE 01/27/2017 Drug No Known Unknown [facility] Allergy/4160 Allergies/F001 Hospital 69823(SNOMED 495133(RXNORM) Repository CT) 06/29/2008 DRUG ALCOHOL [facility] INGREDI/4195 [facility] 39563(SNOMED Repository CT) ENCOUNTERS ENCOUNTERS ADMIT/DISCHARGE ACCOUNT ADMITTING ENCOUNTER LOCATION SOURCE NUMBER CLASS 12/03/2018 [id number] Ambulatory Building:[facility] [place] Practices Repository 10/27/2018 [id number] [facility] ing:CT Repository 08/02/2018/08/02/20 [id number] Ambulatory [address] Repository 06/29/2018 [id number] [facility] ing:[facility] Repository 03/17/2018 [id number] Ambulatory BMSBuilding:Lucy Alarcon [facility] Repository 03/10/2018 [id number] Ambulatory [facility] Repository 03/08/2018 [id number] [facility] 02/17/2018 [id number] [facility] ing:CT Repository FUNCTIONAL STATUS FUNCTIONAL STATUS No Functional Status Records FoundEQUIPMENT EQUIPMENT No Equipment Records FoundPAYERS PAYERS ENCOUNTER GUARANTOR PAYER SUBSCRIBER SOURCE 12/03/2018 ZAYALEC LLOYDB: Primary ZAYALEC LLOYDB: OHIP Practices Insurance:Medical [id number] [facility]ository [facility] [place] AdvPolicy Number: [place] [address]Mlb: (995) [id number] [address]Eua: ()Tel: Date:1004-25-04Qtke [id number] () Name:CRANE HELPER Box ([address]) [address], [place] [id number]: 12/03/2018 Secondary ZAY Farmer ROSAB: [facility] Practices Insurance:[facility] [id number] Repository Care Claims [facility] DeptPolicy Number: [address] [place] [address]Effective [address]Wgl: Date: - ~(2864-88-66Gaaz () Name:[address]ERI Melvin [id number]: 12/03/2018 Tertiary ZAY STEVENSONLASHAB: [facility] Practices Insurance:Ethel [id number] Repository BC/BSPolicy Number: [facility] [id number] Allenrachel [place] tive Date:2007-03-16 [address]Bgj: - [id number] ~(330 Name:GPO [address] (HP) [id number], [place] [id number]: 12/03/2018 Tertiary ZAY L PRATTDOB: [facility]IP Practices Insurance:Ethel [id number] Repository /BSPolicy Number: Joan [id number] RdWo[place], [place] e Date:2008-10-16Tel: [phone] ~(330 Name:GPO [address] (HP) [phone], [place] [id number]: 12/03/2018 Tertiary ZAY L PRATTDOB: [facility] Practices Insurance:Ethel [id number] Repository [facility] Number: Joan [id number] RdWo[address], [place] e Date: [address]Xbu: [id number] ~(330 Name:GPO [address] (HP) [address]Hxiwqgl, [place] [id number]: 12/03/2018 Tertiary ZAY L PRATTDOB: [facility]IP Practices [facility] [id number] Repository y Number: Joan [id number] RdWooster, [place] Date: [address]Prt: [id number] ~(330 Name:FPO BOX (HP) [address]871HGCORPUS [place]RI[place] [id number]: 12/03/2018 Tertiary ZAY LLOYDDOB: [facility]IP Practices Insurance:[facility] [id number] Repository y Number: Joan [id number] RdW[address]oster, [place] Date:2010-11-1679098Pbn: [id number] ~(330 Name:FPO BOX (HP) [id number] [place] [id number]: 10/27/2018 ZAY Farmer [id number] Primary ZAY L PRATTDOB: Agnes STORY Insurance:O [id number] [facility] [place], [place] MEDICAREPolicy Hospital [address]Tel: (330) Number: Repository [phone] (HP) [id number] Date:9897-27-39QT [address] [place], [place] [address]WP: 10/27/2018 Secondary NOT GIVENUNK Ag[place] Insurance:SELF PAY [facility] Number: Effective Repository Date:2018-10-21 06/29/2018 Zay [id number] Primary NOT GIVENUNK [place] Insurance:SELF PAY [facility] [address]Top: (330) Number: Effective Repository [phone] (HP) Date:2018-06-11 03/17/2018 Zay Farmer [id number] Primary Zay LloydDOB: [place] Insurance:MEDICAL [id number] [address]Wxo: Number: Repository [phone] [id number] (HP) e Date:1469-87-43HE [address] [place], [place] [address]WP: 03/17/2018 Secondary NOT GIVENUNK [place] Insurance:SELF PAY [facility] Number: Effective Repository Date:2018-02-25 03/10/2018 Zay Farmer [id number] Primary Zay LloydDOB: [place] Insurance:MEDICAL [id number] [facility] [address]Gdf: Number: Repository [phone] [id number] (HP) e Date:0463-55-02EK [address] [place], [place] [address]WP: 03/10/2018 Secondary NOT GIVENUNK [place] Insurance:SELF PAY [facility] Number: Effective Repository Date:2018-03-10 03/08/2018 Zay Farmer [id number] Primary Zay HernandesB: [place] Insurance:MEDICAL [id number] Peaks Hospital [address]Iue: Number: Repository [phone] [id number] (HP) e Date:2017-82-68GV [address] [address]IP: 03/08/2018 Secondary NOT GIVENUNK [place] Insurance:SELF PAY [facility] Number: Effective Repository Date:2018-03-08 02/17/2018 Zay Farmer [id number] Primary Zay Darian HernandesB: Ag[place] [facility] Insurance:MEDICAL [id number] Peaks Hospital [address]Ipm: Number: Repository [phone] [id number] (HP) e Date:2043-22-58SC [address] [address]BT: 02/17/2018 Secondary NOT GIVENUNK [place] Insurance:SELF PAY [facility] Number: Effective Repository Date:2018-02-02 SOCIAL HISTORY SOCIAL HISTORY No Social History Records FoundFAMILY HISTORY FAMILY HISTORY No Family History Records FoundPREGNANCY No Status Records FoundADVANCE DIRECTIVES ADVANCE DIRECTIVES No Advanced Directives Records FoundINFORMATION SOURCE INFORMATION SOURCE DATE CREATED AUTHOR AUTHOR'S ORGANIZATION 12/08/2018 SHIRLEY
== END ==
PROVIDERS: Family Provider Internal Medicine; PCP Internal Medicine; Referring Provider Internal Medicine; Visit Provider Internal Medicine
DX: R10.11 Right upper quadrant pain (principal)
CPT/HCPCS: 74160; Q9967

== ENCOUNTER → 2020-07-13 12:09 | Outpatient (CLI) | payer MEDICARE, SELFPAY ==
--- NOTE | 2020-07-13 12:12 | RAD_ITS ---
STUDY: X-RAY - LEFT HAND REASON FOR EXAM: Male, 65 years old. Hand arthritis TECHNIQUE: 3 view(s) of the hand. COMPARISON: None. FINDINGS: Normal radiocarpal articulation. Normal distal radioulnar joint. Normal visualized carpal bones. Normal carpal articulations There is degenerative arthrosis of the carpometacarpal articulation of the thumb with lateral subluxation of the first metacarpus. Normal second through fifth carpometacarpal joints. Normal metacarpi. There is degenerative arthrosis of the metacarpophalangeal (MCP) joints. There is degenerative arthrosis of the interphalangeal joint of the thumb with articular joint space narrowing. Normal proximal and distal phalanges of the thumb. There is degenerative arthrosis of the metacarpophalangeal (MCP) joints. There is diffuse articular joint space narrowing of the proximal and distal interphalangeal joints of the second through fifth fingers, but without erosive changes or periarticular soft tissue swelling. Normal phalanges of the second through fifth fingers. The soft tissue structures are unremarkable. 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 No demonstrated fracture or suspicious osseous lesion Electronically Signed: Silvano Martinez MD at 17:03 EDT , Service support ,
--- NOTE | 2020-07-13 12:13 | RAD_ITS ---
STUDY: X-RAY - RIGHT HAND REASON FOR EXAM: Male, 65 years old. Hand arthritis TECHNIQUE: 2 view(s) of the hand. COMPARISON: None. FINDINGS: There is joint space narrowing of the radiocarpal articulation consistent with degenerative arthrosis. Normal distal radioulnar joint. Normal visualized carpal bones. Intracarpal arthrosis. There is degenerative arthrosis of the carpometacarpal articulation of the thumb with lateral subluxation of the first metacarpus. Normal second through fifth carpometacarpal joints. Normal metacarpi. There is degenerative arthrosis of the metacarpophalangeal (MCP) joints. There is degenerative arthrosis of the interphalangeal joint of the thumb with articular joint space narrowing. Normal proximal and distal phalanges of the thumb. There is degenerative arthrosis of the metacarpophalangeal (MCP) joints. There is diffuse articular joint space narrowing of the proximal and distal interphalangeal joints of the second through fifth fingers, but without erosive changes or periarticular soft tissue swelling. Normal phalanges of the second through fifth fingers. Chondrocalcinosis at the [facility] RAD/Hand Min 3 Views IMPRESSION: Polyarticular arthrosis, no demonstrated fracture or suspicious osseous lesion Electronically Signed: Silvano Mratinez MD at 17:05 EDT , Service support ,
== END ==
PROVIDERS: PCP Internal Medicine; Referring Provider Internal Medicine; Visit Provider Internal Medicine
DX: M19.041 Primary osteoarthritis, right hand (principal); M19.042 Primary osteoarthritis, left hand
CPT/HCPCS: 73130

== ENCOUNTER → 2020-07-24 09:46 | Outpatient (CLI) | payer MEDICARE, SELFPAY ==
--- NOTE | 2020-07-24 09:50 | CDU_ITS ---
Reason For Study: Carotid Stenosis Rt. Velocities/BP Lt. Velocities/BP Prox CCA 78.6/18.6 cm/sec. Prox CCA 87.6/21.2 cm/sec. Mid CCA 70.8/16.0 cm/sec. Mid CCA 64.5/14.5 cm/sec. Dist CCA 76.0/17.3 cm/sec. Dist CCA 64.5/15.4 cm/sec. Prox ICA 86.3/22.5 cm/sec. Prox ICA 54.2/16.8 cm/sec. Mid ICA 80.2/21.2 cm/sec. Mid ICA 54.2/15.7 cm/sec. Dist ICA 83.9/24.9 cm/sec. Dist ICA 64.1/21.2 cm/sec. Rt. ICA/CCA = 1.14. Lt. ICA/CCA = 1.00. Prox ECA 138.9/24.8 cm/sec. Prox ECA 82.7/16.8 cm/sec. Rt. Vert. 27.7/6.9 cm/sec. Lt. Vert. 31.1/10.2 cm/sec. Right Extracranial There is homogeneous, smooth atherosclerotic plaque noted in the right common carotid artery. There is heterogeneous, irregular atherosclerotic plaque noted in the right internal carotid artery. There is intimal thickening but no significant atherosclerotic plaque noted in the right external carotid artery. Antegrade flow is noted in the right vertebral artery. Left Extracranial There is homogeneous, smooth atherosclerotic plaque noted in the left common carotid artery. There is heterogeneous, irregular atherosclerotic plaque noted in the left internal carotid artery. There is intimal thickening but no significant atherosclerotic plaque noted in the left external carotid artery. Antegrade flow is noted in the left vertebral artery. Procedure Carotid Duplex 41783. Exam performed in department. Interpretation Summary Mild (<50%) stenosis right extracranial internal carotid. Mild (<50%) stenosis left extracranial internal carotid. Flow within the vertebral arteries is antegrade bilaterally. Ordering Physician: Val Wilde Referring Physician: Val Wilde Performed By: Namita Sanders RVT and Student
== END ==
PROVIDERS: PCP Internal Medicine; Referring Provider Internal Medicine; Visit Provider Internal Medicine
DX: I65.23 Occlusion and stenosis of bilateral carotid arteries (principal)
CPT/HCPCS: 93880

== ENCOUNTER → 2021-05-13 09:03 | Outpatient (CLI) | payer MEDICARE, SELFPAY ==
--- NOTE | 2021-05-13 09:18 | RAD_ITS ---
STUDY: X-RAY - LEFT FOOT CLINICAL: Male, 65 years old. Foot pain. TECHNIQUE: 3 view(s) of the foot. COMPARISON: None. FINDINGS: Mild generalized osteopenia. Mild arthrosis of the midfoot. Mild arthrosis of the MTP and IP joints with hammertoe deformities. The soft tissue structures are unremarkable. RAD/Foot min 3 Views IMPRESSION: Osteopenia with mild osteoarthritic changes as described. No acute abnormality, erosions or periostitis. Electronically Signed: Pablo Hewitt MD at 9:54 EDT , Service support ,
== END ==
PROVIDERS: PCP Internal Medicine; Referring Provider Podiatrist; Visit Provider Podiatrist
DX: M79.672 Pain in left foot (principal)
CPT/HCPCS: 73630

== ENCOUNTER → 2021-05-15 07:19 | Outpatient (CLI) | payer MEDICARE, SELFPAY ==
--- NOTE | 2021-05-15 07:28 | US_ITS ---
STUDY: ABDOMINAL ULTRASOUND - RIGHT UPPER QUADRANT REASON FOR VISIT: Male, 65 years old [place] TECHNIQUE: Ultrasound evaluation of the right upper quadrant was performed with real-time and static bynum-scale imaging. TECHNICAL QUALITY: Adequate. COMPARISON: None. FINDINGS: Liver: The liver measures 16.3 cm. There is increased echogenicity consistent with fatty infiltration. The bile ducts are within normal limits. There is hepatic color flow. The direction of portal flow is hepatopetal. There is no demonstrated mass lesion. Gallbladder: The patient is status post cholecystectomy. Common Bile Duct (C.B.D.): The common bile duct measures 5 mm. Pancreas: There is nonvisualization of the pancreas due to overlying bowel gas. Right Kidney: Normal size of the right kidney. The right kidney measures 11.5 cm x 5.2 cm x 5.1 cm. Normal renal cortex. The right cortex measures 1.5 cm. There is no demonstrated renal mass or cyst. There is no right hydronephrosis. IMPRESSION: Fatty infiltration of the liver. Status post cholecystectomy. Electronically Signed: Javon Lozoya MD at 14:56 EDT , Service support , STUDY: ABDOMINAL ULTRASOUND - ELASTOGRAPHY REASON FOR VISIT: Male, 65 years old. Fatty infiltration of the liver. TECHNIQUE: Liver stiffness measurements were obtained on a [employer] RS 85 ultrasound machine using a CA 1-7 probe following the SRU guidelines. 3 measurements were obtained using a 2-D-SWE method. The IQR/M was 6.5 % suggesting a quality data set. TECHNICAL QUALITY: Adequate. COMPARISON: Comparison is made with prior ultrasound of the right upper quadrant done earlier in the day. FINDINGS: Liver: Fatty infiltration of the liver. Median liver stiffness measured 9.3 kPa. US/Abdomen Limited IMPRESSION: Liver stiffness measures 9.3 kPa compatible with F2-F3 Metavir score. This is suggestive of compensated advanced chronic liver disease. Electronically Signed: Javon Lozoya MD at 15:00 EDT , Service support ,
== END ==
PROVIDERS: PCP Internal Medicine; Referring Provider Internal Medicine; Visit Provider Internal Medicine
DX: K75.81 Nonalcoholic steatohepatitis (NASH) (principal)
CPT/HCPCS: 76705; 76981

== ENCOUNTER → 2021-05-17 08:13 | Outpatient (CLI) | payer MEDICARE, SELFPAY ==
[2021-05-17 10:32] LABS: PTHIN 38.7 pg/mL (18.4-80.1)
== END ==
PROVIDERS: PCP Internal Medicine; Referring Provider Internal Medicine Rheumatology; Visit Provider Internal Medicine Rheumatology
DX: L40.59 Other psoriatic arthropathy (principal); M21.41 Flat foot [pes planus] (acquired), right foot; K76.0 Fatty (change of) liver, not elsewhere classified; K58.9 Irritable bowel syndrome, unspecified; I10 Essential (primary) hypertension; E78.5 Hyperlipidemia, unspecified; K57.90 Diverticulosis of intestine, part unspecified, without perforation or abscess without bleeding
CPT/HCPCS: 36415; 83970

== ENCOUNTER 2023-07-21 10:26 | Outpatient (CLI) | payer MEDICARE, SELFPAY ==
[2023-07-21 11:20] LABS: Anion Gap 9 (5-15); BUN 23 mg/dL (7-18); BUN/Creat Ratio 18.4 RATIO (10-20); Calcium,Total 9.5 mg/dL (8.5-10.1); Chloride 106 mmol/L (98-107); Creatinine, Serum 1.25 mg/dL (0.70-1.30); EST Glomerular Filtration Rate 61 mL/min (>60); Est Glom Filt Rate - Afr Amer 73 mL/min (>60); Glucose 151 mg/dL (74-106); Potassium 3.7 mmol/L (3.5-5.1); Sodium Level 140 mmol/L (136-145); Thyroid Stim Hormone (TSH) 0.99 uIU/mL (0.358-3.74)
== END 2023-07-21 23:59 | disposition home or self-care (01) ==
PROVIDERS: PCP Internal Medicine; Referring Provider Internal Medicine; Visit Provider Internal Medicine
DX: R94.31 Abnormal electrocardiogram [ECG] [EKG] (principal); I10 Essential (primary) hypertension
CPT/HCPCS: 80048; 84443

== ENCOUNTER → 2023-08-11 | Outpatient (CLI) | payer MEDICARE, SELFPAY ==
--- NOTE | 2023-08-11 10:44 | ECHOD_ITS ---
Reason For Study: ABN EKG Procedure This was a 2D Doppler, Color Flow transthoracic echocardiogram. Exam performed in department. Left Ventricle Normal LV size. Apical false tendon noted. Left ventricular systolic function is normal. The estimated ejection fraction is 60 %. Unable to assess diastolic dysfunction due to arrhythmia. No regional wall motion abnormalities noted. Right Ventricle Normal RV size. Normal systolic function. Atria There is mild biatrial dilatation. Mitral Valve The mitral valve is structurally normal. No prolapse or stenosis seen. Mild (1+) mitral valve insufficiency. Tricuspid Valve Normal tricuspid valve. Right ventricular systolic pressure estimated to be 46 mmHg. Mild to moderate (1-2+) eccentric tricuspid valve insufficiency. Aortic Valve Trisinus/trileaflet aortic valve. Mild focal aortic valve thickening. Aortic sclerosis, no stenosis. Trivial aortic valve insufficiency. Pulmonic Valve Trivial pulmonic valve insufficiency. Great Vessels Normal sized aortic root. Pericardium/Pleural No pericardial effusion. MMode/2D Measurements & Calculations LVIDd: 4.3 cm IVSd: 1.1 cm Ao root diam: 2.9 cm LVIDs: 2.6 cm LVPWd: 1.1 cm FS: 39.9 % LAV(MOD-bp): 63.3 ml LVAd ap4: 28.1 cm2 SV(MOD-sp4): 59.4 ml LAV(MOD-bp) Indexed: 32.1 ml/m2 LVLd ap4: 7.7 cm LAV(MOD-sp2): 58.7 ml EDV(MOD-sp4): 86.4 ml LAV(MOD-sp4): 66.4 ml EDV(sp4-el): 87.6 ml LVAs ap4: 14.2 cm2 LVLs ap4: 6.4 cm ESV(MOD-sp4): 27.0 ml ESV(sp4-el): 27.0 ml EF(MOD-sp4): 68.7 % EF(sp4-el): 69.2 % SV(sp4-el): 60.7 ml LA A4 area: 21.9 cm2 LA dimension(2D): 4.0 cm RA A4 area: 20.6 cm2 TAPSE: 2.4 cm Time Measurements MV dec time: 0.17 sec Doppler Measurements & Calculations MV E max pauline: 127.3 cm/sec MV V2 max: 129.6 cm/sec MV dec slope: 759.8 cm/sec2 MV A max pauline: 64.4 cm/sec MV max P.7 mmHg MV E/A: 2.0 MV V2 mean: 69.7 cm/sec MV mean P.3 mmHg MV V2 VTI: 38.3 cm Ao V2 max: 135.3 cm/sec LV V1 max: 104.3 cm/sec PA V2 max: 112.1 cm/sec Ao max P.3 mmHg LV V1 max P.4 mmHg PA V2 mean: 83.5 cm/sec Ao V2 mean: 101.1 cm/sec LV V1 mean P.3 mmHg Ao mean P.5 mmHg LV V1 mean: 72.2 cm/sec Ao V2 VTI: 32.7 cm LV V1 VTI: 24.5 cm AV (velocity ratio): 0.75 TR max pauline: 328.4 cm/sec TR max P.1 mmHg ECHO/Echo Complete Interpretation Summary The estimated ejection fraction is 60 %. Unable to assess diastolic dysfunction due to arrhythmia. There is mild biatrial dilatation. Mild (1+) mitral valve insufficiency. Right ventricular systolic pressure estimated to be 46 mmHg. Mild to moderate (1-2+) eccentric tricuspid valve insufficiency. Ordering Physician: Val Wilde Referring Physician: Val Wilde Performed By: Magaly Dick RCS
== END | disposition home or self-care (01) ==
LOC: CVS 10:40
PROVIDERS: PCP Internal Medicine; Referring Provider Internal Medicine; Visit Provider Internal Medicine
DX: R94.31 Abnormal electrocardiogram [ECG] [EKG] (principal)
CPT/HCPCS: 93225; 93226; 93306

== ENCOUNTER → 2023-09-01 | Outpatient (CLI) | payer MEDICARE, SELFPAY ==
[2023-09-01 11:47] LABS: Anion Gap 4 (5-15); BUN 15 mg/dL (7-18); BUN/Creat Ratio 15.5 RATIO (10-20); Calcium,Total 9.6 mg/dL (8.5-10.1); Chloride 105 mmol/L (98-107); Creatinine, Serum 0.97 mg/dL (0.70-1.30); EST Glomerular Filtration Rate 81 mL/min (>60); Est Glom Filt Rate - Afr Amer 98 mL/min (>60); Glucose 107 mg/dL (74-106); Magnesium 2.5 mg/dL (1.6-2.6); Potassium 3.8 mmol/L (3.5-5.1); Sodium Level 140 mmol/L (136-145)
== END | disposition home or self-care (01) ==
PROVIDERS: PCP Internal Medicine; Referring Provider Internal Medicine Cardiovascular Disease; Visit Provider Internal Medicine Cardiovascular Disease
DX: I27.20 Pulmonary hypertension, unspecified (principal); I47.29 Other ventricular tachycardia; R94.31 Abnormal electrocardiogram [ECG] [EKG]; R94.39 Abnormal result of other cardiovascular function study; I10 Essential (primary) hypertension; E78.5 Hyperlipidemia, unspecified
CPT/HCPCS: 36415; 80048; 83735

== ENCOUNTER → 2023-09-30 | Outpatient (CLI) | payer MEDICARE, SELFPAY ==
--- NOTE | 2023-10-05 12:33 | STRESSREP_ITS ---
Stress Test Report Date: 09/30/2023 Procedure: Exercise tolerance test/imaging study Indications: Arrhythmia Consent: Per the patient Procedure: The patient exercised on a Bryan protocol for 8 minutes achieving a peak heart rate of 133 bpm (88% predicted maximal heart rate) with a peak blood pressure 190/70 mmHg and a peak MET capacity of 10.1 METs. The baseline ECG demonstrated sinus rhythm with PVC. The peak exercise ECG demonstrated no ischemic changes. Occasional PVCs noted during exercise with more frequent PVCs during recovery. The functional capacity was considered good for age. There was no complaint of chest discomfort during exercise or recovery. The examination was discontinued secondary to target heart rate being achieved. The patient was injected with 13.9 mCi of technetium 99m Cardiolite and subsequently rest SPECT Cardiolite nuclear imaging was obtained in the horizontal long, vertical long, and short axis views. Post-exercise, the patient was injected with 43.7 mCi of technetium 99m Cardiolite and subsequently stress SPECT Cardiolite nuclear imaging was obtained in the horizontal long, vertical long, and short axis views. A gated Cardiolite study at peak stress was obtained. Rest and stress SPECT Cardiolite nuclear imaging status post realignment, normalization, and attenuation correction, demonstrates the appearance of relative uniform tracer uptake and myocardial perfusion appearing within normal limits. There is end systolic thickening and brightening. The gated Cardiolite study demonstrates myocardial thickening and inward wall motion. The reported LVEF is 67%. Impression: 1. Technically adequate (percent predicted maximal heart rate greater than 85%) exercise tolerance test 2. Peak exercise ECG with no ischemic changes 3. Occasional PVCs noted during exercise with more frequent PVCs during recovery. 4. Rest and stress SPECT Cardiolite nuclear imaging demonstrate relative uniform tracer uptake and myocardial perfusion appearing within normal limits. 5. The gated Cardiolite study reports an LVEF of 67%. This note was generated with [employer] software. It may contain incorrect words, spelling, and punctuation that were not noted in checking the note before signing.
== END | disposition home or self-care (01) ==
LOC: CVS 06:36
PROVIDERS: PCP Internal Medicine; Referring Provider Internal Medicine Cardiovascular Disease; Visit Provider Internal Medicine Cardiovascular Disease
DX: R94.31 Abnormal electrocardiogram [ECG] [EKG] (principal)
CPT/HCPCS: 78452; 93017; A9500; A4216

== ENCOUNTER → 2024-07-25 | Outpatient (CLI) | payer MEDICARE, SELFPAY ==
--- NOTE | 2024-07-25 08:01 | US_ITS ---
STUDY: ABDOMINAL ULTRASOUND - RIGHT UPPER QUADRANT REASON FOR VISIT: Male, 69 years old LUKE (Nonalcoholic steatohepatitis) TECHNIQUE: Ultrasound evaluation of the right upper quadrant was performed with real-time and static bynum-scale imaging. TECHNICAL QUALITY: Adequate. COMPARISON: None. FINDINGS: Liver: The liver measures 16.4 cm. There is increased echogenicity consistent with fatty infiltration. The bile ducts are within normal limits. There is hepatic color flow. The direction of portal flow is hepatopetal. There is no demonstrated mass lesion. Gallbladder: The patient is status post cholecystectomy. Common Bile Duct (C.B.D.): The common bile duct measures 5.5 mm. Pancreas: Normal size of the head, body and tail of the pancreas. There is normal echogenicity of the pancreas. There is no demonstrated pancreatic mass or cyst. Right Kidney: Normal size of the right kidney. The right kidney measures 11.9 cm x 5.5 cm x 4.9 cm. Normal renal cortex. The right cortex measures 1.5 cm. There is no demonstrated renal mass or cyst. There is no right hydronephrosis. IMPRESSION: Fatty infiltration of the liver. Electronically Signed: Javon Lozoya MD at 14:42 EDT , STUDY: ABDOMINAL ULTRASOUND - ELASTOGRAPHY REASON FOR VISIT: Male, 69 years old. Fatty infiltration of the liver. TECHNIQUE: Liver stiffness measurements were obtained on a [id number] ultrasound machine using a CA 1-7 probe following the SRU guidelines. 3 measurements were obtained using a 2-D-SWE method. TheIQR/M was 12% suggesting a quality data set. TECHNICAL QUALITY: Adequate. COMPARISON: None. FINDINGS: Liver: Fatty infiltration of the liver. Median liver stiffness measured 12.2 kPa. Abdomen: There is no demonstrated mass lesion. US/Abdomen Limited IMPRESSION: Liver stiffness measures 12.2 kPa compatible with F2-F3 (Mild to moderate liver fibrosis) Metavir score. Electronically Signed: Javon Lozoya MD at 14:42 EDT ,
== END | disposition home or self-care (01) ==
LOC: US 08:00
PROVIDERS: PCP Internal Medicine; Referring Provider Internal Medicine; Visit Provider Internal Medicine
DX: K75.81 Nonalcoholic steatohepatitis (NASH) (principal)
CPT/HCPCS: 76705; 76981

== ENCOUNTER → 2025-09-22 | Outpatient (CLI) | payer MEDICARE, SELFPAY ==
[2025-09-22 16:15] LABS: PSA,Total - Annual Screen 0.60 ng/mL (0.02-4.00)
== END | disposition home or self-care (01) ==
LOC: CIMLAB 15:06
PROVIDERS: PCP Internal Medicine; Referring Provider Internal Medicine; Visit Provider Internal Medicine
DX: R73.09 Other abnormal glucose (principal); Z12.5 Encounter for screening for malignant neoplasm of prostate
CPT/HCPCS: 36415; 83036; 84153; G0103

== ENCOUNTER → 2025-09-26 | Outpatient (CLI) | payer MEDICARE, SELFPAY ==
--- NOTE | 2025-09-26 08:27 | EKG12_ITS ---
Test Reason : AFIB Blood Pressure : */* mmHG Vent. Rate : 82 BPM Atrial Rate : 82 BPM P-R Int : 184 ms QRS Dur : 92 ms QT Int : 396 ms P-R-T Axes : 63 47 72 degrees QTcB Int : 462 ms Sinus rhythm with frequent Premature ventricular complexes Otherwise normal ECG Confirmed by Dixon Santiago ([id number]), film editor ANSELMO CARVAJAL ([id number]) on 09/27/2025 5:57:05 AM Referred By: Jesús Silva Confirmed By: Dixon Santiago
== END | disposition home or self-care (01) ==
PROVIDERS: PCP Internal Medicine; Referring Provider Internal Medicine Pulmonary Disease; Visit Provider Internal Medicine Pulmonary Disease
DX: I48.0 Paroxysmal atrial fibrillation (principal)
CPT/HCPCS: 93005